=== PATIENT | female | born 1950 | race African-American/Black ===

== ENCOUNTER → 2020-11-08 09:23 | Outpatient (BNVA) | payer OTHER, MEDICAID, SELFPAY | PROVIDERS: PCP Podiatrist Foot & Ankle Surgery; Visit Provider Internal Medicine ==

== ENCOUNTER 2020-12-01 09:25 | Outpatient (REF) | payer OTHER, MEDICAID, SELFPAY ==
[2020-12-01 10:40] LABS: Alanine Aminotransferase 12 U/L (0-31); Albumin Level 4.3 g/dL (3.5-5.0); Alkaline Phosphatase 94 U/L (39-117); Anion Gap 12 (12-20); Aspartate Amino Transferase 17 U/L (5-31); Bilirubin Direct < 0.2 mg/dL (0.0-0.5); Bilirubin Total 0.4 mg/dL (0.0-1.0); Blood Urea Nitrogen 16 mg/dL (9-16); Calcium 9.9 mg/dL (8.4-10.2); Carbon Dioxide 26 mmol/L (22-29); Chloride 105 mmol/L (96-108); Estimated Glomerular Filt Rate > 60; Glucose Fasting 129 mg/dL (60-99); Potassium 3.7 mmol/L (3.3-5.1); Sodium 139 mmol/L (135-145); Total Protein 7.4 g/dL (6.5-8.0)
[2020-12-01 11:11] LABS: Syphilis Screen Nonreactive (Nonreactive)
[2020-12-01 11:22] LABS: Folate 10.6 ng/mL (> or = 4.0); Vitamin B12 484 pg/mL (200-900)
[2020-12-02 13:06] LABS: Lyme Abs Screen <0.90 index
[2020-12-08 15:01] LABS: IgA 275 mg/dL (70-320); IgG 1418 mg/dL (600-1540); IgM 114 mg/dL (50-300)
== END 2020-12-01 09:26 | disposition home or self-care (01) ==
LOC: HO.LAB 09:25
PROVIDERS: PCP Psychiatry & Neurology Psychiatry; Visit Provider Psychiatry & Neurology Neurology
DX: G62.9 Polyneuropathy, unspecified (principal)
CPT/HCPCS: 36415; 80048; 80076; 82607; 82746; 82784; 86334; 86617; 86618; 86780

== ENCOUNTER 2022-07-04 01:52 | Emergency (ER) | payer OTHER, MEDICAID, SELFPAY ==
--- NOTE | ~2022-07-04 | XR_ITS ---
EXAMINATION: XR PELVIS CLINICAL INFORMATION: Left sacroiliitis COMPARISON: None available. TECHNIQUE: AP view of the pelvis. FINDINGS: Alignment across the hips is anatomic with mild to moderate joint space narrowing and degenerative change bilaterally. No acute fracture is seen. Sacroiliac joints appear intact. There is suggestion of mild sclerosis along the right greater than left sacroiliac joints. Degenerative change noted at the pubic symphysis. There are 2 linear densities overlying the lower lumbar spine which may represent postoperative sequelae. XR/XR pelvis 1-2V IMPRESSION: Suggestion of mild sclerosis along the right greater than left sacroiliac joints which may indicate sacroiliitis. Mild to moderate degenerative changes of the hips.
[2022-07-04 02:09] VITALS: BP 108/64; PULSE 86; RESP 16; TEMP 36.7; O2SAT 98; BMI 23.6
[2022-07-04 02:26] VITALS: BP 145/73; PULSE 83; RESP 16; O2SAT 99
--- NOTE | 2022-07-04 02:31 | PC.NURSE ---
pt assessed reported having severe lower back pain for several days. took motrin w/o any relief. denies any injury
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
[2022-07-04] MEDS: Cyclobenzaprine HCl 5 MG TABLET PO (03:05)
[2022-07-04] MEDS: Lidocaine 4 % Patch ADH..PATCH 1 PATCH TRANSDERMA (03:06)
[2022-07-04] MEDS: dexAMETHasone 2 MG TABLET 10 MG PO (03:06)
[2022-07-04 04:11] VITALS: BP 152/63; PULSE 83; RESP 17; TEMP 36.8; O2SAT 100
--- NOTE | 2022-07-04 04:16 | MHC.EDTECH ---
Patient is alert and oriented Vitals are stable Patient reports no pain. Waiting for Discharge Papers
--- NOTE | 2022-07-04 04:21 | PC.NURSE ---
Took over care from ONESIMO Moody at 3:15am, Assess pain and Reviewed discharge instructions with pt, pt verbalized understanding, pt wheel out to care by this RN, no sign of distress upon discharge.
== END 2022-07-04 04:27 | disposition home or self-care (01) ==
PROVIDERS: Emergency Provider Internal Medicine
DX: M46.1 Sacroiliitis, not elsewhere classified (principal); M54.50 Low back pain, unspecified; I10 Essential (primary) hypertension; Z79.899 Other long term (current) drug therapy; Z87.891 Personal history of nicotine dependence
CPT/HCPCS: 72170; 99283; 99284; J8540

== ENCOUNTER 2024-01-15 17:48 | Emergency (ER) | payer OTHER, MEDICAID, SELFPAY ==
[2024-01-15 17:50] VITALS: BP 116/36; PULSE 98; RESP 18; TEMP 36.6; O2SAT 98; BMI 22.5
--- NOTE | 2024-01-15 18:18 | ED_ITS ---
HPI - Extremity Injury (Lower) General Chief Complaint: Extremity Injury, Lower Stated Complaint: RT foot pain Time Seen by Provider: 01/15/24 18:18 Source: patient, RN notes reviewed and old records reviewed Mode of arrival: ambulatory History of Present Illness ED Provider: Arminda Gavin PA-C HPI Narrative: 73-year-old female with a past medical history HTN, narcolepsy, schizoaffective disorder, peripheral neuropathy, presenting to the ED complaining of chronic calluses to right foot which she follows with podiatry. States she sees podiatry every 2 months however her lead janitor recently passed, last saw in November, and next appointment not until the end of January. Requesting calluses be shaved. Denies pain, fever, chills, drainage from area, injury Related Data Home Medications ?Medication ?Instructions ?Recorded ?Confirmed chlorthalidone 25 mg tablet 25 mg PO DAILY 11/08/20 11/08/20 gabapentin 300 mg capsule 300 mg PO BID 11/08/20 11/08/20 trifluoperazine 5 mg tablet 5 mg PO DAILY 11/08/20 11/08/20 trihexyphenidyl 2 mg tablet 2 mg PO DAILY 11/08/20 11/08/20 Previous Rx's ?Medication ?Instructions ?Recorded ibuprofen 600 mg tablet 600 mg PO Q6H PRN fever or pain 07/04/22 #30 tabs lidocaine 4 % topical patch 1 patch topical DAILY PRN pain #10 07/04/22 (Salonpas (lidocaine)) ea prednisone 20 mg tablet 40 mg (2 x 20 mg) PO DAILY #10 tabs 07/04/22 Allergies Allergy/AdvReac Type Severity Reaction Status Date / Time oxycodone AdvReac Intermediate sleepiness Verified 01/15/24 17:51 Review of Systems Review of Systems: Yes all other systems are reviewed and are negative Constitutional: Constitutional: Reports as per [facility] Past Medical History Attestation statement: The following information was validated with the patient. Source: old records reviewed Medical History Essential hypertension Cyst of neck Abnormal ultrasound of neck Refusal of blood transfusions as patient is Catholic Cervical spinal stenosis Narcolepsy Ovarian cyst Schizoaffective disorder Chronic peripheral neuropathic pain Social History Social History Alcohol intake: never Patient Tobacco Use Status: Former Tobacco user Advance Directives: No Advance Directives Information Provided: No Do you have a plan to hurt others: No Plan Physical Exam Vital Signs: Vital Signs: Last Vital Signs Temp 98 F 01/15/24 18:59 Pulse 98 01/15/24 18:59 Resp 18 01/15/24 18:59 BP 116/36 L 01/15/24 18:59 Pulse Ox 98 01/15/24 18:59 O2 Del Method Room Air 01/15/24 18:59 BMI result Body Mass Index 22.5 Const: General: cooperative, healthy appearing and no acute distress Orientation/consciousness: patient oriented x3 Limitations: no limitations HEENT: Head: Yes normal to inspection and Yes atraumatic Ears: hearing grossly normal bilaterally General nose exam: Normal external nose present Face and sinus: Yes normal facial exam Eyes: General: appearance normal, both eyes and all related structures EOM: EOMs intact bilaterally Neck: Neck: Yes normal visual inspection and Yes no meningeal signs Resp: Effort & Inspection: normal respiratory effort and no respiratory distress Cardio: Rate: regular rate Skin: Rashes: no rashes Neuro: General: patient oriented x3, tone normal and no meningeal signs Cranial nerves: Yes CN's II-XII intact bilaterally Gait exam (Neuro): Normal gait present Extrem: Other: + chronic calluses noted to plantar aspe ct of right foot. + small open skin to plantar aspect of great toe. No erythema, no warmth, nontender. No fluctuance/induration or pus drainage. Medications Administered Discontinued Medications Generic Name Dose Route Start Last Admin Trade Name Sravanq PRN Reason Stop Dose Admin Bacitracin 1 appl 01/15/24 18:35 01/15/24 18:52 Bacitracin Oint 0.9 Gm Packet TOPICAL 01/15/24 18:36 1 appl ONCE ONE Administration Protocol Medical Decision Making Medical Decision Making MDM Narrative: 73-year-old female with a past medical history HTN, narcolepsy, schizoaffective disorder, peripheral neuropathy, presenting to the ED complaining of chronic calluses to right foot which she follows with podiatry. On exam vital signs stable, NAD, nontoxic appearing, physical exam as noted above with chronic calluses to right foot. No evidence of cellulitis, abscess, or infection. Low suspicion for osteomyelitis Plan: Discussed with patient local wound care and needed Podiatry follow-up. Will provide patient with additional specialist information Please refer to course for remaining clinical decision making, interpretation of labs/imaging results, and discussions with consultants and/or family members. Results discussed with patient including worrisome signs and symptoms and strict return precautions, and when to return to the emergency department. They verbalized understanding and feel safe for discharge at this time. Differential Diagnosis Differential Diagnoses: The differential diagnosis associated with the presentation includes As above External Record Review External record reviewed: Inpatient record, Office record, Outpatient record, Prior outpatient labs, Prior outpatient radiology, Primary care record and Outside ED record Tests considered The following testing was considered but not selected: As above Chronic Conditions Patient?s care impacted by: Other Social Determinants Patient?s care significantly limited by Social Determinants of Health including: Other Social Determinant of Health Discharge Plan Discharge Clinical Impression: Callus of foot Patient Disposition: Home, Self-Care Additional Instructions: Please follow-up with podiatry Please provide local wound care as discussed If area begins look infected, is red, there is pus drainage, fever, pain return to the emergency department Prescriptions: No Action prednisone 20 mg tablet 40 mg PO DAILY Qty: 10 0RF ibuprofen 600 mg tablet 600 mg PO Q6H PRN (Reason: fever or pain) Qty: 30 0RF lidocaine [Salonpas (lidocaine)] 4 % adhesive patch,medicated 1 patch topical DAILY PRN (Reason: pain) Qty: 10 0RF Rx Instructions: may leave on for up to 12 hrs trifluoperazine 5 mg tablet 5 mg PO DAILY trihexyphenidyl 2 mg tablet 2 mg PO DAILY Rx Instructions: give with food (meal/snack) gabapentin 300 mg capsule 300 mg PO BID chlorthalidone 25 mg tablet 25 mg PO DAILY Referrals: Mague Cornejo DPM [Physician] - Brittanie Zepeda DPM [Physician] - Stanley Elliott DPM [] - Lenny Sands MD [Physician] - Benigno Sands DPM [Physician] - Interventions: ED Discharge Assessment Last Done: 01/15/24 18:59 Discharge Date/Time: 01/15/24 18:59 Print Language: Greek
--- OUTSIDE RECORDS SUMMARY | 2024-01-15 18:20 | XMS_ITS | Continuity of Care Document ---
Author Organization [facility] [place] Address [address] [place] [id number]- Care Team Providers Care Snuff Blender Name Role Phone Zac Call MD, Pau Primary Care Phys ician Encounter [facility] Date(s): 07/02/22 - 07/02/[address] [address]- Discharge Disposition: A-D/C Walkout Attending Physician: Not on Staff, Attending MD Admitting Physician: Not on Staff, Admitting MD Referring Physician: Not on Staff, Referring MD Allergies, Adverse Reactions, Alerts Substance Reaction Severity Status gabapentin Active Percocet Active Other Environmental Allergy seasonal Active Immunizations Given and Recorded Vaccine Date Status Refusal Reason tetanus/diphtheria/pertussis, acel(Tdap) 06/14/13 Given Measles/Mumps/Rubella Virus Vaccine 07/10/96 Given Problem List Condition Confirmation Course Effective Dates Status H ealth Status Informant Appendectomy Confirmed Active Eczema Confirmed Active Hypercholesterolemia Confirmed 09/23/08 Active Hypertension Confirmed 02/11/08 Active Low back pain Confirmed Active Schizophrenia Confirmed Active Tubal ligation Confirmed Active Vital Signs Most recent to oldest [Reference Range]: 1 2 Height 165 cm (07/02/22 8:38 PM) Weight 63.5 kg (07/02/22 8:38 PM) Oxygen Saturation [94-100 %] 100 % (07/02/22 10:34 PM) 100 % (07/02/22 8:38 PM) Pulse Rate [55-90 bpm] 98 bpm *H* (07/02/22 10:34 PM) 95 bpm *H* (07/02/22 8:38 PM) Blood Pressure [90-138/55-84 mm Hg] 114/ 80mm Hg (07/02/22 10:34 PM) 127/67mm Hg (07/02/22 8:38 PM) Respiratory Rate [16-30 br/min] 15 br/mi n *L* (07/02/22 8:38 PM) Temperature [96.8-100.4 DegF] 99.2 DegF (07/02/22 8:38 PM) Mode of Delivery (Oxygen) Room air (07/02/22 10:34 PM) Room air (07/02/22 8:38 PM) Blood pressure sites Arm, left (07/02/22 10:34 PM) Arm, right (07/02/22 8:38 PM) Temperature Route Oral (07/02/22 8:38 PM) Dry Weight 63.5 kg (07/02/22 8:38 PM) Patient Care team information Care Team Personnel Name: Enid Tanner Position: [facility] Outreach Member Role: Lifetime Consulting Physician Name: Pau Eubanks MD Position: Reference Physician Member Role: PCP Address: Address: [address] [place] [address] [place], [place] [address] Name: Sanjuana Rockwell RN Position: [facility] RN Member Role: Primary Care Nurse Care Team Related Persons Name: GLADYS GARCIA Address: home [address] [place] [address] Name: JOHNY GARCIA Address: home [address] [place] [address]
--- OUTSIDE RECORDS SUMMARY | 2024-01-15 18:20 | XMS_ITS | Continuity of Care Document ---
Author Organization [facility] ter Address [address] [place] [id number]- Care Team Providers Care Sign Letterer Name Role Phone Zac Call MD, Pau Primary Care Phys ician Encounter [facility] Date(s): 04/16/23 - 04/19/[address] [address]- Discharge Disposition: Transfer to [facility] Facility Attending Physician: Sloane Nichols MD Admitting Physician: Sloane Nichols MD Referring Physician: Not on Staff, Referring [...] recent to oldest [Reference Range]: 1 2 3 Oxygen Saturation [94-100 %] 98 % (04/19/23 9:00 AM) 100 % (04/18/23 1:26 PM) 100 % (04/17/23 8:05 PM) Pulse Rate [55-90 bpm] 89 bpm (04/19/23 9:00 AM) 103 bpm *H* (04/18/23 1:26 PM) 92 bpm *H* (04/17/23 8:05 PM) Blood Pressure [90-138/55-84 mm Hg] 125/69mm Hg (04/19/23 9:00 AM) 140/90mm Hg *H* (04/18/23 1:26 PM) 115/63mm Hg (04/17/23 8:05 PM) Respiratory Rate [16-30 br/min] 19 br/min (04/19/23 9:00 AM) 20 br/min (04/18/23 1:26 PM) 16 br/min (04/17/23 8:05 PM) Temperature [96.8-100.4 DegF] 98.1 DegF (04/19/23 9:00 AM) 98.4 DegF (04/17/23 8:05 PM) 98.7 DegF (04/17/23 3:38 PM) Mode of Delivery (Oxygen) Room air (04/19/23 9:00 AM) Room air (04/18/23 1: PM) Room air (04/17/23 8:05 PM) Blood pressure sites Arm, left (04/19/23 9:00 AM) Arm, right (04/18/23 1:26 PM) Arm, left (04/17/23 8:05 PM) Temperature Route Oral (04/19/23 9:00 AM) Oral (04/17/23 8:05 PM) Oral (04/17/23 3:38 PM) EKG study * Event Display: EKG Authored Date: Hospital Progress note * Nica Ann MD: PERFORM Event Display: Progress Note Hospital Authored Date: Patient: ??JERSON GARCIA ? Age:??72 Years?Sex:??Female?:??1950?? Subjective ?? Pt seen in a stretcher in the ED. She is fairly upset to see psychiatry, reports she does not wantto take the damn pills . When asked why, she reports they make her sleepy and she does not need them. Pt visibly frustrated and turned her back to this advertising writer and stopped answering questions. ?? I met with Pt's brother, sister and . They report her antipsychotic was last filled in October 2022. They were not sure why she stopped her medications. Report at home she has had worsening agitation, restlessness and gets into arguments with family. Report that she was calm yesterday but has been very upset today, demanding to go home which they do not feel is safe. We also spoke about type of unit, she does not currently have geriatric needs and an adult unit should be ok. ?? Review of Systems 10 point review of systems negative except Pertinent positives as above noted.?? Objective Vital Signs?? Temperature: 98.4 DegF (04/17/23 20:05:00) Temperature Route: Oral (04/17/23 20:05:00) Pulse Rate:??103 bpm??High (04/18/23 13:26:00) Respiratory Rate: 20 br/min (04/18/23 13:26:00) Systolic Blood Pressure:??140 mm Hg??High (04/18/23 13:26:00) Diastolic Blood Pressure:??90 mm Hg??High (04/18/23 13:26:00) Blood pressure sites: Arm, right (04/18/23 13:26:00) Mean Arterial Pressure: 107 mm Hg (04/18/23 13:26:00) Pulse Pressure: 50 mm Hg (04/18/23 13:26:00) Oxygen Saturation: 100 % (04/18/23 13:26:00) Mode of Delivery (Oxygen): Room air (04/18/23 13:26:00) ? Physical Exam ?? Mental Status Exam: Appearance:??hospital garb, shirt wrapped around her head, restless ?? Attitude: uncooperative Motor activity: restless. ? Mood: angry Affect: appropriate. ? Speech: fluent, unimpaired. ? Perception:??unclear, potential paranoia around medications and there colors? Orientation: to self, location . ? Memory: unable to assess. ? Judgment: poor. ? Insight: poor . ? Thought process: goal-directed. ? Reliability: uncertain. ? Suicidality/self-destructive behavior: none. ? Homicidality/violence: none. ? Group Detail Date Value w/Units Flags Normal Range Normal Reference Text Comment Ind TOXICOLOGY/TDM Barbiturate Screen, Urine 04/16/2023 17:00:00 EST NONE DETECTED? Y TOXICOLOGY/TDM Cannabinoid Screen, Urine 04/16/2023 17:00:00 EST NONE DETECTED? Y TOXICOLOGY/TDM Cocaine Metabolite Screen, Urine 04/16/2023 17:00:00 EST NONE DETECTED? Y TOXICOLOGY/TDM Benzodiazepine Screen, Urine 04/16/2023 17:00:00 EST NONE DETECTED? Y TOXICOLOGY/TDM Amphetamine Screen, Urine 04/16/2023 17:00:00 EST NONE DETECTED? Y TOXICOLOGY/TDM Opiate Screen, Urine 04/16/2023 17:00:00 EST NONE DETECTED? Y UA/URINALYSIS Appear/Color, Urine 04/16/2023 17:00:00 EST LIGHT YELLOW? Y UA/URINALYSIS Specific [place], Urine 04/16/2023 17:00:00 EST 1.006? 1.002-1.030 ? UA/URINALYSIS pH, Urine 04/16/2023 17:00:00 EST 6.0? 5.0-8.0 ? UA/URINALYSIS Albumin, Urine 04/16/2023 17:00:00 EST NEGATIVE? UA/URINALYSIS Glucose, Urine 04/16/2023 17:00:00 EST NEGATIVE? UA/URINALYSIS Ketones, Urine 04/16/2023 17:00:00 EST NEGATIVE? UA/URINALYSIS Bilirubin, Urine 04/16/2023 17:00:00 EST NEGATIVE? UA/URINALYSIS Hemoglobin, Urine 04/16/2023 17:00:00 EST NEGATIVE? UA/URINALYSIS Nitrite, Urine 04/16/2023 17:00:00 EST NEGATIVE? UA/URINALYSIS Leukocyte, Urine 04/16/2023 17:00:00 EST 1+?? ABN ? UA/URINALYSIS Urobilinogen 04/16/2023 17:00:00 EST NORMAL mg/dL ? UA/URINALYSIS WBC's, Urine 04/16/2023 17:00:00 EST 5 /HPF ?? 0-5 ? UA/URINALYSIS RBC's, Urine 04/16/2023 17:00:00 EST 1 /HPF ?? 0-3 ? UA/URINALYSIS Bacteria 04/16/2023 17:00:00 EST SLIGHT HPF ABN ? UA/URINALYSIS Squamous Epith 04/16/2023 17:00:00 EST 1 /HPF ?? 0-8 ? UA/URINALYSIS Mucus 04/16/2023 17:00:00 EST SLIGHT /LPF ? UA/URINALYSIS Hold Urine Culture 04/16/2023 17:00:00 EST Testing available 48 hours from time of collection.? VIROLOGY Influenza A PCR 04/16/2023 15:00:00 EST NEGATIVE? Y VIROLOGY Influenza B PCR 04/16/2023 15:00:00 EST NEGATIVE? Y VIROLOGY RSV PCR 04/16/2023 15:00:00 EST NEGATIVE? Y VIROLOGY COVID-19 PCR Specimen Source 04/16/2023 15:00:00 EST NASAL? VIROLOGY COVID-19 PCR Result 04/16/2023 15:00:00 EST NEGATIVE? Y BLOOD COUNT & DIFF WBC 04/16/2023 12:56:00 EST 5.5 k/mm3 ?? 4.0-11.0 ? BLOOD COUNT & DIFF RBC 04/16/2023 12:56:00 EST 3.52 m/mm3 L 4.20-5.40 ? BLOOD COUNT & DIFF Hgb 04/16/2023 12:56:00 EST 10.8 Gm/dL L 11.7-15.5 ? BLOOD COUNT & DIFF Hct 04/16/2023 12:56:00 EST 31.4 % L 35.7-45.8 ? CHEM GENERAL Sodium 04/16/2023 12:56:00 EST 129 mmol/L L 133-145 ? CHEM GENERAL Potassium 04/16/2023 12:56:00 EST 4.3 mmol/L ?? 3.6-5.2 ? CHEM GENERAL Chloride 04/16/2023 12:56:00 EST 93 mmol/L L 98-107 ? CHEM GENERAL Bicarbonate Level 04/16/2023 12:56:00 EST 21 mmol/L L 22-29 ? CHEM GENERAL Anion Gap 04/16/2023 12:56:00 EST 15? 4-17 ? CHEM GENERAL Glucose Level 04/16/2023 12:56:00 EST 140 mg/dL H 70-99 ? CHEM GENERAL BUN 04/16/2023 12:56:00 EST 13 mg/dL ?? 8-23 ? CHEM GENERAL Creatinine-Blood 04/16/2023 12:56:00 EST 0.9 mg/dL ?? 0.5-1.0 ? CHEM GENERAL Estimated GFR Creatinine 04/16/2023 12:56:00 EST 67 ML/MIN/1.73 M2 ? Y CHEM GENERAL Calcium 04/16/2023 12:56:00 EST 9.6 mg/dL ?? 8.6-10.5 ? CHEM GENERAL Protein, Total 04/16/2023 12:56:00 EST 6.8 Gm/dL ?? 6.2-8.2 ? CHEM GENERAL Albumin 04/16/2023 12:56:00 EST 3.9 Gm/dL ?? 3.4-4.8 ? CHEM GENERAL AG Ratio 04/16/2023 12:56:00 EST 1.3? CHEM GENERAL Alkaline Phosphatase 04/16/2023 12:56:00 EST 99 units/L ?? 35-104 ? CHEM GENERAL AST (SGOT) 04/16/2023 12:56:00 EST 26 units/L ?? 0-32 ? CHEM GENERAL ALT (SGPT) 04/16/2023 12:56:00 EST 17 units/L ?? 0-33 ? CHEM GENERAL Bilirubin, Total 04/16/2023 12:56:00 EST 0.4 mg/dL ?? 0-1.2 ? _ Inpatient Medications Medications (3) Active SCHEDULED: (2) Trifluoperazine 5 mg tablet ??Trifluoperazine 5 mg tablet, By Mouth, 2 times a day Trihexyphenidyl 2 mg Tablet (trihexyphenidyl 2 mg oral tablet) ??2 mg, By Mouth, Daily CONTINUOUS: (0) PRN: (1) Haloperidol 2 mg Tablet (haloperidol 2 mg oral tablet) ??2 mg, By Mouth, 3 times a day ? Results Recent Labs No labs resulted between 04/17/2023 00:00 and 04/18/2023 13:45? Assessment/Plan Pt is a 72-year-old female with a history of schizophrenia presents on a section 12 due to concern for medication noncompliance. ?? Pt today presenting with increased agitation, restlessness and some paranoia around medications as she has been non-compliant overnight and today with medications.?? Family??report she is worse today, do not feel she is safe to go home. Agreeable to adult inpatient psychiatric admission. ?? Per family she has been able to be fairly stable for years now on Trihexyphenidyl and hope she willbe agreeable to take medication but we also discussed as need haldol for acute agitaion. ? Dx: schizophrenia ?? Recommendation -Inpatient psychiatric bed search -Continue current medications ? Consult note * Nica Ann MD: PERFORM, MODIFY Event Display: Consultation Note Authored Date: [id number] Patient: ??JERSON GARCIA ? Age:??72 Years?Sex:??Female?:??1950?? Chief Complaint/Reason for Consultation Medication management History of Present Illness Pt is a 72-year-old female with a history of schizophrenia presents on a section 12 due to concern for medication noncompliance. ?? Per records, at initial presentation Pt states that she has not been taking her medications and that she lives at home but unable to determine why she is not taking her medications. ??She denies any medical complaints at this time including chest pain, shortness of breath or abdominal pain. ??She denies any SI or HI. Patient does not appear to be responding to internal stimuli but apparently has not been compliant with her meds for some time, unclear of exact timeframe. ??History is difficult to obtain from the patient as she does not answer questions directly and states that she does not need to be here. ?? Pt found resting in a stretcher in B pod. More awake, alert and engaging. Reports she lives withher Emmett and daughter Aranza. Pt reports she stopped her Stelazine which she has been taking for years. She reports there is a blue version and a white version depending on name brand or generic and she likes the blue one the most. She did not have a reason for stopping her medications, reports she could not get it any longer. She is agreeable to start her medication. She denies depression, denies SI/HI, denies AVH and denies evelia symptoms. ?? Past Psychiatric hx: Reported hx of Schizophrenia Remote hx of psychiatric admissions-2011, 2002 and 2006?? Pt last prescribed?trifluoperazine in 10/2022 ??but continues to be prescribed ?? trihexyphenidylby PCP. Appears pt has been on trifluoperazine for a very long time. ? Review of Systems 10 point review of systems negative except Pertinent positives as above noted.?? Objective Vital Signs?? Temperature: 98.2 DegF (04/17/23 08:30:00) Temperature Route: Oral (04/17/23 08:30:00) Pulse Rate: 70 bpm (04/17/23 08:30:00) Respiratory Rate: 18 br/min (04/17/23 08:30:00) Systolic Blood Pressure:??141 mm Hg??High (04/17/23 08:30:00) Diastolic Blood Pressure: 82 mm Hg (04/17/23 08:30:00) Blood pressure sites: Arm, left (04/16/23 16:24:00) Mean Arterial Pressure: 98 mm Hg (04/16/23 16:24:00) Pulse Pressure: 59 mm Hg (04/17/23 08:30:00) Oxygen Saturation: 98 % (04/17/23 08:30:00) Mode of Delivery (Oxygen): Room air (04/16/23 16:24:00) ? Physical Exam ?? Mental Status Exam: Appearance:??hospital garb?? Attitude: cooperative. ? Motor activity: calm. ? Mood: ok . ? Affect: appropriate. ? Speech: fluent, unimpaired. ? Perception: no impairment. ? Orientation:??to self and location. ?? Memory: fair. ? Judgment: fair. ? Insight: intact. ? Thought process: goal-directed. ? Reliability: fair . ? Suicidality/self-destructive behavior: none. ? Homicidality/violence: none. ?? Group Detail Date Value w/Units Flags Normal Range Normal Reference Text Comment Ind TOXICOLOGY/TDM Barbiturate Screen, Urine 04/16/2023 17:00:00 EST NONE DETECTED? Y TOXICOLOGY/TDM Cannabinoid Screen, Urine 04/16/2023 17:00:00 EST NONE DETECTED? Y TOXICOLOGY/TDM Cocaine Metabolite Screen, Urine 04/16/2023 17:00:00 EST NONE DETECTED? Y TOXICOLOGY/TDM Benzodiazepine Screen, Urine 04/16/2023 17:00:00 EST NONE DETECTED? Y TOXICOLOGY/TDM Amphetamine Screen, Urine 04/16/2023 17:00:00 EST NONE DETECTED? Y TOXICOLOGY/TDM Opiate Screen, Urine 04/16/2023 17:00:00 EST NONE DETECTED? Y UA/URINALYSIS Appear/Color, Urine 04/16/2023 17:00:00 EST LIGHT YELLOW? Y UA/URINALYSIS Specific [place], Urine 04/16/2023 17:00:00 EST 1.006? 1.002-1.030 ? UA/URINALYSIS pH, Urine 04/16/2023 17:00:00 EST 6.0? 5.0-8.0 ? UA/URINALYSIS Albumin, Urine 04/16/2023 17:00:00 EST NEGATIVE? UA/URINALYSIS Glucose, Urine 04/16/2023 17:00:00 EST NEGATIVE? UA/URINALYSIS Ketones, Urine 04/16/2023 17:00:00 EST NEGATIVE? UA/URINALYSIS Bilirubin, Urine 04/16/2023 17:00:00 EST NEGATIVE? UA/URINALYSIS Hemoglobin, Urine 04/16/2023 17:00:00 EST NEGATIVE? UA/URINALYSIS Nitrite, Urine 04/16/2023 17:00:00 EST NEGATIVE? UA/URINALYSIS Leukocyte, Urine 04/16/2023 17:00:00 EST 1+?? ABN ? UA/URINALYSIS Urobilinogen 04/16/2023 17:00:00 EST NORMAL mg/dL ? UA/URINALYSIS WBC's, Urine 04/16/2023 17:00:00 EST 5 /HPF ?? 0-5 ? UA/URINALYSIS RBC's, Urine 04/16/2023 17:00:00 EST 1 /HPF ?? 0-3 ? UA/URINALYSIS Bacteria 04/16/2023 17:00:00 EST SLIGHT HPF ABN ? UA/URINALYSIS Squamous Epith 04/16/2023 17:00:00 EST 1 /HPF ?? 0-8 ? UA/URINALYSIS Mucus 04/16/2023 17:00:00 EST SLIGHT /LPF ? UA/URINALYSIS Hold Urine Culture 04/16/2023 17:00:00 EST Testing available 48 hours from time of collection.? BLOOD COUNT & DIFF WBC 04/16/2023 12:56:00 EST 5.5 k/mm3 ?? 4.0-11.0 ? BLOOD COUNT & DIFF RBC 04/16/2023 12:56:00 EST 3.52 m/mm3 L 4.20-5.40 ? BLOOD COUNT & DIFF Hgb 04/16/2023 12:56:00 EST 10.8 Gm/dL L 11.7-15.5 ? BLOOD COUNT & DIFF Hct 04/16/2023 12:56:00 EST 31.4 % L 35.7-45.8 ? CHEM GENERAL Sodium 04/16/2023 12:56:00 EST 129 mmol/L L 133-145 ? CHEM GENERAL Potassium 04/16/2023 12:56:00 EST 4.3 mmol/L ?? 3.6-5.2 ? CHEM GENERAL Chloride 04/16/2023 12:56:00 EST 93 mmol/L L 98-107 ? CHEM GENERAL Bicarbonate Level 04/16/2023 12:56:00 EST 21 mmol/L L 22-29 ? CHEM GENERAL Anion Gap 04/16/2023 12:56:00 EST 15? 4-17 ? CHEM GENERAL Glucose Level 04/16/2023 12:56:00 EST 140 mg/dL H 70-99 ? ENDOCRINE/TUMOR MARKER TSH 04/16/2023 12:56:00 EST 1.06 uIU/mL ?? 0.4-4.2 ? TOXICOLOGY/TDM Ethanol, Serum or Plasma 04/16/2023 12:56:00 EST NONE DETECTED mg/dL ? Y Assessment/Plan Diagnoses ?? Pt is a 72-year-old female with a history of schizophrenia presents on a section 12 due to concern for medication noncompliance. ?? Pt today presents more engaging and alert, denies depression, denies SI/HI, denies AVH and no grossmania or psychosis noted. ?? Recommend to restart home trifluoperazine?? once family brings it in, otherwise can offer??prn haldol 2mg TID prn??for anxiety or agitation. ?? Currently no overt signs of evelia, psychosis or self harm noted. Pt has been calm as well. ?? Pt currently does not meet criteria for psychiatric admission. ?? I called and left??message for ??Emmett and daughter's number is no longer in service. ? Dx: Schizophrenia ? Recommendations: -Restart trifluoperazine??when family brings it in -Currently does not require a psychiatric admission -If presentation changes can re-assess ? Histories Allergies Allergies ?(Active and Proposed Allergies Only) Percocet? (Severity: Unknown severity, Onset: Unknown) gabapentin? (Severity: Unknown severity, Onset: Unknown) Other Environmental Allergy? (Severity: Unknown severity, Onset: Unknown) ?Reactions: seasonal ? Past Medical History/Problem List Active Problems??(7) Appendectomy Eczema Hypercholesterolemia Hypertension Low back pain Schizophrenia Tubal ligation ? Past Surgical History Discectomy, anterior, with decompression of spinal cord and/or nerve root(s), including osteophytectomy; cervical, single interspace: 2006 ? Social History No social history documented. ? Psychosocial History ? Family History Mother: Diabetes mellitus type II Sister: Diabetes mellitus type II Sibling: Hyperlipidemia ? Medications Home Medications No medications documented.? Inpatient Medications Medications (1) Active SCHEDULED: (0) CONTINUOUS: (0) PRN: (1) Haloperidol 2 mg Tablet (haloperidol 2 mg oral tablet) ??2 mg, By Mouth, 3 times a day ? Results ? CBC, CBC w/Diff?? No qualifying data available. ?? LFT?? No qualifying data available. ?? Urinalysis Albumin, Urine: NEGATIVE (17:00) Appear/Color, Urine: LIGHT YELLOW (17:00) Bacteria: SLIGHT Abnormal (17:00) Bilirubin, Urine: NEGATIVE (17:00) Glucose, Urine: NEGATIVE (17:00) Hemoglobin, Urine: NEGATIVE (17:00) Hold Urine Culture: Testing available 48 hours from time of collection. (17:00) Ketones, Urine: NEGATIVE (17:00) Leukocyte, Urine: 1+ Abnormal (17:00) Mucus: SLIGHT (17:00) Nitrite, Urine: NEGATIVE (17:00) pH, Urine: 6 (17:00) RBC's, Urine: 1 /HPF (17:00) Specific [place], Urine: 1.006 (17:00) Squamous Epith: 1 /HPF (17:00) Urobilinogen: NORMAL (17:00) WBC's, Urine: 5 /HPF (17:00) ? * Nica Ann MD: PERFORM Event Display: Consultation Note Authored Date: [id number] Patient: ??JERSON GARCIA ? Age:??72 Years?Sex:??Female?:??1950? Pt is a 72-year-old female with a history of schizophrenia presents on a section 12 due to concern for medication noncompliance. ?? Pt mostly uncooperative with assessment today, has not been seen by [facility] in some time. ?? Pt last prescribed?trifluoperazine in 10/2022 ??but continues to be prescribed ?? trihexyphenidylby PCP. Appears pt has been on trifluoperazine for a very long time. ?? Temperature?97.6 ?(15:19) Systolic Blood Pressure?148 ?(16:24) Diastolic Blood Pressure?73 ?(16:24) Pulse?81 ?(16:24) SpO2?97 ?(16:24) Respiratory Rate?19 ?(16:24) ? Group Detail Date Value w/Units Flags Normal Range Normal Reference Text Comment Ind BLOOD COUNT & DIFF WBC 04/16/2023 12:56:00 EST 5.5 k/mm3 ?? 4.0-11.0 ? BLOOD COUNT & DIFF RBC 04/16/2023 12:56:00 EST 3.52 m/mm3 L 4.20-5.40 ? BLOOD COUNT & DIFF Hgb 04/16/2023 12:56:00 EST 10.8 Gm/dL L 11.7-15.5 ? BLOOD COUNT & DIFF Hct 04/16/2023 12:56:00 EST 31.4 % L 35.7-45.8 ? CHEM GENERAL Sodium 04/16/2023 12:56:00 EST 129 mmol/L L 133-145 ? CHEM GENERAL Potassium 04/16/2023 12:56:00 EST 4.3 mmol/L ?? 3.6-5.2 ? CHEM GENERAL Chloride 04/16/2023 12:56:00 EST 93 mmol/L L 98-107 ? CHEM GENERAL Bicarbonate Level 04/16/2023 12:56:00 EST 21 mmol/L L 22-29 ? CHEM GENERAL Anion Gap 04/16/2023 12:56:00 EST 15? 4-17 ? CHEM GENERAL Glucose Level 04/16/2023 12:56:00 EST 140 mg/dL H 70-99 ? ENDOCRINE/TUMOR MARKER TSH 04/16/2023 12:56:00 EST 1.06 uIU/mL ?? 0.4-4.2 ? TOXICOLOGY/TDM Ethanol, Serum or Plasma 04/16/2023 12:56:00 EST NONE DETECTED mg/dL ? Y ? A/P: ? Pt is a 72-year-old female with a history of schizophrenia presents on a section 12 due to concern for medication noncompliance. ? Recommendations: -We do not have trifluoperazine?? on formulary -For now can offer prn Haldol 2mg TID prn for agitation -Will continue to followup ?? Patient Care team information Care Team Personnel Name: Enid Tanner Position: [facility] Outreach Member Role: Lifetime Consulting Physician Name: Zac Call MD, Pau Position: Reference Physician Member Role: PCP Address: Address: [address] [place] [address] [place], [place] [address] Name: Sanjuana Rockwell RN Position: [facility] RN Member Role: Primary Care Nurse Care Team Related Persons Name: EMMETT GARCIA Address: home [address] [place] [address] Name: ARANZA GARCIA Address: home [address] [place] [address]
[2024-01-15] MEDS: Bacitracin Oint 0.9 GM PACKET 1 APPL TOPICAL (18:52)
[2024-01-15 18:59] VITALS: BP 116/36; PULSE 98; RESP 18; TEMP 36.6; O2SAT 98
== END 2024-01-15 18:59 | disposition home or self-care (01) ==
PROVIDERS: Emergency Provider Emergency Medicine Emergency Medical Services; PCP Internal Medicine
DX: L84 Corns and callosities (principal); I10 Essential (primary) hypertension; M79.671 Pain in right foot; Z79.899 Other long term (current) drug therapy
CPT/HCPCS: 99282; 99283

== ENCOUNTER 2024-02-07 11:52 | Inpatient (IN) | payer OTHER, MEDICAID, SELFPAY ==
--- NOTE | ~2024-02-07 | XR_ITS ---
EXAMINATION: XR FOOT, RIGHT CLINICAL INFORMATION: Right foot ulcer. osteomyelitits? COMPARISON: None available. TECHNIQUE: AP, lateral, and oblique views of the right foot. FINDINGS: No acute cortical disruption or malalignment. No osteolysis. No subcutaneous emphysema. No metallic or radiopaque foreign body. No periosteal bone reaction. No lytic or blastic lesions. XR/XR foot RT 2V IMPRESSION: Negative exam. If clinical concern recommend IV contrast enhanced MRI right foot. Electronically signed by: Reagan Moses MD 02/07/2024 03:54 PM EST
[2024-02-07 11:56] VITALS: BP 129/63; PULSE 89; RESP 18; TEMP 36.2; O2SAT 98; BMI 21.8
--- NOTE | 2024-02-07 12:04 | ED.GENADULT ---
HPI - General Adult General Chief complaint: Wound/Laceration Stated complaint: R foot infection? Time Seen by Provider: 02/07/24 12:26 Source: patient Mode of arrival: ambulatory Limitations: no limitations History of Present Illness ED Provider: Yuliana Gaytan PA-C HPI narrative: 73 yo female iwth history of HTN, narcolepsy, schizoaffective disorder, peripheral neuropathy who presents to the ER from [facility] for evaluation of a foul smelling right foot wound that has been present for 1 month. She states she has had chronic calluses on the plantar aspect of her right foot since September for which she was seeing Podiatry. The last 3 weeks the area opened up on the ball of her foot. It is painless. She saw Telephone Directory Distributor Driver who stated the wound probes to the bone. It was debrided and cultures were taken. She was sent to the ER for IV antibiotics given the extent of infection. She denies fever or chills at home. She is not diabetic. MD complaint: plantar wound right foot Onset (ago): week(s) Location: right and lower extremity Radiation: non-radiation Relieving factors: none Exacerbating factors: none Associated symptoms: denies other symptoms Treatments prior to arrival: none Related Data Home Medications ?Medication ?Instructions ?Recorded ?Confirmed trifluoperazine 5 mg tablet 5 mg PO DAILY 11/08/20 02/07/24 trihexyphenidyl 2 mg tablet 2 mg PO DAILY 11/08/20 02/07/24 albuterol sulfate 90 mcg/actuation 2 puff inhalation QID PRN wheezing 02/07/24 02/07/24 aerosol inhaler hydrocortisone 2.5 % topical cream 1 appl topical BID PRN Itchiness 02/07/24 02/07/24 pravastatin 10 mg tablet 10 mg PO DAILY 02/07/24 02/07/24 Allergies Allergy/AdvReac Type Severity Reaction Status Date / Time acetaminophen [From Percocet] Allergy Hallucinati Verified 02/07/24 12:01 ons oxycodone AdvReac Intermediate sleepiness Verified 01/15/24 17:51 Review of Systems Review of Systems: Yes all other systems are reviewed and are negative PMFSH Past Medical History Medical History Essential hypertension Cyst of neck Abnormal ultrasound of neck Refusal of blood transfusions as patient is Taoist Cervical spinal stenosis Narcolepsy Ovarian cyst Schizoaffective disorder Chronic peripheral neuropathic pain Social History Social History Alcohol intake: never Patient Tobacco Use Status: Former Tobacco user Smoked in Last 30 Days: No Use of substances other than those prescribed or required for medical reasons: No Advance Directives: No Advance Directives Information Provided: Yes Do you have a plan to hurt others: No Plan Physical Exam ED Vital Signs: Vital Signs - 24 hr 02/07/24 11:56 02/07/24 14:29 Temperature 97.2 F Pulse Rate 89 89 Respiratory Rate 18 16 Blood Pressure 129/63 163/89 H Pulse Oximetry 98 100 Oxygen Delivery Method Room Air Room Air BMI result Body Mass Index 21.8 Appearance: Alert. Oriented X3. No acute distress. Head: normocephalic, atraumatic. Eyes: Pupils equal, round and reactive to light. ENT: Pharynx normal. No tonsillar swelling or exudate. Neck: Normal inspection. Neck supple. CVS: Normal heart rate and rhythm. Pulses normal. Respiratory: No respiratory distress. Breath sounds normal. Abdomen: Soft and nontender. +BS x4 Skin: Skin warm and dry. Normal skin color. Normal skin turgor. No rashes. Extremities: No lower extremity edema. No joint swelling. right foot is warm and well perfused with 2+ DP/PD pulses. plantar aspect of the right foot with a significant wound w/ bogginess, w/ foul smell. great toe with discoloration and excoriations. nontender to touch. no fluctuance. see photos Neuro/psych: Oriented X 3. No motor deficit. No sensory deficit. CN II-XII intact. Normal speech and cognition. Course Course Course Narrative: RME: 73-year-old female presents to ED for chronic right foot ulcer was sent by primary care provider to rule out an infection due to foul odor. X-ray labs ordered Medications Administered Discontinued Medications Generic Name Dose Route Start Last Admin Trade Name Freq PRN Reason Stop Dose Admin Vancomycin HCl 1,500 mg/ 500 mls @ 333.333 mls/hr 02/07/24 13:06 02/07/24 14:27 Sodium Chloride IV 02/07/24 14:35 333.33 mls/hr ONCE ONE Administration Cefepime HCl 2 gm in 50 mls @ 100 mls/hr 02/07/24 13:06 02/07/24 14:29 Maxipime IV 02/07/24 13:35 Infused ONCE ONE Infusion Medical Decision Making Medical Decision Making [facility] Narrative: 73 yo female presenting from tool and die maker/designer office for evaluation of 1 month of worsening right foot would. no hx DM or PAD. exam with foul smell wound, no active drainage. area is nontender VS are stable. no leukocytosis on labs. not septic at this time Telephone Directory Distributor Driver probed the wound and it goes down to the bone will admit for IV abx and surgery consult Differential Diagnosis Differential Diagnoses: The differential diagnosis associated with the presentation includes osteomyelitis, cellulitis, abscess, necrosis, PVD Admission/Observation Consideration of admission/observation: Escalation of care including admission/observation considered Lab Data [facility] Lab Attestation statement: I reviewed the patient's lab results. mild anemia, significantly elevated inflammatory markers 02/07/24 12:36 02/07/24 12:36 Labs: Lab Results 02/07/24 Range/Units 12:36 WBC 5.9 (4.8-10.8) X10*3/uL RBC 3.40 L (4.20-5.50) X10*6/uL Hgb 10.7 L (12.0-16.0) g/dl Hct 31.6 L (37.0-47.0) % MCV 92.9 (80.0-98.0) fL MCH 31.5 (27.0-33.0) pg MCHC 33.9 (31.0-35.0) g/dl RDW 13.3 (11.0-16.0) % Plt Count 237 (160-400) X10*3/uL MPV 10.3 (9.4-12.3) fL Immature Gran % (Auto) 0.3 (0.0-0.4) % Neut % (Auto) 69.2 (45-73) % Lymph % (Auto) 18.9 L (20-40) % [place] % (Auto) 10.2 (2-11) % Eos % (Auto) 0.9 (0-4) % Baso % (Auto) 0.5 (0-2) % Lymph # (Auto) 1.1 L (1.2-4.9) X10*3/uL [place] # (Auto) 0.6 (0.1-1.2) X10*3/uL Eos # (Auto) 0.1 (0.0-0.4) X10*3/uL Baso # (Auto) 0.0 (0.0-0.2) X10*3/uL Abs Immat Gran (auto) 0.02 (0.00-0.03) X10*3/uL Absolute Neuts (auto) 4.1 (2.0-8.3) x10*3/uL Absolute Nucleated RBC 0.000 (0.0-0.012) X10*3/uL Nucleated RBC % (auto) 0.0 (0.0-0.2) /100WBC ESR 69 H (0-20) MM/HR Sodium 139 (135-145) mmol/L Potassium 4.3 (3.3-5.1) mmol/L Chloride 107 (96-108) mmol/L Carbon Dioxide 25 (22-29) mmol/L Anion Gap 11 L (12-20) BUN 13 (9-16) mg/dL Creatinine 0.80 (0.5-1.4) mg/dL Estim Creat Clear Calc 57.1 Estimated GFR > 60 Random Glucose 94 (60-115) mg/dL Calcium 10.1 (8.4-10.2) mg/dL Total Bilirubin 0.4 (0.0-1.0) mg/dL AST 28 (5-31) U/L ALT 19 (0-31) U/L Alkaline Phosphatase 77 (39-117) U/L C-Reactive Protein 6.05 H (< or = 0.50) mg/dL Total Protein 7.4 (6.5-8.0) g/dL Albumin 3.7 (3.5-5.0) g/dL Independent Interpretation I performed an independent interpretation of an: Plain X-Ray Interpretation: no obvious bony lesion Radiology Impression Discussion of test interpretation with radiology: I have reviewed the radiologist's reading. Radiologist Impression: EXAMINATION: XR FOOT, RIGHT CLINICAL INFORMATION: Right foot ulcer. osteomyelitits? COMPARISON: None available. TECHNIQUE: AP, lateral, and oblique views of the right foot. FINDINGS: No acute cortical disruption or malalignment. No osteolysis. No subcutaneous emphysema. No metallic or radiopaque foreign body. No periosteal bone reaction. No lytic or blastic lesions. XR/XR foot RT 2V IMPRESSION: Negative exam. If clinical concern recommend IV contrast enhanced MRI right foot. External Record Review External record reviewed: Outpatient record Prescription Management I considered prescription management with: Pain Medication and Antibiotic Critical Care Time Critical Care Time Critical Care Time: No Discharge Plan Discharge Clinical Impression: Wound, open, foot Qualifiers: Encounter type: initial encounter Laterality: right Qualified Code(s): S91.301A - Unspecified open wound, right foot, initial encounter Patient Disposition: Admitted As Inpatient
[2024-02-07 12:43] LABS: MANUAL DIFF FLAG NO
[2024-02-07 12:46] LABS: Basophils Percent Auto 0.5 % (0-2); Eosinophils Absolute Auto 0.1 X10*3/uL (0.0-0.4); Eosinophils Percent Auto 0.9 % (0-4); Hematocrit 31.6 % (37.0-47.0); Hemoglobin 10.7 g/dl (12.0-16.0); Imm Gran Abs Auto 0.02 X10*3/uL (0.00-0.03); Imm Gran Pct Auto 0.3 % (0.0-0.4); Lymphocytes Absolute Auto 1.1 X10*3/uL (1.2-4.9); Lymphocytes Percent Auto 18.9 % (20-40); Mean Corpuscular HGB Conc 33.9 g/dl (31.0-35.0); Mean Corpuscular Hemoglobin 31.5 pg (27.0-33.0); Mean Corpuscular Volume 92.9 fL (80.0-98.0); Mean Platelet Volume 10.3 fL (9.4-12.3); Monocytes Absolute Auto 0.6 X10*3/uL (0.1-1.2); Monocytes Percent Auto 10.2 % (2-11); Neutrophils Absolute Auto 4.1 x10*3/uL (2.0-8.3); Neutrophils Percent Auto 69.2 % (45-73); Platelet Count 237 X10*3/uL (160-400); Red Cell Distribution Width 13.3 % (11.0-16.0); White Blood Count 5.9 X10*3/uL (4.8-10.8)
[2024-02-07 13:04] LABS: Alanine Aminotransferase 19 U/L (0-31); Albumin Level 3.7 g/dL (3.5-5.0); Alkaline Phosphatase 77 U/L (39-117); Anion Gap 11 (12-20); Aspartate Amino Transferase 28 U/L (5-31); Bilirubin Total 0.4 mg/dL (0.0-1.0); Blood Urea Nitrogen 13 mg/dL (9-16); C Reactive Protein 6.05 mg/dL (< or = 0.50); Calcium 10.1 mg/dL (8.4-10.2); Carbon Dioxide 25 mmol/L (22-29); Chloride 107 mmol/L (96-108); Creatinine Clr Calc Pharmacy 57.1; Estimated Glomerular Filt Rate > 60; Glucose Random 94 mg/dL (60-115); Potassium 4.3 mmol/L (3.3-5.1); Sodium 139 mmol/L (135-145); Total Protein 7.4 g/dL (6.5-8.0)
[2024-02-07 13:22] LABS: Erythrocyte Sedimentation Rate 69 MM/HR (0-20)
[2024-02-07] MEDS: cefEPime HCl/D5W 2 GM/50 ML PIGGYBACK IV (13:54)
[2024-02-07] MEDS: vancomycin HCL 1,500 MG in 0.9 % Sodium Chloride 500 ML 333.33 MG IV (14:27)
[2024-02-07 14:29] VITALS: BP 163/89; PULSE 89; RESP 16; O2SAT 100
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
--- NOTE | 2024-02-07 15:27 | PHA.MEDREC ---
Addendum entered by Cassandra Glover RPh 02/07/24 15:34: reviewed by [facility]. Original Note: Pharmacy Consult ? Medication Reconciliation Pharmacy has completed the medication reconciliation. Confirmed medications with patient. She stated she hasn't taken her Chlorthalidone 25mg tab in about a month since her last Dr appointment stating her blood pressure was normal then so she decided to stop it. She confirmed she took all her medication this morning.
[2024-02-07 15:31] VITALS: BP 148/77; PULSE 86; RESP 20; TEMP 36.6; O2SAT 99
--- NOTE | 2024-02-07 15:50 | PHA.PROG ---
Admission Date/Time: February 07, 2024 15:13 Indication: SKIN INFECTION Weight in k.4 kg Adjusted body weight in Kg: [place] body weight in Kg: Obesity Dosing Indication % IBW: Serum Creatinine - Last 168 Hours 02/07/24 12:36 Creatinine 0.80 Estimated CrCl and GFR - Last 168 Hours 02/07/24 12:36 Estim Creat Clear Calc 57.1 Estimated GFR > 60 Vancomycin Loading Dose: 1500 MG Current Vancomycin Dosing Regimen: 1250 MG Q24H Vancomycin Monitoring using AUC goal of 400 - 600 range with trough as surrogate marker: TFC=494 TROUGH=13.4 Date and Time for next Vancomycin Level to be drawn: 02/10/24 @1200 Pharmacist Comments on Vancomycin Plan: Vancomycin dosing will take advantage of [employer] as a clinical decision support tool that uses Bayesian modeling to calculate individual patient's pharmacokinetic parameters and forecast the patient's drug concentration time course with the target goal AUC 24 range of 400 - 600 mg/L/hr.
[2024-02-07] MEDS: 0.9 % Sodium Chloride Flush 3 ML SYRINGE IVFLUSH ×3 (16:25→22:11)
[2024-02-07 17:47] VITALS: BP 188/87; PULSE 92; RESP 18; TEMP 36.4; O2SAT 99
[2024-02-07 18:15] VITALS: BMI 29.3
[2024-02-07] MEDS: Piperacillin Sodium/Tazobactam 3.375 GM in 0.9 % Sodium Chloride 50 ML IV ×2 (18:27→22:16)
--- NOTE | 2024-02-07 18:55 | PM.CNGS ---
History of Present Illness Consult details Consult date: 02/07/24 Narrative: [age] year old female referred for a plantar wound on the right foot. She has known schizophrenia, and apparently has had this wound for about 2-3 months. She had previously seen a community youth secretary for this because there had been a thick callus. She was referred to the ED by her community youth secretary as the wound appeared tunnel all the way bone. She denies any fever or chills. She has known chronic peripheral neuropathic pain. She denies any trauma to the area. She is not a very good historian. Review of Systems Constitutional: Constitutional: Denies chills and Denies fever(s) Cardiovascular: Cardiovascular: Denies chest pain Respiratory: Respiratory: Denies cough Gastrointestinal: Gastrointestinal: Denies abdominal pain Genitourinary: Genitourinary: Denies difficulty voiding PMFSH Past Medical History Medical History (Updated 02/19/24 @ 00:04 by Felecia Sena) Osteomyelitis Right foot ulcer Essential hypertension Cyst of neck Abnormal ultrasound of neck Refusal of blood transfusions as patient is Yazdanism Cervical spinal stenosis Narcolepsy Ovarian cyst Schizoaffective disorder Chronic peripheral neuropathic pain Social History Social History Household Members: Spouse Housing: Apartment Do you presently have visiting nurse or other home services: Yes Alcohol intake: never Patient Tobacco Use Status: Former Tobacco user Advance Directives: No Advance Directives Information Provided: No service: No Meds Allergies Allergy/AdvReac Type Severity Reaction Status Date / Time acetaminophen [From Percocet] Allergy Hallucinati Verified 02/18/24 14:23 ons oxycodone AdvReac Intermediate sleepiness Verified 02/18/24 14:23 Active Medications: Current Medications Albuterol Sulfate (Albuterol Sulfate 90 Mcg 8 Gm Inhaler) 2 puff INHALE QID PRN PRN Reason: wheezing Calcium Carbonate (Calcium Carbonate 750 Mg Tab.Chew) 750 mg PO Q4H PRN PRN Reason: Heartburn Piperacillin Sod/Tazobactam (Sod 3.375 gm/ Sodium Chloride) 50 mls @ 100 mls/hr IV Q6H GIANNI Last Admin: 02/07/24 18:27 Dose: 100 mls/hr Vancomycin HCl 1,250 mg/ (Sodium Chloride) 250 mls @ 166.667 mls/hr IV Q24H [facility] Ibuprofen (Ibuprofen 600 Mg Tablet) 600 mg PO Q8H PRN PRN Reason: Fever >100.4 Magnesium Hydroxide (Milk Of Magnesia 30 Ml Oral.Susp) 30 ml PO DAILY PRN PRN Reason: Constipation Melatonin (Melatonin 3 Mg Tablet) 6 mg PO BEDTIME PRN PRN Reason: Insomnia Morphine Sulfate (Morphine Sulfate 4 Mg/Ml Cartridge) 2 mg IVPUSH Q6H PRN; Protocol PRN Reason: Pain, Severe (Pain Scale 7-10) Ondansetron HCl (Ondansetron Hcl 4 Mg/2 Ml Vial) 4 mg IVPUSH Q8H PRN PRN Reason: Nausea and Vomiting Oxycodone HCl (Oxycodone Hcl Immed Release 5 Mg Tablet) 5 mg PO Q6H PRN PRN Reason: Pain, Moderate(Pain Scale 4-6) Pharmacy Consult (Consult Rx Vancomycin Dosing) 1 each MISCELLANE DAILY PRN PRN Reason: Consult order Pravastatin Sodium (Pravastatin Sodium 10 Mg Tablet) 10 mg PO DAILY [facility] Sodium Chloride (0.9 % Sodium Chloride Flush 3 Ml Syringe) 3 ml IVFLUSH [facility] Last Admin: 02/07/24 18:27 Dose: 3 ml Trifluoperazine HCl (Trifluoperazine Hcl 5 Mg Tablet) 5 mg PO DAILY [facility] Trihexyphenidyl HCl (Trihexyphenidyl Hcl 2 Mg Tablet) 2 mg PO DAILY [facility] Home Medications ?Medication ?Instructions ?Recorded ?Confirmed ?Last Taken ?Type trifluoperazine 5 mg tablet 5 mg PO DAILY 11/08/20 02/07/24 02/07/24 History trihexyphenidyl 2 mg tablet 2 mg PO DAILY 11/08/20 02/07/24 02/07/24 History albuterol sulfate 90 mcg/actuation 2 puff inhalation QID PRN wheezing 02/07/24 02/07/24 Unknown History aerosol inhaler hydrocortisone 2.5 % topical cream 1 appl topical BID PRN Itchiness 02/07/24 02/07/24 Unknown History pravastatin 10 mg tablet 10 mg PO DAILY 02/07/24 02/07/24 02/07/24 History Physical Exam Vital Signs: Vital Signs: Last Vital Signs Temp 97.5 F 02/07/24 17:47 Pulse 92 02/07/24 17:47 Resp 18 02/07/24 17:47 BP 188/87 H 02/07/24 17:47 Pulse Ox 99 02/07/24 17:47 O2 Del Method Room Air 02/07/24 17:47 BMI result Body Mass Index 29.3 Const: Other: Has some flight of ideas General: comfortable and no acute distress Resp: Effort & Inspection: normal respiratory effort Cardio: Rate: regular rate GI: Palpation (GI): Soft to palpation and not firm Extrem: Other: Right foot with a plantar ulcer, on the forefoot near the metatarsal head, appearing as a sinus, tunneling, about 1 cm in widest dimension, with no necrotic tissue There was also note of a superficial ulcer on the plantar aspect of the big toe in the same foot Results Labs 02/10/24 05:07 02/10/24 05:07 Labs: Abnormal lab results 02/07/24 Range/Units 12:36 RBC 3.40 L (4.20-5.50) X10*6/uL Hgb 10.7 L (12.0-16.0) g/dl Hct 31.6 L (37.0-47.0) % Lymph % (Auto) 18.9 L (20-40) % Lymph # (Auto) 1.1 L (1.2-4.9) X10*3/uL ESR 69 H (0-20) MM/HR Anion Gap 11 L (12-20) C-Reactive Protein 6.05 H (< or = 0.50) mg/dL Short CBC 02/07/24 Range/Units 12:36 WBC 5.9 (4.8-10.8) X10*3/uL Hgb 10.7 L (12.0-16.0) g/dl Hct 31.6 L (37.0-47.0) % Plt Count 237 (160-400) X10*3/uL BMP 02/07/24 12:36 Sodium 139 Potassium 4.3 Chloride 107 Carbon Dioxide 25 BUN 13 Creatinine 0.80 Calcium 10.1 Liver Function 02/07/24 Range/Units 12:36 Total Bilirubin 0.4 (0.0-1.0) mg/dL AST 28 (5-31) U/L ALT 19 (0-31) U/L Alkaline Phosphatase 77 (39-117) U/L Albumin 3.7 (3.5-5.0) g/dL All other labs normal. Assessment and Plan (1) Right foot ulcer: Status: Acute Plan This appears to be tunneling deep to the metatarsal. Osteomyelitis should be ruled out May proceed with a an MRI. She has been admitted for IV antibiotics I have changed her dressings and I have wrapped the foot with dry gauze and a Kerlix roll This dressing should be changed daily I will follow while she is in the hospital She does not appear septic. The wound does not appear to require any debridement at this time. Procedures Date of Service Date of Service: 02/19/24
[2024-02-07 19:11] VITALS: BP 139/87; PULSE 89; RESP 18; TEMP 36.4; O2SAT 99
[2024-02-07] MEDS: Trihexyphenidyl HCL 2 MG TABLET PO (22:11)
[2024-02-08] MEDS: Bismuth Subsalicylate 262 MG TABLET PO (02:10)
--- NOTE | 2024-02-08 02:13 | MHC.PIE ---
p; pt c/o diarrhea. note; pt reports hx of diarrhea, reports taking pepto bismol at home i; dr sutton notified. new order pepto bisomol now e; will cont to monitor
[2024-02-08 03:39] VITALS: BP 139/77; PULSE 108; RESP 18; TEMP 37.4; O2SAT 98
[2024-02-08] MEDS: Ibuprofen 600 MG TABLET PO (03:58)
[2024-02-08] MEDS: Piperacillin Sodium/Tazobactam 3.375 GM in 0.9 % Sodium Chloride 50 ML IV ×4 (05:54→23:14)
[2024-02-08 07:25] LABS: MANUAL DIFF FLAG NO
[2024-02-08 07:38] VITALS: BP 141/80; PULSE 96; RESP 16; TEMP 37.2; O2SAT 100
[2024-02-08 07:39] LABS: Basophils Percent Auto 0.3 % (0-2); Eosinophils Absolute Auto 0.1 X10*3/uL (0.0-0.4); Eosinophils Percent Auto 1.4 % (0-4); Hematocrit 29.4 % (37.0-47.0); Imm Gran Abs Auto 0.01 X10*3/uL (0.00-0.03); Imm Gran Pct Auto 0.2 % (0.0-0.4); Lymphocytes Percent Auto 16.1 % (20-40); Mean Corpuscular Hemoglobin 32.3 pg (27.0-33.0); Mean Corpuscular Volume 94.8 fL (80.0-98.0); Mean Platelet Volume 11.5 fL (9.4-12.3); Monocytes Absolute Auto 0.4 X10*3/uL (0.1-1.2); Monocytes Percent Auto 6.9 % (2-11); Neutrophils Absolute Auto 4.7 x10*3/uL (2.0-8.3); Neutrophils Percent Auto 75.1 % (45-73); Platelet Count 225 X10*3/uL (160-400); Red Cell Distribution Width 13.2 % (11.0-16.0); White Blood Count 6.3 X10*3/uL (4.8-10.8)
[2024-02-08 08:03] LABS: Anion Gap 12 (12-20); Blood Urea Nitrogen 17 mg/dL (9-16); Calcium 9.5 mg/dL (8.4-10.2); Carbon Dioxide 24 mmol/L (22-29); Chloride 108 mmol/L (96-108); Creatinine Clr Calc Pharmacy 69.8; Estimated Glomerular Filt Rate > 60; Glucose Random 89 mg/dL (60-115); Potassium 3.8 mmol/L (3.3-5.1); Sodium 140 mmol/L (135-145)
[2024-02-08] MEDS: 0.9 % Sodium Chloride Flush 3 ML SYRINGE IVFLUSH ×2 (08:35→23:16)
[2024-02-08] MEDS: Pravastatin Sodium 10 MG TABLET PO (08:45)
--- NOTE | 2024-02-08 09:07 | MHC.CM.PN ---
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 DE LA FUENTE PT STATES SHE HAS A HCP PT STATES SHE DOES NOT USE DME PT STATES SHE DOES NOT RECEIVE SERVICES DCP HOME V HOME WITH SERVICES TO TRANSPORT HOME PT REPORTS SHE HAS MEDICARE, IMM DELIVERED
--- NOTE | 2024-02-08 09:13 | HO.PM.IMPN ---
Subjective Subjective Date of Service: 02/08/24 Interval History: no complaints Physical Exam Vital Signs: Vital Signs: Last Vital Signs Temp 98.9 F 02/08/24 07:38 Pulse 96 02/08/24 07:38 Resp 16 02/08/24 07:38 BP 141/80 H 02/08/24 07:38 Pulse Ox 100 02/08/24 07:38 O2 Del Method Room Air 02/08/24 07:38 BMI result Body Mass Index 29.3 Const: Other: Has some flight of ideas General: comfortable and no acute distress Resp: Effort & Inspection: normal respiratory effort Cardio: Rate: regular rate GI: Palpation (GI): Soft to palpation and not firm Extrem: Other: Right foot with a plantar ulcer, on the forefoot near the metatarsal head, appearing as a sinus, tunneling, about 1 cm in widest dimension, with no necrotic tissue There was also note of a superficial ulcer on the plantar aspect of the big toe in the same foot Objective Data Active Medications Albuterol Sulfate (Albuterol Sulfate 90 Mcg 8 Gm Inhaler) 2 puff INHALE QID PRN PRN Reason: wheezing Calcium Carbonate (Calcium Carbonate 750 Mg Tab.Chew) 750 mg PO Q4H PRN PRN Reason: Heartburn Piperacillin Sod/Tazobactam (Sod 3.375 gm/ Sodium Chloride) 50 mls @ 100 mls/hr IV Q6H [facility] Last Infusion: 02/08/24 06:34 Dose: Infused Documented By: ROCIO Vancomycin HCl 1,250 mg/ (Sodium Chloride) 250 mls @ 166.667 mls/hr IV Q24H [facility] Ibuprofen (Ibuprofen 600 Mg Tablet) 600 mg PO Q8H PRN PRN Reason: Fever >100.4 Last Admin: 02/08/24 03:58 Dose: 600 mg Documented By: ROCIO Magnesium Hydroxide (Milk Of Magnesia 30 Ml Oral.Susp) 30 ml PO DAILY PRN PRN Reason: Constipation Melatonin (Melatonin 3 Mg Tablet) 6 mg PO BEDTIME PRN PRN Reason: Insomnia Morphine Sulfate (Morphine Sulfate 4 Mg/Ml Cartridge) 2 mg IVPUSH Q6H PRN; Protocol PRN Reason: Pain, Severe (Pain Scale 7-10) Ondansetron HCl (Ondansetron Hcl 4 Mg/2 Ml Vial) 4 mg IVPUSH Q8H PRN PRN Reason: Nausea and Vomiting Oxycodone HCl (Oxycodone Hcl Immed Release 5 Mg Tablet) 5 mg PO Q6H PRN PRN Reason: Pain, Moderate(Pain Scale 4-6) Pharmacy Consult (Consult Rx Vancomycin Dosing) 1 each MISCELLANE DAILY PRN PRN Reason: Consult order Pravastatin Sodium (Pravastatin Sodium 10 Mg Tablet) 10 mg PO DAILY [facility] Last Admin: 02/08/24 08:45 Dose: 10 mg Documented By: HILTON Sodium Chloride (0.9 % Sodium Chloride Flush 3 Ml Syringe) 3 ml IVFLUSH QSHIFT [facility] Last Admin: 02/08/24 08:35 Dose: 3 ml Documented By: HILTON Trifluoperazine HCl (Trifluoperazine Hcl 5 Mg Tablet) 5 mg PO DAILY [facility] Trihexyphenidyl HCl (Trihexyphenidyl Hcl 2 Mg Tablet) 2 mg PO BEDTIME [facility] Last Admin: 02/07/24 22:11 Dose: 2 mg Documented By: ROCIO Labs 02/08/24 05:35 02/08/24 05:35 Labs: Laboratory Results - last 24 hr 02/07/24 02/08/24 12:36 05:35 MCV 92.9 94.8 MCH 31.5 32.3 MCHC 33.9 34.0 RDW 13.3 13.2 Plt Count 237 225 MPV 10.3 11.5 Immature Gran % (Auto) 0.3 0.2 Neut % (Auto) 69.2 75.1 H Lymph % (Auto) 18.9 L 16.1 L [place] % (Auto) 10.2 6.9 Eos % (Auto) 0.9 1.4 Baso % (Auto) 0.5 0.3 Lymph # (Auto) 1.1 L 1.0 L [place] # (Auto) 0.6 0.4 Eos # (Auto) 0.1 0.1 Baso # (Auto) 0.0 0.0 Abs Immat Gran (auto) 0.02 0.01 Absolute Neuts (auto) 4.1 4.7 Absolute Nucleated RBC 0.000 0.000 Nucleated RBC % (auto) 0.0 0.0 ESR 69 H Anion Gap 11 L 12 Estim Creat Clear Calc 57.1 69.8 Estimated GFR > 60 > 60 Random Glucose 94 89 Calcium 10.1 9.5 Total Bilirubin 0.4 AST 28 ALT 19 Alkaline Phosphatase 77 C-Reactive Protein 6.05 H Total Protein 7.4 Albumin 3.7 Assessment and Plan (1) Wound, open, foot: Status: Acute Plan 73F PMH htn, schizophrenia, pvd, chronic neuropathy presented with tunneling RLE ulcer RLE ulcer due to traumatic neuropathy conitnue vanc zosyn, surgery appreciated no need for debridement at this time follow up ID - ?MRI vs clinical diagnosis of OM pvd statin schizophrenia trifluoperazine dvt prophylaxis - lovenox full code reason for continued hospitalization:iv abx for deep wound infection Quality Stroke Does the patient have a stroke diagnosis?: No VTE Prior VTE?: No VTE Risk Level:: Medical - moderate - high VTE Device Contraindication: N/A - Device Ordered VTE Drug Contraindication: Treatment Not Indicated
[2024-02-08] MEDS: Enoxaparin Sodium 40 MG/0.4 ML SYRINGE SUBCUT (10:56)
--- NOTE | 2024-02-08 12:33 | MHC.CM.PN ---
PER MD ROUNDS, PT WILL NEED 6 WEEKS OF IV ABX CM MET WITH PT WHO SAYS SHE CAN DO THIS AT HOME AND HER DAUGHTER WOULD HELP CM CALLED PTS DAUGHTER, JOHNY, WHO CONFIRMS SHE WOULD BE ABLE TO ASSIST PT WITH MED ADMINISTRATION [employer] INFORMED HER THIS WOULD LIKELY HAPPEN SUNDAY AND [facility] WOULD REACH OUT TO COMPLETE A TEACH SHE WAS ALSO INFORMED A VNA WOULD BE PRESENT FOR THE FIRST HOME DOSE ON SUNDAY, HOWEVER AFTER THAT THEY WOULD ONLY COME FOR LABS AND DRESSING CHANGES
--- NOTE | 2024-02-08 13:38 | MHC.CLN ---
NUTRITION CONSULT FOR RIGHT FOOT WOUND. PATIENT WITH RIGHT FOOT ULCER WITH TUNNELING AND INFECTION. PER PROVIDER NOTE, WOUND DUE TO TRAUMATIC NEUROPATHY. DOES NOT APPEAR TO BE PRESSURE INJURY. DIET=REGULAR. HAD BEEN NPO EARLIER TODAY SO LIMITED DOC OF PO INTAKE. NO ADDITIONAL NUTRITION INTERVENTIONS AT THIS TIME.
[2024-02-08] MEDS: vancomycin HCL 1,250 MG in 0.9 % Sodium Chloride 250 ML 166.67 MG IV (13:50)
[2024-02-08 15:26] VITALS: BP 134/62; PULSE 100; RESP 15; TEMP 35.8; O2SAT 100
--- NOTE | 2024-02-08 18:33 | PC.NURSE ---
Spoke with Pharmacy Triflucoperazine is not available in the hospital at this time. Family was able to bring in medication from home. Pharmacy made aware, medication placed in pt specific bin to be verified per Pharm request.
[2024-02-08 19:28] VITALS: BP 160/72; PULSE 96; RESP 16; TEMP 36; O2SAT 99
[2024-02-08] MEDS: Trihexyphenidyl HCL 2 MG TABLET PO (20:58)
[2024-02-08] MEDS: Melatonin 3 MG TABLET 6 MG PO (21:03)
--- NOTE | 2024-02-08 21:26 | W.PM.IDCN ---
History of Present Illness Data of Consult Service Date: 02/08/24 Requesting physician: Kun Leone Primary Care Provider: Jakub Hooper MD [facility] Reason for consult: right foot wound She presents with right foot ulcer foul smelling seen by [facility]age [facility]anner. She was seen by S[facility]age Canner and referred to ER immediately for treatment for osteomyelitis. She has neuropathy as well as hypertension and schizoaffective disorder. Podiatry said probe to bone. Review of Systems Review of Systems: Yes all other systems are reviewed and are negative [facility] Past Medical History Medical History (Updated 02/08/24 @ 21:42 by Maylin Sanchez MD) Osteomyelitis Right foot ulcer Essential hypertension Cyst of neck Abnormal ultrasound of neck Refusal of blood transfusions as patient is [place] Cervical spinal stenosis Narcolepsy Ovarian cyst Schizoaffective disorder Chronic peripheral neuropathic pain Family History Family history: reviewed and not pertinent Social History Social History Household Members: Spouse Housing: Apartment Do you presently have visiting nurse or other home services: Yes Alcohol intake: never Patient Tobacco Use Status: Former Tobacco user service: No Meds Allergies Allergy/AdvReac Type Severity Reaction Status Date / Time acetaminophen [From Percocet] Allergy Hallucinati Verified 02/07/24 12:01 ons oxycodone AdvReac Intermediate sleepiness Verified 01/15/24 17:51 Active Medications: Current Medications Albuterol Sulfate (Albuterol Sulfate 90 Mcg 8 Gm Inhaler) 2 puff INHALE QID PRN PRN Reason: wheezing Calcium Carbonate (Calcium Carbonate 750 Mg Tab.Chew) 750 mg PO Q4H PRN PRN Reason: Heartburn Enoxaparin Sodium (Enoxaparin Sodium 40 Mg/0.4 Ml Syringe) 40 mg SUBCUT Q24H [facility] Last Admin: 02/08/24 10:56 Dose: 40 mg Piperacillin Sod/Tazobactam (Sod 3.375 gm/ Sodium Chloride) 50 mls @ 100 mls/hr IV Q6H [facility] Last Infusion: 02/08/24 17:48 Dose: Infused Vancomycin HCl 1,250 mg/ (Sodium Chloride) 250 mls @ 166.667 mls/hr IV Q24H [facility] Last Infusion: 02/08/24 16:09 Dose: Infused Ibuprofen (Ibuprofen 600 Mg Tablet) 600 mg PO Q8H PRN PRN Reason: Fever >100.4 Last Admin: 02/08/24 03:58 Dose: 600 mg Magnesium Hydroxide (Milk Of Magnesia 30 Ml Oral.Susp) 30 ml PO DAILY PRN PRN Reason: Constipation Melatonin (Melatonin 3 Mg Tablet) 6 mg PO BEDTIME PRN PRN Reason: Insomnia Last Admin: 02/08/24 21:03 Dose: 6 mg Morphine Sulfate (Morphine Sulfate 4 Mg/Ml Cartridge) 2 mg IVPUSH Q6H PRN; Protocol PRN Reason: Pain, Severe (Pain Scale 7-10) Pt Own ( Trifluoperazine 5 Mg ) 5 mg PO DAILY [facility] Ondansetron HCl (Ondansetron Hcl 4 Mg/2 Ml Vial) 4 mg IVPUSH Q8H PRN PRN Reason: Nausea and Vomiting Oxycodone HCl (Oxycodone Hcl Immed Release 5 Mg Tablet) 5 mg PO Q6H PRN PRN Reason: Pain, Moderate(Pain Scale 4-6) Pharmacy Consult (Consult Rx Vancomycin Dosing) 1 each MISCELLANE DAILY PRN PRN Reason: Consult order Pravastatin Sodium (Pravastatin Sodium 10 Mg Tablet) 10 mg PO DAILY [facility] Last Admin: 02/08/24 08:45 Dose: 10 mg Sodium Chloride (0.9 % Sodium Chloride Flush 3 Ml Syringe) [facility] Last Admin: 02/08/24 15:12 Dose: Not Given Trihexyphenidyl HCl (Trihexyphenidyl Hcl 2 Mg Tablet) 2 mg PO BEDTIME [facility] Last Admin: 02/08/24 20:58 Dose: 2 mg Home Medications ?Medication ?Instructions ?Recorded ?Confirmed ?Last Taken ?Type trifluoperazine 5 mg tablet 5 mg PO DAILY 11/08/20 02/07/24 02/07/24 History trihexyphenidyl 2 mg tablet 2 mg PO DAILY 11/08/20 02/07/24 02/07/24 History albuterol sulfate 90 mcg/actuation 2 puff inhalation QID PRN wheezing 02/07/24 02/07/24 Unknown History aerosol inhaler hydrocortisone 2.5 % topical cream 1 appl topical BID PRN Itchiness 02/07/24 02/07/24 Unknown History pravastatin 10 mg tablet 10 mg PO DAILY 11/02/07/24 02/07/24 History Physical Exam Vital Signs: Vital Signs: Last Vital Signs Temp 96.8 F 02/08/24 19:28 Pulse 96 02/08/24 19:28 Resp 16 02/08/24 19:28 BP 160/72 H 02/08/24 19:28 Pulse Ox 99 02/08/24 19:28 O2 Del Method Room Air 02/08/24 19:28 BMI result Body Mass Index 29.3 Const: General: cooperative HEENT: Head: Yes normal to inspection Face and sinus: Yes normal facial exam Mouth: Normal oral and palatal mucosa present Teeth and gingiva: dentition normal Eyes: General: appearance normal, both eyes and all related structures Pupils: Equal, round and reactive pupils present Resp: Effort & Inspection: normal respiratory effort Cardio: Rate: regular rate Rhythm: regular rhythm GI: Palpation (GI): Soft to palpation and nontender : General: Yes no CVA tenderness Back/Spine/Pelvis: Back: no CVA tenderness Skin: General skin exam: no rashes or lesions noted Neuro: General: moves all extremities Cranial nerves: Yes Equal, round and reactive pupils present Extrem: Other: right foot open 3 cm wound,deep Psych: Appearance: grossly normal Results Labs 02/08/24 05:35 02/08/24 05:35 Labs: Short CBC 02/08/24 Range/Units 05:35 WBC 6.3 (4.8-10.8) X10*3/uL Hgb 10.0 L (12.0-16.0) g/dl Hct 29.4 L (37.0-47.0) % Plt Count 225 (160-400) X10*3/uL BMP 02/08/24 05:35 Sodium 140 Potassium 3.8 Chloride 108 Carbon Dioxide 24 BUN 17 H Creatinine 0.76 Calcium 9.5 Microbiology Microbiology Results: Microbiology 02/07/24 13:52 Blood - Venous Blood Culture - Preliminary No growth after 24 hours. 02/07/24 13:51 Blood - Venous Blood Culture - Preliminary No growth after 24 hours. Assessment and Plan (1) Right foot ulcer: Status: Acute (2) Wound, open, foot: Qualifiers: Encounter type: initial encounter Laterality: right Qualified Code(s): S91.301A - Unspecified open wound, right foot, initial encounter Status: Acute (3) Osteomyelitis: Status: Acute Plan She has OM by definition since probe to bone and had high ESR. She has possible staph or strep. She is on Vancomycin and Zosyn. She should get six weeks IV antibiotics for suppression OM. Since blood cultures negative and no foot cultures should use IV Daptomycin with weekly CK and creatinine.
[2024-02-09 03:01] VITALS: BP 140/95; PULSE 91; RESP 16; TEMP 36.6; O2SAT 95
[2024-02-09] MEDS: Piperacillin Sodium/Tazobactam 3.375 GM in 0.9 % Sodium Chloride 50 ML IV (05:23)
[2024-02-09 07:25] VITALS: BP 146/85; PULSE 87; RESP 18; TEMP 36.2; O2SAT 99
[2024-02-09 07:53] LABS: MANUAL DIFF FLAG NO
[2024-02-09 08:08] LABS: Basophils Percent Auto 0.9 % (0-2); Eosinophils Absolute Auto 0.3 X10*3/uL (0.0-0.4); Eosinophils Percent Auto 5.4 % (0-4); Hematocrit 26.9 % (37.0-47.0); Hemoglobin 9.1 g/dl (12.0-16.0); Imm Gran Abs Auto 0.01 X10*3/uL (0.00-0.03); Imm Gran Pct Auto 0.2 % (0.0-0.4); Lymphocytes Absolute Auto 1.2 X10*3/uL (1.2-4.9); Lymphocytes Percent Auto 25.9 % (20-40); Mean Corpuscular HGB Conc 33.8 g/dl (31.0-35.0); Mean Corpuscular Hemoglobin 32.3 pg (27.0-33.0); Mean Corpuscular Volume 95.4 fL (80.0-98.0); Mean Platelet Volume 10.7 fL (9.4-12.3); Monocytes Absolute Auto 0.5 X10*3/uL (0.1-1.2); Monocytes Percent Auto 10.2 % (2-11); Neutrophils Absolute Auto 2.6 x10*3/uL (2.0-8.3); Neutrophils Percent Auto 57.4 % (45-73); Platelet Count 194 X10*3/uL (160-400); Red Blood Count 2.82 X10*6/uL (4.20-5.50); Red Cell Distribution Width 13.1 % (11.0-16.0); White Blood Count 4.6 X10*3/uL (4.8-10.8)
--- NOTE | 2024-02-09 08:25 | P.PNIM_ITS ---
Subjective Subjective Date of Service: 02/09/24 Interval History: no complaints Physical Exam 2 Vital Signs: Vital Signs: Last Vital Signs Temp 97.2 F 02/09/24 07:25 Pulse 87 02/09/24 07:25 Resp 18 02/09/24 07:25 BP 146/85 H 02/09/24 07:25 Pulse Ox 99 02/09/24 07:25 O2 Del Method Room Air 02/09/24 07:25 BMI result Body Mass Index 29.3 Const: General: cooperative HEENT: Head: Yes normal to inspection Face and sinus: Yes normal facial exam Mouth: Normal oral and palatal mucosa present Teeth and gingiva: d entition normal Eyes: General: appearance normal, both eyes and all related structures P upils: Equal, round and reactive pupils present Resp: Effort & Inspection: normal respiratory effort Cardio: Rate: regular rate Rhythm: regular rhythm GI: Palpation (GI): Soft to palpation and nontender : General: Yes no CVA tenderness Back/Spine/Pelvis: Back: no CVA tenderness Skin: General skin exam: no rashes or lesions noted Neuro: General: moves all extremities Cranial nerves: Yes Equal, round and reactive pupils present Extrem: Other: right foot open 3 cm wound,deep Psych: Appearance: grossly normal Objective Data Active Medications Albuterol Sulfate (Albuterol Sulfate 90 Mcg 8 Gm Inhaler) 2 puff INHALE QID PRN PRN Reason: wheezing Calcium Carbonate (Calcium Carbonate 750 Mg Tab.Chew) 750 mg PO Q4H PRN PRN Reason: Heartburn Enoxaparin Sodium (Enoxaparin Sodium 40 Mg/0.4 Ml Syringe) 40 mg SUBCUT Q24H [facility] Last Admin: 02/08/24 10:56 Dose: 40 mg Documented By: HILTON Piperacillin Sod/Tazobactam (Sod 3.375 gm/ Sodium Chloride) 50 mls @ 100 mls/hr IV Q6H [facility] Last Infusion: 02/09/24 05:53 Dose: Infused Documented By: WHIT Vancomycin HCl 1,250 mg/ (Sodium Chloride) 250 mls @ 166.667 mls/hr IV Q24H [facility] Last Infusion: 02/08/24 16:09 Dose: Infused Documented By: HILTON Ibuprofen (Ibuprofen 600 Mg Tablet) 600 mg PO Q8H PRN PRN Reason: Fever >100.4 Last Admin: 02/08/24 03:58 Dose: 600 mg Documented By: ROCIO Magnesium Hydroxide (Milk Of Magnesia 30 Ml Oral.Susp) 30 ml PO DAILY PRN PRN Reason: Constipation Melatonin (Melatonin 3 Mg Tablet) 6 mg PO BEDTIME PRN PRN Reason: Insomnia Last Admin: 02/08/24 21:03 Dose: 6 mg Documented By: WHIT Morphine Sulfate (Morphine Sulfate 4 Mg/Ml Cartridge) 2 mg IVPUSH Q6H PRN; Protocol PRN Reason: Pain, Severe (Pain Scale 7-10) Pt Own ( Trifluoperazine 5 Mg ) 5 mg PO DAILY [facility] Ondansetron HCl (Ondansetron Hcl 4 Mg/2 Ml Vial) 4 mg IVPUSH Q8H PRN PRN Reason: Nausea and Vomiting Oxycodone HCl (Oxycodone Hcl Immed Release 5 Mg Tablet) 5 mg PO Q6H PRN PRN Reason: Pain, Moderate(Pain Scale 4-6) Pharmacy Consult (Consult Rx Vancomycin Dosing) 1 each MISCELLANE DAILY PRN PRN Reason: Consult order Pravastatin Sodium (Pravastatin Sodium 10 Mg Tablet) 10 mg PO DAILY [facility] Last Admin: 02/08/24 08:45 Dose: 10 mg Documented By: HILTON Sodium Chloride (0.9 % Sodium Chloride Flush 3 Ml Syringe) [facility] Last Admin: 02/08/24 23:16 Dose: 3 ml Documented By: WHIT Trihexyphenidyl HCl (Trihexyphenidyl Hcl 2 Mg Tablet) 2 mg PO BEDTIME [facility] Last Admin: 02/08/24 20:58 Dose: 2 mg Documented By: WHIT Labs 02/09/24 06:05 02/08/24 05:35 Labs: Laboratory Results - last 24 hr 02/09/24 06:05 MCV 95.4 MCH 32.3 MCHC 33.8 RDW 13.1 Plt Count 194 MPV 10.7 Immature Gran % (Auto) 0.2 Neut % (Auto) 57.4 Lymph % (Auto) 25.9 [place] % (Auto) 10.2 Eos % (Auto) 5.4 H Baso % (Auto) 0.9 Lymph # (Auto) 1.2 [place] # (Auto) 0.5 Eos # (Auto) 0.3 Baso # (Auto) 0.0 Abs Immat Gran (auto) 0.01 Absolute Neuts (auto) 2.6 Absolute Nucleated RBC 0.000 Nucleated RBC % (auto) 0.0 Microbiology Microbiology Results: Microbiology 02/07/24 13:52 Blood Culture - Preliminary Blood - Venous No growth after 24 hours. 02/07/24 13:51 Blood Culture - Preliminary Blood - Venous No growth after 24 hours. Assessment and Plan (1) Wound, open, foot: Status: Acute Plan 73F PMH htn, schizophrenia, pvd, chronic neuropathy presented with tunneling RLE ulcer RLE ulcer with osteomyelitis due to traumatic neuropathy surgery appreciated no need for debridement at this time Id appreciated, plan for 6 weeks iv dapto end date 03/19/2024, picc on 02/11/24, abx to be done at home pvd statin schizophrenia trifluoperazine dvt prophylaxis - lovenox full code reason for continued hospitalization:iv abx for OM Quality Stroke Does the patient have a stroke diagnosis?: No VTE Prior VTE?: No VTE Risk Level:: Medical - moderate - high VTE Device Contraindication: N/A - Device Ordered VTE Drug Contraindication: Treatment Not Indicated
[2024-02-09 08:26] LABS: Anion Gap 10 (12-20); Blood Urea Nitrogen 16 mg/dL (9-16); Carbon Dioxide 24 mmol/L (22-29); Chloride 109 mmol/L (96-108); Creatinine Clr Calc Pharmacy 64.7; Estimated Glomerular Filt Rate > 60; Glucose Random 96 mg/dL (60-115); Sodium 139 mmol/L (135-145)
[2024-02-09] MEDS: TRIFLUOPERAZINE 5 MG 5 EACH PO (09:00)
[2024-02-09] MEDS: Pravastatin Sodium 10 MG TABLET PO (09:00)
[2024-02-09] MEDS: Enoxaparin Sodium 40 MG/0.4 ML SYRINGE SUBCUT (09:04)
[2024-02-09] MEDS: 0.9 % Sodium Chloride Flush 3 ML SYRINGE IVFLUSH ×3 (09:06→19:17)
[2024-02-09] MEDS: DAPTOMYCIN IV (10:43)
[2024-02-09] MEDS: SODIUM CHLORIDE 0.9% IV (10:43)
--- NOTE | 2024-02-09 11:50 | PC.NURSE ---
Attempted IV x 2, unsuccessful, primary RN notifed.
[2024-02-09 15:40] VITALS: BP 153/70; PULSE 85; RESP 20; TEMP 36.1; O2SAT 100
[2024-02-09] MEDS: Trihexyphenidyl HCL 2 MG TABLET PO (19:16)
[2024-02-09 19:35] VITALS: BP 149/98; PULSE 90; RESP 20; TEMP 36.6; O2SAT 99
[2024-02-10 03:08] VITALS: BP 171/79; PULSE 94; RESP 18; TEMP 36.3; O2SAT 98
[2024-02-10 03:19] VITALS: BP 154/72
[2024-02-10 05:31] LABS: MANUAL DIFF FLAG NO
[2024-02-10 05:36] LABS: Basophils Percent Auto 0.6 % (0-2); Eosinophils Absolute Auto 0.2 X10*3/uL (0.0-0.4); Hematocrit 28.8 % (37.0-47.0); Hemoglobin 9.7 g/dl (12.0-16.0); Imm Gran Abs Auto 0.01 X10*3/uL (0.00-0.03); Imm Gran Pct Auto 0.2 % (0.0-0.4); Lymphocytes Absolute Auto 1.5 X10*3/uL (1.2-4.9); Lymphocytes Percent Auto 30.2 % (20-40); Mean Corpuscular HGB Conc 33.7 g/dl (31.0-35.0); Mean Corpuscular Hemoglobin 31.5 pg (27.0-33.0); Mean Corpuscular Volume 93.5 fL (80.0-98.0); Mean Platelet Volume 10.7 fL (9.4-12.3); Monocytes Absolute Auto 0.6 X10*3/uL (0.1-1.2); Monocytes Percent Auto 11.5 % (2-11); Neutrophils Absolute Auto 2.7 x10*3/uL (2.0-8.3); Neutrophils Percent Auto 53.5 % (45-73); Platelet Count 219 X10*3/uL (160-400); Red Blood Count 3.08 X10*6/uL (4.20-5.50); Red Cell Distribution Width 13.1 % (11.0-16.0)
[2024-02-10 05:52] LABS: Anion Gap 9 (12-20); Blood Urea Nitrogen 9 mg/dL (9-16); Calcium 9.7 mg/dL (8.4-10.2); Carbon Dioxide 24 mmol/L (22-29); Chloride 109 mmol/L (96-108); Creatinine Clr Calc Pharmacy 70.7; Estimated Glomerular Filt Rate > 60; Glucose Random 100 mg/dL (60-115); Potassium 3.7 mmol/L (3.3-5.1); Sodium 138 mmol/L (135-145)
[2024-02-10 07:59] VITALS: PULSE 94; RESP 16; TEMP 36; O2SAT 99
[2024-02-10] MEDS: Pravastatin Sodium 10 MG TABLET PO (08:05)
[2024-02-10] MEDS: TRIFLUOPERAZINE 5 MG 5 EACH PO (08:06)
[2024-02-10] MEDS: Enoxaparin Sodium 40 MG/0.4 ML SYRINGE SUBCUT (08:07)
--- NOTE | 2024-02-10 08:28 | PC.NURSE ---
Pt with racist and discriminatory remarks to [employer]. States [employer] [place] Ric[employer] come and destroy everything. Referring to [facility].
--- NOTE | 2024-02-10 08:35 | P.PNIM_ITS ---
Subjective Subjective Date of Service: 02/10/24 Interval History: no complaints Physical Exam 2 Vital Signs: Vital Signs: Last Vital Signs Temp 96.8 F 02/10/24 07:59 Pulse 94 02/10/24 07:59 Resp 16 02/10/24 07:59 BP 154/72 H 02/10/24 03:19 Pulse Ox 99 02/10/24 07:59 O2 Del Method Room Air 02/10/24 07:59 BMI result Body Mass Index 29.3 Const: General: cooperative HEENT: Head: Yes normal to inspection Face and sinus: Yes normal facial exam Mouth: Normal oral and palatal mucosa present Teeth and gingiva: d entition normal Eyes: General: appearance normal, both eyes and all related structures P upils: Equal, round and reactive pupils present Resp: Effort & Inspection: normal respiratory effort Cardio: Rate: regular rate Rhythm: regular rhythm GI: Palpation (GI): Soft to palpation and nontender : General: Yes no CVA tenderness Back/Spine/Pelvis: Back: no CVA tenderness Skin: General skin exam: no rashes or lesions noted Neuro: General: moves all extremities Cranial nerves: Yes Equal, round and reactive pupils present Extrem: Other: right foot open 3 cm wound,deep Psych: Appearance: grossly normal Objective Data Active Medications Albuterol Sulfate (Albuterol Sulfate 90 Mcg 8 Gm Inhaler) 2 puff INHALE QID PRN PRN Reason: wheezing Calcium Carbonate (Calcium Carbonate 750 Mg Tab.Chew) 750 mg PO Q4H PRN PRN Reason: Heartburn Enoxaparin Sodium (Enoxaparin Sodium 40 Mg/0.4 Ml Syringe) 40 mg SUBCUT Q24H [facility] Last Admin: 02/10/24 08:07 Dose: 40 mg Documented By: BIANKA Daptomycin 475 mg/ Sodium (Chloride) 59.5 mls @ 99.86 mls/hr IV Q24H [facility] Last Infusion: 02/09/24 11:25 Dose: Infused Documented By: BIANKA Ibuprofen (Ibuprofen 600 Mg Tablet) 600 mg PO Q8H PRN PRN Reason: Fever >100.4 Last Admin: 02/08/24 03:58 Dose: 600 mg Documented By: ROCIO Magnesium Hydroxide (Milk Of Magnesia 30 Ml Oral.Susp) 30 ml PO DAILY PRN PRN Reason: Constipation Melatonin (Melatonin 3 Mg Tablet) 6 mg PO BEDTIME PRN PRN Reason: Insomnia Last Admin: 02/08/24 21:03 Dose: 6 mg Documented By: WHIT Morphine Sulfate (Morphine Sulfate 4 Mg/Ml Cartridge) 2 mg IVPUSH Q6H PRN; Protocol PRN Reason: Pain, Severe (Pain Scale 7-10) Pt Own ( Trifluoperazine 5 Mg ) 5 mg PO DAILY [facility] Last Admin: 02/10/24 08:06 Dose: 5 mg Documented By: BIANKA Ondansetron HCl (Ondansetron Hcl 4 Mg/2 Ml Vial) 4 mg IVPUSH Q8H PRN PRN Reason: Nausea and Vomiting Oxycodone HCl (Oxycodone Hcl Immed Release 5 Mg Tablet) 5 mg PO Q6H PRN PRN Reason: Pain, Moderate(Pain Scale 4-6) Pravastatin Sodium (Pravastatin Sodium 10 Mg Tablet) 10 mg PO DAILY [facility] Last Admin: 02/10/24 08:05 Dose: 10 mg Documented By: BIANKA Sodium Chloride (0.9 % Sodium Chloride Flush 3 Ml Syringe) 3 ml IVFLUSH QSHIFT [facility] Last Admin: 02/09/24 19:17 Dose: 3 ml Documented By: GELY Trihexyphenidyl HCl (Trihexyphenidyl Hcl 2 Mg Tablet) 2 mg PO BEDTIME [facility] Last Admin: 02/09/24 19:16 Dose: 2 mg Documented By: GELY Labs 02/10/24 05:07 02/10/24 05:07 Labs: Laboratory Results - last 24 hr 02/10/24 05:07 MCV 93.5 MCH 31.5 MCHC 33.7 RDW 13.1 Plt Count 219 MPV 10.7 Immature Gran % (Auto) 0.2 Neut % (Auto) 53.5 Lymph % (Auto) 30.2 [place] % (Auto) 11.5 H Eos % (Auto) 4.0 Baso % (Auto) 0.6 Lymph # (Auto) 1.5 [place] # (Auto) 0.6 Eos # (Auto) 0.2 Baso # (Auto) 0.0 Abs Immat Gran (auto) 0.01 Absolute Neuts (auto) 2.7 Absolute Nucleated RBC 0.000 Nucleated RBC % (auto) 0.0 Anion Gap 9 L Estim Creat Clear Calc 70.7 Estimated GFR > 60 Random Glucose 100 Calcium 9.7 D Microbiology Microbiology Results: Microbiology 02/07/24 13:52 Blood Culture - Preliminary Blood - Venous No growth after 48 hours. 02/07/24 13:51 Blood Culture - Preliminary Blood - Venous No growth after 48 hours. Assessment and Plan (1) Wound, open, foot: Status: Acute Plan 73F PMH htn, schizophrenia, pvd, chronic neuropathy presented with tunneling RLE ulcer RLE ulcer with osteomyelitis due to traumatic neuropathy surgery appreciated no need for debridement at this time Id appreciated, plan for 6 weeks iv dapto end date 03/19/2024, picc on 02/11/24, abx to be done at home pvd statin schizophrenia trifluoperazine dvt prophylaxis - lovenox full code reason for continued hospitalization:iv abx for OM Quality Stroke Does the patient have a stroke diagnosis?: No VTE Prior VTE?: No VTE Risk Level:: Medical - moderate - high VTE Device Contraindication: N/A - Device Ordered VTE Drug Contraindication: Treatment Not Indicated
[2024-02-10 08:37] VITALS: BP 160/90
[2024-02-10] MEDS: DAPTOMYCIN IV (10:23)
[2024-02-10] MEDS: SODIUM CHLORIDE 0.9% IV (10:23)
[2024-02-10] MEDS: 0.9 % Sodium Chloride Flush 3 ML SYRINGE IVFLUSH ×3 (10:27→21:04)
[2024-02-10 15:03] VITALS: BP 129/60; PULSE 84; RESP 18; TEMP 36.4; O2SAT 99
[2024-02-10] MEDS: Ibuprofen 600 MG TABLET PO (16:04)
[2024-02-10 18:45] VITALS: BP 143/77; PULSE 96; RESP 18; TEMP 36.6; O2SAT 99
[2024-02-10] MEDS: Trihexyphenidyl HCL 2 MG TABLET PO (21:00)
[2024-02-11 03:30] VITALS: BP 136/64; PULSE 92; RESP 18; TEMP 36.8; O2SAT 99
[2024-02-11 07:16] VITALS: BP 133/66; PULSE 93; RESP 12; TEMP 36; O2SAT 100
[2024-02-11] MEDS: 0.9 % Sodium Chloride Flush 3 ML SYRINGE IVFLUSH (07:26)
[2024-02-11] MEDS: Pravastatin Sodium 10 MG TABLET PO (07:26)
[2024-02-11] MEDS: Enoxaparin Sodium 40 MG/0.4 ML SYRINGE SUBCUT (07:27)
[2024-02-11] MEDS: TRIFLUOPERAZINE 5 MG 5 EACH PO (07:33)
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
--- NOTE | 2024-02-11 08:45 | PC.NURSE ---
patient refuses sequentials ,risks explained,encouraged activity,Lovenox administered as ordered
--- NOTE | 2024-02-11 10:59 | W.MHC.F2F ---
Service Date Service Date: 02/11/24 Encounter Date of encounter: 02/11/24 Reasons for Services Signs and symptoms assessed: difficulty ambulating Reason for residential: medication management, medication treatment and teach disease management Homebound: Leaving the home is medically contraindicated at this time without the asist of a device and/or another person due th the listed conditions above and below. Reason homebound: unsteady gait / fall risk Certification: Based on the above findings, I certify that this patient is confined to the home and needs intermittent residential care, physical therapy and/or speech therapy, or continues to need occupational therapy. The patient is under my care, and I have initiated the establishment of the plan of care. The patient will be followed by a physician who will periodically review the plan of care. Time Spent With Patient Time: Total time managing care of this patient today ____ minutes.
--- NOTE | 2024-02-11 11:19 | HO.WOUND ---
Wound Consult: Defer to General Surgery Team Chart review reveals patient is set for d/c to home with VNA services and family support. Patient has orders from general surgery team for dry dressing per Dr. Leone - inpatient wound care nurse consultation is not needed at this time. Patient to have follow up outpt. Will not see patient this admission and will defer topical recommendations to general surgery team.
[2024-02-11] MEDS: SODIUM CHLORIDE 0.9% IV (11:35)
[2024-02-11] MEDS: DAPTOMYCIN IV (11:35)
--- NOTE | 2024-02-11 11:40 | PC.NURSE ---
patient own medication Trifluoperazine returned to patient upon discharge
--- NOTE | 2024-02-11 12:00 | MHC.CM.PN ---
DP: PT HAS BEEN MEDICALLY CLEARED FOR DC HOME WITH NEW [facility] AND [facility] FOR IV MGMT. CM CONFIRMED WITH PT THAT DAUGHTER WILL BE ASSISTING WITH IV MANAGEMENT AND [facility] LIASION IN TO DO TEACH. [facility] UPDATED ON TODAY'S DC. WILL TRANSPORT HOME. FINAL IMM DELIVERED.
--- NOTE | 2024-02-11 12:22 | HO.PICC ---
PICC Line Insertion NPICC Diagnosis: Osteomyelitis Indication: [facility] ABT Pertinent Labs: reviewed Technique: Following informed consent including risks, benefits and alternatives and using sterile technique including cap and mask, sterile gown, glove and drape, the right arm was prepped and draped in the usual sterile fashion of full barrier technique with CHG. Following completion of Bullard Protocol the skin and soft tissues were anesthetized with 1% Lidocaine plain. Using ultrasound guidance, right brachial vein access was obtained. Over an 0.018 wire through peel-away sheath, a 4fr single lumen PASV PICC line was positioned. Catheter length is 40cm internal length, 0cm external length, for a total trimmed length of 40cm. The procedure was performed in 272. Tip verification was performed by Ren Combs with Sherlock 3CG. Tip located in SVC. Ultrasound was used to document vein patency and for needle entry. A formal ultrasound picture and cardiac rhythm strip was recorded. [employer] Analyst has released the line for use and it is currently dressed with a StatLock, Tegaderm, and CHG disc. Verification has been performed for blood return and line patency. Arm Circumference: 30cm Equipment: [employer] PowerPICC SOLO Catheter with sherlock 3CG Tip Catheter Type: 4FR single Lumen PASV Lot #: [id number]
== END 2024-02-11 12:36 | disposition home health service (06) | DRG 540 ==
LOC: HO.ED 14:31 → HO.EDOVER 15:26 → HO.S3 16:50
PROVIDERS: Physician Assistant; Admitting Provider Physician Assistant; Emergency Provider Emergency Medicine; PCP Internal Medicine; Visit Provider Internal Medicine
DX: M86.9 Osteomyelitis, unspecified (principal); L97.419 Non-pressure chronic ulcer of right heel and midfoot with unspecified severity; G62.89 Other specified polyneuropathies; V89.2XXS Person injured in unspecified motor-vehicle accident, traffic, sequela; I10 Essential (primary) hypertension; F25.9 Schizoaffective disorder, unspecified; Z87.891 Personal history of nicotine dependence; Z79.899 Other long term (current) drug therapy
CPT/HCPCS: 36415; 36573; 73620; 80048; 80053; 85025; 85652; 86140; 87040; 99285; C1751; J0692; J0878; J1650; J2543; J3371

== ENCOUNTER → 2024-02-07 12:04 | Outpatient (BNV) | payer OTHER, MEDICAID, SELFPAY | PROVIDERS: Admitting Provider Physician Assistant; Emergency Provider Emergency Medicine; Visit Provider Radiology Diagnostic Radiology | DX: L97.519 Non-pressure chronic ulcer of other part of right foot with unspecified severity (principal) | CPT/HCPCS: 73620 ==

== ENCOUNTER → 2024-02-07 15:13 | Outpatient (BNV) | payer OTHER, MEDICAID, SELFPAY | PROVIDERS: Admitting Provider Physician Assistant; Emergency Provider Emergency Medicine; PCP Internal Medicine; Visit Provider Surgery | DX: L97.519 Non-pressure chronic ulcer of other part of right foot with unspecified severity (principal) | CPT/HCPCS: 99222 ==

== ENCOUNTER → 2024-02-07 15:13 | Outpatient (BNV) | payer OTHER, MEDICAID, SELFPAY | PROVIDERS: Admitting Provider Physician Assistant; Emergency Provider Emergency Medicine; Visit Provider Physician Assistant | DX: S91.301A Unspecified open wound, right foot, initial encounter (principal); M79.2 Neuralgia and neuritis, unspecified; G89.29 Other chronic pain; F25.9 Schizoaffective disorder, unspecified; I10 Essential (primary) hypertension | CPT/HCPCS: 99223; 99232; 99239; G0180 ==

== ENCOUNTER → 2024-02-07 15:13 | Outpatient (BNV) | payer OTHER, MEDICAID, SELFPAY | PROVIDERS: Admitting Provider Physician Assistant; Emergency Provider Emergency Medicine; PCP Internal Medicine; Visit Provider Internal Medicine | DX: L97.519 Non-pressure chronic ulcer of other part of right foot with unspecified severity (principal); S91.301A Unspecified open wound, right foot, initial encounter; M86.9 Osteomyelitis, unspecified | CPT/HCPCS: 99222 ==

== ENCOUNTER 2024-02-18 13:44 | Emergency (ER) | payer OTHER, SELFPAY ==
[2024-02-18 14:22] VITALS: BP 95/56; PULSE 88; RESP 18; TEMP 36.6; O2SAT 100; BMI 22.1
--- NOTE | 2024-02-18 14:24 | ED.GENADULT ---
HPI - General Adult General Chief complaint: General Medical Stated complaint: foot ulcer History of Present Illness HPI narrative: Patient left completion of treatment by ED provider. Related Data Home Medications ?Medication ?Instructions ?Recorded ?Confirmed trifluoperazine 5 mg tablet 5 mg PO DAILY 11/08/20 02/07/24 trihexyphenidyl 2 mg tablet 2 mg PO DAILY 11/08/20 02/07/24 albuterol sulfate 90 mcg/actuation 2 puff inhalation QID PRN wheezing 02/07/24 02/07/24 aerosol inhaler hydrocortisone 2.5 % topical cream 1 appl topical BID PRN Itchiness 02/07/24 02/07/24 pravastatin 10 mg tablet 10 mg PO DAILY 02/07/24 02/07/24 Previous Rx's ?Medication ?Instructions ?Recorded daptomycin 500 mg intravenous 475 mg IV Q24H #0 ea 02/11/24 solution Allergies Allergy/AdvReac Type Severity Reaction Status Date / Time acetaminophen [From Percocet] Allergy Hallucinati Verified 02/18/24 14:23 ons oxycodone AdvReac Intermediate sleepiness Verified 02/18/24 14:23 [facility] Past Medical History Medical History (Updated 02/19/24 @ 16:35 by LAURA Clement) Osteomyelitis Right foot ulcer Essential hypertension Cyst of neck Abnormal ultrasound of neck Refusal of blood transfusions as patient is Zoroastrianism Cervical spinal stenosis Narcolepsy Ovarian cyst Schizoaffective disorder Chronic peripheral neuropathic pain Social History Social History Household Members: Spouse Housing: Apartment Do you presently have visiting nurse or other home services: Yes Alcohol intake: never Patient Tobacco Use Status: Former Tobacco user Advance Directives: No Advance Directives Information Provided: No service: No Physical Exam ED Vital Signs: Vital Signs - 24 hr 02/18/24 14:22 Temperature 98 F Pulse Rate 88 Respiratory Rate 18 Blood Pressure 95/56 L Pulse Oximetry 100 Oxygen Delivery Method Room Air BMI result Body Mass Index 22.1 Course Course Course Narrative: RME: 73-year-old female presents to ED for new PICC line placement. Patient had PICC line that she removed on her own today. Patient is supposed to receive daptomycin every day. Her primary care provider sent to the ED to get a new PICC line placed. Discharge Plan Discharge Clinical Impression: PIC line (peripherally inserted central catheter) flush Patient Disposition: Left W/O Completing Treatment Prescriptions: No Action hydrocortisone 2.5 % cream 1 appl topical BID PRN (Reason: Itchiness) albuterol sulfate 90 mcg/actuation HFA aerosol inhaler 2 puff inhalation QID PRN (Reason: wheezing) pravastatin 10 mg tablet 10 mg PO DAILY daptomycin 500 mg Recon Soln 475 mg IV Q24H Qty: 0 0RF trifluoperazine 5 mg tablet 5 mg PO DAILY trihexyphenidyl 2 mg tablet 2 mg PO DAILY Rx Instructions: give with food (meal/snack) Discharge Date/Time: 02/18/24 19:21
== END 2024-02-18 19:21 | disposition left against medical advice (07) ==
PROVIDERS: Emergency Provider Internal Medicine; PCP Internal Medicine
DX: Z45.2 Encounter for adjustment and management of vascular access device (principal)
CPT/HCPCS: 99281

== ENCOUNTER 2024-02-20 13:49 | Emergency (ER) | payer OTHER, SELFPAY ==
[2024-02-20 14:03] VITALS: BP 98/57; PULSE 87; RESP 18; TEMP 36.6; O2SAT 98; BMI 22.1
--- NOTE | 2024-02-20 18:43 | ED_ITS ---
HPI - General Adult General Chief complaint: General Medical Stated complaint: arm problems Time Seen by Provider: 02/20/24 18:42 Related Data Home Medications ?Medication ?Instructions ?Recorded ?Confirmed trifluoperazine 5 mg tablet 5 mg PO DAILY 11/08/20 02/07/24 trihexyphenidyl 2 mg tablet 2 mg PO DAILY 11/08/20 02/07/24 albuterol sulfate 90 mcg/actuation 2 puff inhalation QID PRN wheezing 02/07/24 02/07/24 aerosol inhaler hydrocortisone 2.5 % topical cream 1 appl topical BID PRN Itchiness 02/07/24 02/07/24 pravastatin 10 mg tablet 10 mg PO DAILY 02/07/24 02/07/24 Previous Rx's ?Medication ?Instructions ?Recorded daptomycin 500 mg intravenous 475 mg IV Q24H #0 ea 02/11/24 solution Allergies Allergy/AdvReac Type Severity Reaction Status Date / Time acetaminophen [From Percocet] Allergy Hallucinati Verified 02/20/24 14:06 ons oxycodone AdvReac Intermediate sleepiness Verified 02/20/24 14:06 [facility] Past Medical History Medical History (Updated 02/20/24 @ 18:42 by LAURA Mcgregor) Osteomyelitis Right foot ulcer Essential hypertension Cyst of neck Abnormal ultrasound of neck Refusal of 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 transfusions as patient is 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 Cervical spinal stenosis Narcolepsy Ovarian cyst Schizoaffective disorder Chronic peripheral neuropathic pain Social History Social History Household Members: Spouse Housing: Apartment Do you presently have visiting nurse or other home services: Yes Alcohol intake: never Patient Tobacco Use Status: Former Tobacco user Do you have a plan to hurt others: No Plan service: No Physical Exam ED Vital Signs: Vital Signs - 24 hr 02/20/24 14:03 Temperature 98 F Pulse Rate 87 Respiratory Rate 18 Blood Pressure 98/57 L Pulse Oximetry 98 Oxygen Delivery Method Room Air BMI result Body Mass Index 22.1 Course Course Course Narrative: patient was called multiple times into triage no answer. Discharge Plan Discharge Clinical Impression: Eloped from emergency department Patient Disposition: Elopement Prescriptions: No Action hydrocortisone 2.5 % cream 1 appl topical BID PRN (Reason: Itchiness) albuterol sulfate 90 mcg/actuation HFA aerosol inhaler 2 puff inhalation QID PRN (Reason: wheezing) pravastatin 10 mg tablet 10 mg PO DAILY daptomycin 500 mg Recon Soln 475 mg IV Q24H Qty: 0 0RF trifluoperazine 5 mg tablet 5 mg PO DAILY trihexyphenidyl 2 mg tablet 2 mg PO DAILY Rx Instructions: give with food (meal/snack) Print Language: Burundian
--- NOTE | 2024-02-20 19:10 | MHC.EDTECH ---
This tech called pt @ 1900 to triage area for labs,pt is not answering,provider aware
== END 2024-02-20 21:32 | disposition left against medical advice (07) ==
LOC: HO.ED 18:53
PROVIDERS: Emergency Provider Emergency Medicine Emergency Medical Services; PCP Internal Medicine
DX: L08.9 Local infection of the skin and subcutaneous tissue, unspecified (principal); I10 Essential (primary) hypertension
CPT/HCPCS: 99281

== ENCOUNTER 2024-02-24 13:41 | Inpatient (IN) | payer OTHER, SELFPAY ==
--- NOTE | ~2024-02-24 | XR_ITS ---
EXAMINATION: XR FOOT, RIGHT CLINICAL INFORMATION: right foot wound COMPARISON: Right foot x-ray on 02/07/2024 TECHNIQUE: AP, lateral, and oblique views of the right foot. FINDINGS: The bones and soft tissues are normal. No fracture. Alignment is anatomic. Joint spaces are maintained. XR/XR foot RT 2V IMPRESSION: No acute findings. Electronically signed by: Ilda Sparrow MD 02/24/2024 03:28 PM [facility]
--- NOTE | ~2024-02-24 | MR_ITS ---
EXAMINATION: MR FOOT WITHOUT AND WITH CONTRAST, RIGHT CLINICAL INFORMATION: Rule out for osteomyelitis. COMPARISON: X-ray 03/07/2024. TECHNIQUE: MRI of the right foot was performed before and after the intravenous administration of 6 mL Gadavist on a high-field scanner. FINDINGS: There is soft tissue swelling plantar to the first MTP joint. There appears to be a plantar wound present in this region. There is increased T2 signal and enhancement in the skin and subcutaneous tissues compatible with edema and cellulitis. No organized fluid collection or drainable abscess is identified. There is edema and enhancement in the medial hallux sesamoid, suspicious for osteomyelitis. Small first MTP joint fluid. No additional areas of osteomyelitis. Flexor hallucis longus peritendinitis/tenosynovitis. The tendons otherwise intact. There is edema in the intrinsic muscles of the foot, which could reflect myositis or sequela of denervation changes. Plantar aponeurosis is intact. MR/MR foot RT wo/w con IMPRESSION: Soft tissue swelling, with soft tissue edema and cellulitis in the plantar aspect of the first MTP joint. There is soft tissue ulceration present. No organized fluid collection or abscess is seen. Abnormal edema and enhancement in the medial hallux sesamoid, suspicious osteomyelitis. Flexor hallucis longus peritendinitis/tenosynovitis. Edema signal in the intrinsic muscles foot could reflect myositis or sequela of denervation. The report will be called to the ordering clinician by a [facility] Physician Diamond Mounter. Electronically signed by: Milton Ornelas MD 02/26/2024 03:01 PM [facility]
--- NOTE | 2024-02-24 13:44 | ED_ITS ---
HPI - General Adult General Chief complaint: Wound/Laceration Stated complaint: ulcers Time Seen by Provider: 02/24/24 16:15 Source: patient, family, RN notes reviewed and old records reviewed Mode of arrival: ambulatory Limitations: no limitations History of Present Illness ED Provider: Liliam DANIEL narrative: 73-year-old female with past medical history significant for hypertension, schizophrenia, peripheral artery disease, chronic neuropathy presents for evaluation of ?I need antibiotics. ? Patient was discharged from this facility on 02/11/2024. She will be presented to the ED on 02/18/2024 and 02/20/2024. On both occasions she left without being seen. During her admission she was seen by infectious disease for osteomyelitis of the right foot. She was due to have 6 weeks of IV daptomycin terminating on March 19, 2024. The patient reports that she pulled out her PICC line shortly after being discharged home and has not had her antibiotics in about 2 weeks. She reports continued pain to the area but denies any fevers Related Data Home Medications ?Medication ?Instructions ?Recorded ?Confirmed trifluoperazine 5 mg tablet 5 mg PO DAILY 11/08/20 02/07/24 trihexyphenidyl 2 mg tablet 2 mg PO DAILY 11/08/20 02/07/24 albuterol sulfate 90 mcg/actuation 2 puff inhalation QID PRN wheezing 02/07/24 02/07/24 aerosol inhaler hydrocortisone 2.5 % topical cream 1 appl topical BID PRN Itchiness 02/07/24 02/07/24 pravastatin 10 mg tablet 10 mg PO DAILY 02/07/24 02/07/24 Previous Rx's ?Medication ?Instructions ?Recorded daptomycin 500 mg intravenous 475 mg IV Q24H #0 ea 02/11/24 solution Allergies Allergy/AdvReac Type Severity Reaction Status Date / Time acetaminophen [From Percocet] Allergy Hallucinati Verified 02/24/24 13:48 ons oxycodone AdvReac Intermediate sleepiness Verified 02/24/24 13:48 Review of Systems 2 Constitutional: Constitutional: Denies body ache(s), Denies chills and Denies fever(s) Eyes: Eyes: Denies blind spots and Denies blurry vision ENT: Denies sore throat Cardiovascular: Cardiovascular: Denies chest pain Respiratory: Respiratory: Denies cough Gastrointestinal: Gastrointestinal: Denies abdominal pain, Denies nausea and Denies vomiting Musculoskeletal: Musculoskeletal: Reports arthralgias and Reports joint swelling Integumentary/Breasts: Skin/Breast: Denies erythema and Reports wounds PMFSH Past Medical History Medical History (Updated 02/24/24 @ 16:44 by [place]) Osteomyelitis Right foot ulcer Essential hypertension Cyst of neck Abnormal ultrasound of neck Refusal of blood transfusions as patient is Yarsanism Cervical spinal stenosis Narcolepsy Ovarian cyst Schizoaffective disorder Chronic peripheral neuropathic pain Social History Social History Household Members: Spouse Housing: Apartment Do you presently have visiting nurse or other home services: Yes Alcohol intake: never Patient Tobacco Use Status: Former Tobacco user Advance Directives: Yes Advance Directives Information Provided: Yes Advance Directives on File: No service: No Physical Exam ED Vital Signs: Vital Signs - 24 hr 02/24/24 13:46 Temperature 97.5 F Pulse Rate 101 H Respiratory Rate 18 Blood Pressure 115/58 L Pulse Oximetry 99 Oxygen Delivery Method Room Air BMI result Body Mass Index 21.3 Const General: healthy appearing, comfortable, no acute distress, alert and awake Nutritional Appearance: well nourished Orientation/consciousness: patient oriented x3 HENMT Head: Yes normocephalic and Yes atraumatic Eyes Eyelids: Yes eyelids normal Conjunctivae: conjunctivae normal Sclerae: sclerae normal Corneas: corneas normal Pupils: Equal, round and reactive pupils present EOM: EOMs intact bilaterally Neck Neck: Yes full ROM Resp Effort & Inspection: normal respiratory effort, able to speak in complete sentences and not labored Skin General skin exam: elasticity normal Neuro General: patient oriented x3 Cranial nerves: Yes Equal, round and reactive pupils present and Yes Bilaterally intact EOM present Cognition (Neuro): normal cognition Extrem Other: Patient has a small ulcer to the medial side of the right great toe. There is a tunneling wound to the ball of the right foot. There is no significant surrounding erythema or drainage from the area. Psych Other: The patient has a somewhat labile affect Course Course Course Narrative: This is a rapid medical exam. Deferred additional HPI, ROS, PE to primary provider. 73 yo female w/ history of HTN, narcolepsy, schizoaffective disorder, peripheral neuropathy is here with complaints of ulcer to right foot. Was admitted and discharged 02/10 after being admitted for osteomyelitis of the right foot with recommendations from Infectious Disease of IV daptomycin until 03/19/2024. Patient reports that she removed the PICC line on 02/17 by herself at home. She is here because she would like to be evaluated and have a new PICC line placed. Will order labs, x-ray RAYRAY Woods APRN Medical Decision Making Medical Decision Making [facility] Narrative: 73-year-old female with past medical history as documented above presents for evaluation of IV antibiotics. She was discharged home with a PICC line for IV antibiotics and it seems that she pulled her PICC line out shortly after her discharge home. This is confirmed by family that is with her she has not had antibiotics and about 2 weeks. It seems that the patient may be unable to manage her care at home. She is not septic, she has no leukocytosis or fever. However she will still need several weeks of IV antibiotics. I will discuss with the hospitalist for admission and hopefully set up another PICC line placement and the patient may require additional level of care to help ensure she gets her entire course of antibiotics Differential Diagnosis Differential Diagnoses: The differential diagnosis associated with the presentation includes Osteomyelitis Noncompliance with care Schizoaffective disorder Acute wound Admission/Observation Consideration of admission/observation: Escalation of care including admission/observation considered Considered for admission due to barriers of care and inability to manage treatment at home Lab Data [facility] Lab Attestation statement: I reviewed the patient's lab results. No leukocytosis. The patient does have a chronic normocytic anemia. There is no left shift. No significant electrolyte abnormalities 02/24/24 14:06 02/24/24 14:06 Labs: Lab Results 02/24/24 Range/Units 14:06 WBC 5.9 (4.8-10.8) X10*3/uL RBC 3.18 L (4.20-5.50) X10*6/uL Hgb 10.2 L (12.0-16.0) g/dl Hct 30.3 L (37.0-47.0) % MCV 95.3 (80.0-98.0) fL MCH 32.1 (27.0-33.0) pg MCHC 33.7 (31.0-35.0) g/dl RDW 13.2 (11.0-16.0) % Plt Count 272 (160-400) X10*3/uL MPV 9.7 (9.4-12.3) fL Immature Gran % (Auto) 0.2 (0.0-0.4) % Neut % (Auto) 59.2 (45-73) % Lymph % (Auto) 29.4 (20-40) % Throckmorton % (Auto) 9.5 (2-11) % Eos % (Auto) 1.2 (0-4) % Baso % (Auto) 0.5 (0-2) % Lymph # (Auto) 1.7 (1.2-4.9) X10*3/uL Throckmorton # (Auto) 0.6 (0.1-1.2) X10*3/uL Eos # (Auto) 0.1 (0.0-0.4) X10*3/uL Baso # (Auto) 0.0 (0.0-0.2) X10*3/uL Abs Immat Gran (auto) 0.01 (0.00-0.03) X10*3/uL Absolute Neuts (auto) 3.5 (2.0-8.3) x10*3/uL Absolute Nucleated RBC 0.000 (0.0-0.012) X10*3/uL Nucleated RBC % (auto) 0.0 (0.0-0.2) /100WBC Sodium 138 (135-145) mmol/L Potassium 4.6 D (3.3-5.1) mmol/L Chloride 105 (96-108) mmol/L Carbon Dioxide 26 (22-29) mmol/L Anion Gap 12 (12-20) BUN 17 H (9-16) mg/dL Creatinine 0.84 (0.5-1.4) mg/dL Estim Creat Clear Calc 56.6 Estimated GFR > 60 Random Glucose 85 (60-115) mg/dL Calcium 9.7 (8.4-10.2) mg/dL Discharge Plan Discharge Clinical Impression: Acute osteomyelitis of right foot Patient Disposition: Still a Patient Prescriptions: No Action hydrocortisone 2.5 % cream 1 appl topical BID PRN (Reason: Itchiness) albuterol sulfate 90 mcg/actuation HFA aerosol inhaler 2 puff inhalation QID PRN (Reason: wheezing) pravastatin 10 mg tablet 10 mg PO DAILY daptomycin 500 mg Recon Soln 475 mg IV Q24H Qty: 0 0RF trifluoperazine 5 mg tablet 5 mg PO DAILY trihexyphenidyl 2 mg tablet 2 mg PO DAILY Rx Instructions: give with food (meal/snack) Print Language: Frisian
[2024-02-24 13:46] VITALS: BP 115/58; PULSE 101; RESP 18; TEMP 36.4; O2SAT 99; BMI 21.3
[2024-02-24 14:10] LABS: MANUAL DIFF FLAG NO
[2024-02-24 14:13] LABS: Basophils Percent Auto 0.5 % (0-2); Eosinophils Absolute Auto 0.1 X10*3/uL (0.0-0.4); Eosinophils Percent Auto 1.2 % (0-4); Hematocrit 30.3 % (37.0-47.0); Hemoglobin 10.2 g/dl (12.0-16.0); Imm Gran Abs Auto 0.01 X10*3/uL (0.00-0.03); Imm Gran Pct Auto 0.2 % (0.0-0.4); Lymphocytes Absolute Auto 1.7 X10*3/uL (1.2-4.9); Lymphocytes Percent Auto 29.4 % (20-40); Mean Corpuscular HGB Conc 33.7 g/dl (31.0-35.0); Mean Corpuscular Hemoglobin 32.1 pg (27.0-33.0); Mean Corpuscular Volume 95.3 fL (80.0-98.0); Mean Platelet Volume 9.7 fL (9.4-12.3); Monocytes Absolute Auto 0.6 X10*3/uL (0.1-1.2); Monocytes Percent Auto 9.5 % (2-11); Neutrophils Absolute Auto 3.5 x10*3/uL (2.0-8.3); Neutrophils Percent Auto 59.2 % (45-73); Platelet Count 272 X10*3/uL (160-400); Red Blood Count 3.18 X10*6/uL (4.20-5.50); Red Cell Distribution Width 13.2 % (11.0-16.0); White Blood Count 5.9 X10*3/uL (4.8-10.8)
[2024-02-24 14:32] LABS: Anion Gap 12 (12-20); Blood Urea Nitrogen 17 mg/dL (9-16); Calcium 9.7 mg/dL (8.4-10.2); Carbon Dioxide 26 mmol/L (22-29); Chloride 105 mmol/L (96-108); Creatinine Clr Calc Pharmacy 56.6; Estimated Glomerular Filt Rate > 60; Glucose Random 85 mg/dL (60-115); Potassium 4.6 mmol/L (3.3-5.1); Sodium 138 mmol/L (135-145)
[2024-02-24 18:18] VITALS: BP 180/74; PULSE 83; RESP 18; TEMP 36.3; O2SAT 100
[2024-02-24] MEDS: SODIUM CHLORIDE 0.9% IV (18:22)
[2024-02-24] MEDS: DAPTOMYCIN IV (18:22)
--- NOTE | 2024-02-24 18:41 | PHA.MEDREC ---
Addendum entered by Federica Cedeño RPh 02/24/24 18:45: Reviewed by [facility] Original Note: Pharmacy Consult ? Medication Reconciliation Pharmacy has completed the medication reconciliation. Spoke to patient to confirm med list. Patient stats she is no longer on Daptomycin 475 mg IV because she no longer has a pick line, has been off of medication for 2 weeks now. Patent was discharged from [facility] 02/11/24. patient stats other then the Daptomycin everything else was the same. Utilized claims and discharge packet to confirm med list.
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
[2024-02-24 18:57] LABS: C Reactive Protein 0.63 mg/dL (< or = 0.50)
[2024-02-24] MEDS: Enoxaparin Sodium 40 MG/0.4 ML SYRINGE SUBCUT (20:28)
[2024-02-24 21:33] VITALS: BP 157/70; PULSE 92; RESP 18; TEMP 36.6; O2SAT 99
[2024-02-24 22:18] VITALS: BMI 21.2
[2024-02-25 04:00] VITALS: BP 145/69; PULSE 91; RESP 18; TEMP 36.3; O2SAT 100
[2024-02-25] MEDS: 0.9 % Sodium Chloride Flush 3 ML SYRINGE IVFLUSH ×3 (06:27→17:18)
[2024-02-25 06:28] LABS: MANUAL DIFF FLAG NO
[2024-02-25 06:34] LABS: Basophils Absolute Auto 0.1 X10*3/uL (0.0-0.2); Eosinophils Absolute Auto 0.1 X10*3/uL (0.0-0.4); Hematocrit 30.5 % (37.0-47.0); Hemoglobin 10.2 g/dl (12.0-16.0); Imm Gran Abs Auto 0.01 X10*3/uL (0.00-0.03); Imm Gran Pct Auto 0.2 % (0.0-0.4); Lymphocytes Absolute Auto 1.7 X10*3/uL (1.2-4.9); Lymphocytes Percent Auto 34.1 % (20-40); Mean Corpuscular HGB Conc 33.4 g/dl (31.0-35.0); Mean Corpuscular Hemoglobin 32.1 pg (27.0-33.0); Mean Corpuscular Volume 95.9 fL (80.0-98.0); Mean Platelet Volume 10.6 fL (9.4-12.3); Monocytes Absolute Auto 0.5 X10*3/uL (0.1-1.2); Monocytes Percent Auto 10.2 % (2-11); Neutrophils Absolute Auto 2.7 x10*3/uL (2.0-8.3); Neutrophils Percent Auto 52.5 % (45-73); Platelet Count 282 X10*3/uL (160-400); Red Blood Count 3.18 X10*6/uL (4.20-5.50); White Blood Count 5.1 X10*3/uL (4.8-10.8)
[2024-02-25 07:01] LABS: Anion Gap 11 (12-20); Blood Urea Nitrogen 23 mg/dL (9-16); Calcium 9.2 mg/dL (8.4-10.2); Carbon Dioxide 23 mmol/L (22-29); Chloride 107 mmol/L (96-108); Creatinine Clr Calc Pharmacy 55.9; Estimated Glomerular Filt Rate > 60; Glucose Random 90 mg/dL (60-115); Potassium 3.8 mmol/L (3.3-5.1); Sodium 137 mmol/L (135-145)
[2024-02-25 07:17] LABS: Erythrocyte Sedimentation Rate 55 MM/HR (0-20)
[2024-02-25 07:59] VITALS: BP 143/61; PULSE 85; RESP 16; TEMP 36.7; O2SAT 99
[2024-02-25] MEDS: Trifluoperazine HCL 5 MG TABLET PO (08:20)
[2024-02-25] MEDS: Trihexyphenidyl HCL 2 MG TABLET PO (08:20)
[2024-02-25 08:41] LABS: HIV AB/AG Nonreactive (Nonreactive); HIV Num 1 0.08 S/CO (0.00-0.99)
--- NOTE | 2024-02-25 10:26 | MHC.CM.PN ---
Addendum entered by Shanon Waters RN 02/25/24 15:10: MD aware [facility] and [facility] have not accepted back and aware of the need for BID abx for SNF coverage. Addendum entered by Shanon Waters RN 02/25/24 10:42: Currently on daily Dapto. Awaiting ID consult. Will need at least BID abx for insurance to cover SNF. Original Note: IMM delivered. Patient lives in a home w/ . Functionally independent. Was recently dc'd from [facility] on 6 wks IV abx with [facility] and [facility], w/ daughter assisting. PCP Pau Call MD No PCP. CM provided education and offered assistance. Patient declined. DP: Per [facility] and [facility], patient was noncompliant and ultimately pulled her own PICC. Both are unable to accept patient back. Will need placement to complete IV abx once blood cultures clear. Patient unsure if she is agreeable to plan. CM will continue to follow.
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
--- NOTE | 2024-02-25 11:30 | HO.WOUND ---
Addendum entered by Roxie Nickerson RN 02/25/24 15:57: Left 5th Finger Etiology: ?Tramatic injury - unknown Etiology Wound Bed: Knox red clean wound bed no s/s of infection Drainage / Odor: no drainage noted - no odor noted - no dressing in place Edges: ? unattached Karyn wound: dry thick tissue No Fluctuance or Warmth noted Pain: denies reports neuropathy Goals of Treatment: ?Hydrocolloid Left 5th Finger - Cleanse with routine soap and water when showering. Dry well. Apply skin prep allow to dry. Cover with hydrocolloid, change every 3 days and PRN. Original Note: Wound Consult: Initial 73yr old?female admitted to [facility] on 02/24/24 - See progress notes and H&P for detailed history.? Wound consult placed for Right Plantar wounds.? Patient agreeable to assessment and photo documentation.? Right Plantar foot Etiology: ?Neuropathic wounds Wound Bed: two separate wound beds pin point opening - dry wound beds with great toe depth of 0.4cm and plantar pad depth of 1cm Drainage / Odor: serous drainage noted - no odor noted - no dressing in place Edges: ? unattached Karyn wound: dry thick callused tissue No Fluctuance or Warmth noted Pain: denies reports neuropathy Goals of Treatment: ? Iodoflex - to treat bio film and allow wound bed to advance Recommendations: 1. Turn and Reposition every 2 hours and as needed for patient comfort.? Use pillows or wedges to support off loading positions. 2. Off Load all bony prominences with use of pillows and heel boots if needed.? Apply Preventative foams where needed. ? 3. Monitor for incontinence and moisture control, use barrier creams when needed for prevention and treatment. 4. Provide adequate and supplemental nutrition.? 5. Right Plantar Foot - Elevate Right Leg on pillows be sure to float heels.? Cleanse with saline, pat dry. ?Apply Iodosorb / Iodoflex to wound bed cover with gauze and tape. ?Change every other day.?? Iodosorb/Iodoflex left at bedside. Note the Iodoflex will be applied brown and over the course of time as the CadexomerIodine is absorbed into the wound bed the color will change to yellow / cream signifying time to replace.?? At time of discharge patient should switch to Durafiber to the wound bed and change every other day as well. Re-consult wound care Nurse for wound deterioration or wound changes.
[2024-02-25 15:21] VITALS: BP 141/73; PULSE 90; RESP 16; TEMP 36.5; O2SAT 99
[2024-02-25] MEDS: gadobutroL 7.5 ML VIAL IVPUSH (17:03)
[2024-02-25] MEDS: DAPTOMYCIN IV (17:18)
[2024-02-25] MEDS: Enoxaparin Sodium 40 MG/0.4 ML SYRINGE SUBCUT (17:18)
[2024-02-25] MEDS: SODIUM CHLORIDE 0.9% IV (17:18)
--- NOTE | 2024-02-25 18:13 | PC.NURSE ---
Pt picking at and removed hydrocolloid dressing off finger that full time paramedic placed today. Pt refusing dressing at this time, states she is going to take a shower and will put it on later.
[2024-02-25 19:37] VITALS: BP 136/66; PULSE 88; RESP 16; TEMP 37.1; O2SAT 99
[2024-02-26 03:40] VITALS: BP 133/63; PULSE 88; RESP 18; TEMP 36.7; O2SAT 96
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
[2024-02-26 08:00] VITALS: BP 102/50; PULSE 94; RESP 16; TEMP 36.1; O2SAT 96
[2024-02-26] MEDS: Trifluoperazine HCL 5 MG TABLET PO (08:59)
[2024-02-26] MEDS: Trihexyphenidyl HCL 2 MG TABLET PO (08:59)
[2024-02-26] MEDS: 0.9 % Sodium Chloride Flush 3 ML SYRINGE IVFLUSH ×3 (08:59→21:35)
--- NOTE | 2024-02-26 12:24 | MHC.CM.PN ---
PER PHYSICIAN ROUNDS, PLAN IS TO AWAIT MRI RESULTS FOR DC PLANNING.
[2024-02-26 15:17] VITALS: BP 128/63; PULSE 85; RESP 20; TEMP 36; O2SAT 100
--- NOTE | 2024-02-26 15:27 | MHC.CM.PN ---
MRI report in expanse. Dispo now per id input. Awaiting 2 negative blood cultures.
[2024-02-26] MEDS: SODIUM CHLORIDE 0.9% IV (16:38)
[2024-02-26] MEDS: DAPTOMYCIN IV (16:38)
[2024-02-26] MEDS: Enoxaparin Sodium 40 MG/0.4 ML SYRINGE SUBCUT (17:52)
[2024-02-26 19:01] VITALS: BP 103/54; PULSE 104; RESP 20; TEMP 36.2; O2SAT 98
--- NOTE | 2024-02-26 23:15 | P.CNID_ITS ---
History of Present Illness Data of Consult Service Date: 02/25/24 Requesting physician: Kayla Higginbotham Primary Care Provider: aPu Us MD [facility] Reason for consult: right foot infection She presents with right foot redness still. She has no fever or chills. She has has PICC line placed for six weeks IV antibiotics and pulled out PICC line. Review of Systems 2 Review of Systems: Yes all other systems are reviewed and are negative PMFSH Past Medical History Medical History Osteomyelitis Right foot ulcer Essential hypertension Cyst of neck Abnormal ultrasound of neck Refusal of blood transfusions as patient is Congregation Cervical spinal stenosis Narcolepsy Ovarian cyst Schizoaffective disorder Chronic peripheral neuropathic pain Family History Family history: reviewed and not pertinent Social History Social History Household Members: Spouse Housing: Apartment Do you presently have visiting nurse or other home services: Yes Alcohol intake: never Patient Tobacco Use Status: Former Tobacco user Cigarettes Per Day: 4 Second Hand Smoke Exposure: No Advance Directives Date on File: 02/24/24 service: No Meds Allergies Allergy/AdvReac Type Severity Reaction Status Date / Time acetaminophen [From Percocet] Allergy Hallucinati Verified 02/24/24 13:48 ons oxycodone AdvReac Intermediate sleepiness Verified 02/24/24 13:48 Active Medications: Current Medications Acetaminophen (Acetaminophen 325 Mg Tablet) 650 mg PO Q6H PRN PRN Reason: Pain, Mild (Pain Scale 1-3), fever or headache Albuterol Sulfate (Albuterol Sulfate 90 Mcg 8 Gm Inhaler) 2 puff INHALE QID PRN PRN Reason: wheezing Calcium Carbonate (Calcium Carbonate 750 Mg Tab.Chew) 750 mg PO Q4H PRN PRN Reason: Heartburn Enoxaparin Sodium (Enoxaparin Sodium 40 Mg/0.4 Ml Syringe) 40 mg SUBCUT Q24H [facility] Last Admin: 02/26/24 17:52 Dose: 40 mg Hydrocortisone (Hydrocortisone 1 % Cream 28.35 Gm Tube) 1 appl TOPICAL BID PRN PRN Reason: Itchiness Daptomycin 480 mg/ Sodium (Chloride) 59.6 mls @ 100.028 mls/hr IV Q24H [facility] Last Infusion: 02/26/24 17:23 Dose: Infused Magnesium Hydroxide (Milk Of Magnesia 30 Ml Oral.Susp) 30 ml PO DAILY PRN PRN Reason: Constipation Melatonin (Melatonin 3 Mg Tablet) 6 mg PO BEDTIME PRN PRN Reason: Insomnia Ondansetron HCl (Ondansetron Hcl 4 Mg/2 Ml Vial) 4 mg IVPUSH Q8H PRN PRN Reason: Nausea and Vomiting Sodium Chloride (0.9 % Sodium Chloride Flush 3 Ml Syringe) 3 ml IVFLUSH QSHIFT [facility] Last Admin: 02/26/24 21:35 Dose: 3 ml Trifluoperazine HCl (Trifluoperazine Hcl 5 Mg Tablet) 5 mg PO DAILY [facility] Last Admin: 02/26/24 08:59 Dose: 5 mg Trihexyphenidyl HCl (Trihexyphenidyl Hcl 2 Mg Tablet) 2 mg PO DAILY [facility] Last Admin: 02/26/24 08:59 Dose: 2 mg Home Medications ?Medication ?Instructions ?Recorded ?Confirmed ?Last Taken ?Type trifluoperazine 5 mg tablet 5 mg PO DAILY 11/08/20 02/24/24 02/23/24 History trihexyphenidyl 2 mg tablet 2 mg PO DAILY 11/08/20 02/24/24 02/23/24 History albuterol sulfate 90 mcg/actuation 2 puff inhalation QID PRN wheezing 02/07/24 02/24/24 Unknown History aerosol inhaler hydrocortisone 2.5 % topical cream 1 appl topical BID PRN Itchiness 02/07/24 02/24/24 Unknown History pravastatin 10 mg tablet 10 mg PO DAILY 02/07/24 02/24/24 02/23/24 History Physical Exam 2 Vital Signs: Vital Signs: Last Vital Signs Temp 97.1 F 02/26/24 19:01 Pulse 104 H 02/26/24 19:01 Resp 20 02/26/24 19:01 BP 103/54 L 02/26/24 19:01 Pulse Ox 98 02/26/24 19:01 O2 Del Method Room Air 02/26/24 19:01 BMI result Body Mass Index 21.2 Const: General: cooperative HEENT: Head: Yes normal to inspection Face and sinus: Yes normal facial exam Mouth: Normal oral and palatal mucosa present Teeth and gingiva: d entition normal Eyes: General: appearance normal, both eyes and all related structures P upils: Equal, round and reactive pupils present Resp: Effort & Inspection: normal respiratory effort Cardio: Rate: regular rate Rhythm: regular rhythm GI: Palpation (GI): Soft to palpation and nontender : General: Yes no CVA tenderness Back/Spine/Pelvis: Back: no CVA tenderness Skin: General skin exam: no rashes or lesions noted Neuro: General: moves all extremities Cranial nerves: Yes Equal, round and reactive pupils present Extrem: Other: some improvement right foot redness General: Yes normal to inspection Psych: Appearance: grossly normal Results Labs 02/25/24 05:27 02/25/24 05:27 Microbiology Microbiology Results: Microbiology 02/24/24 20:04 Blood - Venous Blood Culture - Preliminary No growth after 48 hours. 02/24/24 20:04 Blood - Venous Blood Culture - Preliminary No growth after 48 hours. Assessment and Plan (1) Acute osteomyelitis of right foot: Status: Acute Plan There is no specific organism Would give six weeks IV Daptomycin. weekly creatinine and CK.
[2024-02-27 03:45] VITALS: BP 147/65; PULSE 86; RESP 16; TEMP 37.2; O2SAT 99
[2024-02-27 07:11] VITALS: BP 113/56; PULSE 84; RESP 14; TEMP 36.1; O2SAT 100
[2024-02-27] MEDS: 0.9 % Sodium Chloride Flush 3 ML SYRINGE IVFLUSH ×2 (07:41→19:38)
[2024-02-27] MEDS: Trihexyphenidyl HCL 2 MG TABLET PO (07:41)
[2024-02-27] MEDS: Trifluoperazine HCL 5 MG TABLET PO (07:41)
[2024-02-27] MEDS: Acetaminophen 325 MG TABLET 650 MG PO (10:29)
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
[2024-02-27 15:53] VITALS: BP 129/60; PULSE 94; RESP 18; TEMP 36.1; O2SAT 98
--- NOTE | 2024-02-27 17:04 | HO.PICC ---
PICC Line Insertion NPICC Diagnosis: Osteomyelitis Indication: retirement ABT Pertinent Labs: Reviewed Technique: Following informed consent including risks, benefits and alternatives and using sterile technique including cap and mask, sterile gown, glove and drape, the right arm was prepped and draped in the usual sterile fashion of full barrier technique with CHG. Following completion of [place] Protocol the skin and soft tissues were anesthetized with 1% Lidocaine plain. Using ultrasound guidance, right brachial vein access was obtained. Over an 0.018 wire through peel-away sheath, a 4fr single lumen PASV PICC line was positioned. Catheter length is 43cm internal length, 0cm external length, for a total trimmed length of 43cm. The procedure was performed in [facility]. Tip verification was performed by Ren Combs with Sherlock 3CG. Tip located in SVC. Ultrasound was used to document vein patency and for needle entry. A formal ultrasound picture and cardiac rhythm strip was recorded. Vascular Bottle Gauger has released the line for use and it is currently dressed with a StatLock, Tegaderm, and CHG disc. Verification has been performed for blood return and line patency. Arm Circumference: 27cm Equipment: [employer] Direct POWERPICC Catheter with Sherlock 3CG Tip Catheter Type: 4FR single lumen PASV Lot #: [id number]
[2024-02-27 17:07] LABS: Creatinine Clr Calc Pharmacy 56.6; Estimated Glomerular Filt Rate > 60
[2024-02-27] MEDS: vancomycin HCL 1,500 MG in 0.9 % Sodium Chloride 500 ML 333.33 MG IV (17:55)
[2024-02-27] MEDS: Enoxaparin Sodium 40 MG/0.4 ML SYRINGE SUBCUT (17:56)
--- NOTE | 2024-02-27 18:10 | PHA.PROG ---
Admission Date/Time: February 24, 2024 18:50 Indication: bone + joint Weight in k.6 kg Adjusted body weight in Kg: Sikes body weight in Kg: Obesity Dosing Indication % IBW: BMI 21.2 Serum Creatinine - Last 168 Hours 02/24/24 02/25/24 02/27/24 14:06 05:27 16:05 Creatinine 0.84 0.85 0.84 Estimated CrCl and GFR - Last 168 Hours 02/24/24 02/25/24 02/27/24 14:06 05:27 16:05 Estim Creat Clear Calc 56.6 55.9 56.6 Estimated GFR > 60 > 60 > 60 Vancomycin Loading Dose: 1500mg X1 Current Vancomycin Dosing Regimen: 1500mg Q24H Vancomycin Monitoring using AUC goal of 400 - 600 range with trough as surrogate marker: 574 Date and Time for next Vancomycin Level to be drawn: 02/28 @1600 Pharmacist Comments on Vancomycin Plan: Patient's renal function is stable. Starting with 1500mg Q24H to get into range as indication goal is 15-20. Predicted trough 16.2. To be changed potentially to 1250mg Q24H if SCr increases or trough comes back supratherapeutic. Vancomycin dosing will take advantage of [employer] as a clinical decision support tool that uses Bayesian modeling to calculate individual patient's pharmacokinetic parameters and forecast the patient's drug concentration time course with the target goal AUC 24 range of 400 - 600 mg/L/hr.
[2024-02-27 19:34] VITALS: BP 143/67; PULSE 94; RESP 20; TEMP 36; O2SAT 99
[2024-02-28 03:24] VITALS: BP 130/72; PULSE 112; RESP 18; TEMP 36.9; O2SAT 100
[2024-02-28 07:23] VITALS: BP 117/65; PULSE 121; RESP 16; TEMP 36.4; O2SAT 100
[2024-02-28] MEDS: 0.9 % Sodium Chloride Flush 10 ML SYRINGE 5 ML IVFLUSH ×3 (09:37→20:08)
[2024-02-28] MEDS: 0.9 % Sodium Chloride Flush 3 ML SYRINGE IVFLUSH ×2 (09:38→18:07)
[2024-02-28] MEDS: Trifluoperazine HCL 5 MG TABLET PO (09:48)
[2024-02-28] MEDS: Trihexyphenidyl HCL 2 MG TABLET PO (09:48)
[2024-02-28 12:43] LABS: Creatinine Clr Calc Pharmacy 58.7; Estimated Glomerular Filt Rate > 60
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
[2024-02-28 16:00] VITALS: BP 165/79; PULSE 119; RESP 17; TEMP 36.1; O2SAT 100
--- NOTE | 2024-02-28 18:03 | PC.NURSE ---
Pt attempting to leave AMA with PICC Line notified and security.
--- NOTE | 2024-02-28 18:05 | PC.NURSE ---
Attempt to educated patient about diseases process and risks of leaving AMA. Pt states I don't care, I'll go to a different hospital. Awaiting MD to see patient. Pt is of sound mind and can make own decisions.
[2024-02-28] MEDS: vancomycin HCL 1,500 MG in 0.9 % Sodium Chloride 500 ML 333.33 MG IV (18:07)
[2024-02-28 19:48] VITALS: BP 97/56; PULSE 123; RESP 18; TEMP 36.9; O2SAT 100
[2024-02-29 04:00] VITALS: BP 118/56; PULSE 101; RESP 16; TEMP 37.1; O2SAT 98
[2024-02-29 06:38] LABS: Creatinine Clr Calc Pharmacy 61.8; Estimated Glomerular Filt Rate > 60
[2024-02-29 07:15] VITALS: BP 120/59; PULSE 93; RESP 16; TEMP 36.5; O2SAT 98
[2024-02-29] MEDS: Trifluoperazine HCL 5 MG TABLET PO (08:50)
[2024-02-29] MEDS: Trihexyphenidyl HCL 2 MG TABLET PO (08:50)
[2024-02-29] MEDS: 0.9 % Sodium Chloride Flush 3 ML SYRINGE IVFLUSH ×3 (08:51→19:43)
[2024-02-29] MEDS: polyethylene glycoL 3350 17 GM POWD.PACK PO (08:52)
[2024-02-29] MEDS: 0.9 % Sodium Chloride Flush 10 ML SYRINGE 5 ML IVFLUSH ×3 (08:52→19:46)
[2024-02-29] MEDS: Acetaminophen 325 MG TABLET 650 MG PO ×2 (11:01→18:04)
--- NOTE | 2024-02-29 13:36 | MHC.CM.PN ---
PT AWAITING STR PLACEMENT, [facility] HAS ACCEPTED AUTH STILL PENDING
[2024-02-29 15:29] VITALS: BP 131/71; PULSE 96; RESP 18; TEMP 36.5; O2SAT 99
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
[2024-02-29 16:54] LABS: Vancomycin Random 9.1 mcg/mL (15-20)
--- NOTE | 2024-02-29 17:20 | HE.PHANOTE ---
re vanco Patients level came back this evening at 9.1. Given the indication of Osteo, will increase frequency to Q12H, 1000 mg. Next level to be drawn 03/01 @1600 to ensure safety and efficacy. predicted AUC 576
[2024-02-29] MEDS: vancomycin HCL 1,000 MG in 0.9 % Sodium Chloride 250 ML 270 MG IV (17:59)
[2024-02-29] MEDS: Enoxaparin Sodium 40 MG/0.4 ML SYRINGE SUBCUT (18:01)
[2024-02-29 19:39] VITALS: BP 118/56; PULSE 96; RESP 14; TEMP 37.1; O2SAT 99
[2024-03-01 03:36] VITALS: BP 130/69; PULSE 86; RESP 18; TEMP 36.4; O2SAT 100
[2024-03-01] MEDS: vancomycin HCL 1,000 MG in 0.9 % Sodium Chloride 250 ML 270 MG IV ×2 (05:39→17:27)
[2024-03-01 07:40] VITALS: BP 122/59; PULSE 86; RESP 18; TEMP 36.2; O2SAT 100
[2024-03-01] MEDS: 0.9 % Sodium Chloride Flush 10 ML SYRINGE 5 ML IVFLUSH ×3 (08:11→20:32)
[2024-03-01] MEDS: Trifluoperazine HCL 5 MG TABLET PO (08:12)
[2024-03-01] MEDS: Trihexyphenidyl HCL 2 MG TABLET PO (08:12)
--- NOTE | 2024-03-01 09:12 | PC.NURSE ---
Patient refuses sequentials,risks explained,encouraged activity
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
[2024-03-01 15:41] VITALS: BP 145/84; PULSE 87; RESP 18; TEMP 36.3; O2SAT 100
[2024-03-01 16:20] LABS: Creatinine Clr Calc Pharmacy 58.7; Estimated Glomerular Filt Rate > 60; Vancomycin Random 13.5 mcg/mL (15-20)
--- NOTE | 2024-03-01 17:34 | PC.NURSE ---
Patient reuses sequentials and Lovenox,risks explained ,ecouraged ambulation,PA Lulú Lopez made aware.
[2024-03-01] MEDS: Acetaminophen 325 MG TABLET 650 MG PO (17:54)
[2024-03-01 19:06] VITALS: BP 156/78; PULSE 107; RESP 16; TEMP 36; O2SAT 100
[2024-03-01] MEDS: Calcium Carbonate 750 MG TAB.CHEW PO (20:31)
[2024-03-02 03:42] VITALS: BP 142/65; PULSE 96; RESP 18; TEMP 36.5; O2SAT 100
[2024-03-02] MEDS: vancomycin HCL 1,000 MG in 0.9 % Sodium Chloride 250 ML 270 MG IV ×2 (05:34→17:34)
[2024-03-02 07:17] LABS: Creatinine Clr Calc Pharmacy 65.2; Estimated Glomerular Filt Rate > 60
[2024-03-02 07:19] VITALS: BP 131/61; PULSE 87; RESP 16; TEMP 36.2; O2SAT 100
[2024-03-02] MEDS: 0.9 % Sodium Chloride Flush 10 ML SYRINGE 5 ML IVFLUSH ×3 (08:49→21:37)
[2024-03-02] MEDS: Trihexyphenidyl HCL 2 MG TABLET PO (08:49)
[2024-03-02] MEDS: Trifluoperazine HCL 5 MG TABLET PO (08:49)
--- NOTE | 2024-03-02 08:53 | PC.NURSE ---
Patient refused for nurse o assess drsg to right foot ,refused to have left hand 5-th finger drsg changed stating she will take care of it
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
--- NOTE | 2024-03-02 14:28 | PC.NURSE ---
patient agreed to have drsgs applied to right foot and left 5-th finger,encouraged patient to keep drsgs on
[2024-03-02 15:14] VITALS: BP 128/64; PULSE 89; RESP 18; TEMP 36.4; O2SAT 100
[2024-03-02 20:00] VITALS: BP 136/70; PULSE 105; RESP 18; TEMP 36.2; O2SAT 98
[2024-03-03] MEDS: vancomycin HCL 1,000 MG in 0.9 % Sodium Chloride 250 ML 270 MG IV (05:18)
[2024-03-03 05:56] LABS: Creatinine Clr Calc Pharmacy 62.6; Estimated Glomerular Filt Rate > 60
[2024-03-03 07:44] VITALS: BP 105/54; PULSE 88; RESP 18; TEMP 36; O2SAT 97
[2024-03-03] MEDS: Trifluoperazine HCL 5 MG TABLET PO (08:14)
[2024-03-03] MEDS: Trihexyphenidyl HCL 2 MG TABLET PO (08:14)
[2024-03-03] MEDS: 0.9 % Sodium Chloride Flush 10 ML SYRINGE 5 ML IVFLUSH ×3 (08:17→20:24)
[2024-03-03] MEDS: 0.9 % Sodium Chloride Flush 3 ML SYRINGE IVFLUSH ×2 (08:18→15:34)
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
[2024-03-03 15:35] VITALS: BP 143/77; PULSE 84; RESP 18; TEMP 36.2; O2SAT 97
[2024-03-03 17:09] LABS: Vancomycin Random 17.6 mcg/mL (15-20)
[2024-03-03] MEDS: vancomycin HCL 750 MG in 0.9 % Sodium Chloride 250 ML 265 MG IV (18:00)
[2024-03-03 19:11] VITALS: BP 135/65; PULSE 85; RESP 17; TEMP 36.1; O2SAT 100
[2024-03-03] MEDS: Bismuth Subsalicylate 262 MG TABLET PO (20:23)
[2024-03-04 03:13] VITALS: BP 153/67; PULSE 86; RESP 18; TEMP 36; O2SAT 100
[2024-03-04] MEDS: vancomycin HCL 750 MG in 0.9 % Sodium Chloride 250 ML 265 MG IV (05:09)
[2024-03-04 07:42] VITALS: BP 165/96; PULSE 89; RESP 16; TEMP 36.1; O2SAT 100
[2024-03-04] MEDS: Trifluoperazine HCL 5 MG TABLET PO (08:31)
[2024-03-04] MEDS: Trihexyphenidyl HCL 2 MG TABLET PO (08:31)
[2024-03-04] MEDS: 0.9 % Sodium Chloride Flush 10 ML SYRINGE 5 ML IVFLUSH ×2 (08:32→15:46)
[2024-03-04 09:07] LABS: Creatinine Clr Calc Pharmacy 68.9; Estimated Glomerular Filt Rate > 60
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
--- NOTE | 2024-03-04 13:12 | MHC.CM.PN ---
DP: PT HAS BEEN MEDICALLY CLEARED FOR DC TO STR AT [facility] [place]. [facility] WILL APPROVE THIS CENTER (IN NETWORK) AND THEY HAVE OFFERED A BED. PT ACCEPTS BED OFFER AND BLS TRANSPORT HAS BEEN BOOKED FOR 4 PM. PT WILL NOTIFY FAMILY. MD /RN AWARE.
== END 2024-03-04 17:39 | disposition skilled nursing facility (03) | DRG 885 ==
LOC: HO.ED 17:05 → HO.EDOVER 18:51 → HO.S3 19:28
PROVIDERS: Nurse Practitioner Family; Admitting Provider Family Medicine; Emergency Provider Emergency Medicine; PCP Internal Medicine; Visit Provider Hospitalist
DX: F20.9 Schizophrenia, unspecified (principal); M86.171 Other acute osteomyelitis, right ankle and foot; L97.419 Non-pressure chronic ulcer of right heel and midfoot with unspecified severity; T36.8X6A Underdosing of other systemic antibiotics, initial encounter; L98.9 Disorder of the skin and subcutaneous tissue, unspecified; I73.9 Peripheral vascular disease, unspecified; G62.9 Polyneuropathy, unspecified; G47.419 Narcolepsy without cataplexy; V89.2XXS Person injured in unspecified motor-vehicle accident, traffic, sequela; Z87.891 Personal history of nicotine dependence; Z79.899 Other long term (current) drug therapy
CPT/HCPCS: 36415; 36573; 73620; 73720; 80048; 80202; 82550; 82565; 85025; 85652; 86140; 87040; 87389; 97161; 99285; A9585; C1751; J0878; J1650; J3370; J3371

== ENCOUNTER → 2024-02-24 18:50 | Outpatient (BNV) | payer OTHER, SELFPAY | PROVIDERS: Admitting Provider Family Medicine; Emergency Provider Emergency Medicine; PCP Internal Medicine; Visit Provider Internal Medicine | DX: M86.171 Other acute osteomyelitis, right ankle and foot (principal) | CPT/HCPCS: 99222 ==

== ENCOUNTER → 2024-02-24 18:50 | Outpatient (BNV) | payer OTHER, SELFPAY | PROVIDERS: Admitting Provider Family Medicine; Emergency Provider Emergency Medicine; PCP Internal Medicine; Visit Provider Family Medicine | DX: M86.171 Other acute osteomyelitis, right ankle and foot (principal) | CPT/HCPCS: 99223; 99232 ==

== ENCOUNTER 2024-04-07 14:30 | Outpatient (AMB) | payer OTHER, SELFPAY ==
--- NOTE | 2024-04-07 14:29 | MHC.OFFVIS ---
Vital Signs 04/07/24 14:37 Height 5 ft 5 in Weight 140 lb BMI 23.3 Pulse 83 Pulse Source Pulse Oximeter Temp 97.9 F Temp Source Oral Pulse Oximetry (%) 99 Oxygen Delivery Method Room Air Intake Visit Reasons: [place] reff osteomyelitis /sesamoids ulcer Allergies acetaminophen [From Percocet] Allergy (Verified 04/07/24 14:38) Hallucinations oxycodone Adverse Reaction (Intermediate, Verified 04/07/24 14:38) sleepiness HPI Comments Details: She finished IV antibiotics and is finishing two weeks po Amoxiclin per her Nutritional Yeast Supervisor. She has no complaints. [facility] Medical History Osteomyelitis Right foot ulcer Essential hypertension Cyst of neck Abnormal ultrasound of neck Refusal of blood transfusions as patient is Yazidism Cervical spinal stenosis Narcolepsy Ovarian cyst Schizoaffective disorder Chronic peripheral neuropathic pain Social History Household Members: Spouse Housing: Apartment Do you presently have visiting nurse or other home services: Yes Alcohol intake: never Patient Tobacco Use Status: Former Tobacco user Cigarettes Per Day: 4 Second Hand Smoke Exposure: No Advance Directives Date on File: 02/24/24 service: No Review of Systems Const All systems reviewed & are unremarkable except as noted in HPI and below Physical Exam Vital Signs: Last Vital Signs Temp 97.9 F 04/07/24 14:37 Pulse 83 04/07/24 14:37 Pulse Ox 99 04/07/24 14:37 Oxygen Delivery Method Room Air 04/07/24 14:37 BMI result Body Mass Index 23.3 Const Other: General: cooperative Orientation/consciousness: patient oriented x3 HEENT Head: Yes normal to inspection Mouth: Normal oral and palatal mucosa present Eyes General: appearance normal, both eyes and all related structures Pupils: Equal, round and reactive pupils present Resp Effort & Inspection: normal respiratory effort Cardio Rate: regular rate Rhythm: regular rhythm GI Palpation (GI): Soft to palpation and nontender General: Yes no CVA tenderness Back/Spine/Pelvis Back: no CVA tenderness Skin General skin exam: no rashes or lesions noted Neuro General: patient oriented x3 Cranial nerves: Yes CN's II-XII intact bilaterally and Yes Equal, round and reactive pupils present Extrem General: Yes normal to inspection Psych Appearance: grossly normal Assessment & Plan Assessment & Plan (1) Acute osteomyelitis of right foot: Code(s): M86.171 - Other acute osteomyelitis, right ankle and foot Category: Medical Plan: Finish po Amoxicillin. See us prn need,no return appointment given. Coding Level of Care Code Est Pt Level 3 (45707) Diagnoses Acute osteomyelitis of right foot M86.171
[2024-04-07 14:37] VITALS: PULSE 83; TEMP 36.6; O2SAT 99; BMI 23.3
== END 2024-04-07 15:00 | disposition home or self-care (01) ==
PROVIDERS: PCP Internal Medicine; Visit Provider Internal Medicine
DX: M86.171 Other acute osteomyelitis, right ankle and foot (principal)
CPT/HCPCS: 99213

== ENCOUNTER → 2024-04-07 14:30 | Outpatient (BNVA) | payer OTHER, SELFPAY | PROVIDERS: PCP Internal Medicine; Visit Provider Internal Medicine | DX: M86.171 Other acute osteomyelitis, right ankle and foot (principal); Z79.2 Long term (current) use of antibiotics | CPT/HCPCS: 99212 ==

== ENCOUNTER 2024-06-13 19:35 | Inpatient (IN) | payer OTHER, SELFPAY ==
--- NOTE | ~2024-06-13 | XR_ITS ---
CLINICAL HISTORY: pain 4 view right foot Comparison: CR/NE/SR - XR FOOT RT 2V - 02/24/24 14:13 EST Findings: Large soft tissue irregularity of the medial aspect of the 1st metatarsophalangeal joint. No significant loss of joint space, osteophytes, or erosions. No ankle effusion. No radiopaque foreign body. Soft tissue swelling about the forefoot. IMPRESSION: 1. Large soft tissue irregularity and regional soft tissue swelling about the 1st metatarsophalangeal joint. No acute osseous abnormality identified. This document has been electronically signed by: Omar Garza MD, PHD on 06/13/2024 20:42:49
--- NOTE | ~2024-06-13 | MR_ITS ---
CLINICAL HISTORY: rT FOOT WOUND big toe MR right foot without contrast Comparison: 02/25/24 Findings: There is a large wound with relatively superficial ulceration along the medial aspect of the distal 1st metatarsal. There is both localized and general soft tissue edema /inflammation. There is significant edema along the dorsum of the foot. There is no evidence of osteomyelitis. There is a 1st metatarsophalangeal joint effusion. There is tenosynovitis of the flexor hallucis tendon. Rest of the joint spaces are normal. Bone marrow signal is normal. IMPRESSION: 1. There is a large wound with relatively superficial ulceration along the medial aspect of the distal 1st metatarsal. There is both localized and general soft tissue edema /inflammation. There is significant edema along the dorsum of the foot. 2. There is no evidence of osteomyelitis. 3. There is a 1st metatarsophalangeal joint effusion. 4. There is tenosynovitis of the flexor hallucis tendon. This document has been electronically signed by: Giovanni Doll MD on 06/14/2024 12:07:27
[2024-06-13 20:00] VITALS: BP 112/54; PULSE 94; RESP 20; TEMP 36.9; O2SAT 98; BMI 25.8
--- NOTE | 2024-06-13 20:01 | ED.GENADULT ---
HPI - General Adult General Chief complaint: Extremity Injury, Lower Stated complaint: surgery on right ft says follow up Time Seen by Provider: 06/14/24 03:17 Source: patient Mode of arrival: ambulatory Limitations: no limitations History of Present Illness ED Provider: Dr. Fransisco Ochoa HPI narrative: 74-year-old female with past medical history significant for hypertension, cervical spine stenosis, narcolepsy, chronic peripheral neuropathic pain, schizophrenia, osteomyelitis of the right foot, admission to [facility] February 2024 for osteomyelitis and non healing wound had a surgery at [facility] by her manager regional sales, Dr. Mccullough on 06/03/2024 to remove the right tibial sesamoid bone secondary to osteomyelitis a nonhealing wound. Patient had follow-up and was started on Augmentin and followed up today with her surgeon. The surgeon was concerned that the patient had cellulitis and dehiscence of the wound and refer the patient to the emergency department for evaluation. Please see below. Obtained from Dr. Domenica Mccullough office visit note on 06/13/2024: ?1. Ulcer of right foot with bone involvement without evidence of necrosis. Note: Ms Iverson presents for a follow-up. She had surgery on 06/03/2024 to remove the right tibial sesamoid due to chronic nonhealing ulceration and sesamoid OM. She has since had dehiscence of the surgical site. She was started on Augmentin but has continued to have drainage from the area. Today the site is actively infected with swelling and redness. No streaking. This is concerning for significant soft tissue infection. I recommend she go to the hospital for further treatment with IV antibiotics. I did take cultures today and will send these once I have them. I am worried that this could worsen quick applied a new padded bandage and gave her a heel offloading shoe. Related Data Home Medications ?Medication ?Instructions ?Recorded ?Confirmed trifluoperazine 5 mg tablet 5 mg PO DAILY 11/08/20 02/24/24 trihexyphenidyl 2 mg tablet 2 mg PO DAILY 11/08/20 02/24/24 albuterol sulfate 90 mcg/actuation 2 puff inhalation QID PRN wheezing 02/07/24 02/24/24 aerosol inhaler hydrocortisone 2.5 % topical cream 1 appl topical BID PRN Itchiness 02/07/24 02/24/24 amoxicillin 875 mg tablet 875 mg PO Q12H 04/07/24 Previous Rx's ?Medication ?Instructions ?Recorded polyethylene glycol 3350 17 gram 17 g PO DAILY #30 ea 03/03/24 oral powder packet Allergies Allergy/AdvReac Type Severity Reaction Status Date / Time acetaminophen [From Percocet] Allergy Hallucinati Verified 06/13/24 20:03 ons oxycodone AdvReac Intermediate sleepiness Verified 06/13/24 20:03 Review of Systems Review of Systems: Yes all other systems are reviewed and are negative [facility] Past Medical History [facility] Narrative: Social history: She denies tobacco, alcohol and drug use. Medical History Osteomyelitis Right foot ulcer Essential hypertension Cyst of neck Abnormal ultrasound of neck Refusal of blood transfusions as patient is Hoahaoism Cervical spinal stenosis Narcolepsy Ovarian cyst Schizoaffective disorder Chronic peripheral neuropathic pain Social History Social History Household Members: Spouse Housing: Apartment Do you presently have visiting nurse or other home services: Yes Alcohol intake: never Patient Tobacco Use Status: Former Tobacco user Cigarettes Per Day: 4 Second Hand Smoke Exposure: No Advance Directives: Yes Advance Directives on File: Yes Advance Directives Date on File: 02/24/24 Do you have a plan to hurt others: No Plan service: No Physical Exam ED Vital Signs: Vital Signs - 24 hr 06/13/24 20:00 06/13/24 23:07 Temperature 98.5 F 97.6 F Pulse Rate 94 90 Respiratory Rate 20 16 Blood Pressure 112/54 L 103/46 L Pulse Oximetry 98 100 Oxygen Delivery Method Room Air Room Air BMI result Body Mass Index 25.8 Vital signs were normal Exam: General: Awake, alert in no distress Head: Normocephalic, atraumatic EENT: PERRL, Lids normal, sclera normal, conjunctiva normal, nose normal , ears normal, throat without erythema or exudates Neck: Supple, no adenopathy Lung: breath sounds symmetric, no wheezing, rales or rhonchi Chest: symmetric movement, nontender Heart: regular rate and rhythm, normal S1, S2 no murmurs or rubs Abdomen: soft, non-tender, nondistended, normal bowel sounds Back: no vertebral tenderness, no CVAT Extremities: Patient does have erythema and soft tissue swelling over the toes and MCP joints of the right foot. There is an open wound over the medial aspect of the 1st MCP joint with purulent appearing drainage which was cultured.. See pictures below Neuro: Awake, alert, oriented, normal speech, cranial nerves intact, moves all extremities symmetrically Psych: Pleasant, cooperative Course Course Course Narrative: RME, this is a rapid medical exam performed by Sami Ricketts please refer to primary provider for complete H&P- 74-year-old female with past medical history significant for schizophrenia, osteomyelitis of the right foot, recent admission in February for this similar, she completed a course of vancomycin. She reports worsening foot pain and believes she has return of her right foot infection. Denies any recent trauma. Plan for labs including inflammatory markers and blood cultures. Medical Decision Making Medical Decision Making [facility] Narrative: 74-year-old female with past medical history significant for hypertension, cervical spine stenosis, narcolepsy, chronic peripheral neuropathic pain, schizophrenia, osteomyelitis of the right foot, admission to [facility] February 2024 for osteomyelitis and non healing wound had a surgery at [facility] by her manager regional sales, Dr. Mccullough on 06/03/2024 to remove the right tibial sesamoid bone secondary to osteomyelitis a nonhealing wound, [place] and had a follow-up today. Her surgeon was concerned that the patient now had worsening infection despite being on oral antibiotics and the patient was referred to the emergency department for evaluation and for IV antibiotics. Vital signs were normal. Physical examination did reveal cellulitis of the right foot involving toes and area around the MTP joints. Patient also had an open wound over the medial aspect of the MTP joint which appears to be infected. Differential diagnosis: ?Includes but is not limited to cellulitis, osteomyelitis, anemia, electrolyte abnormality Course: 04:01 My interpretation patient's laboratory evaluation is as follows: Normocytic anemia with an H&H of 9.2 and 27.1. Elevated BUN and creatinine of 31 and 2.13 which is above her baseline with decreased GFR 23. Lactic acid was normal at 1.4. ESR elevated 115. CRP elevated 24.35 X-ray did not reveal any obvious osteomyelitis that can be seen on the plain film. The patient was cellulitis with an open wound which may be draining purulent material. I did discuss the patient's presentation covering hospitalist, Dr. Luong. After this discussion he ordered vancomycin and Zosyn. Patient will be admitted to the hospitalist service for further treatment. Admission/Observation Consideration of admission/observation: Escalation of care including admission/observation considered Yes Consult Healthcare Provider Management of the patient was discussed with: Hospitalist Lab Data MDM Lab Attestation statement: I reviewed the patient's lab results. 06/13/24 20:50 06/13/24 20:50 Labs: Lab Results 06/13/24 06/13/24 Range/Units 20:50 20:52 WBC 6.7 (4.8-10.8) X10*3/uL RBC 2.95 L (4.20-5.50) X10*6/uL Hgb 9.2 L (12.0-16.0) g/dl Hct 27.1 L (37.0-47.0) % MCV 91.9 (80.0-98.0) fL MCH 31.2 (27.0-33.0) pg MCHC 33.9 (31.0-35.0) g/dl RDW 13.7 (11.0-16.0) % Plt Count 313 (160-400) X10*3/uL MPV 9.6 (9.4-12.3) fL Immature Gran % (Auto) 0.7 H (0.0-0.4) % Neut % (Auto) 70.1 (45-73) % Lymph % (Auto) 16.4 L (20-40) % [place] % (Auto) 9.5 (2-11) % Eos % (Auto) 2.7 (0-4) % Baso % (Auto) 0.6 (0-2) % Lymph # (Auto) 1.1 L (1.2-4.9) X10*3/uL [place] # (Auto) 0.6 (0.1-1.2) X10*3/uL Eos # (Auto) 0.2 (0.0-0.4) X10*3/uL Baso # (Auto) 0.0 (0.0-0.2) X10*3/uL Abs Immat Gran (auto) 0.05 H (0.00-0.03) X10*3/uL Absolute Neuts (auto) 4.7 (2.0-8.3) x10*3/uL Absolute Nucleated RBC 0.000 (0.0-0.012) X10*3/uL Nucleated RBC % (auto) 0.0 (0.0-0.2) /100WBC ESR 115 H (0-20) MM/HR Sodium 138 (135-145) mmol/L Potassium 3.8 (3.3-5.1) mmol/L Chloride 108 (96-108) mmol/L Carbon Dioxide 21 L (22-29) mmol/L Anion Gap 13 (12-20) BUN 31 H (9-16) mg/dL Creatinine 2.13 H (0.5-1.4) mg/dL Estim Creat Clear Calc 23.1 Estimated GFR 23 Random Glucose 105 (60-115) mg/dL Lactic Acid 1.4 (0.5-2.0) mmol/L Calcium 9.7 (8.4-10.2) mg/dL Total Bilirubin 0.2 (0.0-1.0) mg/dL AST 19 (5-31) U/L ALT 12 (0-31) U/L Alkaline Phosphatase 73 (39-117) U/L C-Reactive Protein 24.34 H (< or = 0.50) mg/dL Total Protein 7.7 (6.5-8.0) g/dL Albumin 3.5 (3.5-5.0) g/dL Independent Interpretation I performed an independent interpretation of an: Plain X-Ray Interpretation: My independent interpretation of the patient's two view foot were x-ray is as follows: Soft tissue swelling noted, no acute fracture or obvious osteomyelitis seen on the plain film Radiology Impression Discussion of test interpretation with radiology: I have reviewed the radiologist's reading. Radiologist Impression: 4 view right foot Comparison: CR/NH/SR - XR FOOT RT 2V - 02/24/24 14:13 EST Findings: Large soft tissue irregularity of the medial aspect of the 1st metatarsophalangeal joint. No significant loss of joint space, osteophytes, or erosions. No ankle effusion. No radiopaque foreign body. Soft tissue swelling about the forefoot. IMPRESSION: 1. Large soft tissue irregularity and regional soft tissue swelling about the 1st metatarsophalangeal joint. No acute osseous abnormality identified. This document has been electronically signed by: Omar Garza MD, PHD on 06/13/2024 20:42:49 Independent Historian Clinical information obtained from an independent historian. History obtained from or confirmed by: Spouse External Record Review External record reviewed: Inpatient record and Office record Chronic Conditions Patient?s care impacted by: Other (Peripheral neuropathy) Discharge Plan Discharge Clinical Impression: Cellulitis of right foot, Surgical wound dehiscence Patient Disposition: Admitted As Inpatient Print Language: Barbadian
[2024-06-13 20:59] LABS: MANUAL DIFF FLAG NO
[2024-06-13 21:01] LABS: Basophils Percent Auto 0.6 % (0-2); Eosinophils Absolute Auto 0.2 X10*3/uL (0.0-0.4); Eosinophils Percent Auto 2.7 % (0-4); Hematocrit 27.1 % (37.0-47.0); Hemoglobin 9.2 g/dl (12.0-16.0); Imm Gran Abs Auto 0.05 X10*3/uL (0.00-0.03); Imm Gran Pct Auto 0.7 % (0.0-0.4); Lymphocytes Absolute Auto 1.1 X10*3/uL (1.2-4.9); Lymphocytes Percent Auto 16.4 % (20-40); Mean Corpuscular HGB Conc 33.9 g/dl (31.0-35.0); Mean Corpuscular Hemoglobin 31.2 pg (27.0-33.0); Mean Corpuscular Volume 91.9 fL (80.0-98.0); Mean Platelet Volume 9.6 fL (9.4-12.3); Monocytes Absolute Auto 0.6 X10*3/uL (0.1-1.2); Monocytes Percent Auto 9.5 % (2-11); Neutrophils Absolute Auto 4.7 x10*3/uL (2.0-8.3); Neutrophils Percent Auto 70.1 % (45-73); Platelet Count 313 X10*3/uL (160-400); Red Blood Count 2.95 X10*6/uL (4.20-5.50); Red Cell Distribution Width 13.7 % (11.0-16.0); White Blood Count 6.7 X10*3/uL (4.8-10.8)
[2024-06-13 21:13] LABS: Lactic Acid 1.4 mmol/L (0.5-2.0)
[2024-06-13 21:14] LABS: Alanine Aminotransferase 12 U/L (0-31); Albumin Level 3.5 g/dL (3.5-5.0); Alkaline Phosphatase 73 U/L (39-117); Anion Gap 13 (12-20); Aspartate Amino Transferase 19 U/L (5-31); Bilirubin Total 0.2 mg/dL (0.0-1.0); Blood Urea Nitrogen 31 mg/dL (9-16); C Reactive Protein 24.34 mg/dL (< or = 0.50); Calcium 9.7 mg/dL (8.4-10.2); Carbon Dioxide 21 mmol/L (22-29); Chloride 108 mmol/L (96-108); Creatinine Clr Calc Pharmacy 23.1; Estimated Glomerular Filt Rate 23; Glucose Random 105 mg/dL (60-115); Potassium 3.8 mmol/L (3.3-5.1); Sodium 138 mmol/L (135-145); Total Protein 7.7 g/dL (6.5-8.0)
[2024-06-13 21:42] LABS: Erythrocyte Sedimentation Rate 115 MM/HR (0-20)
[2024-06-13 23:07] VITALS: BP 103/46; PULSE 90; RESP 16; TEMP 36.4; O2SAT 100
[2024-06-14] VITALS (7 sets, daily range): BP systolic 120–167; BP diastolic 58–98; PULSE 79–109; RESP 16–18; TEMP 36.3–37; O2SAT 99–100; BMI 21.1
--- NOTE | 2024-06-14 03:52 | P.HPHOSP_ITS ---
History of Present Illness Date of Service: 06/14/24 Chief Complaint: Right foot wound 74-year-old female with a past medical history of right foot wound status post surgery in May 2024 for osteomyelitis; hypertension, cervical spinal stenosis, schizoaffective disorder, neuropathy presented to the hospital today with a chief complaint of right foot wound. Patient reported that she had surgery for the right foot about 2 weeks ago. Has been following with her assistant golf course superintendent postoperatively. And today on the follow-up noted to have increased discharge from the wound and concern for possible infection, hence her assistant golf course superintendent sent her to the hospital for further evaluation.. Mentions was on Augmentin that was started recently as outpatient. Reports generalized weakness. Denies any fevers and chills. Denies a cough or sputum production. Denies any chest pain or palpitations. Denies any GI symptoms. Review of all other systems is negative except mentioned above ER course: Per ER team, patient noted to have right foot wound with the discharge; x-ray shows soft tissue swelling, ESR and CRP elevated; admitted for further evaluation. [facility] Medical History Osteomyelitis Right foot ulcer Essential hypertension Cyst of neck Abnormal ultrasound of neck Refusal of blood transfusions as patient is Adventism Cervical spinal stenosis Narcolepsy Ovarian cyst Schizoaffective disorder Chronic peripheral neuropathic pain Social History Household Members: Spouse Housing: Apartment Do you presently have visiting nurse or other home services: Yes Alcohol intake: never Patient Tobacco Use Status: Former Tobacco user Cigarettes Per Day: 4 Second Hand Smoke Exposure: No Advance Directives: Yes Advance Directives on File: Yes Advance Directives Date on File: 02/24/24 Do you have a plan to hurt others: No Plan service: No Meds Allergies Allergy/AdvReac Type Severity Reaction Status Date / Time acetaminophen [From Percocet] Allergy Hallucinati Verified 06/13/24 20:03 ons oxycodone AdvReac Intermediate sleepiness Verified 06/13/24 20:03 Active Medications: Current Medications Vancomycin HCl 1,000 mg/ (Sodium Chloride) 270 mls @ 270 mls/hr IV DAILY GIANNI Piperacillin Sod/Tazobactam (Sod 2.25 gm/ Sodium Chloride) 50 mls @ 100 mls/hr IV Q8H [facility] Pharmacy Consult (Consult Rx Vancomycin Dosing) 1 each MISCELLANE DAILY PRN PRN Reason: Consult order Home Medications ?Medication ?Instructions ?Recorded ?Confirmed ?Last Taken ?Type trifluoperazine 5 mg tablet 5 mg PO DAILY 11/08/20 02/24/24 02/23/24 History trihexyphenidyl 2 mg tablet 2 mg PO DAILY 11/08/20 02/24/24 02/23/24 History albuterol sulfate 90 mcg/actuation 2 puff inhalation QID PRN wheezing 02/07/24 02/24/24 Unknown History aerosol inhaler hydrocortisone 2.5 % topical cream 1 appl topical BID PRN Itchiness 02/07/24 02/24/24 Unknown History amoxicillin 875 mg tablet 875 mg PO Q12H 04/07/24 Unknown History Physical Exam 2 Vital Signs and Narrative: Vital Signs: Last Vital Signs Temp 97.6 F 06/13/24 23:07 Pulse 90 06/13/24 23:07 Resp 16 06/13/24 23:07 BP 103/46 L 06/13/24 23:07 Pulse Ox 100 06/13/24 23:07 O2 Del Method Room Air 06/13/24 23:07 BMI result Body Mass Index 25.8 Gen: Appears be in no acute distress HEENT: NCAT, Moist mucosa. Pulmonary: Vesicular breath sounds, fair air entry CVS: Normal S1-S2 Abdomen: BS+, Soft, Nontender Extremities: Warm well perfused; right foot wound as shown in the picture below Neuro: Alert and awake. Results Labs 06/13/24 20:50 06/13/24 20:50 Labs: Laboratory Results - last 24 hr 06/13/24 06/13/24 20:50 20:52 MCV 91.9 MCH 31.2 MCHC 33.9 RDW 13.7 Plt Count 313 MPV 9.6 Immature Gran % (Auto) 0.7 H Neut % (Auto) 70.1 Lymph % (Auto) 16.4 L [place] % (Auto) 9.5 Eos % (Auto) 2.7 Baso % (Auto) 0.6 Lymph # (Auto) 1.1 L [place] # (Auto) 0.6 Eos # (Auto) 0.2 Baso # (Auto) 0.0 Abs Immat Gran (auto) 0.05 H Absolute Neuts (auto) 4.7 Absolute Nucleated RBC 0.000 Nucleated RBC % (auto) 0.0 ESR 115 H Anion Gap 13 Estim Creat Clear Calc 23.1 Estimated GFR 23 Random Glucose 105 Lactic Acid 1.4 Calcium 9.7 Total Bilirubin 0.2 AST 19 ALT 12 Alkaline Phosphatase 73 C-Reactive Protein 24.34 H Total Protein 7.7 Albumin 3.5 Assessment and Plan (1) Right foot ulcer: Qualifiers: Non-pressure ulcer stage: with other severity Qualified Code(s): L 97.518 - Non-pressure chronic ulcer of other part of right foot with other specified severity Status: Acute Plan 74-year-old female with a past medical history of right foot wound status post surgery in May 2024 for osteomyelitis; hypertension, cervical spinal stenosis, schizoaffective disorder, neuropathy presented to the hospital today with a chief complaint of right foot wound. Right foot wound: Patient had recent surgery. Since then patient is seen following with a assistant golf course superintendent for postsurgery management but currently the surgical site/wound has increased discharge. Was on Augmentin as outpatient for few days. Currently concern for possible osteomyelitis X-ray showed soft tissue swelling Will obtain MRI of the foot Give the patient on IV vancomycin and Zosyn Will consult Podiatry and Infectious Disease for further recommendations History of schizoaffective disorder: To resume patient's home medications once med rec is done by the pharmacy. DVT prophylaxis: Lovenox Code status: Full code Quality Stroke Does the patient have a stroke diagnosis?: No VTE Prior VTE?: No VTE Risk Level:: Medical - moderate - high VTE Device Contraindication: Treatment Not Indicated VTE Drug Contraindication: N/A - Med Ordered
[2024-06-14] MEDS: Piperacillin Sodium/Tazobactam 2.25 GM in 0.9 % Sodium Chloride 50 ML IV ×3 (04:12→20:03)
[2024-06-14] MEDS: Enoxaparin Sodium 40 MG/0.4 ML SYRINGE SUBCUT ×2 (04:12→20:07)
[2024-06-14] MEDS: vancomycin HCL 1,000 MG, vancomycin HCL 750 MG in 0.9 % Sodium Chloride 500 ML 267.5 MG IV (04:41)
[2024-06-14 06:10] LABS: Hematocrit 25.1 % (37.0-47.0); Hemoglobin 8.6 g/dl (12.0-16.0); Mean Corpuscular HGB Conc 34.3 g/dl (31.0-35.0); Mean Corpuscular Hemoglobin 31.2 pg (27.0-33.0); Mean Corpuscular Volume 90.9 fL (80.0-98.0); Mean Platelet Volume 9.5 fL (9.4-12.3); Platelet Count 300 X10*3/uL (160-400); Red Blood Count 2.76 X10*6/uL (4.20-5.50); Red Cell Distribution Width 13.7 % (11.0-16.0); White Blood Count 5.9 X10*3/uL (4.8-10.8)
[2024-06-14 06:21] LABS: Anion Gap 12 (12-20); Blood Urea Nitrogen 29 mg/dL (9-16); Carbon Dioxide 20 mmol/L (22-29); Chloride 111 mmol/L (96-108); Creatinine Clr Calc Pharmacy 28.1; Estimated Glomerular Filt Rate 28; Glucose Random 80 mg/dL (60-115); Potassium 3.4 mmol/L (3.3-5.1); Sodium 140 mmol/L (135-145)
--- NOTE | 2024-06-14 08:53 | PHA.MEDREC ---
Addendum entered by Mejia Herrmann [facility] 06/14/24 09:26: med rec checked by [facility] Original Note: Pharmacy Consult ? Medication Reconciliation Pharmacy has completed the medication reconciliation. Spoke with patient to confirm. She last took her medications yesterday including the antibiotic. She confirmed taking chlorthalidone, she is no longer taking pravastatin.
--- NOTE | 2024-06-14 12:53 | MHC.CM.PN ---
IMM 06/14/24 RT FOOT WOUND LIVES WITH SPOUSE INDEPENDENT WITH ALL FUNCTIONAL MOBILITY. NON COMPLIANT IN THE PAST W IV ABX. [facility] DID NOT RESUME PRIOR ADMIT R/T NON COMPLIANCE. PATIENT DC TO [facility] FOR INFUSION IV ABX @ SNF IF NEEDED. CULTURES ARE PENDING. [facility] PRIVATE TRANSPORT
--- NOTE | 2024-06-14 13:48 | PM.EVENT ---
Event Note Date of Service: 06/14/24 Event Note: 74-year-old female with a past medical history of right foot wound status post surgery in May 2024 for osteomyelitis; hypertension, cervical spinal stenosis, schizoaffective disorder, neuropathy presented to the hospital today with a chief complaint of right foot wound. Right foot wound/possible dehiscence Right Tibial sesamoidectomy 06/03/24 X-ray showed soft tissue swelling, MRI negative for osteomyelitis Continue IV vancomycin and Zosyn General surgery consultation History of schizoaffective disorder Continue home medications DVT prophylaxis: Lovenox Code status: Full code Time Spent With Patient Time: Total time managing care of this patient today ____ minutes.
--- NOTE | 2024-06-14 14:43 | PM.CNGS ---
History of Present Illness Consult details Consult date: 06/14/24 Narrative: 74F with schizophrenia, chronic neuropathy and callus on the right foot, admitted last night because of an open wound. She says he had undergone resection of a bone guzzler builder in [facility] last week. This has apparently done because of osteomyelitis. She had seen her guzzler builder yesterday as she says that her wound opened and the sutures had loosened. She says that her guzzler builder which removed the sutures and she was sent to the hospital antibiotics. She denies any fever. She does have some mild pain on the area. She has had a known thick callus with an ulcer on this area of the right foot. Review of Systems Constitutional: Constitutional: Denies chills and Denies fever(s) Cardiovascular: Cardiovascular: Denies chest pain, Denies dyspnea and Denies dyspnea on exertion Respiratory: Respiratory: Denies cough, Denies dyspnea and Denies dyspnea on exertion Gastrointestinal: Gastrointestinal: Denies hematochezia and Denies change in bowel habits Genitourinary: Genitourinary: Denies hematuria Musculoskeletal: Musculoskeletal: Denies back pain and Denies limited range of motion Neurologic: Denies focal weakness and Denies convulsions Psychiatric: Psychiatric: Denies mood swings Comments: Has schizophrenia PMF Past Medical History Medical History Osteomyelitis Right foot ulcer Essential hypertension Cyst of neck Abnormal ultrasound of neck Refusal of blood transfusions as patient is Zoroastrian Cervical spinal stenosis Narcolepsy Ovarian cyst Schizoaffective disorder Chronic peripheral neuropathic pain Social History Social History Household Members: Spouse Housing: Apartment Do you presently have visiting nurse or other home services: No Alcohol intake: never Patient Tobacco Use Status: Former Tobacco user Cigarettes Per Day: 4 Second Hand Smoke Exposure: No Use of substances other than those prescribed or required for medical reasons: No Currently Displaying Signs/Symptoms of Drug Intoxication Withdrawal: No Any prior treatment program specific to substance use: No Have you been hit, kicked, punched, or otherwise hurt by someone within the past year? If so, by whom?: No Do you feel safe in your current relationship?: Yes Is there a partner from a previous relationship who is making you feel unsafe now?: No Are you made to feel afraid or neglected: No Advance Directives: Yes Advance Directives on File: Yes Advance Directives Date on File: 02/24/24 Do you have a plan to hurt others: No Plan Recently lost weight without trying: Yes How much weight loss: Not applicable Eating poorly because of decreased appetite: No Nutrition screen score: 2 Nutrition Risks: No Nutritional Risk Patient : No : No Poor oral hygiene: No service: No Meds Allergies Allergy/AdvReac Type Severity Reaction Status Date / Time acetaminophen [From Percocet] Allergy Hallucinati Verified 06/13/24 20:03 ons oxycodone AdvReac Intermediate sleepiness Verified 06/13/24 20:03 Active Medications: Current Medications Albuterol Sulfate (Albuterol Sulfate 90 Mcg 8 Gm Inhaler) 2 puff INHALE QID PRN PRN Reason: wheezing Calcium Carbonate (Calcium Carbonate 750 Mg Tab.Chew) 750 mg PO Q4H PRN PRN Reason: Heartburn Enoxaparin Sodium (Enoxaparin Sodium 40 Mg/0.4 Ml Syringe) 40 mg SUBCUT BEDTIME [facility] Last Admin: 06/14/24 04:12 Dose: 40 mg Hydrochlorothiazide (Hydrochlorothiazide 25 Mg Tablet) 25 mg PO DAILY [facility] Hydroxyzine HCl (Hydroxyzine Hcl 10 Mg Tablet) 10 mg PO TID PRN PRN Reason: Itching Piperacillin Sod/Tazobactam (Sod 2.25 gm/ Sodium Chloride) 50 mls @ 100 mls/hr IV Q8H [facility] Last Infusion: 06/14/24 13:36 Dose: Infused Vancomycin HCl 750 mg/ Sodium (Chloride) 265 mls @ 265 mls/hr IV Q24H [facility] Magnesium Hydroxide (Milk Of Magnesia 30 Ml Oral.Susp) 30 ml PO DAILY PRN PRN Reason: Constipation Melatonin (Melatonin 3 Mg Tablet) 6 mg PO BEDTIME PRN PRN Reason: Insomnia Oxycodone HCl (Oxycodone Hcl Immed Release 5 Mg Tablet) 5 mg PO Q6H PRN PRN Reason: Pain, Moderate(Pain Scale 4-6) Pharmacy Consult (Consult Rx Vancomycin Dosing) 1 each MISCELLANE DAILY PRN PRN Reason: Consult order Sodium Chloride (0.9 % Sodium Chloride Flush 3 Ml Syringe) 3 ml IVFLUSH QSHIFT [facility] Last Admin: 06/14/24 07:00 Dose: Not Given Trifluoperazine HCl (Trifluoperazine Hcl 5 Mg Tablet) 5 mg PO BID [facility] Trihexyphenidyl HCl (Trihexyphenidyl Hcl 2 Mg Tablet) 2 mg PO DAILY [facility] Home Medications ?Medication ?Instructions ?Recorded ?Confirmed ?Last Taken ?Type trifluoperazine 5 mg tablet 5 mg PO BID 11/08/20 06/14/24 06/13/24 History trihexyphenidyl 2 mg tablet 2 mg PO DAILY 11/08/20 06/14/24 06/13/24 History albuterol sulfate 90 mcg/actuation 2 puff inhalation QID PRN wheezing 02/07/24 06/14/24 Unknown History aerosol inhaler hydrocortisone 2.5 % topical cream 1 appl topical BID PRN Itchiness 02/07/24 06/14/24 Unknown History chlorthalidone 25 mg tablet 25 mg PO DAILY 06/14/24 06/14/24 06/13/24 History hydroxyzine HCl 10 mg tablet 10 mg PO TID PRN Itching 06/14/24 06/14/24 Unknown History ibuprofen 800 mg tablet 800 mg PO TID PRN Pain 06/14/24 06/14/24 Unknown History Physical Exam Vital Signs: Vital Signs: Last Vital Signs Temp 98.6 F 06/14/24 12:00 Pulse 109 H 06/14/24 12:00 Resp 16 06/14/24 12:00 BP 137/76 06/14/24 12:00 Pulse Ox 99 06/14/24 12:00 O2 Del Method Room Air 06/14/24 12:00 BMI result Body Mass Index 21.1 Const: General: comfortable and no acute distress Orientation/consciousness: patient oriented x3 Neck: Neck: Yes no lymphadenopathy Resp: Auscultation: clear to auscultation bilaterally Cardio: Rhythm: regular rhythm GI: Palpation (GI): Soft to palpation, nontender and no guarding Neuro: General: patient oriented x3 Extrem: Other: Right foot with an open wound of the medial aspect of the forefoot near the base of the big toe, open wound about the by 3 cm, clean, tolerating well, representing the wound dehiscence, no cellulitis, he was surrounding the open wound is noted Results Labs 06/14/24 05:42 06/15/24 05:46 Labs: Abnormal lab results 06/13/24 06/14/24 Range/Units 20:50 05:42 RBC 2.95 L 2.76 L (4.20-5.50) X10*6/uL Hgb 9.2 L 8.6 L (12.0-16.0) g/dl Hct 27.1 L 25.1 L (37.0-47.0) % Immature Gran % (Auto) 0.7 H (0.0-0.4) % Lymph % (Auto) 16.4 L (20-40) % Lymph # (Auto) 1.1 L (1.2-4.9) X10*3/uL Abs Immat Gran (auto) 0.05 H (0.00-0.03) X10*3/uL ESR 115 H (0-20) MM/HR Chloride 111 H (96-108) mmol/L Carbon Dioxide 21 L 20 L (22-29) mmol/L BUN 31 H 29 H (9-16) mg/dL Creatinine 2.13 H 1.75 H (0.5-1.4) mg/dL C-Reactive Protein 24.34 H (< or = 0.50) mg/dL Short CBC 06/13/24 06/14/24 Range/Units 20:50 05:42 WBC 6.7 5.9 (4.8-10.8) X10*3/uL Hgb 9.2 L 8.6 L (12.0-16.0) g/dl Hct 27.1 L 25.1 L (37.0-47.0) % Plt Count 313 300 (160-400) X10*3/uL BMP 06/13/24 06/14/24 20:50 05:42 Sodium 138 140 Potassium 3.8 3.4 Chloride 108 111 H Carbon Dioxide 21 L 20 L BUN 31 H 29 H Creatinine 2.13 H 1.75 H Calcium 9.7 9.0 D Liver Function 06/13/24 Range/Units 20:50 Total Bilirubin 0.2 (0.0-1.0) mg/dL AST 19 (5-31) U/L ALT 12 (0-31) U/L Alkaline Phosphatase 73 (39-117) U/L Albumin 3.5 (3.5-5.0) g/dL All other labs normal. Assessment and Plan (1) Surgical wound dehiscence: Qualifiers: Encounter type: initial encounter Qualified Code(s): T81.31XA - Disruption of external operation (surgical) wound, not elsewhere classified, initial encounter Status: Acute She has a open wound on the medial aspect of the right foot described above. This is from a wound dehiscence after resection for osteomyelitis done by her guzzler builder in [place] I have changed her dressings. I would allow the open wound to heal by secondary intention. She had been started on antibiotics for a presumed infection. She should have daily wound care with dry dressings in the area. I also told her that she should follow up with her guzzler builder on discharge. Procedures Date of Service Date of Service: 06/15/24
[2024-06-14] MEDS: Calcium Carbonate 750 MG TAB.CHEW PO (18:43)
[2024-06-14] MEDS: Trihexyphenidyl HCL 2 MG TABLET PO (18:43)
[2024-06-14] MEDS: Trifluoperazine HCL 5 MG TABLET PO (20:07)
[2024-06-14] MEDS: 0.9 % Sodium Chloride Flush 3 ML SYRINGE IVFLUSH (20:13)
[2024-06-15] MEDS: Piperacillin Sodium/Tazobactam 2.25 GM in 0.9 % Sodium Chloride 50 ML IV (03:46)
[2024-06-15 03:47] VITALS: BP 119/64; PULSE 94; RESP 18; TEMP 37.1; O2SAT 99
[2024-06-15 07:45] LABS: Estimated Glomerular Filt Rate 35
[2024-06-15 07:59] VITALS: BP 144/70; PULSE 86; RESP 16; TEMP 36.6; O2SAT 99
[2024-06-15] MEDS: 0.9 % Sodium Chloride Flush 3 ML SYRINGE IVFLUSH (08:27)
[2024-06-15] MEDS: hydroCHLOROthiazide 25 MG TABLET PO (08:27)
[2024-06-15] MEDS: Trihexyphenidyl HCL 2 MG TABLET PO (08:27)
[2024-06-15] MEDS: Trifluoperazine HCL 5 MG TABLET PO (08:27)
--- NOTE | 2024-06-15 09:02 | MHC.CM.PN ---
Addendum entered by Gabriela Alvarez 06/15/24 09:31: Patient is discharged today with [facility] for wound management education. She has arranged for a ride home. Addendum entered by Gabriela Alvarez 06/15/24 09:03: IMM 06/14/24 Original Note: Patient is planned for discharge today. Referrals have been sent per pt preference. Patient will transport home with a family member.
--- NOTE | 2024-06-15 09:04 | P.F2F_ITS ---
Service Date Service Date: 06/15/24 Encounter Date of encounter: 06/15/24 Reasons for Services Signs and symptoms assessed: Dehiscence of surgical wound Reason for fdc: CV/CP assess and/or care, wound care (Teaching/education) and teach disease management Homebound: Leaving the home is medically contraindicated at this time without the asist of a device and/or another person due th the listed conditions above and below. Reason homebound: other (Surgical foot wound dehiscence) Certification: Based on the above findings, I certify that this patient is confined to the home and needs intermittent fdc care, physical therapy and/or speech th erapy, or continues to need occupational therapy. The patient is under my care, and I have initiated the establishment of the plan of care. The patient will be followed by a physician who will periodically review the plan of care. Time Spent With Patient Time: Total time managing care of this patient today ____ minutes.
--- NOTE | 2024-06-15 09:08 | PM.DS ---
DS: Providers Provider Date of Service: 06/15/24 Date of admission: 06/14/24 03:51 Date of discharge: 06/15/24 Primary care physician: Domenica Mccullough DPM, MD Consults: 06/14/24 03:47 Consult to Infectious Diseases Routine Consulting Provider: [facility] Reason for consultation: rt foot wound 06/14/24 13:47 Consult to General Surgery Routine Consulting Provider: [facility] General Surgeons Reason for consultation: foot wound DS: Diagnosis Discharge Diagnosis (1) Surgical wound dehiscence: Status: Acute DS: Summary Hospital Course Hospital Course: History and physical as per admitting provider. 74-year-old female with a past medical history of right foot wound status post surgery in May 2024 for osteomyelitis; hypertension, cervical spinal stenosis, schizoaffective disorder, neuropathy presented to the hospital today with a chief complaint of right foot wound. Patient reported that she had surgery for the right foot about 2 weeks ago. Has been following with her manager urology postoperatively. And today on the follow-up noted to have increased discharge from the wound and concern for possible infection, hence her manager urology sent her to the hospital for further evaluation.. Mentions was on Augmentin that was started recently as outpatient. Reports generalized weakness. Denies any fevers and chills. Denies a cough or sputum production. Denies any chest pain or palpitations. Denies any GI symptoms.Review of all other systems is negative except mentioned above ER course: Per ER team, patient noted to have right foot wound with the discharge; x-ray shows soft tissue swelling, ESR and CRP elevated; admitted for further evaluation. 74-year-old woman treated for right surgical foot wound dehiscence. Patient is status post right tibial sesamoidectomy on 06/03/2024 and had osteomyelitis bone removed. She presented with open wound to the right foot, MRI was negative for osteomyelitis just showing some soft tissue swelling. She was treated with IV vancomycin and Zosyn empirically. Seen evaluated by General surgery who recommended leaving the wound open and follow up with manager urology soon as possible. Dry clean dressing daily. History of schizoaffective disorder Continue home medications Time Attestation Discharge Coordination Time (in mins): 45 Quality: Safe Use of Opioids Does Pt have an Active Cancer Diagnosis on the Problem List?: No Quality: Stroke Does the patient have a stroke diagnosis?: No Physical Exam Vital Signs: Vital Signs: Last Vital Signs Temp 97.9 F 06/15/24 07:59 Pulse 86 06/15/24 07:59 Resp 16 06/15/24 07:59 BP 144/70 H 06/15/24 07:59 Pulse Ox 99 06/15/24 07:59 O2 Del Method Room Air 06/15/24 07:59 BMI result Body Mass Index 21.1 Appearing in no acute distress head is normocephalic atraumatic eyes pupils are PERRLA sclera is anicteric mouth throat mucous membranes are intact and moist neck is supple no lymphadenopathy, no JVD noted lung sounds are clear to auscultation heart regular rate rhythm, clear S1, S2 positive bowel sounds, abdomen is soft, nontender neuro patient is alert x3, no focal deficits Right foot surgical wound dehiscence surrounding skin intact, good color, granulating tissue with an wound DS: Data Data Completed and Pending Completed studies during hospitalization [Text1]: Procedures Insertion of Infusion Device into Superior Vena Cava, Percutaneous Approach (02/24/24) Ultrasonography of Superior Vena Cava, Guidance (02/24/24) Labs on day of discharge: Laboratory Results - last 24 hr 06/15/24 06/15/24 05:45 05:46 Hold Purple Top SEE NOTE Creatinine 1.45 H Estim Creat Clear Calc 31.0 Estimated GFR 35 Preliminary micro results at discharge 06/14/24 04:41 Routine Culture - Preliminary Foot - Right Staphylococcus aureus Gram negative enrique 06/13/24 20:50 Blood Culture - Preliminary Blood - Venous No growth after 24 hours. 06/13/24 20:52 Blood Culture - Preliminary Blood - Venous No growth after 24 hours. Discharge Plan Discharge Anticipated Discharge Date/Time: 06/15/24 08:55 Patient Disposition: Home Health Service Discharge Diagnosis: Dehiscence of right foot wound Referrals: Domenica Mccullough DPM, MD [Primary Care Provider] - 1 Week Discharge Medications: New doxycycline hyclate 100 mg tablet 100 mg PO BID Qty: 10 0RF Continued hydrocortisone 2.5 % cream 1 appl topical BID PRN (Reason: Itchiness) albuterol sulfate 90 mcg/actuation HFA aerosol inhaler 2 puff inhalation QID PRN (Reason: wheezing) ibuprofen 800 mg tablet 800 mg PO TID PRN (Reason: Pain) chlorthalidone 25 mg tablet 25 mg PO DAILY hydroxyzine HCl 10 mg tablet 10 mg PO TID PRN (Reason: Itching) trifluoperazine 5 mg tablet 5 mg PO BID trihexyphenidyl 2 mg tablet 2 mg PO DAILY Rx Instructions: give with food (meal/snack) Discontinued amoxicillin-pot clavulanate 875-125 mg tablet 1 tab PO Q12H Discharge Orders: Discharge Order (Routine); Ordered 06/15/24 Ordered By: Luisa Eason Diet: Advance to usual diet Activity on Discharge: As tolerated Stand Alone Forms: Patient Portal Discharge page Print Language: Uzbek Activity Restrictions/Additional Instructions: Allow the open wound to heal by secondary intention. may shower and allow wound to be cleaned with water Dry area after being wet Daily wound care with dry dressings in the area. Care Plan Goals: Follow-up with manager urology soon as possible Health Concerns: Dehiscence of right foot wound Plan of Treatment: Follow-up with primary care provider as needed Take all medications as prescribed Assessment: See discharge summary
[2024-06-15 10:14] VITALS: BP 179/61; PULSE 94; RESP 18; TEMP 36; O2SAT 98
== END 2024-06-15 10:46 | disposition home health service (06) | DRG 921 ==
LOC: HO.ED 06-14 04:06 → HO.EDOVER 06-14 04:31 → HO.S3 06-14 06:27
PROVIDERS: Physician Assistant; Admitting Provider Hospitalist; Emergency Provider Emergency Medicine Emergency Medical Services; PCP Podiatrist; Visit Provider Nurse Practitioner Acute Care
DX: T81.31XA Disruption of external operation (surgical) wound, not elsewhere classified, initial encounter (principal); G47.419 Narcolepsy without cataplexy; G62.9 Polyneuropathy, unspecified; F25.9 Schizoaffective disorder, unspecified; Z87.891 Personal history of nicotine dependence; Z79.899 Other long term (current) drug therapy
CPT/HCPCS: 36415; 73630; 73718; 80048; 80053; 82565; 83605; 85025; 85027; 85652; 86140; 87040; 87070; 87077; 87186; 87205; 99285; J1650; J2543; J3370

== ENCOUNTER → 2024-06-13 20:06 | Outpatient (BNV) | payer OTHER, SELFPAY | PROVIDERS: PCP Podiatrist; Visit Provider General Practice | DX: R22.41 Localized swelling, mass and lump, right lower limb (principal) | CPT/HCPCS: 73630 ==

== ENCOUNTER 2024-06-14 03:51 | Outpatient (BNV) | payer OTHER, SELFPAY | END 2024-06-14 10:45 | PROVIDERS: Admitting Provider Hospitalist; Emergency Provider Emergency Medicine Emergency Medical Services; PCP Podiatrist; Visit Provider Radiology Diagnostic Radiology | DX: S91.101A Unspecified open wound of right great toe without damage to nail, initial encounter (principal) | CPT/HCPCS: 73718 ==

== ENCOUNTER → 2024-06-14 03:51 | Outpatient (BNV) | payer OTHER, SELFPAY | PROVIDERS: Admitting Provider Hospitalist; Emergency Provider Emergency Medicine Emergency Medical Services; PCP Podiatrist; Visit Provider Surgery | DX: T81.31XA Disruption of external operation (surgical) wound, not elsewhere classified, initial encounter (principal) | CPT/HCPCS: 99222 ==

== ENCOUNTER → 2024-06-14 03:51 | Outpatient (BNV) | payer OTHER, SELFPAY | PROVIDERS: Admitting Provider Hospitalist; Emergency Provider Emergency Medicine Emergency Medical Services; PCP Podiatrist; Visit Provider Nurse Practitioner Acute Care | DX: T81.31XA Disruption of external operation (surgical) wound, not elsewhere classified, initial encounter (principal) | CPT/HCPCS: 99239; G0180 ==

== ENCOUNTER 2024-08-31 18:22 | Inpatient (IN) | payer OTHER, SELFPAY ==
--- NOTE | ~2024-08-31 | XR_ITS ---
CLINICAL HISTORY: eval for osteo 3 view right foot Comparison: CR - XR FOOT RT MIN 3V - 06/13/24 20:19 EDT Findings: No fractures or dislocations. Marked erosive abnormality involving the 1st metatarsal head as well as the proximal aspect of the proximal phalanx of the 1st digit. No ankle effusion. No radiopaque foreign body. IMPRESSION: Septic arthritis and osteomyelitis at the 1st metatarsophalangeal joint. This document has been electronically signed by: Reno Patrick MD on 08/31/2024 20:03:16
[2024-08-31 18:28] VITALS: BP 107/44; PULSE 91; RESP 18; TEMP 37; O2SAT 100; BMI 18.8
--- NOTE | 2024-08-31 18:32 | ED.GENADULT ---
HPI - General Adult General Chief complaint: Wound/Laceration Stated complaint: foot dr sent her for labs Time Seen by Provider: 08/31/24 19:20 Source: patient Mode of arrival: ambulatory Limitations: no limitations History of Present Illness ED Provider: HPI narrative: Patient's history of peripheral neuropathy had a callus on the right 1st metatarsal which was shaved in 06/10 since then patient has had a open wound with treated outpatient started on antibiotics clindamycin last week PCP sent the patient here for nonhealing wounds patient denied any fever or worsening of the wound does have 2 open areas of the wound Related Data Home Medications ?Medication ?Instructions ?Recorded ?Confirmed trifluoperazine 5 mg tablet 5 mg PO BID 11/08/20 06/14/24 trihexyphenidyl 2 mg tablet 2 mg PO DAILY 11/08/20 06/14/24 albuterol sulfate 90 mcg/actuation 2 puff inhalation QID PRN wheezing 02/07/24 06/14/24 aerosol inhaler hydrocortisone 2.5 % topical cream 1 appl topical BID PRN Itchiness 02/07/24 06/14/24 chlorthalidone 25 mg tablet 25 mg PO DAILY 06/14/24 06/14/24 hydroxyzine HCl 10 mg tablet 10 mg PO TID PRN Itching 06/14/24 06/14/24 ibuprofen 800 mg tablet 800 mg PO TID PRN Pain 06/14/24 06/14/24 Previous Rx's ?Medication ?Instructions ?Recorded doxycycline hyclate 100 mg tablet 100 mg PO BID #10 tabs 06/15/24 Allergies Allergy/AdvReac Type Severity Reaction Status Date / Time acetaminophen [From Percocet] Allergy Hallucinati Verified 08/31/24 18:29 ons oxycodone AdvReac Intermediate sleepiness Verified 08/31/24 18:29 Review of Systems Review of Systems: Yes all other systems are reviewed and are negative PMFSH Past Medical History Medical History Osteomyelitis Right foot ulcer Essential hypertension Cyst of neck Abnormal ultrasound of neck Refusal of blood transfusions as patient is Yarsani Cervical spinal stenosis Narcolepsy Ovarian cyst Schizoaffective disorder Chronic peripheral neuropathic pain Social History Social History Household Members: Spouse Housing: Apartment Do you presently have visiting nurse or other home services: No Alcohol intake: never Patient Tobacco Use Status: Former Tobacco user Cigarettes Per Day: 4 Smoked in Last 30 Days: No Second Hand Smoke Exposure: No Use of substances other than those prescribed or required for medical reasons: No Advance Directives: Yes Advance Directives on File: Yes Advance Directives Date on File: 02/24/24 Nutrition Risks: Poor intake 0-25% >4 days service: No Physical Exam ED Vital Signs: Vital Signs - 24 hr 08/31/24 18:28 Temperature 98.6 F Pulse Rate 91 Respiratory Rate 18 Blood Pressure 107/44 L Pulse Oximetry 100 Oxygen Delivery Method Room Air BMI result Body Mass Index 18.8 Appearance: Alert. Oriented X3. No acute distress. Eyes: PERRLA, No Nystagmus ENT: Pharynx normal. Oral Mucosa moist Neck: Normal inspection. Neck supple. CVS: Normal heart rate and rhythm. Pulses normal. Respiratory: No respiratory distress. Equal air entry bilateral, no wheezing/rales/rhonchi Abdomen: Soft and nontender. Bowel sounds are present, no mass palpable, no CVA tenderness Skin: Skin warm and dry. Normal skin color. Normal skin turgor. Extremities: No lower extremity edema. No calf tenderness wound as in the picture Neuro: Oriented X 3. No motor deficit. Decreased sensation to light touch and pinprick in bilateral No cerebellar signs , cranial nerves II-XII intact Course Course Course Narrative: Dolores Woods aPRN This is a rapid medical exam. Deferred additional HPI, ROS, PE to primary provider. 74 yo female past medical history significant for hypertension, cervical spine stenosis, narcolepsy, chronic peripheral neuropathic pain, schizophrenia, osteomyelitis of the right foot here with concern for worsening infection to right foot despite taking oral abx. Will obtain labs, x-rays VSS Medications Administered Generic Name Dose Route Start Last Admin Trade Name Freq PRN Reason Stop Dose Admin Ceftriaxone Sodium 1 gm 08/31/24 22:00 08/31/24 22:23 Ceftriaxone Sodium 1 Gm Vial IVPUSH 1 gm Q24H GIANNI Administration Enoxaparin Sodium 40 mg 08/31/24 22:00 08/31/24 22:23 Enoxaparin Sodium 40 Mg/0.4 Ml Syringe SUBCUT 40 mg Q24H GIANNI Administration Sodium Chloride 3 ml 09/01/24 00:00 08/31/24 22:47 0.9 % Sodium Chloride Flush 3 Ml Syringe IVFLUSH 3 ml QSHIFT GIANNI Administration Discontinued Medications Generic Name Dose Route Start Last Admin Trade Name [place] PRN Reason Stop Dose Admin Vancomycin HCl 1,000 mg/ 270 mls @ 270 mls/hr 08/31/24 20:08 08/31/24 22:29 Sodium Chloride IV 08/31/24 21:07 Infused ONCE ONE Infusion Ampicillin Sodium/Sulbactam 100 mls @ 200 mls/hr 08/31/24 20:08 08/31/24 21:06 Sodium 3 gm/ Sodium Chloride IV 08/31/24 20:37 Infused ONCE ONE Infusion Medical Decision Making Medical Decision Making [facility] Narrative: Patient with peripheral neuropathy with nonhealing wound for last 3 months with history of osteomyelitis in the 06/10 comes here for nonhealing wound x-ray showed bony erosion suggestive of osteomyelitis will admit patient for IV antibiotics possible amputation after surgical evaluation Differential Diagnosis Differential Diagnoses: The differential diagnosis associated with the presentation includes Lab Data [facility] Lab Attestation statement: I reviewed the patient's lab results. 08/31/24 18:48 08/31/24 19:23 Labs: Lab Results 08/31/24 08/31/24 Range/Units 18:48 19:23 WBC 6.9 (4.8-10.8) X10*3/uL RBC 2.41 L (4.20-5.50) X10*6/uL Hgb 7.5 L (12.0-16.0) g/dl Hct 22.1 L (37.0-47.0) % MCV 91.7 (80.0-98.0) fL MCH 31.1 (27.0-33.0) pg MCHC 33.9 (31.0-35.0) g/dl RDW 14.9 (11.0-16.0) % Plt Count 514 H D (160-400) X10*3/uL MPV 9.1 L (9.4-12.3) fL Immature Gran % (Auto) 0.4 (0.0-0.4) % Neut % (Auto) 58.1 (45-73) % Lymph % (Auto) 33.4 (20-40) % [place] % (Auto) 5.9 (2-11) % Eos % (Auto) 1.6 (0-4) % Baso % (Auto) 0.6 (0-2) % Lymph # (Auto) 2.3 (1.2-4.9) X10*3/uL [place] # (Auto) 0.4 (0.1-1.2) X10*3/uL Eos # (Auto) 0.1 (0.0-0.4) X10*3/uL Baso # (Auto) 0.0 (0.0-0.2) X10*3/uL Abs Immat Gran (auto) 0.03 (0.00-0.03) X10*3/uL Absolute Neuts (auto) 4.0 (2.0-8.3) x10*3/uL Absolute Nucleated RBC 0.000 (0.0-0.012) X10*3/uL Nucleated RBC % (auto) 0.0 (0.0-0.2) /100WBC ESR > 140 H (0-20) MM/HR Sodium 137 (135-145) mmol/L Potassium 3.9 (3.3-5.1) mmol/L Chloride 103 (96-108) mmol/L Carbon Dioxide 23 (22-29) mmol/L Anion Gap 15 (12-20) BUN 20 H (9-16) mg/dL Creatinine 1.09 (0.5-1.4) mg/dL Estim Creat Clear Calc 37.1 Estimated GFR 49 Random Glucose 99 (60-115) mg/dL Lactic Acid 1.5 (0.5-2.0) mmol/L Calcium 9.2 (8.4-10.2) mg/dL Radiology Impression Discussion of test interpretation with radiology: I have reviewed the radiologist's reading. Discharge Plan Discharge Clinical Impression: Acute osteomyelitis of right foot Patient Disposition: Admitted As Inpatient
[2024-08-31 18:58] LABS: MANUAL DIFF FLAG NO
[2024-08-31 19:00] LABS: Basophils Percent Auto 0.6 % (0-2); Eosinophils Absolute Auto 0.1 X10*3/uL (0.0-0.4); Eosinophils Percent Auto 1.6 % (0-4); Hematocrit 22.1 % (37.0-47.0); Hemoglobin 7.5 g/dl (12.0-16.0); Imm Gran Abs Auto 0.03 X10*3/uL (0.00-0.03); Imm Gran Pct Auto 0.4 % (0.0-0.4); Lymphocytes Absolute Auto 2.3 X10*3/uL (1.2-4.9); Lymphocytes Percent Auto 33.4 % (20-40); Mean Corpuscular HGB Conc 33.9 g/dl (31.0-35.0); Mean Corpuscular Hemoglobin 31.1 pg (27.0-33.0); Mean Corpuscular Volume 91.7 fL (80.0-98.0); Mean Platelet Volume 9.1 fL (9.4-12.3); Monocytes Absolute Auto 0.4 X10*3/uL (0.1-1.2); Monocytes Percent Auto 5.9 % (2-11); Neutrophils Percent Auto 58.1 % (45-73); Platelet Count 514 X10*3/uL (160-400); Red Blood Count 2.41 X10*6/uL (4.20-5.50); Red Cell Distribution Width 14.9 % (11.0-16.0); White Blood Count 6.9 X10*3/uL (4.8-10.8)
--- OUTSIDE RECORDS SUMMARY | 2024-08-31 19:02 | XMS_ITS | Clinical Summary ---
Author Organization [facility] Address [address] [place] [address] Care Team Providers Care Top Knitter Name Role Phone Unavailable Primary Care Provider Unavailabl e Allergies Active Allergy Reactions Criticality Noted Date Comments Oxycodone-Acetaminop hen Other (See Comments) 05/28/2020 Cant wake up on it Medications Medication Sig Dispensed Refills Start Date End Date Status Diclofenac Sodium (Voltaren) 1 % GEL Apply 1-2 g of gel topically 4 (four) times a day as needed (foot pain). 100 g 1 05/28/2020 Active chlorthalidone (HYGROTON) 25 MG tablet Take 25 mg by mouth daily. 0 Active trifluoperazine (STELAZINE) 5 MG tablet Take 5 mg by mouth every night at bedtime. 0 Active trifluoperazine (STELAZINE) 2 MG tablet Take 2 mg by mouth every night at bedtime. 0 Active lidocaine (XYLOCAINE) 5 % ointment APPLY TOPICALLY NEEDED 50 g 2 08/10/2020 Active gabapentin (NEURONTIN) 600 MG tablet TAKE 1 TABLET BY MOUTH THREE TIMES DAILY 90 tablet 0 08/10/2020 Active Active Problems Problem Noted Date Diagnosed Date Peripheral neuropathy 06/23/2020 Family History Relation Name Status Comments Father Mother Alive Social History Tobacco Use Types Packs/Day Years Used Date Smoking Tobacco: Former Cigarettes Q uit: 05/29/1991 Smokeless Tobacco: Never Alcohol Use Standard Drinks/Week Comments No 0 (1 standard drink = 0.6 oz pur e alcohol) Sex and Gender Information Value Date Recorded Sex Assigned at Not on file Gender Identity Not on file Sexual Orientation Not on file Last Filed Vital Signs Vital Sign Reading Time Taken Comments Blood Pressure - - Pulse 82 06/23/2020 9:17 AM EDT Temperature - - Respiratory Rate - - Oxygen Saturation 98% 06/23/2020 9:17 AM EDT Inhaled Oxygen Concentration - - Weight 74.8 kg (165 lb) 05/28/2020 10:50 AM EST Height 165.1 cm (5' 5 ) 05/28/2020 10:50 AM EST Body Mass Index 27.46 05/28/2020 10:50 AM EST Plan of Treatment Health Maintenance Due Date Last Done Comments Hepatitis C Screening 1950 COVID-19 Vaccine (#1) 1950 Depression Screening 1963 Preventative Health Evaluation 06/13/1969 Colon Cancer Screening (Colonoscopy) 06/13/1996 Breast Cancer Screening (Mammogram) 06/13/2001 Shingrix-Zoster Vaccine (1 of 2) 06/13/2001 Fall Risk Assessment 06/13/2016 Osteoporosis Screening (DEXA Scan) 06/13/2016 Pneumococcal Vaccine (1 of 1 - PCV) 06/13/2016 DTap / Tdap / Td (2 - Td or Tdap) 06/15/2023 014 Influenza Vaccine (Season Ended) 2024 RSV Adult > 60+ Yrs or Pregn ant (1 - 1-dose 75+ series) 06/13/2026 Hepatitis B Vaccines Aged Out No long er eligible based on patient's age to complete this topic RSV Ped < 20 months Aged Out No longe r eligible based on patient's age to complete this topic
[2024-08-31 19:16] LABS: Lactic Acid 1.5 mmol/L (0.5-2.0)
[2024-08-31 19:44] LABS: Anion Gap 15 (12-20); Blood Urea Nitrogen 20 mg/dL (9-16); Calcium 9.2 mg/dL (8.4-10.2); Carbon Dioxide 23 mmol/L (22-29); Chloride 103 mmol/L (96-108); Creatinine Clr Calc Pharmacy 37.1; Estimated Glomerular Filt Rate 49; Glucose Random 99 mg/dL (60-115); Potassium 3.9 mmol/L (3.3-5.1); Sodium 137 mmol/L (135-145)
[2024-08-31] MEDS: Ampicillin Sodium/Sulbactam Na 3 GM in 0.9 % Sodium Chloride 100 ML IV (20:36)
[2024-08-31] MEDS: vancomycin HCL 1,000 MG in 0.9 % Sodium Chloride 250 ML 270 MG IV (21:16)
--- NOTE | 2024-08-31 21:46 | PM.IMHP ---
History of Present Illness Date of Service: 08/31/24 Attending physician on admission: Vale Whitley Chief Complaint: Right foot infection Patient is a 74-year-old female with a past medical history significant for chronic right foot wound s/p surgery in May 2024 for osteomyelitis, hypertension, cervical spine stenosis, schizoaffective disorder and peripheral neuropathy, who presented to the ED today per recommendation of her quality audit representative due to concern for recurrent osteomyelitis. Patient reports that she was seen by her quality audit representative on who was able to express purulent drainage from her chronic right foot wound. The patient was recommended on Sunday to go to the emergency department by her quality audit representative, however she reports that she is no coming today as she did not want to go a few days ago. She denies any fever, chills, nausea or vomiting. She is asymptomatic and is not having any pain. She does have peripheral neuropathy therefore does not have sensation in her foot at baseline. Review of Systems Constitutional: Constitutional: Denies body ache(s), Denies chills, Denies fatigue, Denies fever(s) and Denies headache(s) Eyes: Eyes: Denies change in vision and Denies photophobia ENT: Denies headache(s), Denies nasal congestion, Denies nasal discharge and Denies sore throat Cardiovascular: Cardiovascular: Denies chest pain, Denies rapid heart rate, Denies leg edema and Denies dyspnea Respiratory: Respiratory: Denies chest congestion, Denies cough, Denies dyspnea and Denies wheezing Gastrointestinal: Gastrointestinal: Denies abdominal pain, Denies diarrhea, Denies nausea and Denies vomiting Genitourinary: Genitourinary: Denies difficulty voiding, Denies dysuria and Denies urinary urgency Musculoskeletal: Musculoskeletal: Reports as per HPI Integumentary/Breasts: Skin/Breast: Reports as per HPI Neurologic: Denies confusion and Denies headache(s) Psychiatric: Psychiatric: Denies confusion Endocrine: Endocrine: Denies fatigue Hematologic/Lymphatic: Hematologic/Lymphatic: Denies easy bleeding and Denies easy bruising Allergic/Immunologic: Allergic/Immunologic: Denies wheezing [facility] Medical History Osteomyelitis Right foot ulcer Essential hypertension Cyst of neck Abnormal ultrasound of neck Refusal of blood transfusions as patient is [employer]ism Cervical spinal stenosis Narcolepsy Ovarian cyst Schizoaffective disorder Chronic peripheral neuropathic pain Social History Household Members: Spouse Housing: Apartment Do you presently have visiting nurse or other home services: No Alcohol intake: never Patient Tobacco Use Status: Former Tobacco user Cigarettes Per Day: 4 Smoked in Last 30 Days: No Second Hand Smoke Exposure: No Use of substances other than those prescribed or required for medical reasons: No Advance Directives: Yes Advance Directives on File: Yes Advance Directives Date on File: 02/24/24 service: No Narrative: No smoking, alcohol or drug use Meds Allergies Allergy/AdvReac Type Severity Reaction Status Date / Time acetaminophen [From Percocet] Allergy Hallucinati Verified 08/31/24 18:29 ons oxycodone AdvReac Intermediate sleepiness Verified 08/31/24 18:29 Active Medications: Current Medications Ceftriaxone Sodium (Ceftriaxone Sodium 1 Gm Vial) 1 gm IVPUSH Q24H [facility] Pharmacy Consult (Consult Rx Vancomycin Dosing) 1 each MISCELLANE DAILY PRN PRN Reason: Consult order Home Medications ?Medication ?Instructions ?Recorded ?Confirmed ?Last Taken ?Type trifluoperazine 5 mg tablet 5 mg PO BID 11/08/20 06/14/24 06/13/24 History trihexyphenidyl 2 mg tablet 2 mg PO DAILY 11/08/20 06/14/24 06/13/24 History albuterol sulfate 90 mcg/actuation 2 puff inhalation QID PRN wheezing 02/07/24 06/14/24 Unknown History aerosol inhaler hydrocortisone 2.5 % topical cream 1 appl topical BID PRN Itchiness 02/07/24 06/14/24 Unknown History chlorthalidone 25 mg tablet 25 mg PO DAILY 06/14/24 06/14/24 06/13/24 History hydroxyzine HCl 10 mg tablet 10 mg PO TID PRN Itching 06/14/24 06/14/24 Unknown History ibuprofen 800 mg tablet 800 mg PO TID PRN Pain 06/14/24 06/14/24 Unknown History Physical Exam Vital Signs and Narrative: Vital Signs: Last Vital Signs Temp 98.6 F 08/31/24 18:28 Pulse 91 08/31/24 18:28 Resp 18 08/31/24 18:28 BP 107/44 L 08/31/24 18:28 Pulse Ox 100 08/31/24 18:28 O2 Del Method Room Air 08/31/24 18:28 BMI result Body Mass Index 18.8 General: AOx3, no acute distress Resp: CTA bilaterally CVS: S1, S2, RRR GI: +BS, NT, no distention Skin: Warm, dry. edematous R medial foot, no purulent drainage or foul odor. no pain to touch. Neuro: Cranial nerves II-XII grossly intact bilaterally. Motor grossly intact bilaterally Extremities: No pitting edema Psych: Appropriate affect Const: General: No confusion Orientation/consciousness: No confusion Eyes: Direct Ophthalmoscopy: No photophobia Neuro: General: No confusion Results Labs 08/31/24 18:48 08/31/24 19:23 Labs: Laboratory Results - last 24 hr 08/31/24 08/31/24 18:48 19:23 MCV 91.7 MCH 31.1 MCHC 33.9 RDW 14.9 Plt Count 514 H D MPV 9.1 L Immature Gran % (Auto) 0.4 Neut % (Auto) 58.1 Lymph % (Auto) 33.4 [place] % (Auto) 5.9 Eos % (Auto) 1.6 Baso % (Auto) 0.6 Lymph # (Auto) 2.3 [place] # (Auto) 0.4 Eos # (Auto) 0.1 Baso # (Auto) 0.0 Abs Immat Gran (auto) 0.03 Absolute Neuts (auto) 4.0 Absolute Nucleated RBC 0.000 Nucleated RBC % (auto) 0.0 Anion Gap 15 Estim Creat Clear Calc 37.1 Estimated GFR 49 Random Glucose 99 Lactic Acid 1.5 Calcium 9.2 Assessment and Plan (1) Acute osteomyelitis of right foot: Status: Acute (2) Septic arthritis: Status: Acute Plan Patient is a 74-year-old female with a past medical history significant for chronic right foot wound s/p surgery in May 2024 for osteomyelitis, hypertension, cervical spine stenosis, schizoaffective disorder and peripheral neuropathy, who presented to the ED today per recommendation of her quality audit representative due to concern for recurrent osteomyelitis. Acute osteomyelitis right foot with septic arthritis - WBC 6.9, vital signs stable, lactic acid normal, no sepsis - right foot x-ray with septic arthritis and osteomyelitis at the 1st metatarsophalangeal joint - ESR pending - started on vancomycin and Unasyn in ED, continue vancomycin and switch to ceftriaxone - ID consult - follow CBC and BMP Chronic anemia - hemoglobin 7.5, hematocrit 22.2 - no need for blood transfusion at this time - monitor CBC Hypertension - continue home meds Schizoaffective disorder - continue home meds Med reconciliation not complete upon admission Full Code VTE prophylaxis: Lovenox Patient with acute osteomyelitis right foot with septic arthritis, requiring admission for at least 2 midnight stay for IV antibiotics and Infectious Disease consultation. Quality Stroke Does the patient have a stroke diagnosis?: No VTE Prior VTE?: No VTE Risk Level:: Medical - moderate - high VTE Device Contraindication: Treatment Not Indicated VTE Drug Contraindication: N/A - Med Ordered
[2024-08-31] MEDS: cefTRIAXone sodium 1 GM VIAL IVPUSH (22:23)
[2024-08-31] MEDS: Enoxaparin Sodium 40 MG/0.4 ML SYRINGE SUBCUT (22:23)
[2024-08-31 22:24] VITALS: BP 116/59; PULSE 98; RESP 16; TEMP 36.6; O2SAT 100
[2024-08-31 22:38] LABS: Erythrocyte Sedimentation Rate > 140 MM/HR (0-20)
[2024-08-31] MEDS: 0.9 % Sodium Chloride Flush 3 ML SYRINGE IVFLUSH (22:47)
--- NOTE | 2024-09-01 01:26 | PC.NURSE ---
Pt requesting trifluoperazine and trihexyphenidyl dosages. Provider made aware and medications ordered howver medication not available in pyxis at this time. Pt made aware and agreeable.
[2024-09-01 04:56] LABS: MANUAL DIFF FLAG NO
[2024-09-01 04:59] LABS: Basophils Percent Auto 0.7 % (0-2); Eosinophils Absolute Auto 0.2 X10*3/uL (0.0-0.4); Eosinophils Percent Auto 2.7 % (0-4); Hematocrit 22.5 % (37.0-47.0); Hemoglobin 7.5 g/dl (12.0-16.0); Imm Gran Abs Auto 0.01 X10*3/uL (0.00-0.03); Imm Gran Pct Auto 0.2 % (0.0-0.4); Lymphocytes Absolute Auto 1.7 X10*3/uL (1.2-4.9); Lymphocytes Percent Auto 30.7 % (20-40); Mean Corpuscular HGB Conc 33.3 g/dl (31.0-35.0); Mean Corpuscular Hemoglobin 30.2 pg (27.0-33.0); Mean Corpuscular Volume 90.7 fL (80.0-98.0); Mean Platelet Volume 8.8 fL (9.4-12.3); Monocytes Absolute Auto 0.5 X10*3/uL (0.1-1.2); Monocytes Percent Auto 8.3 % (2-11); Neutrophils Absolute Auto 3.2 x10*3/uL (2.0-8.3); Neutrophils Percent Auto 57.4 % (45-73); Platelet Count 386 X10*3/uL (160-400); Red Blood Count 2.48 X10*6/uL (4.20-5.50); Red Cell Distribution Width 14.7 % (11.0-16.0); White Blood Count 5.5 X10*3/uL (4.8-10.8)
[2024-09-01 05:16] LABS: Anion Gap 13 (12-20); Blood Urea Nitrogen 19 mg/dL (9-16); C Reactive Protein 1.21 mg/dL (< or = 0.50); Calcium 9.1 mg/dL (8.4-10.2); Carbon Dioxide 24 mmol/L (22-29); Chloride 106 mmol/L (96-108); Creatinine Clr Calc Pharmacy 46.1; Estimated Glomerular Filt Rate > 60; Glucose Random 85 mg/dL (60-115); Iron 37 mcg/dL (30-160); Percent Iron Saturation 20 % (15-50); Potassium 3.7 mmol/L (3.3-5.1); Sodium 139 mmol/L (135-145); Total Iron Binding Capacity 183 mcg/dL (228-428); Unsaturated Iron Binding 146 ug/dL
[2024-09-01 05:33] LABS: Estimated Average Glucose 97 mg/dL
[2024-09-01 05:42] LABS: Erythrocyte Sedimentation Rate 129 MM/HR (0-20)
[2024-09-01 06:18] VITALS: BP 103/52; PULSE 84; RESP 13; TEMP 36.1; O2SAT 100
[2024-09-01] MEDS: 0.9 % Sodium Chloride Flush 3 ML SYRINGE IVFLUSH (07:53)
--- NOTE | 2024-09-01 07:56 | PC.NURSE ---
Patient is a 74-year-old female with a past medical history significant for chronic right foot wound s/p surgery in May 2024 for osteomyelitis, hypertension, cervical spine stenosis, schizoaffective disorder and peripheral neuropathy, who presented to the ED today per recommendation of her gradall operator due to concern for recurrent osteomyelitis. Patient reports that she was seen by her gradall operator on who was able to express purulent drainage from her chronic right foot wound. Patient alert and oriented. hypnotherapist maintained and NSR noted. Lungs clear bilat. Respirations even and non-labored. Abdomen soft, non-tender with positive bowel sounds. Positive pedal pulses with no edema. Dressing intact to right foot. Medical History Osteomyelitis Right foot ulcer Essential hypertension Cyst of neck Abnormal ultrasound of neck Refusal of blood transfusions as patient is Judaism Cervical spinal stenosis Narcolepsy Ovarian cyst Schizoaffective disorder Chronic peripheral neuropathic pain
--- NOTE | 2024-09-01 09:36 | MHC.CM.PN ---
CM met with Patient at bedside in the ED and addressed IMM with her (original was given to Patient and a copy will be placed on the chart). Patient lives in an apartment with her , who will transport to home at time of dc. [facility] and has VNA (she cannot recall the name of the VNA/CM awaits a return call from her Daughter Aranza, who may know the name of the agency). Home/resume services is the goal and CM has initiated and will follow for dc planning. There is a ? of recurrent OM of (R) Foot and additional services may be needed. PCP is Dr. Pau Us and HCP is brother/Amilcar.
--- NOTE | 2024-09-01 09:48 | HO.PM.IMPN ---
Subjective Subjective Date of Service: 09/01/24 Review of Systems Follow up osteo no pain or discomfort Physical Exam Vital Signs: Vital Signs: Last Vital Signs Temp 96.9 F 09/01/24 06:18 Pulse 84 09/01/24 06:18 Resp 13 09/01/24 06:18 BP 103/52 L 09/01/24 06:18 Pulse Ox 100 09/01/24 06:18 O2 Del Method Room Air 09/01/24 06:18 BMI result Body Mass Index 18.8 Appearing in no acute distress lung sounds are clear to auscultation heart regular rate rhythm, clear S1, S2 positive bowel sounds, abdomen is soft, nontender neuro patient is alert x3, no focal deficits Objective Data Active Medications Calcium Carbonate (Calcium Carbonate 750 Mg Tab.Chew) 750 mg PO Q4H PRN PRN Reason: Heartburn Ceftriaxone Sodium (Ceftriaxone Sodium 1 Gm Vial) 1 gm IVPUSH Q24H [facility] Last Admin: 08/31/24 22:23 Dose: 1 gm Documented By: LORITOEBONY Enoxaparin Sodium (Enoxaparin Sodium 40 Mg/0.4 Ml Syringe) 40 mg SUBCUT Q24H [facility] Last Admin: 08/31/24 22:23 Dose: 40 mg Documented By: LORITOLC Hydromorphone HCl (Hydromorphone Hcl 1 Mg/Ml Syringe) 0.25 mg IVPUSH Q4H PRN; Protocol PRN Reason: Pain, Severe (Pain Scale 7-10) Vancomycin HCl 500 mg/ Sodium (Chloride) 110 mls @ 110 mls/hr IV Q12H [facility] Magnesium Hydroxide (Milk Of Magnesia 30 Ml Oral.Susp) 30 ml PO DAILY PRN PRN Reason: Constipation Melatonin (Melatonin 3 Mg Tablet) 6 mg PO BEDTIME PRN PRN Reason: Insomnia Ondansetron HCl (Ondansetron Hcl 4 Mg/2 Ml Vial) 4 mg IVPUSH Q8H PRN PRN Reason: Nausea and Vomiting Oxycodone HCl (Oxycodone Hcl Immed Release 5 Mg Tablet) 5 mg PO Q6H PRN PRN Reason: Pain, Moderate(Pain Scale 4-6) Pharmacy Consult (Consult Rx Vancomycin Dosing) 1 each MISCELLANE DAILY PRN PRN Reason: Consult order Sodium Chloride (0.9 % Sodium Chloride Flush 3 Ml Syringe) 3 ml IVFLUSH QSHIFT [facility] Last Admin: 09/01/24 07:53 Dose: 3 ml Documented By: BRIAN Trifluoperazine HCl (Trifluoperazine Hcl 5 Mg Tablet) 5 mg PO BID [facility] Last Admin: 09/01/24 01:26 Dose: Not Given Documented By: ROSSANA Non-Admin Reason: Med Not Available Labs 09/01/24 04:27 09/01/24 04:27 Labs: Laboratory Results - last 24 hr 08/31/24 08/31/24 09/01/24 18:48 19:23 04:27 MCV 91.7 90.7 MCH 31.1 30.2 MCHC 33.9 33.3 RDW 14.9 14.7 Plt Count 514 H D 386 MPV 9.1 L 8.8 L Immature Gran % (Auto) 0.4 0.2 Neut % (Auto) 58.1 57.4 Lymph % (Auto) 33.4 30.7 Turner % (Auto) 5.9 8.3 Eos % (Auto) 1.6 2.7 Baso % (Auto) 0.6 0.7 Lymph # (Auto) 2.3 1.7 Turner # (Auto) 0.4 0.5 Eos # (Auto) 0.1 0.2 Baso # (Auto) 0.0 0.0 Abs Immat Gran (auto) 0.03 0.01 Absolute Neuts (auto) 4.0 3.2 Absolute Nucleated RBC 0.000 0.000 Nucleated RBC % (auto) 0.0 0.0 ESR > 140 H 129 H Anion Gap 15 13 Estim Creat Clear Calc 37.1 46.1 Estimated GFR 49 > 60 Random Glucose 99 85 Estimat Average Glucose 97 Hemoglobin A1c % 5.0 Lactic Acid 1.5 Calcium 9.2 9.1 Iron 37 TIBC 183 L % Saturation 20 Unsat Iron Binding 146 C-Reactive Protein 1.21 H Assessment and Plan (1) Osteomyelitis: Status: Acute Plan 74-year-old female with a past medical history significant for chronic right foot wound s/p surgery in May 2024 for osteomyelitis, hypertension, cervical spine stenosis, schizoaffective disorder and peripheral neuropathy, who presented to the ED today per recommendation of her alarm mechanism adjuster due to concern for recurrent osteomyelitis. Acute osteomyelitis right foot with septic arthritis WBC 6.9, vital signs stable, lactic acid normal, no sepsis right foot x-ray with septic arthritis and osteomyelitis at the 1st metatarsophalangeal joint ESR pending started on vancomycin and ceftriaxone ID consult pending follow CBC and BMP Chronic anemia hemoglobin 7.5, hematocrit 22.2 no need for blood transfusion at this time monitor CBC Hypertension continue home meds Schizoaffective disorder continue home meds Full Code VTE prophylaxis: Lovenox Patient with acute osteomyelitis right foot with septic arthritis, requiring admission for at least 2 midnight stay for IV antibiotics and Infectious Disease consultation. Quality Stroke Does the patient have a stroke diagnosis?: No VTE Prior VTE?: No VTE Risk Level:: Medical - moderate - high VTE Device Contraindication: Treatment Not Indicated VTE Drug Contraindication: N/A - Med Ordered
--- NOTE | 2024-09-01 09:57 | MHC.CM.PN ---
Patient was dc'd from [facility] R/T non-compliance, in July of this year.
--- NOTE | 2024-09-01 10:21 | PC.NURSE ---
Medication request for trifluperazine at 1015 d/t not being available in our medication areas.
[2024-09-01] MEDS: vancomycin HCL 500 MG in 0.9 % Sodium Chloride 100 ML 110 MG IV (10:26)
--- NOTE | 2024-09-01 10:30 | MHC.CM.PN ---
Per ROUNDS discussion, Patient needs ID, PICC, and LT IVAB;CM has made referrals to [facility] and [facility] and will continue to follow.
--- NOTE | 2024-09-01 10:35 | PHA.MEDREC ---
Pharmacy Consult ? Medication Reconciliation Pharmacy has completed the medication reconciliation. Spoke to patient but she was unable to name medications nor when last dose of meds was. Called and spoke to daughter Aranza via phone and she was able to confirm medication list. She confirmed patient is still taking chlorthalidone 25 mg daily.
--- NOTE | 2024-09-01 13:08 | PC.NURSE ---
(@[id number]) Pharmacy contacted for Trifluoperazine dose, med is still unavailable per pharmacy. MAR updated. Care ongoing
[2024-09-01 14:12] VITALS: BP 100/61; PULSE 78; RESP 18; TEMP 36.2; O2SAT 100
[2024-09-01 15:20] VITALS: BP 119/88; PULSE 98; RESP 18; TEMP 36.6; O2SAT 97
[2024-09-01 20:00] VITALS: BP 144/84; PULSE 87; RESP 16; TEMP 36.1; O2SAT 100
[2024-09-01] MEDS: hydrOXYzine HCL 10 MG TABLET PO (20:37)
[2024-09-01 20:40] LABS: Vancomycin Random 7.7 mcg/mL (15-20)
--- NOTE | 2024-09-01 21:01 | HE.PHANOTE ---
CLOTILDE Changing dose to 1500mg Q24H per subtherapeutic trough. New predicted trough 16.4, AUC 566. Next trough to be pulled 09/02 @1999.
--- NOTE | 2024-09-01 21:38 | PC.NURSE ---
Addendum entered by Lea Garcia RN 09/02/24 01:03: Floor RN was able to obtain iv access, #22 left forearm. Patient tolerated well. IV rocephin and IV vancomycin late due to no iv access previously. Original Note: Patient with no iv access at change of shift, patient needs ultrasound iv access. Contacted nursing supervisor engraving, awaiting for nurse from icu to place and iv. Patient updated on plan.
[2024-09-01] MEDS: Enoxaparin Sodium 40 MG/0.4 ML SYRINGE SUBCUT (22:25)
[2024-09-01] MEDS: Melatonin 3 MG TABLET 6 MG PO (22:27)
[2024-09-02] MEDS: 0.9 % Sodium Chloride Flush 3 ML SYRINGE IVFLUSH ×2 (00:55→23:18)
[2024-09-02] MEDS: cefTRIAXone sodium 1 GM VIAL IVPUSH ×2 (00:56→23:11)
[2024-09-02] MEDS: vancomycin HCL 1,500 MG in 0.9 % Sodium Chloride 500 ML 333.33 MG IV (01:10)
[2024-09-02 04:00] VITALS: BP 122/65; PULSE 81; RESP 16; TEMP 36.5; O2SAT 100
[2024-09-02 07:46] VITALS: BP 119/56; PULSE 82; RESP 18; TEMP 36.8; O2SAT 100
[2024-09-02 09:41] LABS: MANUAL DIFF FLAG NO
[2024-09-02 09:44] LABS: Basophils Absolute Auto 0.1 X10*3/uL (0.0-0.2); Basophils Percent Auto 0.9 % (0-2); Eosinophils Absolute Auto 0.2 X10*3/uL (0.0-0.4); Hematocrit 22.9 % (37.0-47.0); Hemoglobin 7.5 g/dl (12.0-16.0); Imm Gran Abs Auto 0.02 X10*3/uL (0.00-0.03); Imm Gran Pct Auto 0.4 % (0.0-0.4); Lymphocytes Absolute Auto 1.3 X10*3/uL (1.2-4.9); Lymphocytes Percent Auto 23.1 % (20-40); Mean Corpuscular HGB Conc 32.8 g/dl (31.0-35.0); Mean Corpuscular Hemoglobin 30.2 pg (27.0-33.0); Mean Corpuscular Volume 92.3 fL (80.0-98.0); Monocytes Absolute Auto 0.4 X10*3/uL (0.1-1.2); Monocytes Percent Auto 7.7 % (2-11); Neutrophils Absolute Auto 3.5 x10*3/uL (2.0-8.3); Neutrophils Percent Auto 63.9 % (45-73); Platelet Count 373 X10*3/uL (160-400); Red Blood Count 2.48 X10*6/uL (4.20-5.50); White Blood Count 5.5 X10*3/uL (4.8-10.8)
[2024-09-02 09:50] VITALS: BP 120/58
[2024-09-02] MEDS: Trihexyphenidyl HCL 2 MG TABLET PO (09:50)
[2024-09-02] MEDS: Trifluoperazine HCL 5 MG TABLET PO ×2 (09:50→21:37)
[2024-09-02] MEDS: Ferrous Sulfate 324 MG TABLET.DR PO (09:50)
[2024-09-02] MEDS: hydroCHLOROthiazide 25 MG TABLET PO (09:50)
[2024-09-02 09:57] LABS: Anion Gap 10 (12-20); Blood Urea Nitrogen 17 mg/dL (9-16); Calcium 8.9 mg/dL (8.4-10.2); Carbon Dioxide 25 mmol/L (22-29); Chloride 107 mmol/L (96-108); Creatinine Clr Calc Pharmacy 49.4; Estimated Glomerular Filt Rate > 60; Glucose Random 91 mg/dL (60-115); Potassium 3.9 mmol/L (3.3-5.1); Sodium 138 mmol/L (135-145)
--- NOTE | 2024-09-02 11:48 | P.PNIM_ITS ---
Subjective Subjective Date of Service: 09/02/24 Review of Systems Follow up osteo no pain or discomfort Physical Exam 2 Vital Signs: Vital Signs: Last Vital Signs Temp 98.3 F 09/02/24 07:46 Pulse 82 09/02/24 07:46 Resp 18 09/02/24 07:46 BP 120/58 L 09/02/24 09:50 Pulse Ox 100 09/02/24 07:46 O2 Del Method Room Air 09/02/24 07:46 O2 Flow Rate 6 09/01/24 15:20 BMI result Body Mass Index 18.8 Appearing in no acute distress lung sounds are clear to auscultation heart regular rate rhythm, clear S1, S2 positive bowel sounds, abdomen is soft, nontender neuro patient is alert x3, no focal deficits Objective Data Active Medications Albuterol Sulfate (Albuterol Sulfate 90 Mcg 8 Gm Inhaler) 2 puff INHALE QID PRN PRN Reason: wheezing Calcium Carbonate (Calcium Carbonate 750 Mg Tab.Chew) 750 mg PO Q4H PRN PRN Reason: Heartburn Ceftriaxone Sodium (Ceftriaxone Sodium 1 Gm Vial) 1 gm IVPUSH Q24H [facility] Last Admin: 09/02/24 00:56 Dose: 1 gm Documented By: VICKI Enoxaparin Sodium (Enoxaparin Sodium 40 Mg/0.4 Ml Syringe) 40 mg SUBCUT Q24H [facility] Last Admin: 09/01/24 22:25 Dose: 40 mg Documented By: VICKI Ferrous Sulfate (Ferrous Sulfate 324 Mg Tablet.) 324 mg PO DAILY [facility] Last Admin: 09/02/24 09:50 Dose: 324 mg Documented By: SCARLET Hydrochlorothiazide (Hydrochlorothiazide 25 Mg Tablet) 25 mg PO DAILY [facility] Last Admin: 09/02/24 09:50 Dose: 25 mg Documented By: SCARLET Hydromorphone HCl (Hydromorphone Hcl 1 Mg/Ml Syringe) 0.25 mg IVPUSH Q4H PRN; Protocol PRN Reason: Pain, Severe (Pain Scale 7-10) Hydroxyzine HCl (Hydroxyzine Hcl 10 Mg Tablet) 10 mg PO TID PRN PRN Reason: Itching Last Admin: 09/01/24 20:37 Dose: 10 mg Documented By: VICKI Vancomycin HCl 1,500 mg/ (Sodium Chloride) 500 mls @ 333.333 mls/hr IV Q24H [facility] Last Infusion: 09/02/24 04:06 Dose: Infused Documented By: SCARLET Magnesium Hydroxide (Milk Of Magnesia 30 Ml Oral.Susp) 30 ml PO DAILY PRN PRN Reason: Constipation Melatonin (Melatonin 3 Mg Tablet) 6 mg PO BEDTIME PRN PRN Reason: Insomnia Last Admin: 09/01/24 22:27 Dose: 6 mg Documented By: VICKI Ondansetron HCl (Ondansetron Hcl 4 Mg/2 Ml Vial) 4 mg IVPUSH Q8H PRN PRN Reason: Nausea and Vomiting Oxycodone HCl (Oxycodone Hcl Immed Release 5 Mg Tablet) 5 mg PO Q6H PRN PRN Reason: Pain, Moderate(Pain Scale 4-6) Pharmacy Consult (Consult Rx Vancomycin Dosing) 1 each MISCELLANE DAILY PRN PRN Reason: Consult order Sodium Chloride (0.9 % Sodium Chloride Flush 3 Ml Syringe) 3 ml IVFLUSH QSHIFT [facility] Last Admin: 09/02/24 04:10 Dose: Not Given Documented By: SCARLET Non-Admin Reason: Previously Administered Trifluoperazine HCl (Trifluoperazine Hcl 5 Mg Tablet) 5 mg PO BID [facility] Last Admin: 09/02/24 09:50 Dose: 5 mg Documented By: SCARLET Trihexyphenidyl HCl (Trihexyphenidyl Hcl 2 Mg Tablet) 2 mg PO DAILY [facility] Last Admin: 09/02/24 09:50 Dose: 2 mg Documented By: SCARLET Labs 09/02/24 09:27 09/02/24 09:27 Labs: Laboratory Results - last 24 hr 09/01/24 09/02/24 20:06 09:27 MCV 92.3 MCH 30.2 MCHC 32.8 RDW 15.0 Plt Count 373 MPV 9.0 L Immature Gran % (Auto) 0.4 Neut % (Auto) 63.9 Lymph % (Auto) 23.1 [place] % (Auto) 7.7 Eos % (Auto) 4.0 Baso % (Auto) 0.9 Lymph # (Auto) 1.3 [place] # (Auto) 0.4 Eos # (Auto) 0.2 Baso # (Auto) 0.1 Abs Immat Gran (auto) 0.02 Absolute Neuts (auto) 3.5 Absolute Nucleated RBC 0.000 Nucleated RBC % (auto) 0.0 Anion Gap 10 L Estim Creat Clear Calc 49.4 Estimated GFR > 60 Random Glucose 91 Calcium 8.9 Random Vancomycin 7.7 L Microbiology Microbiology Results: Microbiology 08/31/24 18:48 Blood Culture - Preliminary Blood - Venous No growth after 24 hours. 08/31/24 18:48 Blood Culture - Preliminary Blood - Venous No growth after 24 hours. Assessment and Plan (1) Osteomyelitis: Status: Acute (2) Essential hypertension: Status: Acute Plan 74-year-old female with a past medical history significant for chronic right foot wound s/p surgery in May 2024 for osteomyelitis, hypertension, cervical spine stenosis, schizoaffective disorder and peripheral neuropathy, who presented to the ED today per recommendation of her shipping point inspector due to concern for recurrent osteomyelitis. Acute osteomyelitis right foot with septic arthritis WBC 6.9, vital signs stable, lactic acid normal, no sepsis right foot x-ray with septic arthritis and osteomyelitis at the 1st metatarsophalangeal joint ESR pending started on vancomycin and ceftriaxone PICC line ordered Chronic anemia hemoglobin 7.5, hematocrit 22.9 no need for blood transfusion at this time monitor CBC Hypertension continue home meds Schizoaffective disorder continue home meds Full Code VTE prophylaxis: Lovenox Patient with acute osteomyelitis right foot with septic arthritis, requiring admission for at least 2 midnight stay for IV antibiotics and Infectious Disease consultation. Quality Stroke Does the patient have a stroke diagnosis?: No VTE Prior VTE?: No VTE Risk Level:: Medical - moderate - high VTE Device Contraindication: Treatment Not Indicated VTE Drug Contraindication: N/A - Med Ordered
[2024-09-02 12:12] VITALS: BMI 18.8
[2024-09-02 13:14] VITALS: BP 107/64; PULSE 85; RESP 16; TEMP 36.2; O2SAT 100
--- NOTE | 2024-09-02 14:36 | W.PM.IDCN ---
History of Present Illness Data of Consult Service Date: 09/01/24 Requesting physician: Luisa Eason Primary Care Provider: Domenica Mccullough DPM, MD HPI Reason for consult: right foot chronic OM exacerbation She presents with right great toe discomfort . She has had OM right foot and received six weeks IV Daptomycin apparently but didnt followup. She has pulled out PICC line in past. She has no injury to foot. Review of Systems Review of Systems: Yes all other systems are reviewed and are negative [facility] Past Medical History Medical History Osteomyelitis Right foot ulcer Essential hypertension Cyst of neck Abnormal ultrasound of neck Refusal of blood transfusions as patient is [employer] Cervical spinal stenosis Narcolepsy Ovarian cyst Schizoaffective disorder Chronic peripheral neuropathic pain Family History Family history: reviewed and not pertinent Social History Social History Household Members: Significant Other Housing: Apartment Do you presently have visiting nurse or other home services: No Alcohol intake: never Patient Tobacco Use Status: Former Tobacco user Cigarettes Per Day: 4 Second Hand Smoke Exposure: No Advance Directives Date on File: 02/24/24 service: No Meds Allergies Allergy/AdvReac Type Severity Reaction Status Date / Time acetaminophen [From Percocet] Allergy Hallucinati Verified 08/31/24 18:29 ons oxycodone AdvReac Intermediate sleepiness Verified 08/31/24 18:29 Active Medications: Current Medications Albuterol Sulfate (Albuterol Sulfate 90 Mcg 8 Gm Inhaler) 2 puff INHALE QID PRN PRN Reason: wheezing Calcium Carbonate (Calcium Carbonate 750 Mg Tab.Chew) 750 mg PO Q4H PRN PRN Reason: Heartburn Ceftriaxone Sodium (Ceftriaxone Sodium 1 Gm Vial) 1 gm IVPUSH Q24H [facility] Last Admin: 09/02/24 00:56 Dose: 1 gm Enoxaparin Sodium (Enoxaparin Sodium 40 Mg/0.4 Ml Syringe) 40 mg SUBCUT Q24H [facility] Last Admin: 09/01/24 22:25 Dose: 40 mg Ferrous Sulfate (Ferrous Sulfate 324 Mg Tablet.Dr) 324 mg PO DAILY [facility] Last Admin: 09/02/24 09:50 Dose: 324 mg Hydrochlorothiazide (Hydrochlorothiazide 25 Mg Tablet) 25 mg PO DAILY [facility] Last Admin: 09/02/24 09:50 Dose: 25 mg Hydromorphone HCl (Hydromorphone Hcl 1 Mg/Ml Syringe) 0.25 mg IVPUSH Q4H PRN; Protocol PRN Reason: Pain, Severe (Pain Scale 7-10) Hydroxyzine HCl (Hydroxyzine Hcl 10 Mg Tablet) 10 mg PO TID PRN PRN Reason: Itching Last Admin: 09/01/24 20:37 Dose: 10 mg Vancomycin HCl 1,500 mg/ (Sodium Chloride) 500 mls @ 333.333 mls/hr IV Q24H [facility] Last Infusion: 09/02/24 04:06 Dose: Infused Magnesium Hydroxide (Milk Of Magnesia 30 Ml Oral.Susp) 30 ml PO DAILY PRN PRN Reason: Constipation Melatonin (Melatonin 3 Mg Tablet) 6 mg PO BEDTIME PRN PRN Reason: Insomnia Last Admin: 09/01/24 22:27 Dose: 6 mg Ondansetron HCl (Ondansetron Hcl 4 Mg/2 Ml Vial) 4 mg IVPUSH Q8H PRN PRN Reason: Nausea and Vomiting Oxycodone HCl (Oxycodone Hcl Immed Release 5 Mg Tablet) 5 mg PO Q6H PRN PRN Reason: Pain, Moderate(Pain Scale 4-6) Pharmacy Consult (Consult Rx Vancomycin Dosing) 1 each MISCELLANE DAILY PRN PRN Reason: Consult order Sodium Chloride (0.9 % Sodium Chloride Flush 3 Ml Syringe) 3 ml IVFLUSH QSHIFT [facility] Last Admin: 09/02/24 04:10 Dose: Not Given Trifluoperazine HCl (Trifluoperazine Hcl 5 Mg Tablet) 5 mg PO BID [facility] Last Admin: 09/02/24 09:50 Dose: 5 mg Trihexyphenidyl HCl (Trihexyphenidyl Hcl 2 Mg Tablet) 2 mg PO DAILY [facility] Last Admin: 09/02/24 09:50 Dose: 2 mg Home Medications ?Medication ?Instructions ?Recorded ?Confirmed ?Last Taken ?Type trifluoperazine 5 mg tablet 5 mg PO BID 11/08/20 09/01/24 06/13/24 History trihexyphenidyl 2 mg tablet 2 mg PO DAILY 11/08/20 09/01/24 06/13/24 History albuterol sulfate 90 mcg/actuation 2 puff inhalation QID PRN wheezing 02/07/24 09/01/24 Unknown History aerosol inhaler hydrocortisone 2.5 % topical cream 1 appl topical BID PRN Itchiness 02/07/24 09/01/24 Unknown History chlorthalidone 25 mg tablet 25 mg PO DAILY 06/14/24 09/01/24 06/13/24 History hydroxyzine HCl 10 mg tablet 10 mg PO TID PRN Itching 06/14/24 09/01/24 Unknown History ibuprofen 800 mg tablet 800 mg PO TID PRN Pain 06/14/24 09/01/24 Unknown History chlorhexidine gluconate 4 % 1 appl topical DAILY 09/01/24 09/01/24 Unknown History topical liquid clindamycin HCl 300 mg capsule 300 mg PO Q12H 09/01/24 09/01/24 Unknown History ferrous sulfate 325 mg (65 mg 325 mg PO DAILY 09/01/24 09/01/24 Unknown History iron) tablet,delayed release Physical Exam Vital Signs: Vital Signs: Last Vital Signs Temp 97.1 F 09/02/24 13:14 Pulse 85 09/02/24 13:14 Resp 16 09/02/24 13:14 BP 107/64 09/02/24 13:14 Pulse Ox 100 09/02/24 13:14 O2 Del Method Room Air 09/02/24 13:14 O2 Flow Rate 6 09/01/24 15:20 BMI result Body Mass Index 18.8 Const: General: cooperative HEENT: Head: Yes normal to inspection Face and sinus: Yes normal facial exam Mouth: Normal oral and palatal mucosa present Teeth and gingiva: dentition normal Eyes: General: appearance normal, both eyes and all related structures Pupils: Equal, round and reactive pupils present Resp: Effort & Inspection: normal respiratory effort Cardio: Rate: regular rate Rhythm: regular rhythm GI: Palpation (GI): Soft to palpation and nontender : General: Yes no CVA tenderness Back/Spine/Pelvis: Back: no CVA tenderness Skin: General skin exam: no rashes or lesions noted Neuro: General: moves all extremities Cranial nerves: Yes Equal, round and reactive pupils present Extrem: Other: right great toe swelling,some excoriation, dark second toe General: Yes normal to inspection Psych: Appearance: grossly normal Results Labs 09/02/24 09:27 09/02/24 09:27 Labs: Short CBC 09/02/24 Range/Units 09:27 WBC 5.5 (4.8-10.8) X10*3/uL Hgb 7.5 L (12.0-16.0) g/dl Hct 22.9 L (37.0-47.0) % Plt Count 373 (160-400) X10*3/uL BMP 09/02/24 09:27 Sodium 138 Potassium 3.9 Chloride 107 Carbon Dioxide 25 BUN 17 H Creatinine 0.82 Calcium 8.9 Microbiology Microbiology Results: Microbiology 08/31/24 18:48 Blood - Venous Blood Culture - Preliminary No growth after 24 hours. 08/31/24 18:48 Blood - Venous Blood Culture - Preliminary No growth after 24 hours. Assessment and Plan (1) Septic arthritis: Status: Acute (2) Acute osteomyelitis of right foot: Status: Acute Plan Patient has already had definitive IV therapy for acute OM so would give treatment for exacerbation with po linezolid for 14-21 days.
[2024-09-02 15:20] VITALS: BP 138/63; PULSE 82; RESP 16; TEMP 36.1; O2SAT 100
[2024-09-02 18:36] LABS: OBS Int Ctl Valid YES; OBS1 NEGATIVE (NEGATIVE)
[2024-09-02 19:57] VITALS: BP 149/70; PULSE 88; RESP 16; TEMP 36.7; O2SAT 100
[2024-09-02 20:10] LABS: Vancomycin Random 16.5 mcg/mL (15-20)
--- NOTE | 2024-09-02 20:32 | HE.PHANOTE ---
RE: VANCO DOSING Trough was predicted to be 13.1 mg/L but came back as 16.5 mg/L. Dose is decreased to 1250 mg q24h, next trough is scheduled for 09/03/24 @1999.
[2024-09-02] MEDS: vancomycin HCL 1,250 MG in 0.9 % Sodium Chloride 250 ML 166.67 MG IV (21:39)
[2024-09-02] MEDS: Enoxaparin Sodium 40 MG/0.4 ML SYRINGE SUBCUT (21:40)
[2024-09-03 04:00] VITALS: BP 105/53; PULSE 92; RESP 16; TEMP 36; O2SAT 99
[2024-09-03 06:08] LABS: MANUAL DIFF FLAG NO
[2024-09-03 06:25] LABS: Basophils Absolute Auto 0.1 X10*3/uL (0.0-0.2); Basophils Percent Auto 0.9 % (0-2); Eosinophils Absolute Auto 0.3 X10*3/uL (0.0-0.4); Eosinophils Percent Auto 4.8 % (0-4); Hematocrit 24.1 % (37.0-47.0); Hemoglobin 7.9 g/dl (12.0-16.0); Imm Gran Abs Auto 0.02 X10*3/uL (0.00-0.03); Imm Gran Pct Auto 0.4 % (0.0-0.4); Lymphocytes Absolute Auto 1.7 X10*3/uL (1.2-4.9); Lymphocytes Percent Auto 30.2 % (20-40); Mean Corpuscular HGB Conc 32.8 g/dl (31.0-35.0); Mean Corpuscular Hemoglobin 30.5 pg (27.0-33.0); Mean Corpuscular Volume 93.1 fL (80.0-98.0); Mean Platelet Volume 9.5 fL (9.4-12.3); Monocytes Absolute Auto 0.5 X10*3/uL (0.1-1.2); Neutrophils Absolute Auto 3.2 x10*3/uL (2.0-8.3); Neutrophils Percent Auto 55.7 % (45-73); Platelet Count 391 X10*3/uL (160-400); Red Blood Count 2.59 X10*6/uL (4.20-5.50); Red Cell Distribution Width 15.1 % (11.0-16.0); White Blood Count 5.7 X10*3/uL (4.8-10.8)
[2024-09-03 06:32] LABS: Anion Gap 9 (12-20); Blood Urea Nitrogen 14 mg/dL (9-16); Calcium 8.9 mg/dL (8.4-10.2); Carbon Dioxide 26 mmol/L (22-29); Chloride 108 mmol/L (96-108); Creatinine Clr Calc Pharmacy 55.5; Estimated Glomerular Filt Rate > 60; Glucose Random 77 mg/dL (60-115); Potassium 3.7 mmol/L (3.3-5.1); Sodium 139 mmol/L (135-145)
[2024-09-03 07:32] VITALS: BP 124/62; PULSE 100; RESP 18; TEMP 36.4; O2SAT 100
[2024-09-03] MEDS: Trifluoperazine HCL 5 MG TABLET PO (09:23)
[2024-09-03] MEDS: hydroCHLOROthiazide 25 MG TABLET PO (09:23)
[2024-09-03] MEDS: Ferrous Sulfate 324 MG TABLET.DR PO (09:23)
[2024-09-03] MEDS: Trihexyphenidyl HCL 2 MG TABLET PO (09:23)
[2024-09-03] MEDS: 0.9 % Sodium Chloride Flush 3 ML SYRINGE IVFLUSH (09:24)
--- NOTE | 2024-09-03 09:46 | PM.CNGS ---
History of Present Illness Consult details Consult date: 09/03/24 Narrative: 74-year-old female with a past medical history significant for chronic right foot wound s/p surgery in May 2024 for osteomyelitis, hypertension, cervical spine stenosis, schizoaffective disorder and peripheral neuropathy, who presented to the ED per recommendation of her acquisitions assistant due to concern for recurrent osteomyelitis. Patient denies pain from the area currently, states the swelling is improving. Denies further discharge. Denies fever, chills PMFSH Past Medical History Medical History Osteomyelitis Right foot ulcer Essential hypertension Cyst of neck Abnormal ultrasound of neck Refusal of blood transfusions as patient is [employer] Cervical spinal stenosis Narcolepsy Ovarian cyst Schizoaffective disorder Chronic peripheral neuropathic pain Family History Family history: reviewed and not pertinent Social History Social History Household Members: Significant Other Housing: Apartment Do you presently have visiting nurse or other home services: No Alcohol intake: never Patient Tobacco Use Status: Former Tobacco user Cigarettes Per Day: 4 Second Hand Smoke Exposure: No Advance Directives Date on File: 02/24/24 service: No Meds Allergies Allergy/AdvReac Type Severity Reaction Status Date / Time acetaminophen (From Percocet) Allergy Hallucinati Verified 08/31/24 18:29 ons oxycodone AdvReac Intermediate sleepiness Verified 08/31/24 18:29 Active Medications: Current Medications Albuterol Sulfate (Albuterol Sulfate 90 Mcg 8 Gm Inhaler) 2 puff INHALE QID PRN PRN Reason: wheezing Calcium Carbonate (Calcium Carbonate 750 Mg Tab.Chew) 750 mg PO Q4H PRN PRN Reason: Heartburn Ceftriaxone Sodium (Ceftriaxone Sodium 1 Gm Vial) 1 gm IVPUSH Q24H [facility] Last Admin: 09/02/24 23:11 Dose: 1 gm Enoxaparin Sodium (Enoxaparin Sodium 40 Mg/0.4 Ml Syringe) 40 mg SUBCUT Q24H [facility] Last Admin: 09/02/24 21:40 Dose: 40 mg Ferrous Sulfate (Ferrous Sulfate 324 Mg Tablet.) 324 mg PO DAILY [facility] Last Admin: 09/03/24 09:23 Dose: 324 mg Hydrochlorothiazide (Hydrochlorothiazide 25 Mg Tablet) 25 mg PO DAILY [facility] Last Admin: 09/03/24 09:23 Dose: 25 mg Hydromorphone HCl (Hydromorphone Hcl 1 Mg/Ml Syringe) 0.25 mg IVPUSH Q4H PRN; Protocol PRN Reason: Pain, Severe (Pain Scale 7-10) Hydroxyzine HCl (Hydroxyzine Hcl 10 Mg Tablet) 10 mg PO TID PRN PRN Reason: Itching Last Admin: 09/01/24 20:37 Dose: 10 mg Vancomycin HCl 1,250 mg/ (Sodium Chloride) 250 mls @ 166.667 mls/hr IV Q24H [facility] Last Infusion: 09/02/24 23:17 Dose: Infused Magnesium Hydroxide (Milk Of Magnesia 30 Ml Oral.Susp) 30 ml PO DAILY PRN PRN Reason: Constipation Melatonin (Melatonin 3 Mg Tablet) 6 mg PO BEDTIME PRN PRN Reason: Insomnia Last Admin: 09/01/24 22:27 Dose: 6 mg Ondansetron HCl (Ondansetron Hcl 4 Mg/2 Ml Vial) 4 mg IVPUSH Q8H PRN PRN Reason: Nausea and Vomiting Oxycodone HCl (Oxycodone Hcl Immed Release 5 Mg Tablet) 5 mg PO Q6H PRN PRN Reason: Pain, Moderate(Pain Scale 4-6) Pharmacy Consult (Consult Rx Vancomycin Dosing) 1 each MISCELLANE DAILY PRN PRN Reason: Consult order Sodium Chloride (0.9 % Sodium Chloride Flush 3 Ml Syringe) 3 ml IVFLUSH QSHIFT [facility] Last Admin: 09/03/24 09:24 Dose: 3 ml Trifluoperazine HCl (Trifluoperazine Hcl 5 Mg Tablet) 5 mg PO BID [facility] Last Admin: 09/03/24 09:23 Dose: 5 mg Trihexyphenidyl HCl (Trihexyphenidyl Hcl 2 Mg Tablet) 2 mg PO DAILY [facility] Last Admin: 09/03/24 09:23 Dose: 2 mg Home Medications ?Medication ?Instructions ?Recorded ?Confirmed ?Last Taken ?Type trifluoperazine 5 mg tablet 5 mg PO BID 11/08/20 09/01/24 06/13/24 History trihexyphenidyl 2 mg tablet 2 mg PO DAILY 11/08/20 09/01/24 06/13/24 History albuterol sulfate 90 mcg/actuation 2 puff inhalation QID PRN wheezing 02/07/24 09/01/24 Unknown History aerosol inhaler hydrocortisone 2.5 % topical cream 1 appl topical BID PRN Itchiness 02/07/24 09/01/24 Unknown History chlorthalidone 25 mg tablet 25 mg PO DAILY 06/14/24 09/01/24 06/13/24 History hydroxyzine HCl 10 mg tablet 10 mg PO TID PRN Itching 06/14/24 09/01/24 Unknown History ibuprofen 800 mg tablet 800 mg PO TID PRN Pain 06/14/24 09/01/24 Unknown History chlorhexidine gluconate 4 % 1 appl topical DAILY 09/01/24 09/01/24 Unknown History topical liquid clindamycin HCl 300 mg capsule 300 mg PO Q12H 09/01/24 09/01/24 Unknown History ferrous sulfate 325 mg (65 mg 325 mg PO DAILY 09/01/24 09/01/24 Unknown History iron) tablet,delayed release Physical Exam Vital Signs: Vital Signs: Last Vital Signs Temp 97.6 F 09/03/24 07:32 Pulse 100 09/03/24 07:32 Resp 18 09/03/24 07:32 BP 124/62 09/03/24 07:32 Pulse Ox 100 09/03/24 07:32 O2 Del Method Room Air 09/03/24 07:32 O2 Flow Rate 6 09/01/24 15:20 BMI result Body Mass Index 18.8 Const: General: comfortable and no acute distress Orientation/consciousness: patient oriented x3 Skin: Other: right great toe, two open wounds on the medial aspect of the great toe with evidence of slough. Appears to have some granulation tissue. One open wound on the dorsum of the great toe, slough and granulation tissue. Non tender Neuro: General: patient oriented x3 Results Labs 09/03/24 06:06 09/03/24 06:06 Labs: Abnormal lab results 09/02/24 09/03/24 Range/Units 09:27 06:06 RBC 2.59 L (4.20-5.50) X10*6/uL Hgb 7.9 L (12.0-16.0) g/dl Hct 24.1 L (37.0-47.0) % Eos % (Auto) 4.8 H (0-4) % Anion Gap 10 L 9 L (12-20) BUN 17 H (9-16) mg/dL Short CBC 09/03/24 Range/Units 06:06 WBC 5.7 (4.8-10.8) X10*3/uL Hgb 7.9 L (12.0-16.0) g/dl Hct 24.1 L (37.0-47.0) % Plt Count 391 (160-400) X10*3/uL BMP 09/02/24 09/03/24 09:27 06:06 Sodium 138 139 Potassium 3.9 3.7 Chloride 107 108 Carbon Dioxide 25 26 BUN 17 H 14 Creatinine 0.82 0.73 Calcium 8.9 8.9 All other labs normal. Assessment and Plan (1) Acute osteomyelitis of right foot: Status: Acute Plan 74-year-old female with a past medical history significant for chronic right foot wound s/p surgery in May 2024 for osteomyelitis, hypertension, cervical spine stenosis, schizoaffective disorder and peripheral neuropathy, seen in consult fore osteomyelitis and wounds of the right great toe. The area is nontender, patient is afebrile. ID was consulted, patient is well known to the service. They recommended PO linezolid for management of osteo outpatient. At this point, there is no plan for surgical intervention. Would recommend daily wound care, continuing IV abx while inpatient and transitioning to oral per ID recommendation. I was able to remove some of the slough at bedside. there is evidence of granulation tissue. The wound was redressed with xeroform and a foam exterior dressing. Would recommend daily dressing changes, following with wound care as an outpatient. Patient states she has been seen by [facility] before and has an upcoming appointment. We will continue to follow during this admission. Procedures Date of Service Date of Service: 09/03/24
--- NOTE | 2024-09-03 11:11 | MHC.CLN ---
NUTRITION DIET=REGULAR. SUPPLEMENT ENSURE BID PROVIDES 700 KCALS, 40 G PROTEIN. PO INTAKE APPEARS GOOD. CONTINUE TO FOLLOW FOR PO INTAKE.
--- NOTE | 2024-09-03 11:45 | PM.DS ---
DS: Providers Provider Date of Service: 09/03/24 Date of admission: 08/31/24 20:52 Date of discharge: 09/03/24 Primary care physician: Domenica Mccullough DPM, MD Consults: 08/31/24 21:42 Consult to Infectious Diseases Routine Consulting Provider: [facility] [place] [facility] Reason for consultation: septic arthritis and osteo Has provider been notified: No 09/01/24 16:22 Consult to Wound Care Routine Reason for consultation: open wound to right foot 09/02/24 17:25 Consult to General Surgery Routine Consulting Provider: [facility] [place] [facility] Reason for consultation: osteo, right foot wound Attending physician on discharge: Kavin Iglesias Discharging clinician: Lulú Lopez DS: Diagnosis Discharge Diagnosis (1) Acute osteomyelitis of right foot: Status: Acute DS: Summary Hospital Course Hospital Course: From H&P on the day of admission Patient is a 74-year-old female with a past medical history significant for chronic right foot wound s/p surgery in May 2024 for osteomyelitis, hypertension, cervical spine stenosis, schizoaffective disorder and peripheral neuropathy, who presented to the ED today per recommendation of her house moving supervisor due to concern for recurrent osteomyelitis. Patient reports that she was seen by her house moving supervisor on who was able to express purulent drainage from her chronic right foot wound. The patient was recommended on Sunday to go to the emergency department by her house moving supervisor, however she reports that she is no coming today as she did not want to go a few days ago. She denies any fever, chills, nausea or vomiting. She is asymptomatic and is not having any pain. She does have peripheral neuropathy therefore does not have sensation in her foot at baseline. chronic osteomyelitis right foot no sepsis. right foot x-ray with septic arthritis and osteomyelitis at the 1st metatarsophalangeal joint. patient has already completed [facility] antibiotics for osteomyelitis. ESR chronically elevated. Seen by Infectious diseases who recommended po linezolid for 21 days. Seen by General surgery who did not recommend any acute surgical intervention at this time. Outpatient follow-up with wound care recommended as well as follow up with her house moving supervisor who has been following her wound. will be discharged home with [facility]NA to assist with dressing changes. Time Attestation Discharge Coordination Time (in mins): 35 Quality: Safe Use of Opioids Does Pt have an Active Cancer Diagnosis on the Problem List?: No Quality: Stroke Does the patient have a stroke diagnosis?: No Physical Exam Vital Signs: Vital Signs: Last Vital Signs Temp 97.6 F 09/03/24 07:32 Pulse 100 09/03/24 07:32 Resp 18 09/03/24 07:32 BP 124/62 09/03/24 07:32 Pulse Ox 100 09/03/24 07:32 O2 Del Method Room Air 09/03/24 07:32 O2 Flow Rate 6 09/01/24 15:20 BMI result Body Mass Index 18.8 Const: General: cooperative, comfortable, no acute distress, alert and awake Nutritional Appearance: average body habitus Orientation/consciousness: patient oriented x3 Resp: Effort & Inspection: no respiratory distress and no use of accessory muscles Cardio: Rate: regular rate Skin: Other: right great toe, two open wounds; no significant erythema; no drainage Neuro: General: patient oriented x3 DS: Data Data Completed and Pending Completed studies during hospitalization [Text1]: Procedures Insertion of Infusion Device into Superior Vena Cava, Percutaneous Approach (02/24/24) Ultrasonography of Superior Vena Cava, Guidance (02/24/24) Labs on day of discharge: Laboratory Results - last 24 hr 09/02/24 09/02/24 09/03/24 18:19 19:51 06:06 WBC 5.7 RBC 2.59 L Hgb 7.9 L Hct 24.1 L MCV 93.1 MCH 30.5 MCHC 32.8 RDW 15.1 Plt Count 391 MPV 9.5 Immature Gran % (Auto) 0.4 Neut % (Auto) 55.7 Lymph % (Auto) 30.2 Parke % (Auto) 8.0 Eos % (Auto) 4.8 H Baso % (Auto) 0.9 Lymph # (Auto) 1.7 Parke # (Auto) 0.5 Eos # (Auto) 0.3 Baso # (Auto) 0.1 Abs Immat Gran (auto) 0.02 Absolute Neuts (auto) 3.2 Absolute Nucleated RBC 0.000 Nucleated RBC % (auto) 0.0 Sodium 139 Potassium 3.7 Chloride 108 Carbon Dioxide 26 Anion Gap 9 L BUN 14 Creatinine 0.73 Estim Creat Clear Calc 55.5 Estimated GFR > 60 Random Glucose 77 Calcium 8.9 Stool Occult Blood NEGATIVE Random Vancomycin 16.5 Preliminary micro results at discharge 06/15/25 18:48 Blood Culture - Preliminary Blood - Venous No growth after 48 hours. 08/31/24 18:48 Blood Culture - Preliminary Blood - Venous No growth after 48 hours. Discharge Plan Discharge Anticipated Discharge Date/Time: 09/03/24 12:00 Patient Disposition: Home Health Service Discharge Diagnosis: chronic osteomyelitis Referrals: [facility] [Outside] - 3-5 Days Referral Note: [facility] will call you to schedule home nursing visits for wound care and labs. *reminder* the VNA will not come daily for dressing changes and you have reported that your can change the dressing on the days they do not come. Domenica Mccullough DPM, MD [Primary Care Provider, Podiatry] - 1 Week Reema Celis MD [Physician, Wound Care] - 1 Week Discharge Medications: New linezolid 600 mg tablet 600 mg PO Q12H 21 Days Qty: 42 0RF Continued hydrocortisone 2.5 % cream 1 appl topical BID PRN (Reason: Itchiness) albuterol sulfate 90 mcg/actuation HFA aerosol inhaler 2 puff inhalation QID PRN (Reason: wheezing) ibuprofen 800 mg tablet 800 mg PO TID PRN (Reason: Pain) chlorthalidone 25 mg tablet 25 mg PO DAILY hydroxyzine HCl 10 mg tablet 10 mg PO TID PRN (Reason: Itching) ferrous sulfate 325 mg (65 mg iron) tablet,delayed release (DR/EC) 325 mg PO DAILY chlorhexidine gluconate 4 % liquid 1 appl topical DAILY trifluoperazine 5 mg tablet 5 mg PO BID trihexyphenidyl 2 mg tablet 2 mg PO DAILY Rx Instructions: give with food (meal/snack) Discontinued clindamycin HCl 300 mg capsule 300 mg PO Q12H Discharge Orders: Discharge Order (Routine); Ordered 09/03/24 Ordered By: Lulú Lopez Activity on Discharge: As tolerated Stand Alone Forms: Patient Portal Discharge page Print Language: Arabic Care Plan Goals: See below Health Concerns: Right foot wound Chronic osteomyelitis Plan of Treatment: Recommend to complete 21 day course of oral linezolid - recommend weekly cbc while taking linezolid, starting sunday [facility] for assistance with daily dressing changes Recommend outpatient follow-up in the [facility] - call to schedule follow-up appointment call to schedule follow up appontment with podiatry Assessment: See discharge summary
--- NOTE | 2024-09-03 11:58 | W.MHC.F2F ---
Service Date Service Date: 09/03/24 Encounter Date of encounter: 09/03/24 Reasons for Services Signs and symptoms assessed: wound care; weekly labs while taking linezolid Reason for intermediate: wound care (xeroform and a foam exterior dressing) Overseeing Care: Domenica Mccullough Homebound: Leaving the home is medically contraindicated at this time without the asist of a device and/or another person due th the listed conditions above and below. Reason homebound: pain with ambulation Certification: Based on the above findings, I certify that this patient is confined to the home and needs intermittent intermediate care, physical therapy and/or speech therapy, or continues to need occupational therapy. The patient is under my care, and I have initiated the establishment of the plan of care. The patient will be followed by a physician who will periodically review the plan of care. Time Spent With Patient Time: Total time managing care of this patient today ____ minutes.
--- NOTE | 2024-09-03 12:02 | MHC.CM.PN ---
Patient will not require IV abx. Medically cleared for dc home w/ [facility] for wound care and weekly CBC while on linezolid. Per surgery, dressing should be changed daily. Patient is aware the VNA will not come daily and reports can assist on any day there is no SN visit. will transport home and RN will provide wound care education to prior to dc. Will also send home w/ supplies.
== END 2024-09-03 13:55 | disposition home health service (06) | DRG 540 ==
LOC: HO.ED 19:20 → HO.EDOVER 21:10 → HO.IMC 09-01 11:49 → HO.S3 09-02 11:46
PROVIDERS: Nurse Practitioner Acute Care; Nurse Practitioner Family; Physician Assistant; Admitting Provider Student in an Organized Health Care Education/Training Program; Emergency Provider Internal Medicine; PCP Podiatrist; Visit Provider Physician Assistant Medical
DX: M86.671 Other chronic osteomyelitis, right ankle and foot (principal); M00.9 Pyogenic arthritis, unspecified; G62.9 Polyneuropathy, unspecified; F25.9 Schizoaffective disorder, unspecified; D64.9 Anemia, unspecified; I10 Essential (primary) hypertension; Z87.891 Personal history of nicotine dependence; Z79.899 Other long term (current) drug therapy
CPT/HCPCS: 36415; 73630; 80048; 80202; 82272; 83036; 83540; 83605; 85025; 85652; 86140; 87040; 99285; J0295; J0696; J1650; J3370; J3371

== ENCOUNTER → 2024-08-31 18:32 | Outpatient (BNV) | payer OTHER, SELFPAY | PROVIDERS: Emergency Provider Internal Medicine; PCP Podiatrist; Visit Provider Radiology Diagnostic Radiology | DX: M19.071 Primary osteoarthritis, right ankle and foot (principal); M86.171 Other acute osteomyelitis, right ankle and foot | CPT/HCPCS: 73630 ==

== ENCOUNTER → 2024-08-31 20:52 | Outpatient (BNV) | payer OTHER, SELFPAY | PROVIDERS: Admitting Provider Student in an Organized Health Care Education/Training Program; Emergency Provider Internal Medicine; PCP Podiatrist; Visit Provider Internal Medicine | DX: M00.9 Pyogenic arthritis, unspecified (principal); M86.171 Other acute osteomyelitis, right ankle and foot | CPT/HCPCS: 99232 ==

== ENCOUNTER → 2024-08-31 20:52 | Outpatient (BNV) | payer OTHER, SELFPAY | PROVIDERS: Admitting Provider Student in an Organized Health Care Education/Training Program; Emergency Provider Internal Medicine; PCP Podiatrist; Visit Provider Physician Assistant | DX: M86.171 Other acute osteomyelitis, right ankle and foot (principal); M00.9 Pyogenic arthritis, unspecified | CPT/HCPCS: 99223 ==

== ENCOUNTER → 2024-08-31 20:52 | Outpatient (BNV) | payer OTHER, SELFPAY | PROVIDERS: Admitting Provider Student in an Organized Health Care Education/Training Program; Emergency Provider Internal Medicine; PCP Podiatrist | DX: M86.171 Other acute osteomyelitis, right ankle and foot (principal) | CPT/HCPCS: 99222 ==

== ENCOUNTER 2024-09-24 11:30 | Outpatient (RCR) | payer OTHER, SELFPAY ==
[2024-07-11 10:26] LABS: MANUAL DIFF FLAG NO
[2024-07-11 10:50] LABS: Hematocrit 25.0 % (37.0-47.0); Hemoglobin 8.3 g/dl (12.0-16.0); Imm Gran Abs Auto 0.03 X10*3/uL (0.00-0.03); Imm Gran Pct Auto 0.5 % (0.0-0.4); Lymphocytes Absolute Auto 1.1 X10*3/uL (1.2-4.9); Mean Corpuscular HGB Conc 33.2 g/dl (31.0-35.0); Mean Corpuscular Hemoglobin 31.1 pg (27.0-33.0); Mean Corpuscular Volume 93.6 fL (80.0-98.0); NRBC Abs Auto 0.000 X10*3/uL (0.0-0.012); NRBC Pct Auto 0.0 /100WBC (0.0-0.2); Platelet Count 295 X10*3/uL (160-400); Red Blood Count 2.67 X10*6/uL (4.20-5.50); White Blood Count 5.9 X10*3/uL (4.8-10.8)
[2024-07-11 10:59] LABS: Anion Gap 15 (12-20); Blood Urea Nitrogen 21 mg/dL (9-16); Calcium 9.7 mg/dL (8.4-10.2); Carbon Dioxide 20 mmol/L (22-29); Chloride 105 mmol/L (96-108); Estimated Glomerular Filt Rate 36; Potassium 3.8 mmol/L (3.3-5.1); Sodium 136 mmol/L (135-145)
== END 2024-10-13 16:19 | disposition home or self-care (01) ==
LOC: HO.WCC 11:30
PROVIDERS: Surgery Surgical Oncology; PCP Internal Medicine; Visit Provider Surgery
DX: T81.31XA Disruption of external operation (surgical) wound, not elsewhere classified, initial encounter (principal); L97.516 Non-pressure chronic ulcer of other part of right foot with bone involvement without evidence of necrosis; M86.171 Other acute osteomyelitis, right ankle and foot; Z79.2 Long term (current) use of antibiotics; Z79.899 Other long term (current) drug therapy
CPT/HCPCS: 11042; 36415; 80048; 85025; 85652; 86140; 87070; 87073; 87077; 87147; 87186; 87205; 99212

== ENCOUNTER 2024-12-20 12:19 | Observation (INO) | payer OTHER, SELFPAY ==
--- OUTSIDE RECORDS SUMMARY | 2024-10-13 07:30 | XMS_ITS ---
Author Organization [facility] Address [address] [place] [phone] Care Team Providers Care Pump Erector Helper Name Role Phone Pau Us Primary Care Provide r Unavailable LIZ SEARS Unavailable [phone] REASON FOR VISIT 2wk Medications Medication SIG (Take, Route, Frequency, Duration) Notes Start Date End Date Status Pravastatin Sodium 10 MG 2 tablets Orally Once a day Active Chlorthalidone 25 MG 1 tablet in the morning with food Orally Active Albuterol Sulfate 108 (90 Base) MCG/ACT 1 puff as needed Inhalation every 4 hrs Active Wound Cleanser - use once daily to cleanse wound Externally once a day; Duration: 30 days [facility] advanced wound wash or any equivalent 07/10/2024 Active Clindamycin HCl 300 MG 1 capsule Orally every 12 hrs; Duration: 7 days 08/29/2024 Not-Taking Trifluoperazine HCl 5 MG 1 tablet Orally Twice a day Active Linezolid 600 MG 1 tablet Orally twice a day Not-Taking Iron Active Trihexyphenidyl HCl 2 MG as directed Orally Active Encounters Encounter Location Date Provider Diagnosis [facility] [address] [place] [phone] 10/13/2024 LIZ SEARS Plan Of Treatment Next Appt Details Provider Name:LIZ SEARS, 12/22/2024 03:30:00 PM, [address] [place] [address], [phone], Provider Name:LIZ SEARS, 01/12/2025 10:45:00 AM, [address] [place] [address], [phone], Progress Notes * Whitney IVERSONeDOB: [birth year] (74 yo F)Acc No.[id number]:10/13/2024 Progress Note Patient: Luisana DUMAS Provider: Troy Terrazas DPM :1950 A ge:74 Y S ex:Female Date:10/13/2024 Phone: Address:[address] [place] [address], [phone] Pcp:Pau Payne in Subjective: * Chief Complaints: * 1 . 2wk. * Medical History: * Medications: T aking Iron , Taking Trihexyphenidyl HCl 2 MG Tablet as directed Orally , Taking Trifluoperazine HCl 5 MG Tablet 1 tablet Orally Twice a day , Taking Pravastatin Sodium 10 MG Tablet 2 tablets Orally Once a day , Taking Chlorthalidone 25 MG Tablet 1 tablet in the morning with food Orally , Taking Albuterol Sulfate 108 (90 Base) MCG/ACT Aerosol Powder Breath Activated 1 puff as needed Inhalation every 4 hrs , Taking Wound Cleanser - Liquid use once daily to cleanse wound Externally once a day , Notes to Pharmacist: [facility] advanced wound wash or any equivalent, Not-Taking Linezolid 600 MG Tablet 1 tablet Orally twice a day , Not-Taking Clindamycin HCl 300 MG Capsule 1 capsule Orally every 12 hrs Objective: * Vitals: Assessment: Plan: * Treatment: * Billing Information: * Visit Code: * Procedure Codes: * Electronic signature of SO SEARS D.P.M. on 12/20/2024 at 02:36 PM EDT Sign off status: Pending * Provider: Troy Terrazas DPM Date: 0 10/13/2024 Generated for Jackelin mi/Bola/Joesmashley on: 1 02:36 PM EDT
--- OUTSIDE RECORDS SUMMARY | 2024-12-05 11:30 | XMS_ITS ---
Author Organization [facility] Address [address] [address] Care Team Providers Care Air Compressor Operator Name Role Phone Pau Us Primary Care Provide r LIZ Tom Unavailable [phone] Allergies Allergen (clinical drug ingredient) Drug/Non Drug Allergy documented on EMR Reaction Allergy Type Onset Date Status acetaminophen / oxycodone Percocet hallucinations Drug Allergy Active REASON FOR VISIT right foot swelling Medications Medication SIG (Take, Route, Frequency, Duration) Notes Start Date End Date Status Chlorthalidone 25 MG 1 tablet in the morning with food Orally Active Linezolid 600 MG 1 tablet Orally twice a day Not-Taking Clindamycin HCl 300 MG 1 capsule Orally every 12 hrs; Duration: 7 days 08/29/2024 Not-Taking Albuterol Sulfate 108 (90 Base) MCG/ACT 1 puff as needed Inhalation every 4 hrs Active Wound Cleanser - use once daily to cleanse wound Externally once a day; Duration: 30 days [facility] advanced wound wash or any equivalent 07/10/2024 Not-Taking Iron Active Pravastatin Sodium 10 MG 2 tablets Orally Once a day Active Trihexyphenidyl HCl 2 MG as directed Orally Active Trifluoperazine HCl 5 MG 1 tablet Orally Twice a day Active Vital Signs Temperature 97.6 degrees Fahrenheit 12/06/19 25 Heart Rate 92 /min 12/05/2024 Respiratory Rate 16 /min 12/05/2024 Height 5ft 5in in 12/05/2024 Weight 112.8 lbs 12/05/2024 BMI 18.77 kg/m2 12/05/2024 Encounters Encounter Location Date Provider Diagnosis [facility] [address] [address] 12/05/2024 LIZ SEARS Acute osteomyelitis of right foot M86.171 ; Weakness of right lower extremity R29.898 and Valgus deformity of left great toe M20.12 Assessments Encounter Date Diagnosis (ICD Code) Assessment Notes Treatment Notes Treatment Clinical Notes Section Notes 12/05/2024 Acute osteomyelitis of right foot (ICD-10 - M86.171) Patient examined and evaluated. She has been dealing with acute osteomyelitis and septic arthritis at the right 1st MTPJ. This started after dehiscence of her incision site from a right tibial sesamoid removal for chronic osteomyelitis and plantar first metatarsal head ulceration. She was hospitalized at [facility] in August for this and sent out on oral linezolid 600mg BID for the next 21 days from [place]. She took this inconsistently since discharge and jaimee fully finished the course of treatment. Despite this, all her wounds to the right foot have healed and remained healed. She does have valgus deformity of the right hallux as a result of the wound dehiscence from her surgery, but this is overall stable. I have given her toe spacers and gel sleeves to use for protection. On exam last month she has significant edema to both lower extremities from the knee to the dorsum of the foot bilaterally that was pitting in nature. This was a new finding and concerning. A referral was placed back with the PCP. She has since had improvement of the lower extremity edema and states she has not noticed any swelling for the past week. She also tells me she has an upcoming appt tomorrow with her PCP. She is a high risk patient of recurrent infections included worsening OM leading to sepsis since she has been non compliant with all treatment courses. I want to continue close follow up of her right foot because of this. She and her express understanding, I would like to see her back in 2 months. I advised they call if anything changes in the meantime. 12/05/2024 Weakness of right lower extremity (ICD-10 - R29.898) 12/05/2024 Valgus deformity of left great toe (ICD-10 - M20.12) Plan Of Treatment Treatment Notes Assessment Notes Acute osteomyelitis of right foot Patient examined and evaluated. She has been dealing with acute osteomyelitis and septic arthritis at the right 1st MTPJ. This started after dehiscence of her incision site from a right tibial sesamoid removal for chronic osteomyelitis and plantar first metatarsal head ulceration. She was hospitalized at [facility] in August for this and sent out on oral linezolid 600mg BID for the next 21 days from [place]. She took this inconsistently since discharge and jaimee fully finished the course of treatment. Despite this, all her wounds to the right foot have healed and remained healed. She does have valgus deformity of the right hallux as a result of the wound dehiscence from her surgery, but this is overall stable. I have given her toe spacers and gel sleeves to use for protection. On exam last month she has significant edema to both lower extremities from the knee to the dorsum of the foot bilaterally that was pitting in nature. This was a new finding and concerning. A referral was placed back with the PCP. She has since had improvement of the lower extremity edema and states she has not noticed any swelling for the past week. She also tells me she has an upcoming appt tomorrow with her PCP. She is a high risk patient of recurrent infections included worsening OM leading to sepsis since she has been non compliant with all treatment courses. I want to continue close follow up of her right foot because of this. She and her express understanding, I would like to see her back in 2 months. I advised they call if anything changes in the meantime. Next Appt Details Follow Up: 4 Weeks, Reason: Provider Name:LIZ SEARS, 12/22/2024 03:30:00 PM, [address], [phone], Provider Name:LIZ SEARS, 01/12/2025 10:45:00 AM, [address], [phone], Progress Notes * Whitney IVERSONRaziaOB: [birth year] (74 yo F)Acc No.[id number]:12/05/2024 Patient: Luisana DUMAS Provider: Troy Terrazas DPAudrey :1950 A ge:74 Y S ex:Female Date:12/05/2024 Phone: Address:[address] [place] [phone] Pcp:Pau Payne in Subjective: * Chief Complaints: * 1 . Right foot swelling. * Medical History: C ervical myelopathy causing right sided weakness and spasticity along with neuropathy, Essential hypertension, Cyst of neck, Refusal of blood transfusion as patient is a Caodaism, Cervical spinal stenosis, Hypercholesteremia, Narcolepsy, Ovarian cyst, Schizoaffective disorder - Started medication at the age 17, Iron deficiency anemia, Hx osteomyelitis and septic arthrosis to the right 1st metatarsal phalangeal joint.. * Surgical History: A ppendectomy 2008, Anterior cervical diskectomy C4-C5 with fusion 2006, Status post C3-C5 cervical laminoplasty with plate reconstruction 07/27/2011, excision of right tibial sesamoid 06/03/2024. * Hospitalization/Major Diagno stic Procedure: M any psychiatric hospitalizations , Recovery from cervical spine surgery 07/2011, Acute osteomyelitis right foot: [facility] 02/2024, Acute OM right foot 08/2024, right surgical foot wound dehiscence 2024. * Family History: F ather: . M other: . M aternal Grand Father: , Diabetes. C vanita: alive, Daughter- Diabetes. 7 brother(s) , 2 sister(s) . 3 son(s) , 1 daughter(s) . .? Uncle- Diabetes. * Social History: T lio: Former smoker quit 03/19/1991 Alcohol: Not a drinker Lives with . * Medications: T aking Iron , Taking [...] as needed Inhalation every 4 hrs , Not-Taking Wound Cleanser - Liquid use once daily to cleanse wound Externally once a day , Notes to Pharmacist: [facility] advanced wound wash or any equivalent, Not-Taking Linezolid 600 MG Tablet 1 tablet Orally twice a day , Not-Taking Clindamycin HCl 300 MG Capsule 1 capsule Orally every 12 hrs , Medication List reviewed and reconciled with the patient * Allergies: P ercocet: hallucinations - Allergy. Objective: * Vitals: W t:112.8lbs, Ht: 5ft 5in, BMI:18.77Index, HR:92/min, Temp:97.6F, RR:16/min, Ht- cm: 165.1, Wt-k.17 kg. Assessment: * Assessment: 1. A cute osteomyelitis of right foot - M86.171 2 . W eakness of right lower extremity - R29.898 3 . V algus deformity of left great toe - M20.12 ? Plan: * Treatment: * Follow Up: 4 Weeks * Billing Information: * Visit Code: 66316 Office Visit, Est Pt., Level 3. * Procedure Codes: * Electronic signature of Lana REEDPPrem on 12/20/2024 at 02:36 PM EDT Sign off status: Pending * Provider: Troy Terrazas DPM Date: 0 12/05/2024 Generated for Jackelin mi/Bola/Ganga on: 1 02:36 PM EDT
--- OUTSIDE RECORDS SUMMARY | 2024-12-17 07:00 | XMS_ITS ---
Author Organization [facility] Address [address] [place] [phone] Care Team Providers Care Publishing Manager Name Role Phone Pau Us Primary Care Provide r Unavailable LIZ SEARS Unavailable [phone] REASON FOR VISIT c/o the swelling getting worst Medications Medication SIG (Take, Route, Frequency, Duration) Notes Start Date End Date Status Wound Cleanser - use once daily to cleanse wound Externally once a day; Duration: 30 days [facility] advanced wound wash or any equivalent 07/10/2024 Not-Taking Linezolid 600 MG 1 tablet Orally twice a day Not-Taking Clindamycin HCl 300 MG 1 capsule Orally every 12 hrs; Duration: 7 days 08/29/2024 Not-Taking Chlorthalidone 25 MG 1 tablet in the morning with food Orally Active Albuterol Sulfate 108 (90 Base) MCG/ACT 1 puff as needed Inhalation every 4 hrs Active Pravastatin Sodium 10 MG 2 tablets Orally Once a day Active Iron Active Trihexyphenidyl HCl 2 MG as directed Orally Active Trifluoperazine HCl 5 MG 1 tablet Orally Twice a day Active Encounters Encounter Location Date Provider Diagnosis [facility] [address] [phone] 12/17/2024 LIZ SEARS Plan Of Treatment Next Appt Details Provider Name:LIZ SEARS, 12/22/2024 03:30:00 PM, [facility] [address], [address], Provider Name:LIZ SEARS, 01/12/2025 10:45:00 AM, [address] [place] [address], [phone], Progress Notes * Whitney IVERSONeDOB: [birth year] (74 yo F)Acc No.[id number]:12/17/2024 Progress Note Patient: Luisana DUMAS Provider: Troy Terrazas DPM :1950 A ge:74 Y S ex:Female Date:12/17/2024 Phone: Address:[address] [place] [address], [phone] Pcp:Pau Payne in Subjective: * Chief Complaints: * 1 . C/o the swelling getting worst. * Medical History: * Medications: T aking [...] Pending * Provider: Troy Terrazas DPM Date: Generated for Jackelin mi/Bola/Ganga on: 02:36 PM EDT
--- NOTE | ~2024-12-20 | US_ITS ---
CLINICAL HISTORY: swelling Venous duplex ultrasound right lower extremity Comparison: None provided Findings: The visualized deep veins are fully compressible with normal Doppler color flow and spectral tracings. No popliteal cyst. There is a benign-appearing lymph node. IMPRESSION: 1. Negative for right lower extremity deep vein thrombosis. This document has been electronically signed by: Pierre Michaud MD on 12/20/2024 14:25:51
--- NOTE | ~2024-12-20 | XR_ITS ---
CLINICAL HISTORY: pain, swelling, wound 4 view right foot Comparison: 06/13/2024 Findings: There are changes of erosive arthropathy in the great toe at the metatarsophalangeal joint. Correlate for septic or crystal induced arthropathy. Bones intact. No dislocations. No significant loss of joint space, osteophytes, or erosions. No ankle effusion. No radiopaque foreign body. IMPRESSION: 1. Great toe metatarsophalangeal joint erosive arthropathy, possible septic or crystal induced arthropathy. Correlate clinically This document has been electronically signed by: Pierre Michaud MD on 12/20/2024 14:50:44
--- NOTE | ~2024-12-20 | US_ITS ---
CLINICAL HISTORY: recurrent foot wounds assess blood flow --- Additional Notes or Special Instructions: Ok to do in AM Arterial duplex ultrasound right lower extremity Comparison: None provided Findings: Continuous, pulsatile flow with normal waveforms from common femoral through the posterior tibial and dorsalis pedis arteries. No focal stenosis, aneurysm or occlusion identified. Velocities are within normal range. IMPRESSION: 1. Normal right lower extremity arterial duplex. This document has been electronically signed by: Angel Braswell DO on 12/21/2024 09:06:29
--- NOTE | ~2024-12-20 | CT_ITS ---
CLINICAL HISTORY: Rt foot pain CT right foot without contrast Comparison: 12/20/2024 Findings: There are severe erosive changes associated with the articular surfaces of the 1st metatarsophalangeal joint. There is mild subluxation of the 1st metatarsophalangeal joint. There is no definite associated joint effusion, but evaluation for joint effusion is relatively limited. There is severe edema of the adjacent soft tissues. There are no soft tissue calcifications. Only one associated sesamoid bone is visualized. It is unclear if this is the medial or the lateral sesamoid. Remaining joints are unremarkable. There is no other focus of erosive change. Hammertoe deformities are noted. There is extensive soft tissue edema. There is no gross evidence of soft tissue abscess. There is no fracture or dislocation. Impression: 1. Severe erosive changes of the 1st metatarsophalangeal joint may be on the basis of an inflammatory arthropathy or septic arthritis. This could be further evaluated with contrast-enhanced MRI. Impression This document has been electronically signed by: Summer Moses MD on 12/20/2024 17:39:46
[2024-12-20 12:42] VITALS: BP 114/69; PULSE 127; RESP 18; TEMP 36.3; O2SAT 100; BMI 19.0
--- NOTE | 2024-12-20 12:49 | ED.GENADULT ---
HPI - General Adult General Chief complaint: Extremity Injury, Lower Stated complaint: R foot infection Time Seen by Provider: 12/20/24 13:15 Source: patient Mode of arrival: ambulatory Limitations: no limitations History of Present Illness ED Provider: LAURA Rao HPI narrative: This is a 74-year-old female history of narcolepsy, schizoaffective disorder, septic arthritis presenting with right 2nd toe infection. Patient reports she had a surgical procedure back in May 2024 since then she has been having a worsening wound due to pressure from big toe on 2nd toe. She denies any pain and she reports significant weakness to toes bilaterally. She reports her foot just does not look the same. Reports it is very painful to walk. Denies fevers, chills, headache, vision changes, chest pain, shortness of breath, nausea, vomiting, abdominal pain. Related Data Home Medications ?Medication ?Instructions ?Recorded ?Confirmed trifluoperazine 5 mg tablet 5 mg PO BID 11/08/20 12/20/24 trihexyphenidyl 2 mg tablet 2 mg PO DAILY 11/08/20 12/20/24 albuterol sulfate 90 mcg/actuation 2 puff inhalation QID PRN wheezing 02/07/24 12/20/24 aerosol inhaler hydrocortisone 2.5 % topical cream 1 appl topical BID PRN Itchiness 02/07/24 12/20/24 chlorthalidone 25 mg tablet 25 mg PO DAILY 06/14/24 12/20/24 ferrous sulfate 325 mg (65 mg 325 mg PO DAILY 09/01/24 12/20/24 iron) tablet,delayed release trazodone 50 mg tablet 50 mg PO BEDTIME 12/20/24 12/20/24 Allergies Allergy/AdvReac Type Severity Reaction Status Date / Time acetaminophen (From Percocet) Allergy Hallucinati Verified 12/20/24 12:47 ons oxycodone AdvReac Intermediate sleepiness Verified 12/20/24 12:47 Review of Systems Review of Systems: Yes all other systems are reviewed and are negative PMFSH Past Medical History Attestation statement: The following information was validated with the patient. Source: old records reviewed and nursing notes reviewed Medical History Acute osteomyelitis of right foot Osteomyelitis Right foot ulcer Essential hypertension Cyst of neck Abnormal ultrasound of neck Refusal of blood transfusions as patient is Moravian Cervical spinal stenosis Narcolepsy Ovarian cyst Schizoaffective disorder Chronic peripheral neuropathic pain Social History Social History Household Members: Significant Other Housing: Apartment Do you presently have visiting nurse or other home services: No Alcohol intake: never Patient Tobacco Use Status: Former Tobacco user Cigarettes Per Day: 4 Smoked in Last 30 Days: No Second Hand Smoke Exposure: No Use of substances other than those prescribed or required for medical reasons: No Advance Directives: Yes Advance Directives on File: Yes Advance Directives Date on File: 02/24/24 Do you have a plan to hurt others: No Plan service: No Physical Exam ED Exam Exam: Appearance: Alert.? Oriented X3.? No acute distress.? Head: Normocephalic, atraumatic, no step-offs or deformities Eyes: Pupils equal, round and reactive to light.? ENT: Pharynx normal.? Neck: Normal inspection.? Neck supple.? CVS: Normal heart rate and rhythm.? Pulses normal.? Respiratory: No respiratory distress.? Breath sounds normal.? Abdomen: Soft and nontender.? Skin: Skin warm and dry.? Normal skin color.? Normal skin turgor.?+ right second toe wound Extremities: +RLE 2+ non pitting edema decreased distal sensation 2+ DP, AT, PT pulses equal and b/l ? No calf ttp. 5/5 strength to bilateral upper and lower extremities Back: No midline tenderness, no C-spine tenderness, full range of motion, no CVA tenderness bilaterally Neuro: Oriented X 3.? No motor deficit.? No sensory deficit. CN 2-12 intact Vital Signs: Vital Signs - 24 hr 12/20/24 12:42 12/20/24 15:45 Temperature 97.3 F Pulse Rate 127 H 116 H Respiratory Rate 18 18 Blood Pressure 114/69 116/80 Pulse Oximetry 100 100 Oxygen Delivery Method Room Air Room Air BMI result Body Mass Index 19.0 vss Course Course Course Narrative: Medical screening exam performed. Please refer to detailed history, exam, evaluation, and management by primary provider. History of previous partial amputation of the right foot. Diabetic with neuropathy. Increased swelling and skin breakdown. JS Reevaluation(s) Reevaluation #1: CBC with a normocytic anemia. Chemistry no acute findings eating intervention. Hemoglobin A1c 5.2 not consistent with diabetes. Lactic negative. X-ray of right foot with great toe him at a tarsal phalangeal joint erosive arthropathy possible septic or crystal induced arthropathy. I did order a CT of the right foot. DVT study also ordered and it was negative. Patient does mention within the past month she was on oral antibiotics for this infection however it did not seem to help. ESR CRP pending and CT pendng Time: 15:06 Reevaluation #2: CRP 0.58. CT of the foot pending. Plan hospital admission. Hospitalist aware that imaging still pending Time: 17:29 Medications Administered Generic Name Dose Route Start Last Admin Trade Name Freq PRN Reason Stop Dose Admin Piperacillin Sod/Tazobactam 50 mls @ 100 mls/hr 12/20/24 20:00 12/20/24 19:31 Sod 3.375 gm/ Sodium Chloride IV 100 mls/hr Q6H GIANNI Administration Discontinued Medications Generic Name Dose Route Start Last Admin Trade Name Freq PRN Reason Stop Dose Admin Piperacillin Sod/Tazobactam 50 mls @ 100 mls/hr 12/20/24 13:27 12/20/24 14:17 Sod 3.375 gm/ Sodium Chloride IV 12/20/24 13:56 Infused ONCE ONE Infusion Vancomycin HCl 1,250 mg/ 250 mls @ 166.667 mls/hr 12/20/24 13:27 12/20/24 15:45 Sodium Chloride IV 12/20/24 14:56 Infused ONCE ONE Infusion Sodium Chloride 1,551.3 mls @ 1,551.3 mls/hr 12/20/24 13:27 12/20/24 17:19 Ns 30 ml/kg infuse over 1 hr (1551.3 ml) 12/20/24 14:26 Infused IV Infusion .Q1H STA Medical Decision Making Medical Decision Making [facility] Narrative: This is a 74-year-old female who presents with right 2nd toe wound ongoing for the past few months worsening. Now reporting pain to the area however numbness of the distal aspect of foot Physical exam wound to right 2nd toe This appears to be a pressure sore/wound that is likely infected. Will rule out osteomyelitis. Also rule out DVT to right lower extremity as patient has significant edema to right lower extremity. Unlikely arterial occlusion. Head will rule out metabolic derangements. Will obtain basic labs got a of blood cultures, lactic acid Differential Diagnosis Differential Diagnoses: The differential diagnosis associated with the presentation includes (This appears to be a pressure sore/wound that is likely infected. Will rule out osteomyelitis. Also rule out DVT to right lower extremity as patient has significant edema to right lower extremity. Unlikely arterial occlusion. Head will rule out metabolic derangements.) Admission/Observation Consideration of admission/observation: Escalation of care including admission/observation considered Consult Healthcare Provider Management of the patient was discussed with: Hospitalist and Linting Machine Operator (Surgery will follow no acute need for them at this time ) Lab Data MDM Lab Attestation statement: I reviewed the patient's lab results. 12/20/24 13:42 12/20/24 13:42 Labs: Lab Results 12/20/24 12/20/24 Range/Units 13:42 14:09 WBC 5.5 (4.8-10.8) X10*3/uL RBC 3.02 L (4.20-5.50) X10*6/uL Hgb 9.8 L D (12.0-16.0) g/dl Hct 27.9 L (37.0-47.0) % MCV 92.4 (80.0-98.0) fL MCH 32.5 (27.0-33.0) pg MCHC 35.1 H (31.0-35.0) g/dl RDW 14.0 (11.0-16.0) % Plt Count 270 D (160-400) X10*3/uL MPV 9.8 (9.4-12.3) fL Immature Gran % (Auto) 0.4 (0.0-0.4) % Neut % (Auto) 58.6 (45-73) % Lymph % (Auto) 28.0 (20-40) % Bertie % (Auto) 11.0 (2-11) % Eos % (Auto) 1.5 (0-4) % Baso % (Auto) 0.5 (0-2) % Lymph # (Auto) 1.5 (1.2-4.9) X10*3/uL Bertie # (Auto) 0.6 (0.1-1.2) X10*3/uL Eos # (Auto) 0.1 (0.0-0.4) X10*3/uL Baso # (Auto) 0.0 (0.0-0.2) X10*3/uL Abs Immat Gran (auto) 0.02 (0.00-0.03) X10*3/uL Absolute Neuts (auto) 3.2 (2.0-8.3) x10*3/uL Absolute Nucleated RBC 0.000 (0.0-0.012) X10*3/uL Nucleated RBC % (auto) 0.0 (0.0-0.2) /100WBC ESR 58 H (0-20) MM/HR Sodium 132 L (135-145) mmol/L Potassium 3.9 (3.3-5.1) mmol/L Chloride 104 (96-108) mmol/L Carbon Dioxide 19 L (22-29) mmol/L Anion Gap 13 (12-20) BUN 18 H (9-16) mg/dL Creatinine 0.86 (0.5-1.4) mg/dL Estim Creat Clear Calc 47.5 Estimated GFR > 60 Random Glucose 86 (60-115) mg/dL Estimat Average Glucose 103 mg/dL Hemoglobin A1c % 5.2 (<6.0) % Lactic Acid 1.3 1.0 (0.5-2.0) mmol/L Calcium 9.3 (8.4-10.2) mg/dL C-Reactive Protein 0.58 H (< or = 0.50) mg/dL Independent Interpretation I performed an independent interpretation of an: Plain X-Ray (IMPRESSION: 1. Great toe metatarsophalangeal joint erosive arthropathy, possible septic or crystal induced arthropathy. Correlate clinically) Radiology Impression Discussion of test interpretation with radiology: I have reviewed the radiologist's reading. External Record Review External record reviewed: Inpatient record, Office record, Outpatient record, Prior outpatient labs, Prior outpatient radiology, Primary care record and Outside ED record Prescription Management I considered prescription management with: Antibiotic Chronic Conditions Patient?s care impacted by: Other (see hpi) Critical Care Time Critical Care Time Critical Care Time: Yes Total Critical Care Time: 35 Attestation: I attest to this time spent taking care of the patient, obtaining history, physical, reviewing labs, imaging, treatment of patients condition +/- specialist/hospitalist consult +/- procedure Discharge Plan Discharge Clinical Impression: Wound, open, foot Qualifiers: Encounter type: initial encounter Laterality: right Qualified Code(s): S91.301A - Unspecified open wound, right foot, initial encounter Patient Disposition: Admitted As Inpatient Interventions: Admission Worksheet (ED) Last Done: 12/20/24 19:46
[2024-12-20 13:49] LABS: MANUAL DIFF FLAG NO
[2024-12-20 13:54] LABS: Hematocrit 27.9 % (37.0-47.0); Hemoglobin 9.8 g/dl (12.0-16.0); Imm Gran Abs Auto 0.02 X10*3/uL (0.00-0.03); Imm Gran Pct Auto 0.4 % (0.0-0.4); Lymphocytes Absolute Auto 1.5 X10*3/uL (1.2-4.9); Mean Corpuscular HGB Conc 35.1 g/dl (31.0-35.0); Mean Corpuscular Hemoglobin 32.5 pg (27.0-33.0); Mean Corpuscular Volume 92.4 fL (80.0-98.0); NRBC Abs Auto 0.000 X10*3/uL (0.0-0.012); NRBC Pct Auto 0.0 /100WBC (0.0-0.2); Platelet Count 270 X10*3/uL (160-400); Red Blood Count 3.02 X10*6/uL (4.20-5.50); White Blood Count 5.5 X10*3/uL (4.8-10.8)
[2024-12-20] MEDS: 0.9 % Sodium Chloride 1,551.3 ML 1551.3 ML IV (13:58)
[2024-12-20 14:09] LABS: Anion Gap 13 (12-20); Blood Urea Nitrogen 18 mg/dL (9-16); Calcium 9.3 mg/dL (8.4-10.2); Carbon Dioxide 19 mmol/L (22-29); Chloride 104 mmol/L (96-108); Creatinine Clr Calc Pharmacy 47.5; Estimated Glomerular Filt Rate > 60; Potassium 3.9 mmol/L (3.3-5.1); Sodium 132 mmol/L (135-145)
[2024-12-20 14:31] LABS: Hemoglobin A1C 90.0129 umol/L; Total Hemoglobin (HGBA1C) 2672.4925 umol/L
--- OUTSIDE RECORDS SUMMARY | 2024-12-20 14:36 | XMS_ITS ---
Author Name CRIS Organization Unknown Encounters Encounter Type Encounter Reason Primary Diagnosis Location Date Ambulatory [facility] 12/28/2023 Care Team Organization Name Specialty Phone Email Start Date End Da te [facility] 2024
--- OUTSIDE RECORDS SUMMARY | 2024-12-20 14:36 | XMS_ITS | Clinical Summary ---
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 Unknown Venipuncture / Unknown 12/04/2024 12:22 PM EDT 12/04/2024 2:48 PM EDT us James Galdamez MD LAB BLOOD ORDERABLES Final Result Performing Organization Address [facility] de Phone Number [facility] [address] [place] [address], [place] [phone] * (ABNORMAL) Haptoglobin (12/04/2024 12:22 PM EDT) [facility] Haptoglobin 270(H) 16 - 200 mg/dL LAB CHEMISTRY METHOD 12/04/2024 3:53 PM EDT [facility] Blood Venous blood specimen / Unknown Venipuncture / Unknown 12/04/2024 12:22 PM EDT 12/04/2024 2:48 PM EDT us James Galdamez MD LAB BLOOD ORDERABLES Final Result Performing Organization Address [facility] de Phone Number [facility] [address] [place] [address], [place] [phone] * (ABNORMAL) Folate (12/04/2024 12:22 PM EDT) Pathologist [facility] Folate 17.3(H) 2.8 - 17.0 ng/ml LAB CHEMISTRY METHOD 12/04/2024 4:16 PM EDT [facility] Blood Venous blood specimen / Unknown Venipuncture / Unknown 12/04/2024 12:22 PM EDT 12/04/2024 2:48 PM EDT us James Galdamez MD LAB BLOOD ORDERABLES Final Result Performing Organization Address City/[facility]/ZIP Co de Phone Number [facility] [address] [place] [address], [place] [phone] * Ferritin (12/04/2024 12:22 PM EDT) Ferritin 188 8 - 252 ng/mL LAB CHEMISTRY METHOD 12/04/2024 4:16 PM EDT [facility] Blood Venous blood specimen / Unknown Venipuncture / Unknown 12/04/2024 12:22 PM EDT 12/04/2024 2:48 PM EDT us James Galdamez MD LAB BLOOD ORDERABLES Final Result Performing Organization Address [facility]/ZIP Co de Phone Number [facility] [address] [place] [address], [place] [phone] * Vitamin B12 (12/04/2024 12:22 PM EDT) Vitamin B-12 587 250 - 900 pcg/mL LAB CHEMISTRY METHOD 12/04/2024 4:16 PM EDT [facility] Blood Venous blood specimen / Unknown Venipuncture / Unknown 12/04/2024 12:22 PM EDT 12/04/2024 2:48 PM EDT us James Galdamez MD LAB BLOOD ORDERABLES Final Result Performing Organization Address City/[facility]/ZIP Co de Phone Number [facility] [address] [place] [address], [place] [phone] * (ABNORMAL) Comprehensive metabolic panel (12/04/2024 12:22 PM EDT) [facility] Signature Sodium 138 133 - 145 mmol/L LAB CHEMISTRY METHOD 12/04/2024 4:16 PM [facility] Potassium 3.8 3.5 - 5.5 mmol/L LAB CHEMISTRY METHOD 12/04/2024 4:16 PM [facility] Chloride 106 96 - 110 mmol/L LAB CHEMISTRY METHOD 12/04/2024 4:16 PM [facility] CO2 23 21 - 32 mmol/L LAB CHEMISTRY METHOD 12/04/2024 4:16 PM [facility] Anion Gap 9 3 - 11 LAB CHEMISTRY METHOD 12/04/2024 4:16 PM [facility] Glucose 71 70 - 100 mg/dL LAB CHEMISTRY METHOD 12/04/2024 4:16 PM [facility] BUN 29(H) 5 - 25 mg/dL LAB CHEMISTRY METHOD 12/04/2024 4:16 PM [facility] Creatinine 1.08 0.50 - 1.10 mg/dL LAB CHEMISTRY METHOD 12/04/2024 4:16 PM [facility] eGFR 54(L) >=60 mL/min/1. 73m2 LAB CHEMISTRY METHOD 12/04/2024 4:16 PM [facility] Comment:Calculation based on the Chronic Kidney Disease Epidemiology Collaboration (CKD-EPI) equation refit without adjustment for race. BUN/Creatinine Ratio 26.9 LAB CHEMISTRY METHOD 12/04/2024 4:16 PM [facility] Calcium 8.9 8.5 - 10.5 mg/dL LAB CHEMISTRY METHOD 12/04/2024 4:16 PM [facility] AST (SGOT) 43(H) 10 - 42 unit/L LAB CHEMISTRY METHOD 12/04/2024 4:16 PM [facility] ALT (SGPT) 52 10 - 60 unit/L LAB CHEMISTRY METHOD 12/04/2024 4:16 PM EDT [facility] Alkaline Phosphatase 85 42 - 121 unit/L LAB CHEMISTRY METHOD 12/04/2024 4:16 PM EDT [facility] Total Protein 7.0 6.0 - 8.0 g/dL LAB CHEMISTRY METHOD 12/04/2024 4:16 PM EDT [facility] Albumin 3.2 3.2 - 5.0 g/dL LAB CHEMISTRY METHOD 12/04/2024 4:16 PM EDT [facility] Total Bilirubin 0.3 0.0 - 1.4 mg/dL LAB CHEMISTRY METHOD 12/04/2024 4:16 PM EDT [facility] Blood Venous blood specimen / Unknown Venipuncture / Unknown 12/04/2024 12:22 PM EDT 12/04/2024 2:48 PM EDT us James Galdamez MD LAB BLOOD ORDERABLES Final Result [facility] [address] [place] [address], * ECG-Annotated (09/29/2024) us Provider Onbase ECG ORDERABLES Final Result * (ABNORMAL) POCT Glucose, blood (09/27/2024 11:20 PM EDT) Only the most recent of3 resultswithin the time period is included. Glucose POCT 119(H) 70 - 100 mg/dL 09/27/2024 11:22 PM EDT [facility] Blood Capillary blood specimen / Unknown 09/27/2024 11:20 PM EDT 09/27/2024 11:23 PM EDT us Lilian Vicente DO LAB POINT OF CARE TEST DOCKED DEVICE UNSOLICITED RESULTS Final Result Performing Organization Address [facility]/ZIP Co de Phone Number [facility] [address] [place] [address], * (ABNORMAL) Magnesium (09/27/2024 8:02 PM EDT) [facility] Magnesium 1.6(L) 1.9 - 2.6 mg/dL LAB CHEMISTRY METHOD 09/27/2024 8:33 PM EDT [facility] Blood Venous blood specimen / Unknown Venipuncture / Unknown 09/27/2024 8:02 PM EDT 09/27/2024 8:07 PM EDT Lilian Vicente LAB BLOOD ORDERABLES Pushpa l Result Performing Organization Address [facility]/ZIP Co de Phone Number [facility] [address] [place] [address], * Lipase (09/27/2024 8:02 PM EDT) [facility] Lipase 21 13 - 75 unit/L LAB CHEMISTRY METHOD 09/27/2024 9:05 PM EDT [facility] Blood Venous blood specimen / Unknown Venipuncture / Unknown 09/27/2024 8:02 PM EDT 09/27/2024 8:07 PM EDT Natan Rodrigo Vicente LAB BLOOD ORDERABLES Pushpa l Result Performing Organization Address [facility]/ZIP Co de Phone Number [facility] [address] [place] [address], * Hepatic function panel (09/27/2024 8:02 PM EDT) [facility] Total Protein 6.6 6.0 - 8.0 g/dL LAB CHEMISTRY METHOD 09/27/2024 9:05 PM EDT [facility] Albumin 3.2 3.2 - 5.0 g/dL LAB CHEMISTRY METHOD 09/27/2024 9:05 PM EDT [facility] Total Bilirubin 0.3 0.0 - 1.4 mg/dL LAB CHEMISTRY METHOD 09/27/2024 9:05 PM EDT [facility] Bilirubin, Direct 0.1 0.0 - 0.3 mg/dL LAB CHEMISTRY METHOD 09/27/2024 9:05 PM EDT [facility] Bilirubin, Indirect 0.2 0.0 - 1.1 mg/dL LAB CHEMISTRY METHOD 09/27/2024 [facility] ([facility]PT[facility] 23 10 - 60 unit/L LAB CHEMISTRY METHOD 09/27/2024 9:[facility] AST (SGOT) 24 10 - 42 unit/L LAB CHEMISTRY METHOD 09/27/2024 9:05 PM EDT [facility] Alkaline Phosphatase 79 42 - 121 unit/L LAB CHEMISTRY METHOD 09/27/2024 9:05 PM [facility] Blood Venous blood specimen / Unknown Venipuncture / Unknown 09/27/2024 8:02 PM EDT 09/27/2024 8:07 PM EDT us Lilian Vicente DO LAB BLOOD ORDERABLES Pushpa l Result [facility] [address] [place] [address], [place] [phone] * (ABNORMAL) Basic metabolic panel (09/27/2024 8:02 PM EDT) Sodium 136 133 - 145 mmol/L LAB CHEMISTRY METHOD 09/27/2024 8:33 PM EDT [facility] Potassium 3.2(L) 3.5 - 5.5 mmol/L LAB CHEMISTRY METHOD 09/27/2024 8:33 PM EDT [facility] Chloride 106 96 - 110 mmol/L LAB CHEMISTRY METHOD 09/27/2024 8:33 PM EDT [facility] CO2 22 21 - 32 mmol/L LAB CHEMISTRY METHOD 09/27/2024 8:33 PM [facility] Anion Gap 8 3 - 11 LAB CHEMISTRY METHOD 09/27/2024 8:33 PM [facility] Glucose 70 70 - 100 mg/dL LAB CHEMISTRY METHOD 09/27/2024 8:33 PM T [facility] BUN 20 5 - 25 mg/dL LAB CHEMISTRY METHOD 09/27/2024 8:33 PM [facility] Creatinine 1.19(H) 0.50 - 1.10 mg/dL LAB CHEMISTRY METHOD 09/27/2024 8:33 PM [facility] eGFR 48(L) >=60 mL/min/1. 73m2 LAB CHEMISTRY METHOD 09/27/2024 8:33 PM T [facility] Comment:Calculation based on the Chronic Kidney Disease Epidemiology Collaboration (CKD-EPI) equation refit without adjustment for race. BUN/Creatinine Ratio 16.8 LAB CHEMISTRY METHOD 09/27/2024 8:33 PM [facility] Calcium 8.8 8.5 - 10.5 mg/dL LAB CHEMISTRY METHOD 09/27/2024 8:33 PM T [facility] Blood Venous blood specimen / Unknown Venipuncture / Unknown 09/27/2024 8:02 PM EDT 09/27/2024 8:07 PM EDT us Lilian Vicente DO LAB BLOOD ORDERABLES Pushpa l Result [facility] [address] [place] [address], [place] [phone] * ECG 12 lead (09/27/2024 6:17 PM EDT) Ventricular Rate ECG 121 BPM GEMUSE Atrial Rate 121 BPM GEMUSE P-R Interval 186 ms GEMUSE QRS Duration 86 ms GEMUSE Q-T Interval 278 ms GEMUSE QTc 394 ms GEMUSE P Wave [place] 57 degrees GEMUSE R [place] 40 degrees GEMUSE T [place] -75 degrees GEMUSE ECG Interpretation Sinus tachycardia Nonspecific ST and T wave abnormality Abnormal ECG No previous ECGs available Confirmed by Jc BARNEY YUFENG ([id number]) on 09/27/2024 9:04:39 PM GEMUSE 09/27/2024 6:17 PM EDT 09/27/2024 9:04 PM EDT us Lilian Vicente DO ECG ORDERABLES Final Res ult GEMUSE * MG Mammo Digital Screening w Rich bilat (07/03/2024 6:45 PM EDT) Anatomical Region Laterality Modality Breast Bilateral Mammography 07/04/2024 4:10 PM EDT Impressions 07/04/2024 4:13 PM EDT No mammographic evidence of malignancy. BI-RADS CATEGORY: 1 - NEGATIVE RECOMMENDATION: Screening bilateral mammogram is recommended in 1 year. Mammo Location: [facility], [address] [place] [address], [id number], . -------- FINAL REPORT -------- Dictated By: Alexandra Sorto Dictated Date: 07/04/2024 16:10 ET Assigned Physician: Alexandra Sorto Reviewed and Electronically Signed By: Alexandra Sorto Signed Date: 07/04/2024 16:13 ET Workstation ID: [id number] Transcribed By: Self Edit Transcribed Date: 07/04/2024 16:10 ET Narrative 07/04/2024 4:13 PM EDT Screening mammogram. CLINICAL: 74 years old, Female, routine annual exam. COMPARISON: Prior mammograms, latest from 04/05/2022. TECHNIQUE: Bilateral MLO and CC views were obtained digitally with 2D C views and 3-D mammogram (digital breast tomosynthesis). Computer-aided detection was utilized in evaluation of this exam (CAD). FINDINGS: There is no evidence of suspicious mass or architectural distortion. No worrisome calcifications are evident. There has been no significant change from prior exam(s). BREAST DENSITY: B - There are scattered areas of fibroglandular density. Procedure Note Alexandra Sorto MD - 07/04/2024 Screening mammogram. CLINICAL: 74 years old, Female, routine annual exam. COMPARISON: Prior mammograms, latest from 04/05/2022. TECHNIQUE: Bilateral MLO and CC views were obtained digitally with 2D Cviews and 3-D mammogram (digital breast tomosynthesis). Computer-aideddetection was utilized in evaluation of this exam (CAD). FINDINGS: There is no evidence of suspicious mass or architectural distortion. Noworrisome calcifications are evident. There has been no significantchange from prior exam(s). BREAST DENSITY: B - There are scattered areas of fibroglandular density. IMPRESSION: No mammographic evidence of malignancy. BI-RADS CATEGORY: 1 - NEGATIVE RECOMMENDATION: Screening bilateral mammogram is recommended in 1 year. Mammo Location: [facility], [address] [place] [address], [facility], . -------- FINAL REPORT -------- Dictated By: Alexandra Sorto Dictated Date: 07/04/2024 16:10 ET Assigned Physician: Alexandra Sorto Reviewed and Electronically Signed By: Alexandra Sorto Signed Date: 07/04/2024 16:13 ET Workstation ID: [id number] Transcribed By: Self Edit Transcribed Date: 07/04/2024 16:10 ET us Pau Us MD IMG BI PROCEDURES Final Result * Lipid panel (11/12/2023) LDL/HDL Ratio 2 0 - 4 Triglycerides 82 0 - 150 mg/dL Cholesterol 176 0 - 200 mg/dL HDL 76 >=40 mg/dL LDL Cholesterol 84 0 - 100 mg/dL Blood Venous blood specimen / Unknown Historical Provider LAB BLOOD ORDERABLES Pushpa l Result * Falls Risk Assessment (07/23/2023) Pathologist [facility] Falls Risk Assessment abstracted Historical Provider HEALTH MAINTENANCE Final Result * Depression Screening (07/23/2023) Pathologist [facility] Depression Screening abstracted [facility] Provider HEALTH MAINTENANCE Final Result * DXA BONE DENSITY STUDY 1+ SITS AXIAL SKEL (04/05/2022 3:05 PM EST) Anatomical Region Laterality Modality Bone Densitometr y 07/08/2021 8:50 AM EDT Narrative 04/06/2022 8:46 AM EST BONE DENSITY (DEXA) Lumbar Spine T-score is 2.7. (SD relative to 20-29 y/o adult) Z-score is 4.8. (SD relative to age matched peers) This is considered normal by WHO criteria. Left Hip T-score is 0.2. Z-score is 2.1. This is considered normal by WHO criteria. IMPRESSION: This patient is considered to have normal bone density by WHO criteria. [facility] Department of Internal Medicine recommends using National Osteoporosis Foundation (NOF) guidelines in treatment decisions related to osteoporosis. NOF guidelines suggest considering treatment for postmenopausal women and men aged 50 or older presenting with the following: History of hip or vertebral fracture. T-score = -2.5 (DXA) at the femoral neck, total hip, or spine, after appropriate evaluation to exclude secondary causes. Low bone mass (T-score between -1.0 and -2.5 at the femoral neck or spine) AND a 10-year probability of a hip fracture = 3% OR a 10-year probability of a major osteoporosis-related fracture = 20% based on the [place]-adapted WHO algorithm Please note that all treatment decisions require clinical judgment and consideration of individual patient factors, including patient preferences, co-morbidities, previous drug use, risk factors not captured in the FRAX model (e.g., frailty, falls, vitamin D deficiency, increased bone turnover, interval significant decline in bone density) and possible under- or over-estimation of fracture risk by FRAX. Optional alternative screening schedule based on angela Moctezuma., [facility] April 06, 2011 for patients with osteopenia (based on hip BMD T-score) is as follows: * advanced osteopenia (T scores -2.00 to -2.49), BMD testing every year * moderate osteopenia (T scores -1.50 to -1.99), BMD testing every 5 years mild osteopenia or normal BMD (T scores -1.50 and higher), BMD testing every 15 years Procedure Note Yisel Nieves MD - 04/23/2023 BONE DENSITY (DEXA) Lumbar Spine T-score is 2.7. (SD relative to 20-29 y/o adult) Z-score is 4.8. (SD relative to age matched peers) This is considered normal by WHO criteria. Left Hip T-score is 0.2. Z-score is 2.1. This is considered normal by WHO criteria. IMPRESSION: This patient is considered to have normal bone density by WHO criteria. [facility] Department of Internal Medicine recommendsusing National Osteoporosis Foundation (NOF) guidelines in treatment decisions related toosteoporosis. NOF guidelines suggest considering treatment for postmenopausal women and menaged 50 or older presenting with the following: History of hip or vertebral fracture. T-score = -2.5 (DXA) at the femoral neck, total hip, or spine, afterappropriate evaluation to exclude secondary causes. Low bone mass (T-score between -1.0 and -2.5 at the femoral neck or spine)AND a 10-year probability of a hip fracture = 3% OR a 10-year probability of a majorosteoporosis-related fracture = 20% based on the [place]-adapted WHO algorithm Please note that all treatment decisions require clinical judgment andconsideration of individual patient factors, including patient preferences, co- morbidities,previous drug use, risk factors not captured in the FRAX model (e.g., frailty, falls, vitaminD deficiency, increased bone turnover, interval significant decline in bone density) andpossible under- or over-estimation of fracture risk by FRAX. Optional alternative screening schedule based on angela Moctezuma., [facility]2011 for patients with osteopenia (based on hip BMD T-score) is as follows: * advanced osteopenia (T scores -2.00 to -2.49), BMD testing every year * moderate osteopenia (T scores -1.50 to -1.99), BMD testing every 5years mild osteopenia or normal BMD (T scores -1.50 and higher), BMD testingevery 15 years us Shari SANCHEZ IMG DXA PROCEDURES Final R esult * Hepatitis C Screening (05/19/2016) [facility] Hepatitis C Screening abstracted us Historical Provider MD HEALTH MAINTENANCE Final Result from Last 3 Months or Most Recently Relevant to Health Maintenance Insurance MEDICAID - [place] [employer] MEDICARE Advance Directives Documents on File Type Date Recorded 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
--- OUTSIDE RECORDS SUMMARY | 2024-12-20 14:36 | XMS_ITS | Clinical Summary ---
Author Organization [facility] Address [address] [place] [address] Care Team Providers Care Metal Organ Pipe Maker Name Role Phone Unavailable Primary Care Provider [...] Td or Tdap) 06/15/2023 014 Influenza Vaccine (#1) 2024 RSV Adult > 60+ Yrs or Pregn ant (1 - 1-dose 75+ series) 06/13/2026 Hepatitis B Vaccines Aged Out No long er eligible based on patient's age to complete this topic RSV Ped < 20 months Aged Out No longe r eligible based on patient's age to complete this topic
--- OUTSIDE RECORDS SUMMARY | 2024-12-20 14:36 | XMS_ITS | Encounter Summary ---
Author Organization [facility] Address [address] [place] [address] Care Team Providers Care Trade Manager Name Role Phone Pau Us MD Primary Care Prov ider Reason for Visit * Reason Onset Date Comments Blister 12/10/2024 Encounter Details Date Type Department Care Team (Late st Contact Info) Description 12/10/2024 Telephone Adult Medicine [facility] [address] [place] [phone] Pau Us MD [address] [place] [address] Social History Tobacco Use Types Packs/Day Years Used Date Smoking Tobacco: Former Cigarettes Q uit: 03/19/1991 Smokeless Tobacco: Never Alcohol Use Standard Drinks/Week Comments No 0 (1 standard drink = 0.6 oz pur e alcohol) Comments No Sex and Gender Information Value Date Recorded Sex Assigned at Female 08/29/2024 11:02 AM EDT Legal Sex Female 7:27 AM EST Gender Identity Female 08/29/2024 11:02 AM EDT Sexual Orientation Straight 08/29/2024 11 :02 AM EDT documented as of this encounter Progress Notes * Drake Haas RN - 12/16/2024 9:18 AM EDT Appointment scheduled for evaluation , pt states that she was given medication ( unknown ) and she broke out in blisters , they are drying now * Drake Haas RN - 12/15/2024 11:10 AM EDT Left message for pt to please return our call * Althea Fair - 12/10/2024 12:47 PM EDT Patient calling stating that something she was given has caused her to have blisters all over her body and she does not have an appetite. Wants to speak with a nurse. [phone] documented in this encounter Plan of Treatment Upcoming Encounters Date Type Department Care Team (Late st Contact Info) Description 01/01/2025 11:45 AM EDT Office Visit [facility] Hematology Oncology [address] [place] [phone] James Galdamez MD [address] [place] [phone] 05/14/2025 10:50 AM EST Office Visit Gastroenterology - [place] 175 [facility] [address] [phone] Dottie Forman PA 175 [facility] [address] [place] [address] 07/07/2025 4:30 PM EDT Appointment Radiology Department - [address] [phone] documented as of this encounter Visit Diagnoses Not on filedocumented in this encounter Care Teams Trade Manager Relationship Specialty Start Date End Date Pau Us MD [address] [place] [id number] PCP - General 06/02/09 documented as of this encounter
--- OUTSIDE RECORDS SUMMARY | 2024-12-20 14:36 | XMS_ITS | Encounter Summary ---
Author Organization [facility] Address [address] [place] [address] Care Team Providers Care Forestry Hunter Name Role Phone Pau Us MD Primary Care Prov ider Reason for Visit * Reason Onset Date Comments Diarrhea 02/05/2024 Encounter Details Date Type Department Care Team (Late st Contact Info) Description 02/05/2024 Nurse Triage Adult Medicine - [place] [address] [place] [phone] Pau Us MD [address] [place] [address] Social History Tobacco Use Types Packs/Day Years Used Date Smoking Tobacco: Former Cigarettes Q uit: 03/19/1991 Smokeless Tobacco: Never Alcohol Use Standard Drinks/Week Comments No 0 (1 standard drink = 0.6 oz pur e alcohol) Comments Unknown Sex and Gender Information Value Date Recorded Sex Assigned at Female 08/29/2024 11:02 AM EDT Legal Sex Female 7:27 AM EST Gender Identity Female 08/29/2024 11:02 AM EDT Sexual Orientation Straight 08/29/2024 11 :02 AM EDT documented as of this encounter Progress Notes * Drake Haas RN - 02/05/2024 9:34 AM EST Pt advised * Pau Us MD - 02/05/2024 9:29 AM EST Can also try Pepto-Bismol * Drake Haas RN - 02/05/2024 9:02 AM EST Pt has been having diarrhea , pt states that it is watery and yesterday she had 2 episodes , pt states that this happens mainly when she eats something sweet , triage asked it the things she was eating has artificiale sweeteners and pt said they did , pt was advised that this can cause loose stool and was advised to stop this and see if this resole , are there any other instructions * Denise Randolph - 02/05/2024 8:50 AM EST Patient call requires triage: Symptoms patient is presenting: pt has diarrhea How long has patient had these symptoms?: 2 weeks PCP: Pau Us MD Payor: / No coverage found. documented in this encounter Plan of Treatment Upcoming Encounters Date Type Department Care Team (Late st Contact Info) Description 01/01/2025 11:45 AM EDT Office Visit [facility] Hematology Oncology [address] [place] [phone] James Galdamez MD [address] [place] [phone] 05/14/2025 10:50 AM EST Office Visit Gastroenterology - [place] 175 [facility] [address] [phone] Dottie Forman PA [address] [phone] 07/07/2025 4:30 PM EDT Appointment Radiology Department - [address] [phone] documented as of this encounter Visit Diagnoses Not on filedocumented in this encounter Additional Health Concerns Infection Onset Date Last Indicated Resolved Time C. difficile Rule-Out 07/11/2024 07/11/20242024 6:26 PM EDT documented as of this encounter Care Teams Forestry Hunter Relationship Specialty Start Date End Date Pau Us MD [address] [place] [id number] PCP - General 06/02/09 documented as of this encounter
--- OUTSIDE RECORDS SUMMARY | 2024-12-20 14:36 | XMS_ITS | Patient Health Record ---
Author Organization [facility] Address [address] [facility] [address] [place] [address] Care Team Providers Care Verification Engineer Name Role Phone Pau Us Primary Care Provide r Unavailable LIZ SEARS Unavailable [phone] Allergies Allergen (clinical drug ingredient) Drug/Non Drug Allergy documented on EMR Reaction Allergy Type Onset Date Status acetaminophen / oxycodone Percocet hallucinations Drug Allergy Active Results Component Value Reference Range Notes C-Reactive Protein, Cardiac- [id number] Reviewed date:05/27/2024 07:55:56 AM Interpretation: Performing Lab:[facility], [address] [place] [address], Phone - [phone], Director - Ryan Notes/Report: C-Reactive Protein, Cardiac 2.01 0.00-3.00 mg/L Relative Risk for Future Cardiovascular Event Low <1.00 Average 1.00 - 3.00 High >3.00 Sedimentation Rate-Westergre n-[id number] Reviewed date:05/27/2024 07:55:56 AM Interpretation: Performing Lab:[facility], [address] [place] [address], Phone - [phone], Director - Ryan Notes/Report: Sedimentation Rate-Westergren 71 0-40 mm/hr CBC With Differential/Platel et-[id number] Reviewed date:05/27/2024 07:55:56 AM Interpretation: Performing Lab:[facility], [address] [place] [address], Phone - [phone], Director - Ryan Notes/Report: WBC 4.0 3.4-10.8 x10E3/uL RBC 3.42 3.77-5.28 x10E6/uL Hemoglobin 10.9 11.1-15.9 g/dL Hematocrit 33.0 34.0-46.6 % MCV 97 79-97 fL MCH 31.9 26.6-33.0 pg MCHC 33.0 31.5-35.7 g/dL RDW 12.8 11.7-15.4 % Platelets 265 150-450 x10E3/uL Neutrophils 61 Not Estab. % Lymphs 26 Not Estab. % Monocytes 9 Not Estab. % Eos 3 Not Estab. % Basos 1 Not Estab. % Neutrophils (Absolute) 2.5 1.4-7.0 x10E3/uL Lymphs (Absolute) 1.1 0.7-3.1 x10E3/uL Monocytes(Absolute) 0.4 0.1-0.9 x10E3/uL Eos (Absolute) 0.1 0.0-0.4 x10E3/uL Baso (Absolute) 0.0 0.0-0.2 x10E3/uL Immature Granulocytes 0 Not Estab. % Immature Grans (Abs) 0.0 0.0-0.1 x10E3/uL Anaerobic/Aerobic/Gram Stain -[id number] Reviewed date:09/01/2024 02:10:50 PM Interpretation: Performing Lab:[facility] [place], [address] [place] [address], [address], [place], Phone - [phone], Director - [facility] Notes/Report: Clinical Information:ulcer and osteomyelitis ri t 1st MTPJ Clinical Information:ulcer and osteomyelitis ri t 1st MTPJ Clinical Information:ulcer and osteomyelitis ri t 1st MTPJ Clinical Information:ulcer and osteomyelitis ri [facility] 1st MTPJ Anaerobic Culture Final report Aerobic Culture Final report Gram Stain Result Final report Result 1 No anaerobic gr owth in 72 hours. Result 1 Methicillin - resistant Staphylococcus aureus Based on resistance to oxacillin this isolate would be resistant to all currently available beta-lactam antimicrobial agents, with the exception of the newer cephalosporins with anti-MRSA activity, such as Ceftaroline Heavy growth Result 2 Skin dariela isolated Light gr owth Antimicrobial Susceptibility S = Susceptible; I = Intermediate; R = Resistant P = Positive; N = Negative MICS are expressed in micrograms per mL Antibiotic RSLT#1 RSLT#2 RSLT#3 RSLT#4 Ciprofloxacin S Clindamycin S Erythromycin R Gentamicin S Levofloxacin S Linezolid S Oxacillin R Penicillin R Rifampin S Tetracycline R Trimethoprim/Sulfa S Vancomycin S Result 1 No white blood cells seen. Result 2 No organisms seen Anaerobic/Aerobic/Gram Stain -[id number] Reviewed date:07/10/2024 07:46:44 AM Interpretation: Performing Lab:[facility], [address], [address], [place], Phone - [phone], Director - [facility] Notes/Report: Clinical Information:right foot open wound. Has had IV and oral antibioti c treatmen Clinical Information:right foot open wound. Has had IV and oral antibioti c treatmen Clinical Information:right foot open wound. Has had IV and oral antibioti c treatmen Clinical Information:right foot open wound. Has had IV and oral antibioti c treatmen Anaerobic Culture Final report Aerobic Culture Final report Gram Stain Result Final report Result 1 No anaerobic gr owth in 72 hours. Result 1 Citrobacter koseri Moderate growth Result 2 Methicillin - resistant Staphylococcus aureus Based on resistance to oxacillin this isolate would be resistant to all currently available beta-lactam antimicrobial agents, with the exception of the newer cephalosporins with anti-MRSA activity, such as Ceftaroline Moderate growth Result 3 Beta hemolytic Streptococcus, group B Light growth Penicillin and ampicillin are drugs of choice for treatment of beta-hemolytic streptococcal infections. Susceptibility testing of penicillins and other beta-lactam agents approved by the FDA for treatment of beta-hemolytic streptococcal infections need not be performed routinely because nonsusceptible isolates are extremely rare in any beta-hemolytic streptococcus and have not been reported for Streptococcus pyogenes (group A). (CLSI) Susceptibility not normally performed on this organism. Antimicrobial Susceptibility S = Susceptible; I = Intermediate; R = Resistant P = Positive; N = Negative MICS are expressed in micrograms per mL Antibiotic RSLT#1 RSLT#2 RSLT#3 RSLT#4 Amoxicillin/Clavulanic Acid S Cefepime S Cefoxitin S Cefpodoxime S Ceftriaxone S Ciprofloxacin S S Clindamycin S Ertapenem S Erythromycin R Gentamicin S S Levofloxacin S S Linezolid S Meropenem S Nitrofurantoin S Oxacillin R Penicillin R Piperacillin/Tazobactam S Rifampin S Tetracycline S R Tobramycin S Trimethoprim/Sulfa S Vancomycin S Result 1 No white blood cells seen. Result 2 Rare gram posit amelie cocci Anaerobic/Aerobic/Gram Stain -[id number] Reviewed date:06/25/2024 02:33:34 PM Interpretation: Performing Lab:[facility] [place], [address], [place], Phone - [phone], Director - Ryan Notes/Report: Anaerobic Culture Final report Aerobic Culture Final report Gram Stain Result Final report Result 1 No anaerobic gr owth in 72 hours. Result 1 Methicillin - resistant Staphylococcus aureus Based on resistance to oxacillin this isolate would be resistant to all currently available beta-lactam antimicrobial agents, with the exception of the newer cephalosporins with anti-MRSA activity, such as Ceftaroline Heavy growth Result 2 Pseudomonas aeruginosa Ceftazidime-avibactam and ceftolozane-tazobactam may be considered for therapy ONLY when multi-drug resistance (MDR) is demonstrated to meropenem and other tested agents. Heavy growth Result 3 Citrobacter koseri Heavy [facility] Antimicrobial Susceptibility S = Susceptible; I = Intermediate; R = Resistant P = Positive; N = Negative MICS are expressed in micrograms per mL Antibiotic RSLT#1 RSLT#2 RSLT#3 RSLT#4 Amoxicillin/Clavulanic Acid S Cefepime S S Cefoxitin S Cefpodoxime S Ceftazidime S Ceftazidime/avibactam S Ceftolozane/tazobactam S Ceftriaxone S Ciprofloxacin S S S Clindamycin S Ertapenem S Erythromycin R Gentamicin S S Levofloxacin S S S Linezolid S Meropenem S S Oxacillin R Penicillin R Piperacillin/Tazobactam S S Rifampin S Tetracycline R S Tobramycin S S Trimethoprim/Sulfa S Vancomycin S Result 1 No white blood cells seen. Result 2 Moderate amount of gram positive cocci in chains Result 3 Moderate gram n egative rods. BMP8+eGFR-[id number] Reviewed date:05/27/2024 07:55:56 AM Interpretation: Performing Lab:[facility], [address], [place], Phone - [phone], Director - Ryan Notes/Report: Glucose 82 70-99 mg/dL BUN 18 8-27 mg/dL Creatinine 1.13 0.57-1.00 mg/dL eGFR 52 >59 mL/min/1.73 BUN/Creatinine Ratio 16 12-28 Sodium 138 134-144 mmol/L Potassium 4.5 3.5-5.2 mmol/L Chloride 104 96-106 mmol/L Carbon Dioxide, Total 21 20-29 mmol/L Anion Gap 13.0 10.0-18.0 mmol/L Calcium 9.4 8.7-10.3 mg/dL Reason For Referral Reason Osteomyelitis right sesamoids with ulceration. Patient was being treatment with IV antibiotics, but removed PICC. I have her on oral antibiotics at this time... Diagnosis 1 Acute osteomyelitis of right foot (M86.171) Referral Organization [facility] Referring Provider First Name [place] Referring Provider Last Name [facility] Referring Provider [facility] Referred Provider Specialty Infectious D isease Referral Priority Routine Reason Worsening Anemia on lab work.. Patient also complaining of dizziness more so lately. Diagnosis 1 Acute anemia (D64.9) Diagnosis 2 Ulcer of right foot with bone involvement without evidence of necrosis (L97.516) Referral Organization [facility] Referring Provider First Name [place] Referring Provider Last Name [facility] Referring Provider [facility] Referred Provider Specialty Family Medic ine Referral Priority Routine Reason Dehisced incision to the medial right 1st MTPJ with hypergranular wound. Need help with wound care options. Diagnosis 1 Ulcer of right foot with bone involvement without evidence of necrosis (L97.516) Diagnosis 2 Dehiscence of operat amelie wound, initial encounter (T81.31XA) Diagnosis 3 Weakness of right lo wer extremity (R29.898) Diagnosis 4 Other polyneuropathy (G62.89) Referral Organization [facility] Referring Provider First Name [place] Referring Provider Last Name [facility] Referring Provider [facility] Referred Provider Specialty Other Medica l Care Referral Priority Routine Reason Previous patient. Riley gill has acute osteomyelitis to the 1st metatarsal and 1st proximal phalanx. Patient wishes to avoid amputation. Need help with prolonged antibiotic management. [facility] [place] [facility] [place] [facility] [place] [facility]. New cultures taken today along with xrays. The cultures from june are attached along with the imaging taken in office. Will send new cultures once they come back. Diagnosis 1 Acute osteomyelitis of right foot (M86.171) Referral Organization [facility] Referring Provider First Name [place] Referring Provider Last Name [facility] Referred Provider Specialty Infectious D isease Referral Priority Urgent Reason New onset of pitting edema both lower extremities for last 2 weeks, Concern for kidney vs heart failure in patient who did not complete full course of acute OM treatment Concern for worsening anemia vs pancytopenia. right foot wounds have since healed, but never finished course of antibiotics and did not follow back jace ID. Diagnosis 1 Acute osteomyelitis of right foot (M86.171) Diagnosis 2 Bilateral edema of l ower extremity (R60.0) Referral Organization [facility] Referring Provider First Name LIZ Referring Provider Last Name RENU Referring Provider Speciality Podiatry Referred Provider Specialty Family Pract ice Referral Priority Urgent Medications Medication SIG (Take, Route, Frequency, Duration) Notes Start Date End Date Status Pravastatin Sodium 10 MG 2 tablets Orally Once a day Active Iron Active Trihexyphenidyl HCl 2 MG as directed Orally Active Trifluoperazine HCl 5 MG 1 tablet Orally Twice a day Active Wound Cleanser - use once daily [...] as needed Inhalation every 4 hrs Active Problems Problem Type SNOMED Code ICD Code Onset Dates Problem Status W/U Status Risk Notes Problem Polyneuropathy (67209408) Other polyneuropathy (G62.89) Active confirmed Problem Gangrene of right foot (6685075742214394 2) Gangrene of right foot (I96) Active confirmed Problem Acquired hallux valgus (24871426) Valgus deformity of left great toe (M20.12) Active confirmed 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 Problem Acute osteomyelitis of right foot (8070477580302048 ) Acute osteomyelitis of right foot (M86.171) Active confirmed Problem Ulcer of right foot with bone involvement without evidence of necrosis (L97.516) Active confirmed Problem Pressure injury of right foot, 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 Problem Peripheral sensory neuropathy (620868734) Peripheral sensory neuropathy (G60.8) Active confirmed Vital Signs Heart Rate 92 /min 12/05/2024 Temperature 97.6 degrees Fahrenheit 12/05/2024 Respiratory Rate 16 /min 12/05/2024 Height 5ft 5in in 12/05/2024 Weight 112.8 lbs 12/05/2024 BMI 18.77 kg/m2 12/05/2024 Procedures Procedure Date Ordered Date Performed Result Body Sit e Debridement ulcer subq first 20sq cm 02/07/2024 N/A Debridement ulcer subq first 20sq cm 03/28/2024 N/A Debridement ulcer subq first 20sq cm 04/10/2024 N/A Debridement ulcer subq first 20sq cm 04/24/2024 N/A Encounters Encounter Location Date Provider Diagnosis [facility] [address] [address] 03/07/2024 LIZ SEARS [facility] [address] [address] 04/10/2024 LIZ SEARS Acute osteomyelitis of right foot M86.171 ; Pressure injury of right foot, stage 4 L89.894 ; Lumbar myelopathy G95.9 and Weakness of right lower extremity R29.898 [facility] [address] [address] 05/12/2024 LIZ SEARS Acute osteomyelitis of right foot M86.171 ; Pressure injury of right foot, stage 4 L89.894 ; Lumbar myelopathy G95.9 and Weakness of right lower extremity R29.[address] [address] 06/03/2024 LIZ SEARS [facility] [address] [address] 12/05/2024 LIZ SEARS Acute osteomyelitis of right foot M86.171 ; Weakness of right lower extremity R29.898 and Valgus deformity of left great toe M20.12 [facility] [address] [address] 02/07/2024 LIZ SEARS Right foot infection L08.9 ; Ulcer of right foot with necrosis of muscle L97.513 ; Gangrene of right foot I96 ; Sensorimotor neuropathy G62.9 and Chronic myelopathy G95.9 [facility] [address] 03/28/2024 LIZ RENU Acute osteomyelitis of right foot M86.171 ; Pressure injury of right foot, stage 4 L89.894 ; Lumbar myelopathy G95.9 and Weakness of right lower extremity R29.898 [facility] [address] 04/24/2024 LIZ RENU Acute osteomyelitis of right foot M86.171 ; Pressure injury of right foot, stage 4 L89.894 ; Lumbar myelopathy G95.9 and Weakness of right lower extremity R29.898 [facility] [address] 05/27/2024 LIZ RENU Acute osteomyelitis of right foot M86.171 ; Pressure injury of right foot, stage 4 L89.894 ; Lumbar myelopathy G95.9 and Weakness of right lower extremity R29.898 [facility] [address] 06/10/2024 LIZ RENU Disorder of sesamoid bone of foot M89.9 ; Ulcer of right foot with bone involvement without evidence of necrosis L97.516 and Dehiscence of operative wound, initial encounter T81.31XA [facility] [address] 06/13/2024 LIZ RENU Disorder of sesamoid bone of foot M89.9 ; Ulcer of right foot with bone involvement without evidence of necrosis L97.516 ; Dehiscence of operative wound, initial encounter T81.31XA ; Cellulitis of right foot L03.115 ; Muscle weakness of lower extremity M62.81 and Other polyneuropathy G62.89 [facility] [address] 06/17/2024 LIZ RENU Disorder of sesamoid bone of foot M89.9 ; Ulcer of right foot with bone involvement without evidence of necrosis L97.516 ; Dehiscence of operative wound, initial encounter T81.31XA ; Muscle weakness of lower extremity M62.81 and Other polyneuropathy G62.89 [facility] [address] 06/26/2024 LIZ RENU Ulcer of right foot with bone involvement without evidence of necrosis L97.516 ; Dehiscence of operative wound, initial encounter T81.31XA ; Peripheral sensory neuropathy G60.8 ; Weakness of right lower extremity R29.898 and Acute anemia D64.9 [facility] [address] 07/03/2024 LIZ RENU Ulcer of right foot with bone involvement without evidence of necrosis L97.516 ; Dehiscence of operative wound, initial encounter T81.31XA ; Peripheral sensory neuropathy G60.8 ; Weakness of right lower extremity R29.898 and Acute anemia D64.9 [facility] [address] 07/10/2024 LIZ RENU Ulcer of right foot with bone involvement without evidence of necrosis L97.516 ; Dehiscence of operative wound, initial encounter T81.31XA ; Peripheral sensory neuropathy G60.8 ; Weakness of right lower extremity R29.898 and Acute anemia D64.9 [facility] [address] 07/17/2024 LIZ RENU Ulcer of right foot with bone involvement without evidence of necrosis L97.516 ; Dehiscence of operative wound, initial encounter T81.31XA ; Peripheral sensory neuropathy G60.8 ; Weakness of right lower extremity R29.898 and Acquired deformity of left toe M20.62 [facility] [address] 07/25/2024 LIZ RENU Ulcer of right foot with bone involvement without evidence of necrosis L97.516 ; Dehiscence of operative wound, initial encounter T81.31XA ; Peripheral sensory neuropathy G60.8 ; Weakness of right lower extremity R29.898 ; Acquired deformity of left toe M20.62 and Valgus deformity of left great toe M20.12 [facility] [address] 07/31/2024 LIZ RENU Ulcer of right foot with bone involvement without evidence of necrosis L97.516 ; Dehiscence of operative wound, initial encounter T81.31XA ; Peripheral sensory neuropathy G60.8 ; Weakness of right lower extremity R29.898 ; Acquired deformity of left toe M20.62 and Valgus deformity of left great toe M20.12 [facility] [address] 08/07/2024 LIZ RENU Ulcer of right foot with bone involvement without evidence of necrosis L97.516 ; Dehiscence of operative wound, initial encounter T81.31XA ; Peripheral sensory neuropathy G60.8 ; Weakness of right lower extremity R29.898 ; Acquired deformity of left toe M20.62 and Valgus deformity of left great toe M20.12 [facility] [address] 08/14/2024 LIZ RENU Ulcer of right foot with bone involvement without evidence of necrosis L97.516 ; Dehiscence of operative wound, initial encounter T81.31XA ; Peripheral sensory neuropathy G60.8 ; Weakness of right lower extremity R29.898 ; Acquired deformity of left toe M20.62 and Valgus deformity of left great toe M20.12 [facility] [address] 08/22/2024 LIZ RENU Ulcer of right foot with bone involvement without evidence of necrosis L97.516 ; Dehiscence of operative wound, initial encounter T81.31XA ; Peripheral sensory neuropathy G60.8 ; Weakness of right lower extremity R29.898 ; Acquired deformity of left toe M20.62 and Valgus deformity of left great toe M20.12 [facility] [address] [address] 08/28/2024 LIZ RENU Acute osteomyelitis of right foot M86.171 ; Ulcer of right foot with bone involvement without evidence of necrosis L97.516 ; Dehiscence of operative wound, initial encounter T81.31XA ; Peripheral sensory neuropathy G60.8 ; Weakness of right lower extremity R29.898 ; Acquired deformity of left toe M20.62 ; Valgus deformity of left great toe M20.12 and Draining cutaneous sinus tract L98.8 [facility] [address] [address] 09/04/2024 LIZ RENU Acute osteomyelitis of right foot M86.171 ; Ulcer of right foot with bone involvement without evidence of necrosis L97.516 ; Dehiscence of operative wound, initial encounter T81.31XA ; Peripheral sensory neuropathy G60.8 ; Weakness of right lower extremity R29.898 and Valgus deformity of left great toe M20.12 [facility] [address] 09/12/2024 LIZ RENU Acute osteomyelitis of right foot M86.171 ; Ulcer of right foot with bone involvement without evidence of necrosis L97.516 ; Dehiscence of operative wound, initial encounter T81.31XA ; Peripheral sensory neuropathy G60.8 ; Weakness of right lower extremity R29.898 and Valgus deformity of left great toe M20.12 [facility] [address] 09/29/2024 LIZ RENU Acute osteomyelitis of right foot M86.171 ; Peripheral sensory neuropathy G60.8 ; Weakness of right lower extremity R29.898 ; Valgus deformity of left great toe M20.12 and Non-compliance with treatment Z91.199 [facility] [address] [address] 10/16/2024 LIZ RENU Acute osteomyelitis of right foot M86.171 ; Weakness of right lower extremity R29.898 ; Valgus deformity of left great toe M20.12 ; Non-compliance with treatment Z91.199 and Bilateral edema of lower extremity R60.0 [facility] [address] [address] 11/10/2024 LIZ RENU Acute osteomyelitis of right foot M86.171 ; Weakness of right lower extremity R29.898 and Valgus deformity of left great toe M20.12 [facility] [address], [place] 02/11/2024 LIZ RENU [facility] [address], [place] 03/13/2024 LIZ RENU [facility] [address], [place] 03/17/2024 LIZ RENU [facility] [address], [place] 03/17/2024 LIZ RENU [facility] [address], [place] 03/31/2024 LIZ RENU [facility] [address], [place] 04/03/2024 LIZ RENU [facility] [address], [place] 04/28/2024 LIZ RENU [facility] [address], [place] 04/28/2024 LIZ RENU [facility] [address], [place] 05/01/2024 LIZ RENU [facility] [address], [place] 05/08/2024 LIZ RENU [facility] [address], [place] 05/09/2024 LIZ RENU [facility] [address], [place] 05/20/2024 LIZ RENU [facility] [address], [place] 06/02/2024 LIZ RENU [facility] [address], [place] 06/04/2024 LIZ RENU [facility] [address], [place] 06/04/2024 LIZ RENU [facility] [address], [place] 06/11/2024 LIZ RENU [facility] [address], [place] 06/12/2024 LIZ RENU [facility] [address], [place] 06/16/2024 LIZ RENU [facility] [address], [place] 06/17/2024 LIZ RENU [facility] [address], [place] 06/17/2024 LIZ RENU [facility] [address], [place] 06/25/2024 LIZ RENU [facility] [address], [place] 06/25/2024 LIZ RENU [facility] [address], [place] 06/26/2024 LIZ RENU [facility] [address], [place] 06/27/2024 LIZ RENU [facility] [address], [place] 06/27/2024 LIZ RENU [facility] [address], [place] 07/07/2024 LIZ RENU [facility] [address], [place] 07/14/2024 LIZ RENU [facility] [address], [place] 07/15/2024 LIZ RENU [facility] [address], [place] 07/15/2024 LIZ RENU [facility] [address], [place] 07/15/2024 LIZ RENU [facility] [address], [place] 07/15/2024 LIZ RENU [facility] [address], [place] 07/15/2024 LIZ RENU [facility] [address], [place] 07/17/2024 LIZ RENU [facility] [address], [place] 07/17/2024 LIZ RENU [facility] [address], [place] 07/17/2024 LIZ RENU [facility] [address], [place] 07/18/2024 LIZ RENU [facility] [address], [place] 07/21/2024 LIZ RENU [facility] [address], [place] 07/22/2024 LIZ RENU [facility] [address], [place] 08/28/2024 LIZ RENU [facility] [address], [place] 08/28/2024 LIZ RENU [facility] [address], [place] 08/28/2024 LIZ RENU [facility] [address], [place] 08/29/2024 LIZ RENU [facility] [address], [place] 08/29/2024 LIZ RENU [facility] [address], [place] 08/29/2024 LIZ RENU [facility] [address], [place] 09/03/2024 LIZ RENU [facility] [address] [address], [place] 09/03/2024 [facility] [address], [place] 09/03/2024 [facility] [address], [place] 09/08/2024 [facility] [address], [place] 09/10/2024 [facility] [address], [place] 09/15/2024 [facility] [address], [place] 09/15/2024 [facility] [address], [place] 09/16/2024 [facility] [address], [place] 09/23/2024 [facility] [address], [place] 09/23/2024 [facility] [address], [place] 10/16/2024 [facility] [address], [place] 12/04/2024 [facility] [address], [place] 12/17/2024 LIZAntoine SEARS Assessments Encounter Date Diagnosis (ICD Code) Assessment Notes Treatment Notes Treatment Clinical Notes Section Notes 02/07/2024 Right foot infection (ICD-10 - L08.9) This is an outpatient visit for evaluation and management of a new patient, which required appropriate review of pertinent medical history, review of any previous imaging, review of all previous records, and examination and decision-making. Time was 45 minutes spent in review of all these facets including face to face discussion with the patient regarding my findings and in discussion of a current and future treatment plan. I reviewed her last PCP note and past records at [facility] where her cervical spine surgeries were performed. She presents to my office today with a worsening right sub first metatarsal head ulceration with active gangrenous infection extending the distal first ray. She has long standing right sided weakness and sensory neuropathy caused by her cervical myelopathy. This has lead to increased pressure under the first way over time causing pressure callus that has now created an ulceration. I discussed the process of why this can happen to her and her . She has a very serious infection that may turn limb threatening at any moment. I debrided the ulceration today and took wound cultures. I flushed out the ulcerative sites with wound wash and applied betadine and a padded bandage. I provided her with a post-op shoe and advised she go back to the hospital immediately for further treatment of this infection. She and her expressed understanding of how serious this situation is and are going to head back to [facility] after this appointment. I will provide them will the culture results once I have them as this may help in the long run with antibiotic treatment if needed. I provided them with handout to bring with them. I advised that once she is out of the hospital to give us a call so we can get her back in for further care. She expressed understanding of this. I encouraged her and her to call if they have any additional questions or concerns. 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 Iverson was seen and evaluated today. She has an ulceration sub right 1st metatarsal head that probes to bone. Her history with ulceration and treatment is a bit all over the place and she is not the greatest historian. She was admitted to [facility] back in February for acute infection and osteomyelitis suspected at the [facility]. She was seen by ID and given a PICC line for extended treatment with Daptomycin. She ended up having this line removed at some point due to not wanting to stay at a short term rehab facility. She then went back to the hospital and had the line put back in and was then started on Vancomycin. She was discharged with at home nursing for continued treatment with vanco, but she ended up removing her PICC line as she thought it was causing some irritation to one of her fingers. She then followed back in my office. It took a little bit of time to retreive all these records from [facility]. It seems like she was suppose to have follow up with [facility], but this has not happened. I started her on Augmentin orally so she would have some coverage based on her wound cultures. I will place a referral back to ID. She seems to be doing well on the Augmentin despite missing doses. The wound does appear to be making some improvements. She has extensive right lower extremity weakness and restricted first MTP motion creating increase pressure to her right first met head. This is going be an issue for complete healing and recurrence. I debrided the ulceration today removing all fibrotic tissue. It still probes deep. I will continue the Augmentin for now and daily wound bandages. Goal is to treat infection and then better offload which may be with custom bracing vs surgical intervention to this first ray. I will see her back in the office in 3 weeks to re-evaluate and obtain new imaging. I encouraged her to call me in the meantime with any questions or concerns. New wound cultures obtained today to make sure adequate antibiotic treatment. 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 Iverson was seen and evaluated today. She has an ulceration sub right 1st metatarsal head that probes to bone. Her history with ulceration and treatment is a bit all over the place and she is not the greatest historian. She was admitted to [facility] back in February for acute infection and osteomyelitis suspected at the [facility]. She was seen by ID and given a PICC line for extended treatment with Daptomycin. She ended up having this line removed at some point due to not wanting to stay at a short term rehab facility. She then went back to the hospital and had the line put back in and was then started on Vancomycin. She was discharged with at home nursing for continued treatment with vanco, but she ended up removing her PICC line as she thought it was causing some irritation to one of her fingers. She then followed back in my office. It took a little bit of time to retreive all these records from [facility]. It seems like she was suppose to have follow up with [facility], but this has not happened. I started her on Augmentin orally so she would have some coverage based on her wound cultures. I will place a referral back to ID. She seems to be doing well on the Augmentin despite missing doses. The wound does appear to be making some improvements. She has extensive right lower extremity weakness and restricted first MTP motion creating increase pressure to her right first met head. This is going be an issue for complete healing and recurrence. I debrided the ulceration today removing all fibrotic tissue. It still probes deep. I will continue the Augmentin for now and daily wound bandages. Goal is to treat infection and then better offload which may be with custom bracing vs surgical intervention to this first ray. I will see her back in the office in 3 weeks to re-evaluate and obtain new imaging. I encouraged her to call me in the meantime with any questions or concerns. New wound cultures obtained today to make sure adequate antibiotic treatment. 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 Iverson was seen and evaluated today. She has an ulceration sub right 1st metatarsal head that probes to bone. Her history with ulceration and treatment is a bit all over the place and she is not the greatest historian. She was admitted to [facility] back in February for acute infection and osteomyelitis suspected at the [facility]. She was seen by ID and given a PICC line for extended treatment with Daptomycin. She ended up having this line removed at some point due to not wanting to stay at a short term rehab facility. She then went back to the hospital and had the line put back in and was then started on Vancomycin. She was discharged with at home nursing for continued treatment with vanco, but she ended up removing her PICC line as she thought it was causing some irritation to one of her fingers. She then followed back in my office. It took a little bit of time to retreive all these records from [facility]. It seems like she was suppose to have follow up with [facility], but this has not happened. I started her on Augmentin orally so she would have some coverage based on her wound cultures. She did end up seeing ID and they advised she did not need any more coverage at this time. She has since finished the augmentin. The ulcerative area looks better and there is healing. She does have pressure sub tibial sesamoid and I do think a sesmoidectomy is her best option to decrease this pressure area and recurrence due to the amount of callus tissue that builds up. Her is a healthcare proxy and understands and they wished to move forward. Will work on getting this scheduled. I did debride the ulceration today removing all nonviable tissue down to a healthy wound base. She tolerated this well. Nonadherent bandage applied and patient advised to continue this on her own. I will see her back before the surgery and advised they bring any other health care proxys at this time. 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 Iverson was seen and evaluated today. She has an ulceration sub right 1st metatarsal head that probes to bone. Her history with ulceration and treatment is a bit all over the place and she is not the greatest historian. She was admitted to [facility] back in February for acute infection and osteomyelitis suspected at the [facility]. She was seen by ID and given a PICC line for extended treatment with Daptomycin. She ended up having this line removed at some point due to not wanting to stay at a short term rehab facility. She then went back to the hospital and had the line put back in and was then started on Vancomycin. She was discharged with at home nursing for continued treatment with vanco, but she ended up removing her PICC line as she thought it was causing some irritation to one of her fingers. She then followed back in my office. It took a little bit of time to retreive all these records from [facility]. It seems like she was suppose to have follow up with [facility], but this has not happened. I started her on Augmentin orally so she would have some coverage based on her wound cultures. She did end up seeing ID and they advised she did not need any more coverage at this time. She has since finished the augmentin. The ulcerative area looks better and there is healing. She does have pressure sub tibial sesamoid and I do think a sesmoidectomy is her best option to decrease this pressure area and recurrence due to the amount of callus tissue that builds up. Her is a healthcare proxy and understands and they wished to move forward. Will work on getting this scheduled. I did debride the ulceration today removing all nonviable tissue down to a healthy wound base. She tolerated this well. Nonadherent bandage applied and patient advised to continue this on her own. I will see her back before the surgery and advised they bring any other health care proxys at this time. 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 I discussed with patient the details of procedure(s), possible risks and complications, alternative treatment options and post-operative course detailed below. Patient is aware that surgery is elective and can be avoided if desired. Patient is scheduled for right tibial sesamoidectomy on 06/03/2024 at [facility]. This is an outpatient surgery. We discussed MAC anesthesia with local anesthetic. I reviewed her labs. Awaiting pre-op clearance exam on 06/02. Risk & Possible Complications: Patient educated today about risks associated with surgery. Risks of surgery include, but are not limited to: infection, painful scar, nerve injury, numbness, tingling sensation, burning sensation, stiffness, pain, bleeding, hematoma, seroma, vascular damage, tendon damage, swelling that can last 6 months to a year, residual pain, need for further surgery, continued callus tissue, continued ulceration, stiffness and/or post-traumatic arthritis, new deformity, transfer lesions, recurrence of condition, delayed wound healing, dehiscence of incision site, reaction to implants including sutures, complex regional pain syndrome, blood clot in the legs or lungs, amputation or other unforeseen side effects from undergoing surgery. Patient was understanding of the risks and wishes to continue with surgical intervention. Informed consent for surgery was obtained and patient provided with copies. Alternatives discussed and included continued wound care, extended antibiotics, amputation, and bracing. Postoperative Weight bearing Status: Patient understands that they will be able to apply weight to their heel after the surgery in a post-op shoe. Patient is to keep activity minimal for the first 2 weeks and focus on ice and elevation. They will need to keep the bandage clean, dry, and intact. She will not be able to get the bandage wet. Work & Activity Restrictions During Recovery: The recovery process was discussed including impact to work, walking, shoes and daily activities. I Discussed that they should anticipate up to 12 months for maximum recovery after surgery. VTE Risk Assessment and Need for Prophylaxis: Risks of Deep Vein Thrombosis and Pulmonary Embolism were discussed in relation to anticipated level of immobilization, inactivity, injury, surgery, medications and personal risk factors. Perioperative education was provided regarding signs and symptoms of a blood clot. The patient was encouraged to be vigilant regarding symptoms and pursue risk reduction measures. Based on patient history, procedure and post-operative plan, risk outweighs benefit of chemical prophylaxis, therefore mechanical prophylaxis was encouraged. Pain Management Plan: Postoperative pain regimens were discussed in great detail with the patient. The risks and benefits of non-narcotic and narcotic pain medications, as well as synergistic agents was also discussed. The patient will be prescribed Motrin. The patient was also encouraged to rest, elevate and ice postoperatively to help with swelling and pain control. The patient was in agreement with this plan. All Risks of taking NSAIDS were reviewed with the patient today. Risks included increase in blood pressure, heart attack, stroke, gastrointestinal irritation leading to ulceration and bleeding, renal injury, renal failure, and allergic reaction. Patient was encouraged to call if they have any additional questions or concerns regarding their upcoming procedure. 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 Iverson presents a follow up. 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 She has dehiscence of the surgical site due to non compliance with post-op protocol with increased ambulation and getting the area wet. This was severely infected and she was told to go to [facility] and was admitted. She was on IV vanco and zosyn. I do not have the final wound cultures that were done. Blood cultures were negative and MRI negative for deep space abscess or bone infection. She was seen by general surgery and advised out patient wound care. She was discharged on oral doxycycline, which she has since finished. She was also set up with at home nursin, which I now know she has refused despite her telling me that they were coming. She has a large hypergranular wound to the medial aspect of the right 1st MTPJ with central probing. Her edema has improved some and she is not actively infected at this point. I stressed the importance of following directions in order to get this to heal. I advised that if she continues to do the things she is doing she will be heading for amputation. I stressed this with her and her . I debrided all the nonviable fibrous tissue in the wound today and cleansed it with wound wash. Calcium alginate was applied with a padded sterile bandage. I advised that she needs to let the nurse come help as they know what to be watching for incase it become infected again. I am also placing a referral to the [facility] as she will need more advance treatments than what I can offer in the office to get this to potentially heal. I am also placing a referral back to her PCP. She has been having some dizziness and her labs that were done recently at [facility] did show some worsening anemia. I think this should be evaluated further. Patient expressed understanding and was in agreement with this plan. I advised she continue to use the post-op shoe and stay off the foot as much as possible. I also advised that she only clean the area with the wound wash and stop scrubbing the wound in the shower. I will see her back in 1 week to re-evaluate. I encouraged her to call if she has any additional questions or concerns. 07/03/2024 Ulcer of right foot with bone involvement without evidence of necrosis (ICD-10 - L97.516) Ms. Iverson presents a follow up. 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 She has dehiscence of the surgical site due to non compliance with post-op protocol with increased ambulation and getting the area wet. This was severely infected and she was told to go to [facility] and was admitted. She was on IV vanco and zosyn. I do not have the final wound cultures that were done. Blood cultures were negative and MRI negative for deep space abscess or bone infection. She was seen by general surgery and advised out patient wound care. She was discharged on oral doxycycline, which she has since finished. She was also set up with at home nursing, which I now know she has refused despite her telling me that they were coming. She has since let the nurse come since our last visit and discussion. We were able to get her an appt with her PCP sunday and [facility] next Sunday. She has a large hypergranular wound to the medial aspect of the right 1st MTPJ with central probing. Her edema has improved some. I took a new culture today to assess infection. I advised avoiding taping or pressure to the skin of the blistered area. This looks like it also could be from irritation of the post-op shoe strap. I advised they monitor this. I stressed the importance of following directions in order to get this to heal. I advised that if she continues to do the things she is doing she will be heading for amputation. I stressed this with her and her . I debrided all the nonviable fibrous tissue in the wound today and cleansed it with wound wash. Calcium alginate was applied with a padded sterile bandage. Patient expressed understanding and was in agreement with this plan. I advised she continue to use the post-op shoe and stay off the foot as much as possible. I also advised that she only clean the area with the wound wash and stop scrubbing the wound in the shower. I will see her back in 1 week to re-evaluate. I encouraged her to call if she has any additional questions or concerns. 07/10/2024 Ulcer of right foot with bone involvement without evidence of necrosis (ICD-10 - L97.516) Ms. Iverson presents a follow up. 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 She has dehiscence of the surgical site due to non compliance with post-op protocol with increased ambulation and getting the area wet. This was severely infected and she was told to go to [facility] and was admitted. She was on IV vanco and zosyn. I do not have the final wound cultures that were done. Blood cultures were negative and MRI negative for deep space abscess or bone infection. She was seen by general surgery and advised out patient wound care. She was discharged on oral doxycycline, which she has since finished. She was also set up with at home nursing, which I now know she has refused despite her telling me that they were coming. She has since let the nurse come. I took new wound cultures at her last visit and started Augmentin. Her wound cultures have finally been finalized and show group b strep, citrobacter, and multi drug resistant MRSA. The augmentin has been covering the strep and citrobacter. I started her today on levofloxacin 500mg daily as the MRSA shows sensitivity along with the citrobacter. I discussed the risks of this medication including tendonitis and tendon ruptures. I debrided all the nonviable fibrous tissue in the wound today and cleansed it with wound wash. Calcium alginate was applied with a padded sterile bandage. I applied a foam pad over the dorsal midfoot scabbed area to protect from rubbing. I also gave her a smaller post-op shoe to wear to try to decrease shearing. She has a toe spacer to use for the big toe. This is obviously a very complex wound and I appreciate the help/input from wound care and PCP in order to try to salvage this toe. I again discussed with Luisana that there is a risk of amputation. We discussed that sometimes this is not a bad thing. She understood. Pictures taken today of the right foot ulceration. Patient expressed understanding and was in agreement with this plan. I advised she continue to use the post-op shoe and stay off the foot as much as possible. I also advised that she only clean the area with the wound wash and stop scrubbing the wound in the shower. I will see her back in 1 week to re-evaluate. I encouraged her to call if she has any additional questions or concerns. 07/17/2024 Ulcer of right foot with bone involvement without evidence of necrosis (ICD-10 - L97.516) Ms. Iverson presents a follow up. 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 Before this surgery she had been treated a few different times for infection to the right foot from this ulceration and osteomyelitis. She been in and out of [facility] and a rehab facility. She had pulled her IV line out twice and therefore never fully finished the course of IV antibiotics for the osteomyelitis. I did give her a two week oral coverage and had her see the ID doctor who said that she was good with that. We also did wound care for the ulceration. Despite treatment the ulcer continued to stay open and drain. This put her at risk of continued infections and amputation. We discussed bracing, but she refused that. She also did not want to have amputation. I discussed that removing the tibial sesamoid could decrease pressure to the ulcerative area and also remove the infected bone. I did go over the details of this type of procedure with her, her , and her brother. I advised that she would have two weeks of minimal activity with a bandage over the foot. She would be in a post-op shoe and could apply pressure to the foot in the shoe for necessary tasks like going to the bathroom and kitchen. She would need to focus on elevating and icing and keeping the bandage dry and intact. She was given an ice pack, shower bag to cover the bandage, and written post-op instructions. She was also given copies of the consents and the listed risks. Unfortunately she ended up ambulating far too much on the foot right after surgery causing increased pressure and swelling onto the incision site. This quickly dehisced the area creating a large wound and stretching the underlying tissues causing the toe to deviate laterally. This also became quite infected requiring a hospital stay. She had a course of IV antibiotics and was sent home on oral antibiotics. Advanced imaging was done at the hospital showing no obvious bone infection. An at home nurse was set up to help with wound care, but she refused this service. She has since been bandaging this area and using the post-op shoe. She continues to ambulate way more than she should be. The combination of her increased ambulation, deformity and lower extremity weakness is creating shucking in the shoe and creating friction irritation to other areas of her foot. She tried crutches and could not tolerate them. She is now at a very high risk of amputation. I did get her PCP involved as she has significant anemia on her labs and has been also having dizziness. I also consulted with the [facility] for further help in this case. Wound cultures have been taken and have shown multiple drug resistant MRSA along with strep. She is now taking bactrim. She is understandably frustrated with the wound and appearance of the foot, but she also has not been complaint with the post-op protocol. She does not want to have the great toe amputated, but at this point I think it would be the best treatment. My only reserve to this is if she can actually heal post-operatively and follow the recovery to prevent further break down and infections. A short term rehab would be the best option, but when she went to one before she ended up leaving [facility]. At this point even if the dehisced incision does heal over, the deformity of the toe will continue to create pressure and shoe gear limitations. She did give me her brothers phone number and I will reach out to him regarding this. Today I cleansed the ulceration and applied calcium alginate and a padded bandage. I also applied a darco toe splint with foam padding underneath the midfoot portion to protect the area of pressure at the dorsal aspect of the midfoot. I applied a small felt loop around the great toe and attached this to the midfoot portion to help dcrease the lateral tilt of the toe and stop some of the rubbing to the 2nd toe. I also applied some foam padding to the lateral outer edge of her post-op shoe and to the midfoot strap area to see if this also helps with rubbing. Trying to avoid further break down. I provided her and her with copies of the wound cultures and my operative records. I also gave them a wound cleansing spray and extra calcium alginate to use. I again stressed limiting her activity. They can cleanse the wound with the wound wash and apply a new bandage daily. I have made another 1 week follow up for her. I encouraged her to call me with questions or concerns. 07/25/2024 Ulcer of right foot with bone involvement without evidence of necrosis (ICD-10 - L97.516) Ms. Iverson presents a follow up. 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 Before this surgery she had been treated a few different times for infection to the right foot from this ulceration and osteomyelitis. She been in and out of [facility] and a rehab facility. She had pulled her IV line out twice and therefore never fully finished the course of IV antibiotics for the osteomyelitis. I did give her a two week oral coverage and had her see the ID doctor who said that she was good with that. We also did wound care for the ulceration. Despite treatment the ulcer continued to stay open and drain. This put her at risk of continued infections and amputation. We discussed bracing, but she refused that. She also did not want to have amputation. I discussed that removing the tibial sesamoid could decrease pressure to the ulcerative area and also remove the infected bone. I did go over the details of this type of procedure with her, her , and her brother (Amilcar). I advised that she would have two weeks of minimal activity with a bandage over the foot. She would be in a post-op shoe and could apply pressure to the foot in the shoe for necessary tasks like going to the bathroom and kitchen. She would need to focus on elevating and icing and keeping the bandage dry and intact. She was given an ice pack, shower bag to cover the bandage, and written post-op instructions. She was also given copies of the consents and the listed risks. Unfortunately she ended up ambulating far too much on the foot right after surgery causing increased pressure and swelling onto the incision site. This quickly dehisced the area creating a large wound and stretching the underlying tissues causing the toe to deviate laterally. This also became quite infected requiring a hospital stay. She had a course of IV antibiotics and was sent home on oral antibiotics. Advanced imaging was done at the hospital showing no obvious bone infection. An at home nurse was set up to help with wound care, but she refused this service. She has since been bandaging this area and using the post-op shoe. She continues to ambulate way more than she should be. The combination of her increased ambulation, deformity and lower extremity weakness is creating shucking in the shoe and creating friction irritation to other areas of her foot. She tried crutches and could not tolerate them. She is now at a very high risk of amputation. I did get her PCP involved as she has significant anemia on her labs and has been also having dizziness. I also consulted with the [facility] for further help in this case. Wound cultures have been taken and have shown multiple drug resistant MRSA along with strep. She was given Bactrim since she did not tolerate the levaquin. She only took a couple of doses and stopped. She states she will finish the antibiotic when discussing this today. I did have a long discussion with her health care proxy and brother, Amilcar, on the phone last week. I discussed my concerns about the situation and Luisana's compliance with treatment. I discussed that she is high risk for amptuation of this toe. I also discussed that this may be neccessary due to the ulceration and infection, but also the new deformity that will create pressure onto the 2nd toe increasing the risk of other ulcerations. He was understanding and advised that he would talk with her about this. I also encouraged him to be present for the appointments. Today her other brother Ole is here along with her . Ole advised that he came in place of Amilcar as Amilcar could not make it. I did spend some time going over the entire situation with Ole from the first day I saw Luisana to now. He was understanding of the situation. The ulceration to the medial aspect of the right great toe has improved over the last couple of weeks. There is minimal fibrous tissue and the overall wound size has decreased along with some of the swelling. Her continues to use the wound wash daily and apply calcium alginate and a bandage. They have been using the darco splint and toe spacers to help with the toe rubbing. She does have superficial break down to the dorsal midfoot on the right from the post op shoe strap. This is granular and stable. There is callus tissue to the lateral aspect of the foot from the shoe rubbing as well. The padding that I had applied to the shoe at her last vist has been removed. Her did get a walker with a seat so that he can push her around in it and she can avoid walking. They have yet to get a knee scooter or the elevation pillow. Ole did state he would bring them over to [place] to check on this today. I discussed the importance of the antibiotics in treating the infection. She expressed understanding and will restart the medications. She has a follow up with the wound center. I debrided the ulceration and rebandaged the wound today. I gave her more gel spacers and another darco splint. I encouraged the knee walker so that she does not continue to get shucking in the shoe. I will see her back in a week. I encouraged her and her family to call if there are any additional questions or concerns before then. 07/31/2024 Ulcer of right foot with bone involvement without evidence of necrosis (ICD-10 - L97.516) Ms. Iverson presents a follow up. 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 Before this surgery she had been treated a few different times for infection to the right foot from this ulceration and osteomyelitis. She been in and out of [facility] and a rehab facility. She had pulled her IV line out twice and therefore never fully finished the course of IV antibiotics for the osteomyelitis. I did give her a two week oral coverage and had her see the ID doctor who said that she was good with that. We also did wound care for the ulceration. Despite treatment the ulcer continued to stay open and drain. This put her at risk of continued infections and amputation. We discussed bracing, but she refused that. She also did not want to have amputation. I discussed that removing the tibial sesamoid could decrease pressure to the ulcerative area and also remove the infected bone. I did go over the details of this type of procedure with her, her , and her brother (Amilcar). I advised that she would have two weeks of minimal activity with a bandage over the foot. She would be in a post-op shoe and could apply pressure to the foot in the shoe for necessary tasks like going to the bathroom and kitchen. She would need to focus on elevating and icing and keeping the bandage dry and intact. She was given an ice pack, shower bag to cover the bandage, and written post-op instructions. She was also given copies of the consents and the listed risks. Unfortunately she ended up ambulating far too much on the foot right after surgery causing increased pressure and swelling onto the incision site. This quickly dehisced the area creating a large wound and stretching the underlying tissues causing the toe to deviate laterally. This also became quite infected requiring a hospital stay. She had a course of IV antibiotics and was sent home on oral antibiotics. Advanced imaging was done at the hospital showing no obvious bone infection. An at home nurse was set up to help with wound care, but she refused this service. She has since been bandaging this area and using the post-op shoe. She continues to ambulate way more than she should be. The combination of her increased ambulation, deformity and lower extremity weakness is creating shucking in the shoe and creating friction irritation to other areas of her foot. She tried crutches and could not tolerate them. She is now at a very high risk of amputation. I did get her PCP involved as she has significant anemia on her labs and has been also having dizziness. I also consulted with the [facility] for further help in this case. Wound cultures have been taken and have shown multiple drug resistant MRSA along with strep. She was given Bactrim since she did not tolerate the levaquin. She only took a couple of doses and stopped. She does not want to go on any other medications and states that they are poison. The ulceration to the medial aspect of the right great toe has improved over the last couple of weeks. There is minimal fibrous tissue and the overall wound size has decreased along with some of the swelling. Her continues to use the wound wash daily and apply calcium alginate and a bandage. She has transferred over to a soft slipper with a back. This accommodates for her bandage and avoids the rubbing to the dorsal midfoot. I reviewed wound care's note from earlier this week and they also think the wound is improving. I debrided the fibrous tissue from the wound today and there was good bleeding granular tissue present. New sterile bandage applied. I have given her two darco toe splints, gel toe spacers and gel toe sleeves to help decrease the right 1st and 2nd toe rubbing. She never comes back with any of them on. I do not think she is using these even though she states she is. I did advise that the deviation of the big toe is going to stay due to the stretching of the medial soft tissues around the joint. She seems to understand this. She just does not want to lose the toe. I will continue to see her weekly to monitor. She will also continue to follow with Wound care as well. I encouraged her to call with any additional questions or concerns. 08/07/2024 Ulcer of right foot with bone involvement without evidence of necrosis (ICD-10 - L97.516) Ms. Iverson presents a follow up. 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 Before this surgery she had been treated a few different times for infection to the right foot from this ulceration and osteomyelitis. She been in and out of [facility] and a rehab facility. She had pulled her IV line out twice and therefore never fully finished the course of IV antibiotics for the osteomyelitis. I did give her a two week oral coverage and had her see the ID doctor who said that she was good with that. We also did wound care for the ulceration. Despite treatment the ulcer continued to stay open and drain. This put her at risk of continued infections and amputation. We discussed bracing, but she refused that. She also did not want to have amputation. I discussed that removing the tibial sesamoid could decrease pressure to the ulcerative area and also remove the infected bone. I did go over the details of this type of procedure with her, her , and her brother (Amilcar). I advised that she would have two weeks of minimal activity with a bandage over the foot. She would be in a post-op shoe and could apply pressure to the foot in the shoe for necessary tasks like going to the bathroom and kitchen. She would need to focus on elevating and icing and keeping the bandage dry and intact. She was given an ice pack, shower bag to cover the bandage, and written post-op instructions. She was also given copies of the consents and the listed risks. Unfortunately she ended up ambulating far too much on the foot right after surgery causing increased pressure and swelling onto the incision site. This quickly dehisced the area creating a large wound and stretching the underlying tissues causing the toe to deviate laterally. This also became quite infected requiring a hospital stay. She had a course of IV antibiotics and was sent home on oral antibiotics. Advanced imaging was done at the hospital showing no obvious bone infection. An at home nurse was set up to help with wound care, but she refused this service. She has since been bandaging this area and using the post-op shoe. She continues to ambulate way more than she should be. The combination of her increased ambulation, deformity and lower extremity weakness is creating shucking in the shoe and creating friction irritation to other areas of her foot. She tried crutches and could not tolerate them. She is now at a very high risk of amputation. I did get her PCP involved as she has significant anemia on her labs and has been also having dizziness. I also consulted with the [facility] for further help in this case. Wound cultures have been taken and have shown multiple drug resistant MRSA along with strep. She was given Bactrim since she did not tolerate the levaquin. She only took a couple of doses and stopped. She does not want to go on any other medications. The ulceration to the medial aspect of the right great toe has improved over the last couple of weeks. It looks even smaller than it did last week. There is minimal fibrous tissue and the overall wound size has decreased along with some of the swelling. Her continues to use the wound wash daily and apply calcium alginate and a bandage. She has transferred over to a soft slipper with a back. This accommodates for her bandage and avoids the rubbing to the dorsal midfoot. She will be seeing wound care next week,. I debrided the fibrous tissue from the wound today and there was good bleeding granular tissue present. New sterile bandage applied with the calcium alginate. I have given her two darco toe splints, gel toe spacers and gel toe sleeves to help decrease the right 1st and 2nd toe rubbing. She never comes back with any of them on. I do not think she is using these even though she states she is. I did advise that the deviation of the big toe is going to stay due to the stretching of the medial soft tissues around the joint. She seems to understand this. She just does not want to lose the toe. I did apply another gel sleeve over the right 2nd toe today. I gave them more calcium alginate to use. I will continue to see her weekly to monitor. She will also continue to follow with Wound care as well. I encouraged her to call with any additional questions or concerns. 08/14/2024 Ulcer of right foot with bone involvement without evidence of necrosis (ICD-10 - L97.516) Ms. Iverson presents a follow up. 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 Before this surgery she had been treated a few different times for infection to the right foot from this ulceration and osteomyelitis. She been in and out of [facility] and a rehab facility. She had pulled her IV line out twice and therefore never fully finished the course of IV antibiotics for the osteomyelitis. I did give her a two week oral coverage and had her see the ID doctor who said that she was good with that. We also did wound care for the ulceration. Despite treatment the ulcer continued to stay open and drain. This put her at risk of continued infections and amputation. We discussed bracing, but she refused that. She also did not want to have amputation. I discussed that removing the tibial sesamoid could decrease pressure to the ulcerative area and also remove the infected bone. I did go over the details of this type of procedure with her, her , and her brother (Amilcar). I advised that she would have two weeks of minimal activity with a bandage over the foot. She would be in a post-op shoe and could apply pressure to the foot in the shoe for necessary tasks like going to the bathroom and kitchen. She would need to focus on elevating and icing and keeping the bandage dry and intact. She was given an ice pack, shower bag to cover the bandage, and written post-op instructions. She was also given copies of the consents and the listed risks. Unfortunately she ended up ambulating far too much on the foot right after surgery causing increased pressure and swelling onto the incision site. This quickly dehisced the area creating a large wound and stretching the underlying tissues causing the toe to deviate laterally. This also became quite infected requiring a hospital stay. She had a course of IV antibiotics and was sent home on oral antibiotics. Advanced imaging was done at the hospital showing no obvious bone infection. An at home nurse was set up to help with wound care, but she refused this service. She has since been bandaging this area and using the post-op shoe. She continues to ambulate way more than she should be. The combination of her increased ambulation, deformity and lower extremity weakness is creating shucking in the shoe and creating friction irritation to other areas of her foot. She tried crutches and could not tolerate them. She is now at a very high risk of amputation. I did get her PCP involved as she has significant anemia on her labs and has been also having dizziness. I also consulted with the [facility] for further help in this case. Wound cultures have been taken and have shown multiple drug resistant MRSA along with strep. She was given Bactrim since she did not tolerate the levaquin. She only took a couple of doses and stopped. She does not want to go on any other medications. The ulceration to the medial aspect of the right great toe continues to improve. It looks even smaller than it did last week. There is minimal fibrous tissue and the overall wound size has decreased along with some of the swelling. Her continues to use the wound wash daily and apply calcium alginate and a bandage. She has transferred over to a soft slipper with a back. This accommodates for her bandage and avoids the rubbing to the dorsal midfoot. She will be seeing wound care ateral today,. I debrided the fibrous tissue from the wound today and there was good bleeding granular tissue present. New sterile bandage applied with the calcium alginate. I have given her two darco toe splints, gel toe spacers and gel toe sleeves to help decrease the right 1st and 2nd toe rubbing. She never comes back with any of them on. I do not think she is using these even though she states she is. I did advise that the deviation of the big toe is going to stay due to the stretching of the medial soft tissues around the joint. She seems to understand this. She just does not want to lose the toe. I did apply another gel sleeve over the right 2nd toe today. I gave them more calcium alginate to use along with gloves. I will continue to see her weekly to monitor. She will also continue to follow with Wound care as well. I encouraged her to call with any additional questions or concerns. 08/22/2024 Ulcer of right foot with bone involvement without evidence of necrosis (ICD-10 - L97.516) Ms. Iverson presents a follow up. 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 Before this surgery she had been treated a few different times for infection to the right foot from this ulceration and osteomyelitis. She been in and out of [facility] and a rehab facility. She had pulled her IV line out twice and therefore never fully finished the course of IV antibiotics for the osteomyelitis. I did give her a two week oral coverage and had her see the ID doctor who said that she was good with that. We also did wound care for the ulceration. Despite treatment the ulcer continued to stay open and drain. This put her at risk of continued infections and amputation. We discussed bracing, but she refused that. She also did not want to have amputation. I discussed that removing the tibial sesamoid could decrease pressure to the ulcerative area and also remove the infected bone. I did go over the details of this type of procedure with her, her , and her brother (Amilcar). I advised that she would have two weeks of minimal activity with a bandage over the foot. She would be in a post-op shoe and could apply pressure to the foot in the shoe for necessary tasks like going to the bathroom and kitchen. She would need to focus on elevating and icing and keeping the bandage dry and intact. She was given an ice pack, shower bag to cover the bandage, and written post-op instructions. She was also given copies of the consents and the listed risks. Unfortunately she ended up ambulating far too much on the foot right after surgery causing increased pressure and swelling onto the incision site. This quickly dehisced the area creating a large wound and stretching the underlying tissues causing the toe to deviate laterally. This also became quite infected requiring a hospital stay. She had a course of IV antibiotics and was sent home on oral antibiotics. Advanced imaging was done at the hospital showing no obvious bone infection. An at home nurse was set up to help with wound care, but she refused this service. She has since been bandaging this area and using the post-op shoe. She continues to ambulate way more than she should be. The combination of her increased ambulation, deformity and lower extremity weakness is creating shucking in the shoe and creating friction irritation to other areas of her foot. She tried crutches and could not tolerate them. She is now at a very high risk of amputation. I did get her PCP involved as she has significant anemia on her labs and has been also having dizziness. I also consulted with the [facility] for further help in this case. Wound cultures have been taken and have shown multiple drug resistant MRSA along with strep. She was given Bactrim since she did not tolerate the levaquin. She only took a couple of doses and stopped. She does not want to go on any other medications. The ulceration to the medial aspect of the right great toe seems about the same as last week. There is a small tunneling area plantarly with some serosanginous drainage. She does have a new hypergranular area that just formed distal to the wound. Unsure why this popped up. It could be due to the chronic inflammation. Her great toe does overlap the 2nd toe and it is causing skin irritation and superficial break down to the 2nd toe. I again applied another gel sleeve and advised she use this otherwise she could get an infection to the 2nd toe and have more issues. I debrided all nonviable tissue to the ulceration today and cleansed it. I also applied silver nitrate over the new hypergranular area. Calcium alginate was then applied and a nonadherent followed by an bogdan wrap.. Her continues to use the wound wash daily and apply calcium alginate and a bandage. they will continue this daily along with using the soft slipper. I provided them with more sterile 4x4 gauze. They are in the middle of a move and I am concened she may be up and on it a little more than usual. I again stressed that she take it easy. She is still high risk of needed amputation. I still want to see her weekly. She also will be seeing wound care again next week. I encouraged her and her to call if they have any questions or concerns before the appt. If there are no signficant changes next week, we will likely get xrays, new cultures, and ID involved. I know she has been against taking antibiotics, but this may be the last option before having to have an amputation. 08/28/2024 Acute osteomyelitis of right foot (ICD-10 - M86.171) 09/04/2024 Acute osteomyelitis of right foot (ICD-10 - M86.171) 09/12/2024 Acute osteomyelitis of right foot (ICD-10 - M86.171) 09/29/2024 Acute osteomyelitis of right foot (ICD-10 - M86.171) Patient examined and evaluated. She has acute osteomyelitis to the right 1st metatarsal phalangeal joint. She has been dealing with nonhealing wounds to the right great toe as well. She was hospitalized in August for this and sent out on oral linezolid 600mg BID for the next 21 days. She has taken this inconsistently since discharge and also has not allowed the nurses to come help. She tells me she stopped the medication all together last week due to dizziness. I had a long conversation with her today about the importance of this medication to treat the bone infection. If she does not finish the course, she is at risk of worsening infection and recurrent wounds, sepsis, limb loss, and . I advised that she should really finish this out. Her wounds have healed. I advised that the diffuse swelling is from the bone issues. She expressed understanding and is going to try to continue to take the linezolid. I advised she follow back with wound care and ID as well. I will recheck her in 2 weeks or sooner if needed. I encouraged her to call if she has any questions or concerns. 10/16/2024 Acute osteomyelitis of right foot (ICD-10 - M86.171) Patient examined and evaluated. She has a history of acute osteomyelitis to the right 1st metatarsal phalangeal joint. She has been dealing with nonhealing wounds to the right great toe as well. She was hospitalized at [facility] in August for this and sent out on oral linezolid 600mg BID for the next 21 days from ID. She took this inconsistently since discharge and also has not allowed the nurses to come help. She has not taken the medication since the beginning of September. It sounds like she never went to her follow up with ID or to wound care. She has also missed a few follow ups with me. Despite her non compliance in treatment her right foot wounds have healed. Today on exam she has significant edema to both lower extremities from the knee to the dorsum of the foot bilaterally. This is a new finding. She thinks this has been ongoing for 2 weeks or so and is unsure if the swelling fluctuates. She states she has been feeling well ottherwise. She just gets tired easily. She is a high risk patient of recurrent infections included worsening OM leading to sepsis since she has been non compliant with all treatment courses. She also has severe anemia that she is supposedly seeing GI and her PCP for and had an injection of some kind recently. The edema is concerning for heart failure vs worsening kidney function. She was suppose to have lab testing regularly while being on the linezolid according to ID. There is a risk of reversible myelosuppression while on this medication. She has not taken the antibiotic since the beginning of September, but I am still concerned that she could also have pancytopenia as well which could potentially put strain on the heart and create edema as well. I expressed my concerns to her and her about the swelling and advised that I want her to see her PCP as soon as possible. I will place a referral back to the PCP urgently as well. I advised that if her swelling worsens or she starts to have other symptoms such as shortness of breath, coughing, feeling sick, and or chest pain to go to the nearest ER. They expressed understanding. As of right now her wounds have remained closed to the right foot. She has residual deformity to the right great toe causing pressure to the 2nd. I again gave her the protective gel sleeves to wear on the 2nd toe. She is still high risk of continued bone infection has she never completed treatment. I will recheck her in a month or sooner if needed. 11/10/2024 Acute osteomyelitis of right foot (ICD-10 - M86.171) Patient examined and evaluated. She has been dealing with acute osteomyelitis and septic arthritis at the right 1st MTPJ. This started after dehiscence of her incision site from a right tibial sesamoid removal for chronic osteomyelitis and plantar first metatarsal head ulceration. She was hospitalized at [facility] in August for this and sent out on oral linezolid 600mg BID for the next 21 days from ID. She took this inconsistently since discharge and conchar fully finished the course of treatment. Despite [...] if anything changes in the meantime. 12/05/2024 Acute osteomyelitis of right foot (ICD-10 - M86.171) Patient examined and evaluated. She has been dealing with acute osteomyelitis and septic arthritis at the right 1st MTPJ. This started after dehiscence of her incision site from a right tibial sesamoid removal for chronic osteomyelitis and plantar first metatarsal head ulceration. She was hospitalized at [facility] in August for this and sent [...] of right lower extremity (ICD-10 - R29.898) 11/10/2024 Weakness of right lower extremity (ICD-10 - R29.898) 10/16/2024 Weakness of right lower extremity (ICD-10 - R29.898) 09/29/2024 Peripheral sensory neuropathy (ICD-10 - G60.8) 09/12/2024 Ulcer of right foot with bone involvement without evidence of necrosis (ICD-10 - L97.516) Ms. Iverson presents a follow up. She was discharged from [facility] on 09/03. She has acute OM to the right 1st MTPJ. She was seen by ID and is currently on linezolid 600mg BID for the next 21 days. Shes been inconsistent on taking this twice a day, but tries to remember. The dorsal sinus tract and granuloma has healed. The medial 1st MTPJ wound is looking really good and is almost completely closed. I cleansed the areas today and applied a new bandage. She still has diffuse edema to the right first ray due to the underlying bone infection. I did stress the importance of taking the antibiotics as this is what will treat the bone. If she stops the antibiotics, she will continue to have issues with healing. I advised that this is the only option other than amputation at this time. She expressed understanding. She is to continue to wear the slipper until wounds have healed. I will see her back in 2 weeks to re-evaluate. She is to follow with ID. I encouraged her and her to call me in the meantime if there are any questions or concerns. 09/04/2024 Ulcer of right foot with bone involvement without evidence of necrosis (ICD-10 - L97.516) Ms. Iverson presents a follow up. She was discharged from [facility] on 09/03. She has acute OM to the right 1st MTPJ. She was seen by ID and is currently on linezolid 600mg BID for the next 21 days. Her wounds have improved greatly since treatment with antibiotics. I cleansed the areas today and applied a new bandage. She still has diffuse edema to the right first ray due to the underlying bone infection. I did stress the importance of taking the antibiotics as this is what will treat the bone. If she stops the antibiotics, she will continue to have issues with healing. I advised that this is the only option other than amputation at this time. She expressed understanding. She has nursing coming to help and will continue to do the bandage changes daily. She is to continue to wear the slipper until wounds have healed. I will see her back in 1 week to re-evaluate. I encouraged her and her to call me in the meantime if there are any questions or concerns. 08/28/2024 Ulcer of right foot with bone involvement without evidence of necrosis (ICD-10 - L97.516) Ms. Iverson presents a follow up. 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 Before this surgery she had been treated a few different times for infection to the right foot from this ulceration and osteomyelitis. She been in and out of [facility] and a rehab facility. She had pulled her IV line out twice and therefore never fully finished the course of IV antibiotics for the osteomyelitis. I did give her a two week oral coverage and had her see the ID doctor who said that she was good with that. We also did wound care for the ulceration. Despite treatment the ulcer continued to stay open and drain. This put her at risk of continued infections and amputation. We discussed bracing, but she refused that. She also did not want to have amputation. I discussed that removing the tibial sesamoid could decrease pressure to the ulcerative area and also remove the infected bone. I did go over the details of this type of procedure with her, her , and her brother (Amilcar). I advised that she would have two weeks of minimal activity with a bandage over the foot. She would be in a post-op shoe and could apply pressure to the foot in the shoe for necessary tasks like going to the bathroom and kitchen. She would need to focus on elevating and icing and keeping the bandage dry and intact. She was given an ice pack, shower bag to cover the bandage, and written post-op instructions. She was also given copies of the consents and the listed risks. Unfortunately she ended up ambulating far too much on the foot right after surgery causing increased pressure and swelling onto the incision site. This quickly dehisced the area creating a large wound and stretching the underlying tissues causing the toe to deviate laterally. This also became quite infected requiring a hospital stay. She had a course of IV antibiotics and was sent home on oral antibiotics. Advanced imaging was done at the hospital showing no obvious bone infection. An at home nurse was set up to help with wound care, but she refused this service. She has since been bandaging this area and using the post-op shoe. She continues to ambulate way more than she should be. The combination of her increased ambulation, deformity and lower extremity weakness is creating shucking in the shoe and creating friction irritation to other areas of her foot. She tried crutches and could not tolerate them. She is now at a very high risk of amputation. I did get her PCP involved as she has significant anemia on her labs and has been also having dizziness. She had an evaluation with GI and is now on iron supplementation. She has been seeing [facility] every two weeks, but missed her appt today. The ulceration to the medial aspect of the right great toe had been making great progress until this last week. Today she comes in with increased edema to the area and a new open area to the dorsal aspect of the right 1st MTPJ (draining sinus). I was able to express some purulence today. This has been cultured. The probing to the medial ulceration has gone away, but now she has this open sinus area to the top of the toe. This suggest that there is much deeper infection and acute OM at this time. I debrided all the areas removing all nonviable tissue. I applied silver nitrate again to the hypergranular area distal to the medial ulceration. I then applied calcium alginate to all the wounds and a sterile padded bandage. Three weightbearing radiographs of the right foot were taken in the office and reviewed. She has bony destruction at the base of the first proximal phalanx and at the medial aspect of the 1st metatarsal head. This is clinical for acute OM. Cultures were sent out. Will need to get infectious disease involve. She will need extended treatment at this time, as she does not want further surgery/amputation. I ordered CBC with diff, ESR, CRP. Will call and inform her brother and wound center as well. I did book her an appt for next week, but advised if there is any worsening swelling,drainage or redness she go straight to the hospital. She expressed understanding. She does not want to take the oral antibiotics I gave her last time. Unfortunately the only other option is IV. I will place an urgen referral back to the ID specialist at [facility] for help with prolonged antibiotic management. Last cultures attached. Will await the new cultures. They are in the middle of a move and I am concened she may be up and on it a little more than usual. I again stressed that she take it easy. She is still high risk of needed amputation. 08/14/2024 Dehiscence of operative wound, initial encounter (ICD-10 - T81.31XA) 08/22/2024 Dehiscence of operative wound, initial encounter (ICD-10 - T81.31XA) 07/31/2024 Dehiscence of operative wound, initial encounter (ICD-10 - T81.31XA) 08/07/2024 Dehiscence of operative wound, initial encounter (ICD-10 - T81.31XA) 07/10/2024 Dehiscence of operative wound, initial encounter (ICD-10 - T81.31XA) 07/17/2024 Dehiscence of operative wound, initial encounter (ICD-10 - T81.31XA) 07/25/2024 Dehiscence of operative wound, initial encounter (ICD-10 - T81.31XA) 07/03/2024 Dehiscence of operative wound, initial encounter (ICD-10 - T81.31XA) 06/26/2024 Dehiscence of operative wound, initial encounter (ICD-10 - T81.31XA) 06/17/2024 Ulcer of right foot with bone involvement without evidence of necrosis (ICD-10 - L97.516) Ms. Iverson presents a follow up. 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 She has since had dehiscence of the surgical site due to non compliance with ambulation and getting the area wet. She was last seen this past Sunday with concerns of significant infection. She was advised to go to the Hospital. She went to [facility] and was admitted over the weekend. She was on IV vanco and zosyn. I do not have the final wound cultures that were done. Blood cultures were negative and MRI negative for deep space abscess or bone infection. She was seen by general surgery and advised out patient wound care. She has nursing now coming to the house. She is now on a 5 day course of oral doxycycline. She did scrub the wound area in the shower today and this caused more bleeding. I again stressed the importance of staying off the right foot as much as possible and elevating on 2 pillows to control swelling and decrease pressure to the area. I advised that if she does shower, she does not scrub the wound area as this will irritate it. She can let it get wet and then gently pad it dry. She needs to keep a dry bandage on the area and change this daily. She was given bandages today to use at home. I advised she use the crutches and post-op shoe to ambulate to the bathroom and back. This wound could become severely infected again and this could lead to her losing the toe or foot, therefore she really needs to follow instructions to try to avoid this. I will await her final wound cultures to make sure she has adequate full antibiotic coverage. I want to see her next week to recheck the area. She and her expressed understanding. I encouraged them to call me if there is any further questions or concerns. 06/13/2024 Ulcer of right foot with bone involvement without evidence of necrosis (ICD-10 - L97.516) Ms. Iverson presents a follow up. 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 She has since had dehiscence of the surgical site. She was started on augmentin, but has continued to have drainage from the area. She has continued to be more ambulatory on the foot despite what we discussed. Her incision has dehisced even more and there is increased edema, drainage and erythema with malodor. I expressed my concern for serious infection at this time and the risk of loosing her toe and or part of the foot. I do not want this to get worse or for her to become septic. At this point she needs to go to the hospital for further antibiotic treatment. I retook the cultures today and will await the resutls. I stressed my worries with her and her and her daughter who was on the phone. I did change the bandage and put another sterile padded bandage onto the area. I also put her in a forefoot offloading shoe to force more pressure to her heel. She asked about crutches. I am worried that crutches could make her unsteady and cause her to fall. I did give her a script for them incase she does want to try, but I do not want her to become more unstable. I advised the most important thing is for her to go to the hospital as this is very infected and can only get worse. She and her expressed understanding and will head to [facility]. I gave them a print out to bring with them. I will keep her post-op scheduled, but we can move this if she is admitted. I encouraged them to call me if there is any further questions or concerns. 06/10/2024 Ulcer of right foot with bone involvement without evidence of necrosis (ICD-10 - L97.516) Ms. Iverson presents for her 1 week post-op visit. She is s/p right tibial sesamoidectomy for treatment of a chronic nonhealing ulceration with presumed OM of the sesamoid. She has quite a bit of edema to the surgical area today with dehisence of the incision site. I discussed with her that she needs to stay off the right foot and focus on elevating and icing. If she continues to walk around, the incision site will continue to open and she will have another wound that will put her at risk of amputation. I advised that this will now take longer to fully heal and she is at high risk of infection. I took cultures of the dehisced area today and sent them over to [facility]. I restarted her on Augmentin twice a day and will change this if needed. A new sterile bandage was applied to the right foot. I advised she keep this dry and intact. She also needs to continue to wear the post-op shoe. I stressed that she should only be getting up to go to the bathroom or get to the kitchen. She otherwise needs to have the right foot up on 2 pillows. She and her expressed understanding of this. The sub right 1st met head ulceration has healed over. The tibial bone cultures are negative so far for any active bacterial or fungal infection. The pathology showed chronic changes that coulld represent chronic OM, but no acute OM changes. I will see her back in the office next week to recheck the surgical site. I will call once I have the cultures. I advised she contact us if she has any questions or concerns in the meantime. 05/27/2024 Lumbar myelopathy (ICD-10 - G95.9) 05/12/2024 Lumbar myelopathy (ICD-10 - G95.9) 04/24/2024 Lumbar myelopathy (ICD-10 - G95.9) 04/10/2024 Lumbar myelopathy (ICD-10 - G95.9) 03/28/2024 Lumbar myelopathy (ICD-10 - G95.9) 02/07/2024 Gangrene of right foot (ICD-10 - I96) 02/07/2024 Sensorimotor neuropathy (ICD-10 - G62.9) 04/10/2024 Weakness of right lower extremity (ICD-10 - R29.898) 04/24/2024 Weakness of right lower extremity (ICD-10 - R29.898) 05/12/2024 Weakness of right lower extremity (ICD-10 - R29.898) 05/27/2024 Weakness of right lower extremity (ICD-10 - R29.898) 06/10/2024 Dehiscence of operative wound, initial encounter (ICD-10 - T81.31XA) 03/28/2024 Weakness of right lower extremity (ICD-10 - R29.898) 06/13/2024 Dehiscence of operative wound, initial encounter (ICD-10 - T81.31XA) 06/17/2024 Dehiscence of operative wound, initial encounter (ICD-10 - T81.31XA) 06/26/2024 Peripheral sensory neuropathy (ICD-10 - G60.8) 07/03/2024 Peripheral sensory neuropathy (ICD-10 - G60.8) 07/10/2024 Peripheral sensory neuropathy (ICD-10 - G60.8) 07/17/2024 Peripheral sensory neuropathy (ICD-10 - G60.8) 07/31/2024 Peripheral sensory neuropathy (ICD-10 - G60.8) 07/25/2024 Peripheral sensory neuropathy (ICD-10 - G60.8) 08/07/2024 Peripheral sensory neuropathy (ICD-10 - G60.8) 08/14/2024 Peripheral sensory neuropathy (ICD-10 - G60.8) 08/28/2024 Dehiscence of operative wound, initial encounter (ICD-10 - T81.31XA) 08/22/2024 Peripheral sensory neuropathy (ICD-10 - G60.8) 09/04/2024 Dehiscence of operative wound, initial encounter (ICD-10 - T81.31XA) 09/12/2024 Dehiscence of operative wound, initial encounter (ICD-10 - T81.31XA) 09/29/2024 Weakness of right lower extremity (ICD-10 - R29.898) 11/10/2024 Valgus deformity of left great toe (ICD-10 - M20.12) 12/05/2024 Valgus deformity of left great toe (ICD-10 - M20.12) 10/16/2024 Valgus deformity of left great toe (ICD-10 - M20.12) 10/16/2024 Non-compliance with treatment (ICD-10 - Z91.199) 09/29/2024 Valgus deformity of left great toe (ICD-10 - M20.12) 09/12/2024 Peripheral sensory neuropathy (ICD-10 - G60.8) 08/28/2024 Peripheral sensory neuropathy (ICD-10 - G60.8) 09/04/2024 Peripheral sensory neuropathy (ICD-10 - G60.8) 08/22/2024 Weakness of right lower extremity (ICD-10 - R29.898) 08/14/2024 Weakness of right lower extremity (ICD-10 - R29.898) 07/31/2024 Weakness of right lower extremity (ICD-10 - R29.898) 08/07/2024 Weakness of right lower extremity (ICD-10 - R29.898) 07/25/2024 Weakness of right lower extremity (ICD-10 - R29.898) 07/17/2024 Weakness of right lower extremity (ICD-10 - R29.898) 07/10/2024 Weakness of right lower extremity (ICD-10 - R29.898) 07/03/2024 Weakness of right lower extremity (ICD-10 - R29.898) 06/26/2024 Weakness of right lower extremity (ICD-10 - R29.898) 06/13/2024 Cellulitis of right foot (ICD-10 - L03.115) 02/07/2024 Chronic myelopathy (ICD-10 - G95.9) 06/13/2024 Muscle weakness of lower extremity (ICD-10 - M62.81) 06/17/2024 Muscle weakness of lower extremity (ICD-10 - M62.81) 06/26/2024 Acute anemia (ICD-10 - D64.9) 07/03/2024 Acute anemia (ICD-10 - D64.9) 07/17/2024 Acquired deformity of left toe (ICD-10 - M20.62) 07/10/2024 Acute anemia (ICD-10 - D64.9) 07/25/2024 Acquired deformity of left toe (ICD-10 - M20.62) 08/07/2024 Acquired deformity of left toe (ICD-10 - M20.62) 07/31/2024 Acquired deformity of left toe (ICD-10 - M20.62) 08/14/2024 Acquired deformity of left toe (ICD-10 - M20.62) 08/22/2024 Acquired deformity of left toe (ICD-10 - M20.62) 09/12/2024 Weakness of right lower extremity (ICD-10 - R29.898) 09/04/2024 Weakness of right lower extremity (ICD-10 - R29.898) 08/28/2024 Weakness of right lower extremity (ICD-10 - R29.898) 09/29/2024 Non-compliance with treatment (ICD-10 - Z91.199) 10/16/2024 Bilateral edema of lower extremity (ICD-10 - R60.0) 08/28/2024 Acquired deformity of left toe (ICD-10 - M20.62) 08/22/2024 Valgus deformity of left great toe (ICD-10 - M20.12) 08/14/2024 Valgus deformity of left great toe (ICD-10 - M20.12) 08/07/2024 Valgus deformity of left great toe (ICD-10 - M20.12) 07/31/2024 Valgus deformity of left great toe (ICD-10 - M20.12) 07/25/2024 Valgus deformity of left great toe (ICD-10 - M20.12) 06/13/2024 Other polyneuropathy (ICD-10 - G62.89) 06/17/2024 Other polyneuropathy (ICD-10 - G62.89) 08/28/2024 Valgus deformity of left great toe (ICD-10 - M20.12) 09/04/2024 Valgus deformity of left great toe (ICD-10 - M20.12) 09/12/2024 Valgus deformity of left great toe (ICD-10 - M20.12) 08/28/2024 Draining cutaneous sinus tract (ICD-10 - L98.8) Plan Of Treatment Pending Test Test Name Order Date ESR 04/28/2024 X ray : Foot, right 3v 04/10/2024 X ray : Foot, right 3v 08/28/2024 Debridement ulcer subq first 20sq cm Debridement ulcer subq first 20sq cm Debridement ulcer subq first 20sq cm 12/2024 Debridement ulcer subq first 20sq cm 08/2024 CBC (COMPLETE BLOOD COUNT) 04/28/2024 CRP, HIGH SENSITIVITY 04/28/2024 CBC With Differential/Platelet-[id number] Sedimentation Ybun-[id number] 02/2025 C-Reactive Protein, Quant-[id number] Anaerobic/Aerobic/Gram Stain-[id number] 05/18 [id number] 04/28/2024 Next Appt Details Provider Name:LIZ RENU, 12/22/2024 03:30:00 PM, [address], [address], Provider Name:LIZ SEARS, 01/12/2025 10:45:00 AM, [address], [address], Insurance Providers Payer Name Payer Address Payer Phone Subscriber Number Group Number Insured Name Patient Relationship to Insured Coverage Start Date Coverage End Date [employer] re medicare community plan [address] [address] [place] [address] [id number] Skip veroLuisana Self - patient is the insured Medical (General) History Medical History History ICD Code Cervical myelopathy causing right sided weakness and spasticity along with neuropathy Essential hypertension Cyst of neck Refusal of blood transfusion as patient is a Hoahaoism Cervical spinal stenosis Hypercholesteremia Narcolepsy Ovarian cyst Schizoaffective disorder - Started medic ation at the age 17 iron deficiency anemia Hx osteomyelitis and septic arthrosis to the right 1st metatarsal phalangeal joint. Surgical History Surgery Date(Month/Year) Appendectomy 2009 Anterior cervical diskectomy C4-C5 with fusion 2006 Status post C3-C5 cervical laminoplasty with plate reconstruction 07/27/2011 excision of right tibial sesamoid 2024 Hospitalization History Reason Date(Month/Year) right surgical foot wound dehiscence Acute OM right foot 08/2024 Acute osteomyelitis right foot: [facility] 02/2024 Recovery from cervical spine surgery 07/18 012 Many psychiatric hospitalizations
--- OUTSIDE RECORDS SUMMARY | 2024-12-20 14:37 | XMS_ITS | Encounter Summary ---
Author Organization [facility] Address [address] [place] [address] Care Team Providers Care Pullboat Engineer Name Role Phone Pau Us MD Primary Care Prov ider Reason for Visit * Reason Onset Date Comments Advice Only 12/18/2024 Encounter Details Date Type Department Care Team (Late st Contact Info) Description 12/18/2024 Telephone [facility] Hematology Oncology [address] [place] [address] James Galdamez MD [address] [place] [address] Social History Tobacco Use Types Packs/Day Years [...] as of this encounter Progress Notes * James Galdamez MD - 12/19/2024 9:15 AM EDT Procrit 40,000 units subcu weekly * Mervat Parker RN - 12/18/2024 11:06 AM EDT Patient is a Jehovah witness and declines blood transfusion due to congregational belief. She was in [facility]'s ER on 09/27/24 and received 1 dose of Epoetin. Next FOV with Dr. Galdamez is on 01/01/25. Patient is aware we will try to coordinate the shot upstairs in the infusion suite. She will wait to hear from infusion staff. * James Galdamez MD - 12/18/2024 11:03 AM EDT Her iron level and B12 levels are normal, no injections are indicated, except can we try to get hershot of Suresh Ross * Iza Patterson - 12/18/2024 10:52 AM EDT Luisana asks if she is able to have an injection for her anemia. States she had an injection when she was in the hospital 2-3 months ago for the anemia. Reports she is weak and dizzy, believes an injection may help with symptoms. May be reached at [phone]. documented in this encounter Plan of Treatment Upcoming Encounters Date Type Department Care Team (Late st Contact Info) Description 01/01/2025 11:45 AM EDT Office Visit [facility] Hematology Oncology [address] [place] [phone] James Galdamez MD [address] [place] [phone] 05/14/2025 10:50 AM EST Office Visit Gastroenterology - [place] [address] [facility] [address] [place] [phone] Dottie Forman PA [address] [facility] [address] [place] [address] 07/07/2025 4:30 PM EDT Appointment Radiology Department [address] [phone] documented as of this encounter Visit Diagnoses Not on filedocumented in this encounter Care Teams Pullboat Engineer Relationship Specialty Start Date End Date Pau Us MD [address] [place] [id number] PCP - General 06/02/09 documented as of this encounter
--- OUTSIDE RECORDS SUMMARY | 2024-12-20 14:37 | XMS_ITS | Encounter Summary ---
Author Organization [facility] Address [address] [place] [address] Care Team Providers Care Deportation Officer Name Role Phone Pau Us MD Primary Care Prov ider Reason for Visit * Reason Onset Date Comments Questions for PCP 12/18/2024 Encounter Details Date Type Department Care Team ([facility] st Contact Info) Description 12/18/2024 Telephone Adult Medicine [facility] [address] [place] [phone] Pau Us MD [address] [place] [address] Social History Tobacco Use Types Packs/Day Years [...] as of this encounter Progress Notes * Althea Fair - 12/18/2024 11:27 AM EDT Patient brother Amilcar Orellana who is also patient's healthcare proxy calling with question for provider. Amilcar states patient has had a significant amount of weight loss and would like to discuss this with the provider. Please call Amilcar back at: [phone] documented in this encounter Plan of Treatment Upcoming Encounters Date Type Department Care Team (Late st Contact Info) Description 01/01/2025 11:45 AM EDT Office Visit [facility] Hematology Oncology [address] [place] [phone] James Galdamez MD [address] [place] [phone] 05/14/2025 10:50 AM EST Office Visit Gastroenterology - [place] 175 [facility] 175 [facility] [address] [place] [phone] Dottie Forman PA 175 [facility] [address] [place] [address] 07/07/2025 4:30 PM EDT Appointment Radiology Department - [address] [phone] documented as of this encounter Visit Diagnoses Not on filedocumented in this encounter Care Teams Deportation Officer Relationship Specialty Start Date End Date Pau Us MD [address] [place] [phone] PCP - General 06/02/09 documented as of this encounter
[2024-12-20 15:45] VITALS: BP 116/80; PULSE 116; RESP 18; O2SAT 100
--- NOTE | 2024-12-20 17:11 | P.HPHOSP_ITS ---
History of Present Illness Date of Service: 12/20/24 Attending physician on admission: Guero Lua Chief Complaint: right toe ulcer This is a 74 year old female with right great toe osteo who presents with concern for infection in her right 2nd toe. Patient is a vague historian and is unclear how long her right toe has been a problem. She initially stated since May, then she said it actually started this month. She is followed by her communications strategist who may have prescribed her oral antibiotics at some point although the patient states she did not take them because they made her feel poorly. In the emergency department she was afebrile, lab work revealed no leukocytosis. Foot x-ray and foot CT obtained comment primarily on the right great toe for which she has chronic osteomyelitis. CRP 0.58, ESR is pending. She received broad-spectrum antibiotics in the emergency department and will be admitted for further management Review of Systems 2 Review of Systems: Yes all other systems are reviewed and are negative Constitutional: Constitutional: Denies chills and Denies fever(s) Cardiovascular: Cardiovascular: Denies chest pain, Denies palpitations and Denies dyspnea Respiratory: Respiratory: Denies cough and Denies dyspnea Endocrine: Endocrine: Denies palpitations [facility] Medical History Acute osteomyelitis of right foot Osteomyelitis Right foot ulcer Essential hypertension Cyst of neck Abnormal ultrasound of neck Refusal of blood transfusions as patient is Sabianism Cervical spinal stenosis Narcolepsy Ovarian cyst Schizoaffective disorder Chronic peripheral neuropathic pain Social History Household Members: Significant Other Housing: Apartment Do you presently have visiting nurse or other home services: No Alcohol intake: never Patient Tobacco Use Status: Former Tobacco user Cigarettes Per Day: 4 Smoked in Last 30 Days: No Second Hand Smoke Exposure: No Use of substances other than those prescribed or required for medical reasons: No Advance Directives: Yes Advance Directives on File: Yes Advance Directives Date on File: 02/24/24 Do you have a plan to hurt others: No Plan service: No Meds Allergies Allergy/AdvReac Type Severity Reaction Status Date / Time acetaminophen (From Percocet) Allergy Hallucinati Verified 12/20/24 12:47 ons oxycodone AdvReac Intermediate sleepiness Verified 12/20/24 12:47 Home Medications ?Medication ?Instructions ?Recorded ?Confirmed ?Last Taken ?Type trifluoperazine 5 mg tablet 5 mg PO BID 11/08/2009/0106/13/24 History trihexyphenidyl 2 mg tablet 2 mg PO DAILY 11/08/2006/13/24 History albuterol sulfate 90 mcg/actuation 2 puff inhalation Q ID PRN wheezing 02/07/24 09/01/24 Unknown History aerosol inhaler hydrocortisone 2.5 % topical cream 1 appl topical BID PRN Itchiness 02/07/24 09/01/24 Unknown History chlorthalidone 25 mg tablet 25 mg PO DAILY 06/14/2406/13/24 History hydroxyzine HCl 10 mg tablet 10 mg PO TID PRN Itching 06/14/24 09/01/24 Unknown History ibuprofen 800 mg tablet 800 mg PO TID PRN Pain 06/1409/01/24 Unknown History chlorhexidine gluconate 4 % 1 appl topical DAILY 09/0109/01/24 Unknown History topical liquid ferrous sulfate 325 mg (65 mg 325 mg PO DAILY 09/01/24 09/01/24 Unknown History iron) tablet,delayed release trazodone 50 mg tablet 50 mg PO BEDTIME 12/20/24 U nknown History Physical Exam 2 Vital Signs and Narrative: Vital Signs: Last Vital Signs Temp 97.3 F 12/20/24 12:42 Pulse 116 H 12/20/24 15:45 Resp 18 12/20/24 15:45 BP 116/80 12/20/24 15:45 Pulse Ox 100 12/20/24 15:45 O2 Del Method Room Air 12/20/24 15:45 BMI result Body Mass Index 19.0 Const: Other: alert and oriented although vague historian in terms of timeline General: cooperative, comfortable, no acute distress, alert and awake N utritional Appearance: average body habitus Resp: Effort & Inspection: normal respiratory effort GI: Inspection: No distended Palpation (GI): Soft to palpation and nontender Skin: Other: ulceration tip of right second toe and medial side right second toe. no drainage Neuro: General: moves all extremities and CN's II-XI intact bilaterally Results Labs 12/20/24 13:42 12/20/24 13:42 Labs: Laboratory Results - last 24 hr 12/20/24 12/20/24 13:42 14:09 MCV 92.4 MCH 32.5 MCHC 35.1 H RDW 14.0 Plt Count 270 D MPV 9.8 Immature Gran % (Auto) 0.4 Neut % (Auto) 58.6 Lymph % (Auto) 28.0 [place] % (Auto) 11.0 Eos % (Auto) 1.5 Baso % (Auto) 0.5 Lymph # (Auto) 1.5 [place] # (Auto) 0.6 Eos # (Auto) 0.1 Baso # (Auto) 0.0 Abs Immat Gran (auto) 0.02 Absolute Neuts (auto) 3.2 Absolute Nucleated RBC 0.000 Nucleated RBC % (auto) 0.0 Anion Gap 13 Estim Creat Clear Calc 47.5 Estimated GFR > 60 Random Glucose 86 Estimat Average Glucose 103 Hemoglobin A1c % 5.2 Lactic Acid 1.3 1.0 Calcium 9.3 C-Reactive Protein 0.58 H Assessment and Plan (1) Cellulitis: Status: Acute Plan This is a 74-year-old female with past medical history significant for chronic right great toe osteomyelitis status post IV antibiotics, hypertension, schizoaffective disorder, peripheral neuropathy presents to the emergency department with ulceration of right second toe Cellulitis and ulceration of right 2nd toe No sepsis No history of diabetes, will check arterial ultrasound to assess for vascular dz Broad-spectrum IV antibiotics General surgery consultation Blood cultures pending CT showing changes of the right great toe, no changes of right second toe Hypertension Continue baseline medication Schizoaffective disorder Continue baseline medication Medication reconciliation pending at the time of admit dvt ppx - mechanical devices code status - full code Quality Stroke Does the patient have a stroke diagnosis?: No VTE Prior VTE?: No VTE Risk Level:: Medical - moderate - high VTE Device Contraindication: N/A - Device Ordered VTE Drug Contraindication: Treatment Not Indicated
[2024-12-20 17:26] VITALS: BP 118/70; PULSE 110; RESP 16
[2024-12-20 17:37] VITALS: BP 113/77; PULSE 110; RESP 16; O2SAT 98
[2024-12-20 17:46] VITALS: BP 108/64; PULSE 96; RESP 18; TEMP 35.2
--- NOTE | 2024-12-20 18:25 | PC.NURSE ---
Provider notified about low rectal temp. Pt is alert and oriented with no new complaints, vitals otherwise stable. Multiple warm blankets provided.
--- NOTE | 2024-12-20 18:29 | PHA.MEDREC ---
Pharmacy Consult ? Medication Reconciliation Pharmacy has completed the medication reconciliation. PT IS POOR HISTORIAN. PRIMARILY USED CLAIMS HISTORY TO COMPLETE MED REC. PT WAS ABLE TO STATE THAT SHE USES TRIFLUOPERAZINE AND TRIHEXYPHENIDYL.
--- NOTE | 2024-12-20 19:44 | HO.NURTONUR ---
74 y.o F PMHX: narcolepsy, schizoaffective disorder, septic arthritis presenting with right 2nd toe infection. Pt reports worsensing right toe wound since a surgical procedure in 2004. No c/o pain, however she reports significant weakness to toes bilaterally. She reports her foot just does not look the same. there is an open ulceration at the end of the 2nd toe- no active drainage at this time. Denies fevers, chills, headache, or any other symptoms at this time. Pt has 20g IV in Left wrist= labs obtained, including lactic and cultures- Lactic negative ESR CRP found to be elevated. Foot x-ray and foot CT obtained comment primarily on the right great toe for which she has chronic osteomyelitis. Pt received vanco and zosyn in ED and will be admitted for further management. Pt seen by surgical service -MD Farrar pt to be admitted for further eval and tx for Cellulitis and ulceration of right 2nd toe.
[2024-12-20 20:04] VITALS: BP 104/64; PULSE 98; RESP 16; TEMP 36.4; O2SAT 97
[2024-12-20 20:31] VITALS: BMI 20.4
[2024-12-20] MEDS: 0.9 % Sodium Chloride Flush 3 ML SYRINGE IVFLUSH (22:19)
[2024-12-21 04:00] VITALS: BP 122/60; PULSE 99; RESP 18; TEMP 36.1; O2SAT 100
[2024-12-21 06:10] LABS: Anion Gap 11 (12-20); Blood Urea Nitrogen 15 mg/dL (9-16); Calcium 8.6 mg/dL (8.4-10.2); Carbon Dioxide 20 mmol/L (22-29); Chloride 109 mmol/L (96-108); Creatinine Clr Calc Pharmacy 59.4; Estimated Glomerular Filt Rate > 60; Potassium 3.9 mmol/L (3.3-5.1); Sodium 136 mmol/L (135-145)
[2024-12-21 07:35] VITALS: BP 135/76; PULSE 98; RESP 16; TEMP 36.4; O2SAT 100
[2024-12-21] MEDS: Ferrous Sulfate 324 MG TABLET.DR PO (08:49)
[2024-12-21 09:18] LABS: MANUAL DIFF FLAG NO
[2024-12-21 09:27] LABS: Hematocrit 27.9 % (37.0-47.0); Hemoglobin 9.3 g/dl (12.0-16.0); Imm Gran Abs Auto 0.02 X10*3/uL (0.00-0.03); Imm Gran Pct Auto 0.4 % (0.0-0.4); Lymphocytes Absolute Auto 1.1 X10*3/uL (1.2-4.9); Mean Corpuscular HGB Conc 33.3 g/dl (31.0-35.0); Mean Corpuscular Hemoglobin 31.6 pg (27.0-33.0); Mean Corpuscular Volume 94.9 fL (80.0-98.0); NRBC Abs Auto 0.000 X10*3/uL (0.0-0.012); NRBC Pct Auto 0.0 /100WBC (0.0-0.2); Platelet Count 265 X10*3/uL (160-400); Red Blood Count 2.94 X10*6/uL (4.20-5.50); White Blood Count 4.6 X10*3/uL (4.8-10.8)
[2024-12-21] MEDS: 0.9 % Sodium Chloride Flush 3 ML SYRINGE IVFLUSH (10:23)
--- NOTE | 2024-12-21 11:04 | HO.PM.IMPN ---
Subjective Subjective Date of Service: 12/21/24 Interval History: seen and examined this morning follow up for right toe infection no overnight events Review of Systems Review of Systems: Yes all other systems are reviewed and are negative Constitutional Constitutional: Denies chills and Denies fever(s) Physical Exam Vital Signs: Vital Signs: Last Vital Signs Temp 97.6 F 12/21/24 07:35 Pulse 98 12/21/24 07:35 Resp 16 12/21/24 07:35 BP 135/76 12/21/24 07:35 Pulse Ox 100 12/21/24 07:35 O2 Del Method Room Air 12/21/24 07:35 BMI result Body Mass Index 20.4 Const: Other: alert and oriented although vague historian in terms of timeline General: cooperative, comfortable, no acute distress, alert and awake Nutritional Appearance: average body habitus Resp: Effort & Inspection: normal respiratory effort GI: Inspection: No distended Palpation (GI): Soft to palpation and nontender Neuro: General: moves all extremities and CN's II-XI intact bilaterally Objective Data Active Medications Albuterol Sulfate (Albuterol Sulfate 90 Mcg 8 Gm Inhaler) 2 puff INHALE QID PRN PRN Reason: Wheezing Calcium Carbonate (Calcium Carbonate 750 Mg Tab.Chew) 750 mg PO Q4H PRN PRN Reason: Heartburn Ferrous Sulfate (Ferrous Sulfate 324 Mg Tablet.Dr) 324 mg PO DAILY [facility] Last Admin: 12/21/24 08:49 Dose: 324 mg Documented By: EARLENE Hydrocortisone (Hydrocortisone 1 % Cream 28.35 Gm Tube) 1 appl TOPICAL BID PRN PRN Reason: Itchiness Piperacillin Sod/Tazobactam (Sod 3.375 gm/ Sodium Chloride) 50 mls @ 100 mls/hr IV Q6H [facility] Last Infusion: 12/21/24 10:23 Dose: Infused Documented By: EARLENE Vancomycin HCl 1,000 mg/ (Sodium Chloride) 270 mls @ 270 mls/hr IV Q24H [facility] Magnesium Hydroxide (Milk Of Magnesia 30 Ml Oral.Susp) 30 ml PO DAILY PRN PRN Reason: Constipation Melatonin (Melatonin 3 Mg Tablet) 6 mg PO BEDTIME PRN PRN Reason: Insomnia Pharmacy Consult (Consult Rx Vancomycin Dosing) 1 each MISCELLANE DAILY PRN PRN Reason: Consult order Sodium Chloride (0.9 % Sodium Chloride Flush 3 Ml Syringe) 3 ml IVFLUSH QSHIFT [facility] Last Admin: 12/21/24 10:23 Dose: 3 ml Documented By: EARLENE Trazodone HCl (Trazodone Hcl 50 Mg Tablet) 50 mg PO BEDTIME [facility] Last Admin: 12/20/24 22:19 Dose: 50 mg Documented By: MIGUEL ANGEL Trifluoperazine HCl (Trifluoperazine Hcl 5 Mg Tablet) 5 mg PO BID [facility] Last Admin: 12/21/24 08:49 Dose: 5 mg Documented By: EARLENE Trihexyphenidyl HCl (Trihexyphenidyl Hcl 2 Mg Tablet) 2 mg PO DAILY [facility] Last Admin: 12/21/24 08:49 Dose: 2 mg Documented By: EARLENE Labs 12/21/24 09:00 12/21/24 05:27 Labs: Laboratory Results - last 24 hr 12/20/24 12/20/24 12/21/24 13:42 14:09 05:27 MCV 92.4 MCH 32.5 MCHC 35.1 H RDW 14.0 Plt Count 270 D MPV 9.8 Immature Gran % (Auto) 0.4 Neut % (Auto) 58.6 Lymph % (Auto) 28.0 [place] % (Auto) 11.0 Eos % (Auto) 1.5 Baso % (Auto) 0.5 Lymph # (Auto) 1.5 [place] # (Auto) 0.6 Eos # (Auto) 0.1 Baso # (Auto) 0.0 Abs Immat Gran (auto) 0.02 Absolute Neuts (auto) 3.2 Absolute Nucleated RBC 0.000 Nucleated RBC % (auto) 0.0 ESR 58 H Anion Gap 13 11 L Estim Creat Clear Calc 47.5 59.4 Estimated GFR > 60 > 60 Random Glucose 86 93 Estimat Average Glucose 103 Hemoglobin A1c % 5.2 Lactic Acid 1.3 1.0 Calcium 9.3 8.6 D C-Reactive Protein 0.58 H 12/21/24 09:00 MCV 94.9 MCH 31.6 MCHC 33.3 RDW 13.8 Plt Count 265 MPV 9.8 Immature Gran % (Auto) 0.4 Neut % (Auto) 63.3 Lymph % (Auto) 23.6 [place] % (Auto) 8.5 Eos % (Auto) 3.1 Baso % (Auto) 1.1 Lymph # (Auto) 1.1 L [place] # (Auto) 0.4 Eos # (Auto) 0.1 Baso # (Auto) 0.1 Abs Immat Gran (auto) 0.02 Absolute Neuts (auto) 2.9 Absolute Nucleated RBC 0.000 Nucleated RBC % (auto) 0.0 ESR Anion Gap Estim Creat Clear Calc Estimated GFR Random Glucose Estimat Average Glucose Hemoglobin A1c % Lactic Acid Calcium C-Reactive Protein Assessment and Plan (1) Cellulitis: Status: Acute Plan This is a 74-year-old female with past medical history significant for chronic right great toe osteomyelitis status post IV antibiotics, hypertension, schizoaffective disorder, peripheral neuropathy presents to the emergency department with ulceration of right second toe Cellulitis and ulceration of right 2nd toe No sepsis CT showing changes of the right great toe, no changes of right second toe ESR lower then previous No history of diabetes, arterial ultrasound unremarkable Continue IV antibiotics General surgery consultation pending Blood cultures pending Hypertension bp soft overnight chlorthalidone on hold Schizoaffective disorder Continue baseline medication dvt ppx - mechanical devices code status - full code Quality Stroke Does the patient have a stroke diagnosis?: No VTE Prior VTE?: No VTE Risk Level:: Medical - moderate - high VTE Device Contraindication: N/A - Device Ordered VTE Drug Contraindication: Treatment Not Indicated
--- NOTE | 2024-12-21 11:52 | P.DS_ITS ---
DS: Providers Provider Date of Service: 12/21/24 Date of admission: 12/20/24 17:06 Date of discharge: 12/21/24 Primary care physician: Unknown Physician Consults: 12/20/24 17:43 Consult to General Surgery Routine Consulting Provider: [facility] General Surgeons Reason for consultation: right second toe ulceration Has provider been notified: No 12/20/24 20:50 Consult to Wound Care Routine Reason for consultation: right second toe cellulitis Attending physician on discharge: Black Fajardo Discharging clinician: Lulú Lopez DS: Diagnosis Discharge Diagnosis (1) Cellulitis: Status: Acute DS: Summary Hospital Course Hospital Course: From H&P on the day of admission This is a 74 year old female with right great toe osteo who presents with concern for infection in her right 2nd toe. Patient is a vague historian and is unclear how long her right toe has been a problem. She initially stated since May, then she said it actually started this month. She is followed by her autism specialist who may have prescribed her oral antibiotics at some point although the patient states she did not take them because they made her feel poorly. In the emergency department she was afebrile, lab work revealed no leukocytosis. Foot x-ray and foot CT obtained comment primarily on the right great toe for which she has chronic osteomyelitis. CRP 0.58, ESR is pending. She received broad-spectrum antibiotics in the emergency department and will be admitted for further management Right second toe cellulitis with shallow ulcer CT scan with no evidence of deep infection to the second toe. Inflammatory markers substantially lower then previous. No fever or elevated white count. h/o chronic osteo at right great toe. Has crossover of right great toe onto the second toe which appears to be causing some degree of pressure which may be contributing to the wound. Normal arterial US or right leg. Patient seen by general surgery, recommending local wound care. Patient prefers to have care with her autism specialist who follows her wound. She reports having a follow up appointment tomorrow friday 12/22. Blood cultures pending at the time of discharge, low suspicion for bacteremia. Surgery recommends silver alginate for wound care- VNA was offered to assist with dressing changes, however she has declined. She will be discharged with 7 days of po doxycycline. Time Attestation Discharge Coordination Time (in mins): 30 Quality: Safe Use of Opioids Does Pt have an Active Cancer Diagnosis on the Problem List?: No Quality: Stroke Does the patient have a stroke diagnosis?: No Physical Exam Vital Signs: Vital Signs: Last Vital Signs Temp 97.6 F 12/21/24 07:35 Pulse 98 12/21/24 07:35 Resp 16 12/21/24 07:35 BP 135/76 12/21/24 07:35 Pulse Ox 100 12/21/24 07:35 O2 Del Method Room Air 12/21/24 07:35 BMI result Body Mass Index 20.4 Const: General: cooperative, comfortable, no acute distress, alert and awake Nutritional Appearance: average body habitus Resp: Effort & Inspection: normal respiratory effort GI: Inspection: No distended Palpation (GI): Soft to palpation and nontender Skin: Other: shallow ulceration right second toe; no significant erythema. no nail on the right toe Neuro: General: moves all extremities and CN's II-XI intact bilaterally DS: Data Data Completed and Pending Completed studies during hospitalization [Text1]: Procedures Insertion of Infusion Device into Superior Vena Cava, Percutaneous Approach (02/24/24) Ultrasonography of Superior Vena Cava, Guidance (02/24/24) Labs on day of discharge: Laboratory Results - last 24 hr 12/20/24 12/20/24 12/21/24 13:42 14:09 05:27 WBC 5.5 RBC 3.02 L Hgb 9.8 L D Hct 27.9 L MCV 92.4 MCH 32.5 MCHC 35.1 H RDW 14.0 Plt Count 270 D MPV 9.8 Immature Gran % (Auto) 0.4 Neut % (Auto) 58.6 Lymph % (Auto) 28.0 [place] % (Auto) 11.0 Eos % (Auto) 1.5 Baso % (Auto) 0.5 Lymph # (Auto) 1.5 [place] # (Auto) 0.6 Eos # (Auto) 0.1 Baso # (Auto) 0.0 Abs Immat Gran (auto) 0.02 Absolute Neuts (auto) 3.2 Absolute Nucleated RBC 0.000 Nucleated RBC % (auto) 0.0 ESR 58 H Sodium 132 L 136 Potassium 3.9 3.9 Chloride 104 109 H Carbon Dioxide 19 L 20 L Anion Gap 13 11 L BUN 18 H 15 Creatinine 0.86 0.74 Estim Creat Clear Calc 47.5 59.4 Estimated GFR > 60 > 60 Random Glucose 86 93 Estimat Average Glucose 103 Hemoglobin A1c % 5.2 Lactic Acid 1.3 1.0 Calcium 9.3 8.6 D C-Reactive Protein 0.58 H 12/21/24 09:00 WBC 4.6 L RBC 2.94 L Hgb 9.3 L Hct 27.9 L MCV 94.9 MCH 31.6 MCHC 33.3 RDW 13.8 Plt Count 265 MPV 9.8 Immature Gran % (Auto) 0.4 Neut % (Auto) 63.3 Lymph % (Auto) 23.6 [place] % (Auto) 8.5 Eos % (Auto) 3.1 Baso % (Auto) 1.1 Lymph # (Auto) 1.1 L [place] # (Auto) 0.4 Eos # (Auto) 0.1 Baso # (Auto) 0.1 Abs Immat Gran (auto) 0.02 Absolute Neuts (auto) 2.9 Absolute Nucleated RBC 0.000 Nucleated RBC % (auto) 0.0 ESR Sodium Potassium Chloride Carbon Dioxide Anion Gap BUN Creatinine Estim Creat Clear Calc Estimated GFR Random Glucose Estimat Average Glucose Hemoglobin A1c % Lactic Acid Calcium C-Reactive Protein Discharge Plan Discharge Patient Disposition: Home, Self-Care Discharge Diagnosis: Right second toe cellulitis with ulcer Referrals: [facility] [place] [facility] Wound Care [Outside] - 1 Week Referral Note: right second toe ulceration Physician,Unknown J [Primary Care Provider, Medical] - 1 Week Discharge Medications: New doxycycline monohydrate 100 mg capsule 100 mg PO BID 7 Days Qty: 14 0RF Continued hydrocortisone 2.5 % cream 1 appl topical BID PRN (Reason: Itchiness) albuterol sulfate 90 mcg/actuation HFA aerosol inhaler 2 puff inhalation QID PRN (Reason: wheezing) chlorthalidone 25 mg tablet 25 mg PO DAILY ferrous sulfate 325 mg (65 mg iron) tablet,delayed release (DR/EC) 325 mg PO DAILY trazodone 50 mg tablet 50 mg PO BEDTIME trifluoperazine 5 mg tablet 5 mg PO BID trihexyphenidyl 2 mg tablet 2 mg PO DAILY Rx Instructions: give with food (meal/snack) Discharge Orders: Discharge Order (Routine); Ordered 12/21/24 Ordered By: Lulú Lopez Activity on Discharge: As tolerated Stand Alone Forms: Patient Portal Discharge page Print Language: Hong Konger Care Plan Goals: Healing of open wound on right second toe Health Concerns: foot wound - right second toe Plan of Treatment: Recommend to complete course of doxycycline as prescribed Follow up with your autism specialist as scheduled for close monitoring of foot wound recommend silver alginate dressings for the right second toe foot would can follow up in wound care clinic - call to schedule an appointment if you do not have one scheduled VNA services were offered to assist with dressing changes, but you declined this service you will be discharged with supplies for dressing changes Assessment: See discharge summary Discharge Date/Time: 12/21/24 16:12
--- NOTE | 2024-12-21 12:51 | P.CONGS_ITS ---
[facility] Past Medical History Medical History Acute osteomyelitis of right foot Osteomyelitis Right foot ulcer Essential hypertension Cyst of neck Abnormal ultrasound of neck Refusal of blood transfusions as patient is Voodoo Cervical spinal stenosis Narcolepsy Ovarian cyst Schizoaffective disorder Chronic peripheral neuropathic pain Social History Social History Household Members: Spouse Housing: Condominium Do you presently have visiting nurse or other home services: No Alcohol intake: never Patient Tobacco Use Status: Former Tobacco user Cigarettes Per Day: 4 Smoked in Last 30 Days: No Second Hand Smoke Exposure: No Use of substances other than those prescribed or required for medical reasons: No Currently Displaying Signs/Symptoms of Drug Intoxication Withdrawal: No Have you been hit, kicked, punched, or otherwise hurt by someone within the past year? If so, by whom?: No Do you feel safe in your current relationship?: Yes Is there a partner from a previous relationship who is making you feel unsafe now?: No Are you made to feel afraid or neglected: No Advance Directives: Yes Advance Directives on File: Yes Advance Directives Date on File: 02/24/24 Do you have a plan to hurt others: No Plan Recently lost weight without trying: No Eating poorly because of decreased appetite: No Nutrition Risks: No Nutritional Risk Patient : No : No Poor oral hygiene: No service: No Meds Allergies Allergy/AdvReac Type Severity Reaction Status Date / Time acetaminophen (From Percocet) Allergy Hallucinati Verified 12/20/24 12:47 ons oxycodone AdvReac Intermediate sleepiness Verified 12/20/24 12:47 Active Medications: Current Medications Albuterol Sulfate (Albuterol Sulfate 90 Mcg 8 Gm Inhaler) 2 puff INHALE QID PRN PRN Reason: Wheezing Calcium Carbonate (Calcium Carbonate 750 Mg Tab.Chew) 750 mg PO Q4H PRN PRN Reason: Heartburn Ferrous Sulfate (Ferrous Sulfate 324 Mg Tablet.Dr) 324 mg PO DAILY GIANNI Last Admin: 12/21/24 08:49 Dose: 324 mg Hydrocortisone (Hydrocortisone 1 % Cream 28.35 Gm Tube) 1 appl TOPICAL BID PRN PRN Reason: Itchiness Piperacillin Sod/Tazobactam (Sod 3.375 gm/ Sodium Chloride) 50 mls @ 100 mls/hr IV Q6H [facility] Last Infusion: 12/21/24 10:23 Dose: Infused Vancomycin HCl 1,000 mg/ (Sodium Chloride) 270 mls @ 270 mls/hr IV Q24H [facility] Magnesium Hydroxide (Milk Of Magnesia 30 Ml Oral.Susp) 30 ml PO DAILY PRN PRN Reason: Constipation Melatonin (Melatonin 3 Mg Tablet) 6 mg PO BEDTIME PRN PRN Reason: Insomnia Pharmacy Consult (Consult Rx Vancomycin Dosing) 1 each MISCELLANE DAILY PRN PRN Reason: Consult order Sodium Chloride (0.9 % Sodium Chloride Flush 3 Ml Syringe) 3 ml IVFLUSH QSHIFT [facility] Last Admin: 12/21/24 10:23 Dose: 3 ml Trazodone HCl (Trazodone Hcl 50 Mg Tablet) 50 mg PO BEDTIME [facility] Last Admin: 12/20/24 22:19 Dose: 50 mg Trifluoperazine HCl (Trifluoperazine Hcl 5 Mg Tablet) 5 mg PO BID [facility] Last Admin: 12/21/24 08:49 Dose: 5 mg Trihexyphenidyl HCl (Trihexyphenidyl Hcl 2 Mg Tablet) 2 mg PO DAILY [facility] Last Admin: 12/21/24 08:49 Dose: 2 mg Home Medications ?Medication ?Instructions ?Recorded ?Confirmed ?Last Taken ?Type trifluoperazine 5 mg tablet 5 mg PO BID 11/08/2012/2006/13/24 History trihexyphenidyl 2 mg tablet 2 mg PO DAILY 11/08/2007/1106/13/24 History albuterol sulfate 90 mcg/actuation 2 puff inhalation Q ID PRN wheezing 02/07/24 12/20/24 Unknown History aerosol inhaler hydrocortisone 2.5 % topical cream 1 appl topical BID PRN Itchiness 02/07/24 12/20/24 Unknown History chlorthalidone 25 mg tablet 25 mg PO DAILY 06/14/2406/13/24 History ferrous sulfate 325 mg (65 mg 325 mg PO DAILY 09/01/24 12/20/24 Unknown History iron) tablet,delayed release trazodone 50 mg tablet 50 mg PO BEDTIME 12/20/24 Unknown History Physical Exam 2 Vital Signs: Vital Signs: Last Vital Signs Temp 97.6 F 12/21/24 07:35 Pulse 98 12/21/24 07:35 Resp 16 12/21/24 07:35 BP 135/76 12/21/24 07:35 Pulse Ox 100 12/21/24 07:35 O2 Del Method Room Air 12/21/24 07:35 BMI result Body Mass Index 20.4 Results Labs 12/21/24 09:00 12/21/24 05:27 Labs: Abnormal lab results 12/20/24 12/21/24 12/21/24 Range/Units 13:42 05:27 09:00 WBC 4.6 L (4.8-10.8) X10*3/uL RBC 3.02 L 2.94 L (4.20-5.50) X10*6/uL Hgb 9.8 L D 9.3 L (12.0-16.0) g/dl Hct 27.9 L 27.9 L (37.0-47.0) % MCHC 35.1 H (31.0-35.0) g/dl Lymph # (Auto) 1.1 L (1.2-4.9) X10*3/uL ESR 58 H (0-20) MM/HR Sodium 132 L (135-145) mmol/L Chloride 109 H (96-108) mmol/L Carbon Dioxide 19 L 20 L (22-29) mmol/L Anion Gap 11 L (12-20) BUN 18 H (9-16) mg/dL C-Reactive Protein 0.58 H (< or = 0.50) mg/dL Short CBC 12/20/24 12/21/24 Range/Units 13:42 09:00 WBC 5.5 4.6 L (4.8-10.8) X10*3/uL Hgb 9.8 L D 9.3 L (12.0-16.0) g/dl Hct 27.9 L 27.9 L (37.0-47.0) % Plt Count 270 D 265 (160-400) X10*3/uL BMP 12/20/24 12/21/24 13:42 05:27 Sodium 132 L 136 Potassium 3.9 3.9 Chloride 104 109 H Carbon Dioxide 19 L 20 L BUN 18 H 15 Creatinine 0.86 0.74 Calcium 9.3 8.6 D All other labs normal. Procedures Date of Service Date of Service: 12/21/24
--- NOTE | 2024-12-21 14:52 | MHC.CM.PN ---
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
--- NOTE | 2024-12-21 15:13 | PC.NURSE ---
Addendum entered by Regina Mas RN 12/21/24 15:25: Patient meds retrieved from pharmacy and given back to the patient. Original Note: Patient is discharged, IV out, dressing changed and extra supply given, waiting for transportation.
[2024-12-21 15:40] VITALS: BP 132/74; PULSE 85; RESP 16; TEMP 36.4; O2SAT 100
== END 2024-12-21 16:12 | disposition home or self-care (01) ==
LOC: HO.ED 15:07 → HO.EDOVER 17:31 → HO.S3 19:35
PROVIDERS: Physician Assistant; Admitting Provider Physician Assistant Medical; Emergency Provider Student in an Organized Health Care Education/Training Program; Visit Provider Physician Assistant Medical
DX: L03.90 Cellulitis, unspecified (principal); L97.519 Non-pressure chronic ulcer of other part of right foot with unspecified severity; R53.1 Weakness; M79.89 Other specified soft tissue disorders; M79.671 Pain in right foot; F25.9 Schizoaffective disorder, unspecified; S91.301A Unspecified open wound, right foot, initial encounter; X58.XXXA Exposure to other specified factors, initial encounter; Y93.9 Activity, unspecified; Y92.9 Unspecified place or not applicable; Y99.9 Unspecified external cause status; I10 Essential (primary) hypertension; Z79.899 Other long term (current) drug therapy
CPT/HCPCS: 36415; 73630; 73700; 80048; 83036; 83605; 85025; 85652; 86140; 87040; 93926; 93971; 96361; 96365; 96366; 96367; 99221; 99285; J2543; J3374

== ENCOUNTER → 2024-12-20 12:50 | Outpatient (BNV) | payer OTHER, SELFPAY | PROVIDERS: Emergency Provider Student in an Organized Health Care Education/Training Program; Visit Provider Specialist | DX: R22.41 Localized swelling, mass and lump, right lower limb (principal); M15.4 Erosive (osteo)arthritis | CPT/HCPCS: 73630; 73700; 93971 ==

== ENCOUNTER 2024-12-20 17:06 | Outpatient (BNV) | payer OTHER, SELFPAY | END 2024-12-21 08:15 | PROVIDERS: Admitting Provider Physician Assistant Medical; Emergency Provider Student in an Organized Health Care Education/Training Program; Visit Provider Radiology Diagnostic Radiology | DX: S91.301A Unspecified open wound, right foot, initial encounter (principal) | CPT/HCPCS: 93926 ==

== ENCOUNTER → 2024-12-20 17:06 | Outpatient (BNV) | payer OTHER, SELFPAY | PROVIDERS: Admitting Provider Physician Assistant Medical; Emergency Provider Student in an Organized Health Care Education/Training Program; Visit Provider Physician Assistant Medical | DX: L03.90 Cellulitis, unspecified (principal) | CPT/HCPCS: 99223; 99239; 99499 ==

== ENCOUNTER → 2024-12-20 17:06 | Outpatient (BNV) | payer OTHER, SELFPAY | PROVIDERS: Admitting Provider Physician Assistant Medical; Emergency Provider Student in an Organized Health Care Education/Training Program; Visit Provider Surgery | DX: S91.301A Unspecified open wound, right foot, initial encounter (principal) | CPT/HCPCS: 99499 ==

== ENCOUNTER 2025-01-23 09:15 | Outpatient (RCR) | payer OTHER, SELFPAY | END 2025-03-18 16:19 | disposition home or self-care (01) | LOC: HO.WCC 09:15 | PROVIDERS: Visit Provider Surgery Vascular Surgery | DX: L97.519 Non-pressure chronic ulcer of other part of right foot with unspecified severity (principal); L03.115 Cellulitis of right lower limb; I96 Gangrene, not elsewhere classified; L53.9 Erythematous condition, unspecified; D50.9 Iron deficiency anemia, unspecified; I10 Essential (primary) hypertension; Z79.2 Long term (current) use of antibiotics | CPT/HCPCS: 99215 ==

== ENCOUNTER 2025-01-23 14:13 | Inpatient (IN) | payer OTHER, SELFPAY ==
--- NOTE | ~2025-01-23 | XR_ITS ---
EXAMINATION: XR FOOT 3 OR MORE VIEWS RIGHT HISTORY: wound, hx of osteomyelitis COMPARISON: Comparison is made with the prior examination dated 12/20/2024. FINDINGS: Three views of the right foot are submitted. Osseous mineralization is normal. There is a lytic lesion involving the distal phalanx of the 2nd toe. There is no fracture or dislocation. Again seen is severe arthritis of the 1st MTP joint with joint space narrowing, osteophyte formation, erosions, and hallux valgus deformity. The remaining joint spaces are maintained. There is soft tissue swelling of the 2nd toe. XR/XR foot RT min 3V IMPRESSION: Lytic lesion involving the distal phalanx of the 2nd toe with associated soft tissue swelling. Findings are suspicious for osteomyelitis. This could be compatible with MRI if indicated. Electronically signed by: Herbert Bianchi MD 01/23/2025 03:25 PM [facility]
[2025-01-23 14:48] VITALS: BP 104/67; PULSE 90; RESP 18; TEMP 36.4; O2SAT 100; BMI 19.3
--- NOTE | 2025-01-23 14:49 | ED_ITS ---
HPI - Wound/Laceration General Chief Complaint: Wound/Laceration Stated Complaint: wound care sent over for admission Time Seen by Provider: 01/23/25 17:12 Source: patient and old records reviewed Mode of arrival: ambulatory Limitations: other (Poor historian) History of Present Illness ED Provider: MADISON DANIEL narrative: 74-year-old female with past medical history of osteomyelitis of the foot, ovarian cysts, schizoaffective disorder, hypertension here with complaint of recurrent infection to the 2nd toe of her right foot. She tells me she follows with the Wound center but is unsure who her doctor is. She has been on Augmentin for 2 days though admits she only took 3 doses. She was sent in by the Wound Care Center for again failing outpatient therapy but also has history of failure to IV antibiotics, as she does not want surgery. She has no fevers or chills. She was sent for admission for IV antibiotics and osteomyelitis treatment. She has no other complaints. She has a very poor historian Onset (ago): day(s) (3) Location: other Extremity Location: right: foot Patient tetanus UTD: Yes Context: other Associated symptoms: loss of feeling/numbness Treatments prior to arrival: bandage and other Related Data Home Medications ?Medication ?Instructions ?Recorded ?Confirmed trifluoperazine 5 mg tablet 5 mg PO BID 11/08/2012/20 trihexyphenidyl 2 mg tablet 2 mg PO DAILY 11/08/2007/11 albuterol sulfate 90 mcg/actuation 2 puff inhalation Q ID PRN wheezing 02/07/24 12/20/24 aerosol inhaler hydrocortisone 2.5 % topical cream 1 appl topical BID PRN Itchiness 02/07/24 12/20/24 chlorthalidone 25 mg tablet 25 mg PO DAILY 06/14/24 ferrous sulfate 325 mg (65 mg 325 mg PO DAILY 09/01/24 12/20/24 iron) tablet,delayed release trazodone 50 mg tablet 50 mg PO BEDTIME 12/20/24 Previous Rx's ?Medication ?Instructions ?Recorded doxycycline monohydrate 100 mg 100 mg PO BID 7 days #1 4 caps 12/21/24 capsule Allergies Allergy/AdvReac Type Severity Reaction Status Date / Time acetaminophen (From Percocet) Allergy Hallucinati Verified 01/23/25 14:50 ons oxycodone AdvReac Intermediate sleepiness Verified 01/23/25 14:50 Review of Systems 2 Review of Systems: Constitutional : No Fever, No Chills ENT/Mouth : No sore throat, No Rhinorrhea Eyes: No Eye Pain, No Swelling, No Redness Cardiovascular : No Chest Pain, No SOB Respiratory : No Cough, No Sputum Gastrointestinal : No Nausea, No Vomiting, No Diarrhea, No abdominal Pain Genitourinary : No Dysuria, No Hematuria Musculoskeletal : No joint pain, No Myalgias, No Joint Swelling Skin : No Skin Lesions, positive skin rash Neuro : No Weakness, No Numbness, No Headache Psych : No Anxiety, No Depression Heme/Lymph: No Bruising, No Bleeding,No Lymphadenopathy Endocrine : No Polyuria, No Polydipsia All other systems reviewed and are negative [facility] Past Medical History Attestation statement: The following information was validated with the patient. Source: old records reviewed Medical History Acute osteomyelitis of right foot Osteomyelitis Right foot ulcer Essential hypertension Cyst of neck Abnormal ultrasound of neck Refusal of blood transfusions as patient is Anglican Cervical spinal stenosis Narcolepsy Ovarian cyst Schizoaffective disorder Chronic peripheral neuropathic pain Social History Social History Household Members: Spouse [facility]: [facility] Do you presently have visiting nurse or other home services: No Alcohol intake: never Patient Tobacco Use Status: Former Tobacco user Cigarettes Per Day: 4 Smoked in Last 30 Days: No Second Hand Smoke Exposure: No Use of substances other than those prescribed or required for medical reasons: No Advance Directives: Yes Advance Directives on File: Yes Advance Directives Date on File: 02/24/24 service: No Physical Exam 2 Vital Signs: Vital Signs: Last Vital Signs Temp 97.5 F 01/23/25 14:48 Pulse 70 01/23/25 16:00 Resp 20 01/23/25 16:00 BP 106/66 01/23/25 16:00 Pulse Ox 98 01/23/25 16:00 O2 Del Method Room Air 01/23/25 16:00 BMI result Body Mass Index 19.3 Appearance: Alert. Oriented X3. No acute distress. poor historian Eyes: Pupils equal, round and reactive to light. ENT: Pharynx normal. Neck: Normal inspection. Neck supple. CVS: Normal heart rate and rhythm. Pulses normal. Respiratory: No respiratory distress. Breath sounds normal. Abdomen: Soft and nontender. Skin: Skin warm and dry. Normal skin color. Normal skin turgor. Extremities: No lower extremity edema other than dorsum of R foot. warm to touch, redness, notes, macerated wet 2 and 4th toes, purulence noted, no crepitus Neuro: Oriented X 3. No motor deficit. No sensory deficit. CN2-12 intact Course Course Course Narrative: This is an RME: Additional HPI, ROS, PE not included below will be deferred to primary provider. RME assessment and note performed by: Aranza Beaver PA-C This is a 29-[id number]-female, with a hx of osteomyelitis of right foot, HTN, schizoaffective disorder, who presents to the ER with complaints of worsening wound. Reports that she was sent over from wound care and was told to report to the ED due to worsening wound. No pain, no fevers. Reports that she is currently on antibiotics - unsure of name. Wound is wrapped, unable to visualize in triage. Plan: Labs, xray, further ER eval needed. Medications Administered Generic Name Dose Route Start Last Admin Trade Name Freq PRN Reason Stop Dose Admin Vancomycin HCl 1,250 mg/ 250 mls @ 166.667 mls/hr 01/23/25 17:12 01/23/25 17:54 Sodium Chloride IV 01/23/25 18:41 166.67 mls/hr ONCE ONE Administration Discontinued Medications Generic Name Dose Route Start Last Admin Trade Name Freq PRN Reason Stop Dose Admin Piperacillin Sod/Tazobactam 50 mls @ 100 mls/hr 01/23/25 17:12 01/23/25 17:38 Sod 3.375 gm/ Sodium Chloride IV 01/23/25 17:41 100 mls/hr ONCE ONE Administration Medical Decision Making Medical Decision Making MDM Narrative: 74-year-old female with past medical history of osteomyelitis of the foot, ovarian cysts, schizoaffective disorder, hypertension here with complaint worsening right toe infection. She has no systemic symptoms. On exam there is redness, warmth, swelling, purulence odor. 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 X-ray ordered though clinically looks like osteomyelitis. Will admit for IV antibiotics Differential Diagnosis Differential Diagnoses: The differential diagnosis associated with the presentation includes Cellulitis, osteomyelitis, wet gangrene Admission/Observation Consideration of admission/observation: Escalation of care including admission/observation considered Will admit for IV antibiotics Consult Healthcare Provider Management of the patient was discussed with: Hospitalist ( will admit) Lab Data MDM Lab Attestation statement: I reviewed the patient's lab results. 01/23/25 15:18 01/23/25 15:18 Labs: Lab Results 01/23/25 Range/Units 15:18 WBC 4.8 (4.8-10.8) X10*3/uL RBC 2.78 L (4.20-5.50) X10*6/uL Hgb 8.7 L (12.0-16.0) g/dl Hct 26.7 L (37.0-47.0) % MCV 96.0 (80.0-98.0) fL MCH 31.3 (27.0-33.0) pg MCHC 32.6 (31.0-35.0) g/dl RDW 14.9 (11.0-16.0) % Plt Count 310 (160-400) X10*3/uL MPV 9.7 (9.4-12.3) fL Immature Gran % (Auto) 0.4 (0.0-0.4) % Neut % (Auto) 64.1 (45-73) % Lymph % (Auto) 24.8 (20-40) % [place] % (Auto) 6.8 (2-11) % Eos % (Auto) 3.1 (0-4) % Baso % (Auto) 0.8 (0-2) % Lymph # (Auto) 1.2 (1.2-4.9) X10*3/uL [place] # (Auto) 0.3 (0.1-1.2) X10*3/uL Eos # (Auto) 0.2 (0.0-0.4) X10*3/uL Baso # (Auto) 0.0 (0.0-0.2) X10*3/uL Abs Immat Gran (auto) 0.02 (0.00-0.03) X10*3/uL Absolute Neuts (auto) 3.1 (2.0-8.3) x10*3/uL Absolute Nucleated RBC 0.000 (0.0-0.012) X10*3/uL Nucleated RBC % (auto) 0.0 (0.0-0.2) /100WBC Sodium 140 (135-145) mmol/L Potassium 3.8 (3.3-5.1) mmol/L Chloride 111 H (96-108) mmol/L Carbon Dioxide 23 (22-29) mmol/L Anion Gap 10 L (12-20) BUN 15 (9-16) mg/dL Creatinine 0.71 (0.5-1.4) mg/dL Estim Creat Clear Calc 58.6 Estimated GFR > 60 Random Glucose 126 H (60-115) mg/dL Calcium 9.0 (8.4-10.2) mg/dL Total Bilirubin 0.1 (0.0-1.0) mg/dL Direct Bilirubin < 0.2 (0.0-0.5) mg/dL AST 20 (5-31) U/L ALT 12 (0-31) U/L Alkaline Phosphatase 80 (39-117) U/L C-Reactive Protein 4.43 H (< or = 0.50) mg/dL Total Protein 7.1 (6.5-8.0) g/dL Albumin 3.5 (3.5-5.0) g/dL Independent Interpretation I performed an independent interpretation of an: Plain X-Ray (74-year-old female with past medical history of osteomyelitis of the foot, ovarian cysts, schizoaffective disorder, hypertension here with complaint) Radiology Impression Discussion of test interpretation with radiology: I have reviewed the radiologist's reading. Independent Historian Clinical information obtained from an independent historian. History obtained from or confirmed by: Spouse External Record Review External record reviewed: Inpatient record, Outpatient record and Prior outpatient labs Discharge Plan Discharge Clinical Impression: Osteomyelitis Qualifiers: Osteomyelitis type: unspecified type Osteomyelitis location: foot Laterality: r ight Qualified Code(s): M86.9 - Osteomyelitis, unspecified Patient Disposition: Admitted As Inpatient Print Language: Belgian
--- NOTE | 2025-01-23 15:20 | MHC.EDTECH ---
This pct obtained bloodwork but was unable to get ESR blood did not flow well, I also obtained the first set of blood cultures incase the provider orders due to her infection
[2025-01-23 15:30] LABS: MANUAL DIFF FLAG NO
[2025-01-23 15:39] LABS: Hematocrit 26.7 % (37.0-47.0); Hemoglobin 8.7 g/dl (12.0-16.0); Imm Gran Abs Auto 0.02 X10*3/uL (0.00-0.03); Imm Gran Pct Auto 0.4 % (0.0-0.4); Lymphocytes Absolute Auto 1.2 X10*3/uL (1.2-4.9); Mean Corpuscular HGB Conc 32.6 g/dl (31.0-35.0); Mean Corpuscular Hemoglobin 31.3 pg (27.0-33.0); Mean Corpuscular Volume 96.0 fL (80.0-98.0); NRBC Abs Auto 0.000 X10*3/uL (0.0-0.012); NRBC Pct Auto 0.0 /100WBC (0.0-0.2); Platelet Count 310 X10*3/uL (160-400); Red Blood Count 2.78 X10*6/uL (4.20-5.50); White Blood Count 4.8 X10*3/uL (4.8-10.8)
[2025-01-23 15:45] LABS: Alanine Aminotransferase 12 U/L (0-31); Albumin Level 3.5 g/dL (3.5-5.0); Alkaline Phosphatase 80 U/L (39-117); Anion Gap 10 (12-20); Aspartate Amino Transferase 20 U/L (5-31); Blood Urea Nitrogen 15 mg/dL (9-16); Calcium 9.0 mg/dL (8.4-10.2); Carbon Dioxide 23 mmol/L (22-29); Chloride 111 mmol/L (96-108); Creatinine Clr Calc Pharmacy 58.6; Estimated Glomerular Filt Rate > 60; Potassium 3.8 mmol/L (3.3-5.1); Sodium 140 mmol/L (135-145); Total Protein 7.1 g/dL (6.5-8.0)
[2025-01-23 16:00] VITALS: BP 106/66; PULSE 70; RESP 20; O2SAT 98
--- OUTSIDE RECORDS SUMMARY | 2025-01-23 17:14 | XMS_ITS | Clinical Summary ---
Author Organization [facility] Address [address] [place] [address] Care Team Providers Care Termite Inspector Name Role Phone Unavailable Primary Care Provider [...]
--- NOTE | 2025-01-23 17:44 | HO.NURTONUR ---
Pt sent in from wound clinic for chronic diabetic ulcer on R foot. Pt states it started flaring up approx 2 days ago and was put on oral abx. Here today xray shows osteo. Denies f/c/n/v or pain. Pt is independent w/ adl's including ambulation.
[2025-01-23 18:00] VITALS: BP 124/70; PULSE 110; RESP 18; O2SAT 95
--- NOTE | 2025-01-23 18:13 | PM.IMHP ---
History of Present Illness Date of Service: 01/23/25 Chief Complaint: sent from wound care for worsening right foot wounds 74F PMH chronic osteomyelitis of the right 1st toe status post IV antibiotics, schizoaffective disorder, peripheral neuropathy, hypertension sent in from Wound Care for worsening wounds on right foot. Patient states that ulcer and 4th toe has been worsening with foul odor and drainage. Denies fever or chills. In ED x-ray suspicious for osteomyelitis. Review of Systems Review of Systems: Yes all other systems are reviewed and are negative [facility] Medical History Acute osteomyelitis of right foot Osteomyelitis Right foot ulcer Essential hypertension Cyst of neck Abnormal ultrasound of neck Refusal of blood transfusions as patient is [employer] Cervical spinal stenosis Narcolepsy Ovarian cyst Schizoaffective disorder Chronic peripheral neuropathic pain Social History Household Members: [facility] Do you presently have visiting nurse or other home services: No Alcohol intake: never Patient Tobacco Use Status: Former Tobacco user Cigarettes Per Day: 4 Smoked in Last 30 Days: No Second Hand Smoke Exposure: No Use of substances other than those prescribed or required for medical reasons: No Advance Directives: Yes Advance Directives on File: Yes Advance Directives Date on File: 02/24/24 service: No Meds Allergies Allergy/AdvReac Type Severity Reaction Status Date / Time acetaminophen (From Percocet) Allergy Hallucinati Verified 01/23/25 14:50 ons oxycodone AdvReac Intermediate sleepiness Verified 01/23/25 14:50 Active Medications: Current Medications Acetaminophen (Acetaminophen 325 Mg Tablet) 650 mg PO Q6H PRN PRN Reason: Pain, Mild 1-3,fever,headache Calcium Carbonate (Calcium Carbonate 750 Mg Tab.Chew) 750 mg PO Q4H PRN PRN Reason: Heartburn Enoxaparin Sodium (Enoxaparin Sodium 40 Mg/0.4 Ml Syringe) 40 mg SUBCUT Q24H G[facility] Vancomycin HCl 1,250 mg/ (Sodium Chloride) 250 mls @ 166.667 mls/hr IV ONCE ONE Stop: 01/23/25 18:41 Last Admin: 01/23/25 17:54 Dose: 166.67 mls/hr Vancomycin HCl 1,000 mg/ (Sodium Chloride) 270 mls @ 270 mls/hr IV Q12H [facility] Magnesium Hydroxide (Milk Of Magnesia 30 Ml Oral.Susp) 30 ml PO DAILY PRN PRN Reason: Constipation Melatonin (Melatonin 3 Mg Tablet) 6 mg PO BEDTIME PRN PRN Reason: Insomnia Pharmacy Consult (Consult Rx Vancomycin Dosing) 1 each MISCELLANE DAILY PRN PRN Reason: Consult order Sodium Chloride (0.9 % Sodium Chloride Flush 3 Ml Syringe) 3 ml IVFLUSH QSHIFT [facility] Home Medications ?Medication ?Instructions ?Recorded ?Confirmed ?Last Taken ?Type trifluoperazine 5 mg tablet 5 mg PO BID 11/08/20 12/20/24 06/13/24 History trihexyphenidyl 2 mg tablet 2 mg PO DAILY 11/08/20 12/20/24 06/13/24 History albuterol sulfate 90 mcg/actuation 2 puff inhalation QID PRN wheezing 02/07/24 12/20/24 Unknown History aerosol inhaler hydrocortisone 2.5 % topical cream 1 appl topical BID PRN Itchiness 02/07/24 12/20/24 Unknown History chlorthalidone 25 mg tablet 25 mg PO DAILY 06/14/24 12/20/24 06/13/24 History ferrous sulfate 325 mg (65 mg 325 mg PO DAILY 09/01/24 12/20/24 Unknown History iron) tablet,delayed release trazodone 50 mg tablet 50 mg PO BEDTIME 12/20/24 12/20/24 Unknown History Physical Exam Vital Signs and Narrative: Vital Signs: Last Vital Signs Temp 97.5 F 01/23/25 14:48 Pulse 70 01/23/25 16:00 Resp 20 01/23/25 16:00 BP 106/66 01/23/25 16:00 Pulse Ox 98 01/23/25 16:00 O2 Del Method Room Air 01/23/25 16:00 BMI result Body Mass Index 19.3 General: AO X 3, no acute distress Resp: CTA bilateral, no accessory muscles used CVS: S1,S2,RRR GI: soft, non tender, non distended Neuro: motor grossly intact, alert Psych: appropriate affect, appropriate insight Results Labs 01/23/25 15:18 01/23/25 15:18 Labs: Laboratory Results - last 24 hr 01/23/25 01/23/25 15:18 17:28 MCV 96.0 MCH 31.3 MCHC 32.6 RDW 14.9 Plt Count 310 MPV 9.7 Immature Gran % (Auto) 0.4 Neut % (Auto) 64.1 Lymph % (Auto) 24.8 [place] % (Auto) 6.8 Eos % (Auto) 3.1 Baso % (Auto) 0.8 Lymph # (Auto) 1.2 [place] # (Auto) 0.3 Eos # (Auto) 0.2 Baso # (Auto) 0.0 Abs Immat Gran (auto) 0.02 Absolute Neuts (auto) 3.1 Absolute Nucleated RBC 0.000 Nucleated RBC % (auto) 0.0 Anion Gap 10 L Estim Creat Clear Calc 58.6 Estimated GFR > 60 Random Glucose 126 H Lactic Acid 1.9 Calcium 9.0 Total Bilirubin 0.1 Direct Bilirubin < 0.2 AST 20 ALT 12 Alkaline Phosphatase 80 C-Reactive Protein 4.43 H Total Protein 7.1 Albumin 3.5 Imaging Radiologist's Impressions: Impressions Foot X-Ray 01/23/25 15:15 IMPRESSION: Lytic lesion involving the distal phalanx of the 2nd toe with associated soft tissue swelling. Findings are suspicious for osteomyelitis. This could be compatible with MRI if indicated. Electronically signed by: Herbert Bianchi MD 01/23/2025 03:25 PM [facility] Assessment and Plan (1) Schizoaffective disorder: Status: Acute Plan 74F PMH chronic osteomyelitis of the right 1st toe status post IV antibiotics, schizoaffective disorder, peripheral neuropathy, hypertension sent in from Wound Care for worsening wounds on right foot Cellulitis and ulcerations of toes of right foot with osteomyelitis likely chronic IV vancomycin cefepime due to history of MRSA and Pseudomonas, ID eval, follow up cultures Schizoaffective disorder Continue antipsychotics Hypertension Chlorthalidone DVT prophylaxis with Lovenox Full code Given concern for osteomyelitis and need for IV antibiotics expected require at least 2 midnights inpatient Quality Stroke Does the patient have a stroke diagnosis?: No VTE Prior VTE?: No VTE Risk Level:: Medical - moderate - high VTE Device Contraindication: Treatment Not Indicated VTE Drug Contraindication: N/A - Med Ordered
--- NOTE | 2025-01-23 19:42 | PHA.MEDREC ---
Addendum entered by Federica Cedeño RPh 01/23/25 20:22: Reviewed by [facility] Original Note: Pharmacy Consult ? Medication Reconciliation Pharmacy has completed the medication reconciliation. Patient was able to confirm her medications. Patient is no longer taking Augmentin ( took her last dose today) Patient had all her medications today at 3:00am
[2025-01-23 19:51] VITALS: BP 144/83; PULSE 92; TEMP 36.5; O2SAT 98
[2025-01-24] MEDS: 0.9 % Sodium Chloride Flush 3 ML SYRINGE IVFLUSH ×3 (00:06→15:20)
--- NOTE | 2025-01-24 00:10 | PC.NURSE ---
This RN assumed pt care @ 2300. Pt a&ox4, no signs of distress. Pt denies pain at this time Pt requested and given food. Pt medicated per [facility] Plan of care ongoing.
[2025-01-24 00:42] VITALS: BP 146/78; PULSE 91; RESP 16; TEMP 36.5; O2SAT 100
[2025-01-24 02:10] VITALS: BP 133/69; PULSE 87; RESP 16; TEMP 36.3; O2SAT 99
[2025-01-24 02:16] VITALS: BMI 19.3
[2025-01-24 06:38] LABS: Hematocrit 28.4 % (37.0-47.0); Hemoglobin 9.2 g/dl (12.0-16.0); Mean Corpuscular HGB Conc 32.4 g/dl (31.0-35.0); Mean Corpuscular Hemoglobin 30.7 pg (27.0-33.0); Mean Corpuscular Volume 94.7 fL (80.0-98.0); NRBC Abs Auto 0.000 X10*3/uL (0.0-0.012); NRBC Pct Auto 0.0 /100WBC (0.0-0.2); Platelet Count 318 X10*3/uL (160-400); Red Blood Count 3.00 X10*6/uL (4.20-5.50); White Blood Count 5.1 X10*3/uL (4.8-10.8)
[2025-01-24 07:03] LABS: Anion Gap 10 (12-20); Blood Urea Nitrogen 12 mg/dL (9-16); Calcium 8.8 mg/dL (8.4-10.2); Carbon Dioxide 23 mmol/L (22-29); Chloride 112 mmol/L (96-108); Creatinine Clr Calc Pharmacy 59.4; Estimated Glomerular Filt Rate > 60; Iron 110 mcg/dL (30-160); Percent Iron Saturation 53 % (15-50); Potassium 4.1 mmol/L (3.3-5.1); Sodium 141 mmol/L (135-145); Total Iron Binding Capacity 208 mcg/dL (228-428); Unsaturated Iron Binding 98 ug/dL
[2025-01-24 08:00] VITALS: BP 126/68; PULSE 83; RESP 16; TEMP 36.7; O2SAT 99
--- NOTE | 2025-01-24 08:42 | HO.PM.IMPN ---
Subjective Subjective Date of Service: 01/24/25 Interval History: no new complaints Physical Exam Exam: Exam: right le toe ulcers and erythema Vital Signs: Vital Signs: Last Vital Signs Temp 95.8 F L 01/24/25 08:00 Pulse 83 01/24/25 08:00 Resp 16 01/24/25 08:00 BP 126/68 01/24/25 08:00 Pulse Ox 99 01/24/25 08:00 O2 Del Method Room Air 01/24/25 08:00 BMI result Body Mass Index 19.3 Objective Data Active Medications Acetaminophen (Acetaminophen 325 Mg Tablet) 650 mg PO Q6H PRN PRN Reason: Pain, Mild 1-3,fever,headache Albuterol Sulfate (Albuterol Sulfate 90 Mcg 8 Gm Inhaler) 2 puff INHALE QID PRN PRN Reason: Wheezing Calcium Carbonate (Calcium Carbonate 750 Mg Tab.Chew) 750 mg PO Q4H PRN PRN Reason: Heartburn Enoxaparin Sodium (Enoxaparin Sodium 40 Mg/0.4 Ml Syringe) 40 mg SUBCUT Q24H [facility] Ferrous Sulfate (Ferrous Sulfate 324 Mg Tablet.Dr) 324 mg PO DAILY [facility] Hydrochlorothiazide (Hydrochlorothiazide 25 Mg Tablet) 25 mg PO DAILY [facility] Cefepime HCl 2 gm/ Sodium (Chloride) 50 mls @ 100 mls/hr IV Q12H [facility] Vancomycin HCl 750 mg/ Sodium (Chloride) 265 mls @ 265 mls/hr IV Q12H [facility] Last Infusion: 01/24/25 07:33 Dose: Infused Documented By: CHELLY Magnesium Hydroxide (Milk Of Magnesia 30 Ml Oral.Susp) 30 ml PO DAILY PRN PRN Reason: Constipation Melatonin (Melatonin 3 Mg Tablet) 6 mg PO BEDTIME PRN PRN Reason: Insomnia Pharmacy Consult (Consult Rx Vancomycin Dosing) 1 each MISCELLANE DAILY PRN PRN Reason: Consult order Sodium Chloride (0.9 % Sodium Chloride Flush 3 Ml Syringe) 3 ml IVFLUSH QSHIFT [facility] Last Admin: 01/24/25 00:06 Dose: 3 ml Documented By: RANDI Trazodone HCl (Trazodone Hcl 50 Mg Tablet) 50 mg PO BEDTIME PRN PRN Reason: Sleep Trifluoperazine HCl (Trifluoperazine Hcl 5 Mg Tablet) 5 mg PO BID [facility] Trihexyphenidyl HCl (Trihexyphenidyl Hcl 2 Mg Tablet) 2 mg PO DAILY [facility] Labs 01/24/25 05:49 01/24/25 05:49 Labs: Laboratory Results - last 24 hr 01/23/25 01/23/25 01/24/25 15:18 17:28 05:49 MCV 96.0 94.7 MCH 31.3 30.7 MCHC 32.6 32.4 RDW 14.9 14.6 Plt Count 310 318 MPV 9.7 10.0 Immature Gran % (Auto) 0.4 Neut % (Auto) 64.1 Lymph % (Auto) 24.8 [place] % (Auto) 6.8 Eos % (Auto) 3.1 Baso % (Auto) 0.8 Lymph # (Auto) 1.2 [place] # (Auto) 0.3 Eos # (Auto) 0.2 Baso # (Auto) 0.0 Abs Immat Gran (auto) 0.02 Absolute Neuts (auto) 3.1 Absolute Nucleated RBC 0.000 0.000 Nucleated RBC % (auto) 0.0 0.0 ESR 96 H Anion Gap 10 L 10 L Estim Creat Clear Calc 58.6 59.4 Estimated GFR > 60 > 60 Random Glucose 126 H 64 Lactic Acid 1.9 Calcium 9.0 8.8 Iron 110 TIBC 208 L % Saturation 53 H Unsat Iron Binding 98 Total Bilirubin 0.1 Direct Bilirubin < 0.2 AST 20 ALT 12 Alkaline Phosphatase 80 C-Reactive Protein 4.43 H Total Protein 7.1 Albumin 3.5 Assessment and Plan (1) Schizoaffective disorder: Status: Acute Plan 74F PMH chronic osteomyelitis of the right 1st toe status post IV antibiotics, schizoaffective disorder, peripheral neuropathy, hypertension sent in from Wound Care for worsening wounds on right foot Cellulitis and ulcerations of toes of right foot with osteomyelitis likely chronic continue IV vancomycin cefepime due to history of MRSA and Pseudomonas, ID eval, follow up cultures Schizoaffective disorder Continue antipsychotics Hypertension Chlorthalidone DVT prophylaxis with Lovenox Full code reason for continued hospitalization:cultures, id eval Quality Stroke Does the patient have a stroke diagnosis?: No VTE Prior VTE?: No VTE Risk Level:: Medical - moderate - high VTE Device Contraindication: Treatment Not Indicated VTE Drug Contraindication: N/A - Med Ordered
[2025-01-24] MEDS: Ferrous Sulfate 324 MG TABLET.DR PO (09:35)
[2025-01-24] MEDS: cefEPime HCl/D5W 2 GM/50 ML PIGGYBACK IV (09:42)
[2025-01-24 15:15] VITALS: BP 136/65; PULSE 80; RESP 12; TEMP 36.3; O2SAT 100
[2025-01-24 19:55] VITALS: BP 157/72; PULSE 90; RESP 18; TEMP 36.1; O2SAT 96
[2025-01-24] MEDS: Bismuth Subsalicylate 262 MG TABLET PO (22:17)
[2025-01-25] MEDS: cefEPime HCl/D5W 2 GM/50 ML PIGGYBACK IV ×2 (02:32→14:36)
[2025-01-25 03:31] VITALS: BP 142/68; PULSE 91; RESP 18; TEMP 36.2; O2SAT 100
--- NOTE | 2025-01-25 05:08 | PC.NURSE ---
Late entry: Pt pulled out IV, pt stated that it was placed in wrong and her hand was swollen. Upon assessing the IV site, this RN saw no swollen to hand. This RN informed the pt that she will need an new IV site d/t IV antibiotic for foot infection. balling machine operator attempted to look for an new IV but pt became agitated and accusatory towards staff. Another RN attempted to look for an IV using the ultrasound machine, but was unsuccessful, pt refused to be poke again. Pt was educated about needing an IV so she can received her IV antibiotics, pt still refused. Pt pulled out a bottle of prescribed PO antibiotic from purse. This RN took pt's medication and placed it inside pt's bin in [facility]. This RN informed the Nursing [employer] Administrator and Hospitalist LAURA Wilson of the situation. LAURA Wilson came to bedside to talk to pt about the situation. Pt agreed to have staff look for an IV site and to take her IV antibiotics. Pt now has an new IV #22 to L hand. Pt received her GIANNI Cefepime, see mar. Will continue to monitor pt's behavior and have 2 staff at all times.
[2025-01-25 08:00] VITALS: BP 128/90; PULSE 93; RESP 16; TEMP 36.3; O2SAT 100
[2025-01-25 09:00] VITALS: BP 128/90
[2025-01-25] MEDS: Ferrous Sulfate 324 MG TABLET.DR PO (09:00)
--- NOTE | 2025-01-25 09:09 | PC.NURSE ---
States she is leaving AMA, to come lease picker patient.
--- NOTE | 2025-01-25 09:24 | PC.NURSE ---
leaving [place], refusing to sign AMA Paperwork
--- NOTE | 2025-01-25 10:11 | PC.NURSE ---
Pt states she is not leaving ama, in the room, MD notified to come speak with patient. Patient very rude to staff.
--- NOTE | 2025-01-25 10:20 | PC.NURSE ---
Addendum entered by Helena Joyce RN 01/25/25 12:58: patient now agreeable for IV placement, US guided IV placed by ONESIMO Zhang, #22 to left forearm Original Note: patient refusing to allow staff to place new IV for IV antibiotics at this time, Dr. Leone made aware
--- NOTE | 2025-01-25 10:51 | P.PNIM_ITS ---
Subjective Subjective Date of Service: 01/25/25 Interval History: no new complaints Physical Exam 2 Exam: Exam: right le toe ulcers and erythema improving Vital Signs: Vital Signs: Last Vital Signs Temp 97.3 F 01/25/25 08:00 Pulse 93 01/25/25 08:00 Resp 16 01/25/25 08:00 BP 128/90 H 01/25/25 09:00 Pulse Ox 100 01/25/25 08:00 O2 Del Method Room Air 01/25/25 08:00 BMI result Body Mass Index 19.3 Objective Data Active Medications Acetaminophen (Acetaminophen 325 Mg Tablet) 650 mg PO Q6H PRN PRN Reason: Pain, Mild 1-3,fever,headache Albuterol Sulfate (Albuterol Sulfate 90 Mcg 8 Gm Inhaler) 2 puff INHALE QID PRN PRN Reason: Wheezing Calcium Carbonate (Calcium Carbonate 750 Mg Tab.Chew) 750 mg PO Q4H PRN PRN Reason: Heartburn Enoxaparin Sodium (Enoxaparin Sodium 40 Mg/0.4 Ml Syringe) 40 mg SUBCUT Q24H [facility] Last Admin: 01/25/25 09:00 Dose: 40 mg Documented By: CHELLY Ferrous Sulfate (Ferrous Sulfate 324 Mg Tablet.Dr) 324 mg PO DAILY [facility] Last Admin: 01/25/25 09:00 Dose: 324 mg Documented By: CHELLY Hydrochlorothiazide (Hydrochlorothiazide 25 Mg Tablet) 25 mg PO DAILY [facility] Last Admin: 01/25/25 09:00 Dose: 25 mg Documented By: CHELLY Vancomycin HCl 1,000 mg/ (Sodium Chloride) 270 mls @ 270 mls/hr IV Q24H [facility] Last Admin: 01/25/25 10:27 Dose: Not Given Documented By: CHELLY Non-Admin Reason: pt refusing new IV access Cefepime HCl (Maxipime) 2 gm in 50 mls @ 100 mls/hr IV Q12H [facility] Magnesium Hydroxide (Milk Of Magnesia 30 Ml Oral.Susp) 30 ml PO DAILY PRN PRN Reason: Constipation Melatonin (Melatonin 3 Mg Tablet) 6 mg PO BEDTIME PRN PRN Reason: Insomnia Pharmacy Consult (Consult Rx Vancomycin Dosing) 1 each MISCELLANE DAILY PRN PRN Reason: Consult order Sodium Chloride (0.9 % Sodium Chloride Flush 3 Ml Syringe) 3 ml IVFLUSH QSHIFT [facility] Last Admin: 01/25/25 09:02 Dose: Not Given Documented By: CHELLY Non-Admin Reason: IV removed d/t not flushing Trazodone HCl (Trazodone Hcl 50 Mg Tablet) 50 mg PO BEDTIME PRN PRN Reason: Sleep Trifluoperazine HCl (Trifluoperazine Hcl 5 Mg Tablet) 5 mg PO BID [facility] Last Admin: 01/25/25 09:00 Dose: 5 mg Documented By: CHELLY Trihexyphenidyl HCl (Trihexyphenidyl Hcl 2 Mg Tablet) 2 mg PO DAILY [facility] Last Admin: 01/25/25 09:00 Dose: 2 mg Documented By: CHELLY Labs 01/24/25 05:49 01/24/25 05:49 Labs: Laboratory Results - last 24 hr 01/24/25 16:01 Random Vancomycin 16.4 Microbiology Microbiology Results: Microbiology 01/23/25 17:28 Blood Culture - Preliminary Blood - Venous No growth after 24 hours. 01/23/25 17:28 Blood Culture - Preliminary Blood - Venous No growth after 24 hours. Assessment and Plan (1) Schizoaffective disorder: Status: Acute Plan 74F PMH chronic osteomyelitis of the right 1st toe status post IV antibiotics, schizoaffective disorder, peripheral neuropathy, hypertension sent in from Wound Care for worsening wounds on right foot Cellulitis and ulcerations of toes of right foot with osteomyelitis likely chronic continue IV vancomycin cefepime due to history of MRSA and Pseudomonas, ID eval, follow up cultures Schizoaffective disorder Continue antipsychotics Hypertension Chlorthalidone DVT prophylaxis with Lovenox Full code reason for continued hospitalization:cultures, id eval Quality Stroke Does the patient have a stroke diagnosis?: No VTE Prior VTE?: No VTE Risk Level:: Medical - moderate - high VTE Device Contraindication: Treatment Not Indicated VTE Drug Contraindication: N/A - Med Ordered
--- NOTE | 2025-01-25 12:47 | PC.NURSE ---
Pt very difficult and lacks the mental understanding why blood work needs to be drawn. After multiple attempts to educate patient she states she will allow blood work to be done. She states You're taking all my blood and trying to kill me. See Past Psych diagnosis.
[2025-01-25 13:45] LABS: Creatinine Clr Calc Pharmacy 51.9; Estimated Glomerular Filt Rate > 60
--- NOTE | 2025-01-25 15:51 | MHC.CM.PN ---
PT REPORTS SHE LIVES WITH HER AND IS INDEPENDENT WITH CARE SHE SAYS SHE HAS A WALKER, BUT RARELY NEEDS IT HCP ON FILE PCP: [facility] DELIVERED DCP: PT ADAMANT SHE CAN DO IV ABX AT HOME IF NEEDED, HOWEVER HAS PULLED HER OWN PICC OUT AT HOME IN THE PAST AND BEEN DISCHARGED FROM [facility] DUE TO NON-COMPLIANCE PT WILL LIKELY NEED PLACEMENT IF IV ABX INDICATED TRANSPORT TBD BY DISPO
[2025-01-25 16:00] VITALS: BP 145/78; PULSE 87; RESP 19; O2SAT 100
[2025-01-25 20:00] VITALS: BP 154/72; PULSE 94; RESP 19; TEMP 36.3; O2SAT 99
[2025-01-25] MEDS: 0.9 % Sodium Chloride Flush 3 ML SYRINGE IVFLUSH (20:49)
[2025-01-26] MEDS: cefEPime HCl/D5W 2 GM/50 ML PIGGYBACK IV ×2 (03:01→15:44)
[2025-01-26 04:00] VITALS: BP 130/72; PULSE 87; RESP 18; TEMP 36.8; O2SAT 100
[2025-01-26 08:00] VITALS: BP 127/60; PULSE 88; RESP 17; TEMP 36.9; O2SAT 98
--- NOTE | 2025-01-26 08:17 | P.PNIM_ITS ---
Subjective Subjective Date of Service: 01/26/25 Interval History: no new complaints Physical Exam 2 Exam: Exam: right le toe ulcers and erythema improving Vital Signs: Vital Signs: Last Vital Signs Temp 98.5 F 01/26/25 08:00 Pulse 88 01/26/25 08:00 Resp 17 01/26/25 08:00 BP 127/60 01/26/25 08:00 Pulse Ox 98 01/26/25 08:00 O2 Del Method Room Air 01/26/25 08:00 BMI result Body Mass Index 19.3 Objective Data Active Medications Acetaminophen (Acetaminophen 325 Mg Tablet) 650 mg PO Q6H PRN PRN Reason: Pain, Mild 1-3,fever,headache Albuterol Sulfate (Albuterol Sulfate 90 Mcg 8 Gm Inhaler) 2 puff INHALE QID PRN PRN Reason: Wheezing Calcium Carbonate (Calcium Carbonate 750 Mg Tab.Chew) 750 mg PO Q4H PRN PRN Reason: Heartburn Enoxaparin Sodium (Enoxaparin Sodium 40 Mg/0.4 Ml Syringe) 40 mg SUBCUT Q24H [facility] Last Admin: 01/25/25 09:00 Dose: 40 mg Documented By: CHELLY Ferrous Sulfate (Ferrous Sulfate 324 Mg Tablet.Dr) 324 mg PO DAILY [facility] Last Admin: 01/25/25 09:00 Dose: 324 mg Documented By: CHELLY Hydrochlorothiazide (Hydrochlorothiazide 25 Mg Tablet) 25 mg PO DAILY [facility] Last Admin: 01/25/25 09:00 Dose: 25 mg Documented By: CHELLY Cefepime HCl (Maxipime) 2 gm in 50 mls @ 100 mls/hr IV Q12H [facility] Last Infusion: 01/26/25 03:32 Dose: Infused Documented By: RODNEY Vancomycin HCl 1,000 mg/ (Sodium Chloride) 270 mls @ 270 mls/hr IV Q24H [facility] Last Infusion: 01/25/25 14:10 Dose: Infused Documented By: CHELLY Magnesium Hydroxide (Milk Of Magnesia 30 Ml Oral.Susp) 30 ml PO DAILY PRN PRN Reason: Constipation Melatonin (Melatonin 3 Mg Tablet) 6 mg PO BEDTIME PRN PRN Reason: Insomnia Pharmacy Consult (Consult Rx Vancomycin Dosing) 1 each MISCELLANE DAILY PRN PRN Reason: Consult order Sodium Chloride (0.9 % Sodium Chloride Flush 3 Ml Syringe) 3 ml IVFLUSH QSHIFT [facility] Last Admin: 01/25/25 20:49 Dose: 3 ml Documented By: RODNEY Trazodone HCl (Trazodone Hcl 50 Mg Tablet) 50 mg PO BEDTIME PRN PRN Reason: Sleep Trifluoperazine HCl (Trifluoperazine Hcl 5 Mg Tablet) 5 mg PO BID [facility] Last Admin: 01/25/25 20:49 Dose: 5 mg Documented By: RODNEY Trihexyphenidyl HCl (Trihexyphenidyl Hcl 2 Mg Tablet) 2 mg PO DAILY [facility] Last Admin: 01/25/25 09:00 Dose: 2 mg Documented By: DANIELA Labs 01/24/25 05:49 01/25/25 12:58 Labs: Laboratory Results - last 24 hr 01/25/25 01/25/25 01/25/25 12:58 12:58 12:58 Estim Creat Clear Calc Cancelled 51.9 Estimated GFR Cancelled > 60 Microbiology Microbiology Results: Microbiology 01/23/25 17:28 Blood Culture - Preliminary Blood - Venous No growth after 48 hours. 01/23/25 17:28 Blood Culture - Preliminary Blood - Venous No growth after 48 hours. Assessment and Plan (1) Schizoaffective disorder: Status: Acute Plan 74F PMH chronic osteomyelitis of the right 1st toe status post IV antibiotics, schizoaffective disorder, peripheral neuropathy, hypertension sent in from Wound Care for worsening wounds on right foot Cellulitis and ulcerations of toes of right foot with osteomyelitis likely acute on chronic continue IV vancomycin cefepime due to history of MRSA and Pseudomonas, ID eval ?repeat iv course vs po, negative cultures Schizoaffective disorder Continue antipsychotics Hypertension Chlorthalidone DVT prophylaxis with Lovenox Full code reason for continued hospitalization: id eval, iv abx Quality Stroke Does the patient have a stroke diagnosis?: No VTE Prior VTE?: No VTE Risk Level:: Medical - moderate - high VTE Device Contraindication: Treatment Not Indicated VTE Drug Contraindication: N/A - Med Ordered
[2025-01-26 09:11] VITALS: BP 132/62
[2025-01-26] MEDS: Ferrous Sulfate 324 MG TABLET.DR PO (09:11)
[2025-01-26] MEDS: 0.9 % Sodium Chloride Flush 3 ML SYRINGE IVFLUSH ×3 (09:12→20:43)
[2025-01-26 12:11] LABS: Creatinine Clr Calc Pharmacy 46.7; Estimated Glomerular Filt Rate > 60
--- NOTE | 2025-01-26 13:52 | W.PM.IDCN ---
History of Present Illness Data of Consult Service Date: 01/26/25 Requesting physician: Kun Leone Primary Care Provider: Pau Us MD HPI Reason for consult: acute on chronic OM right foot She presents with worsening right foot pain for last week. She has had exacerbations of chronic infection and has last received po linezolid in August. She reports initial great toe OM but now toes 2 and 4 on right foot have duskiness and redness. She has foul odor and has neuropathy on feet She reports no fever or chills. Review of Systems Review of Systems: Yes all other systems are reviewed and are negative [facility] Past Medical History Medical History Acute osteomyelitis of right foot Osteomyelitis Right foot ulcer Essential hypertension Cyst of neck Abnormal ultrasound of neck Refusal of blood transfusions as patient is Protestant Cervical spinal stenosis Narcolepsy Ovarian cyst Schizoaffective disorder Chronic peripheral neuropathic pain Family History Family history: reviewed and not pertinent Social History Social History Household Members: Spouse Housing: Apartment Do you presently have visiting nurse or other home services: Yes Alcohol intake: never Patient Tobacco Use Status: Former Tobacco user Cigarettes Per Day: 4 Smoked in Last 30 Days: No Second Hand Smoke Exposure: No Use of substances other than those prescribed or required for medical reasons: No Currently Displaying Signs/Symptoms of Drug Intoxication Withdrawal: No Have you been hit, kicked, punched, or otherwise hurt by someone within the past year? If so, by whom?: No Do you feel safe in your current relationship?: Yes Is there a partner from a previous relationship who is making you feel unsafe now?: No Are you made to feel afraid or neglected: No Advance Directives: Yes Advance Directives on File: Yes Advance Directives Date on File: 02/24/24 Do you have a plan to hurt others: No Plan Recently lost weight without trying: No Eating poorly because of decreased appetite: No Patient : No : No Poor oral hygiene: No service: No Meds Allergies Allergy/AdvReac Type Severity Reaction Status Date / Time acetaminophen (From Percocet) Allergy Hallucinati Verified 01/23/25 14:50 ons oxycodone AdvReac Intermediate sleepiness Verified 01/23/25 14:50 Active Medications: Current Medications Acetaminophen (Acetaminophen 325 Mg Tablet) 650 mg PO Q6H PRN PRN Reason: Pain, Mild 1-3,fever,headache Albuterol Sulfate (Albuterol Sulfate 90 Mcg 8 Gm Inhaler) 2 puff INHALE QID PRN PRN Reason: Wheezing Calcium Carbonate (Calcium Carbonate 750 Mg Tab.Chew) 750 mg PO Q4H PRN PRN Reason: Heartburn Enoxaparin Sodium (Enoxaparin Sodium 40 Mg/0.4 Ml Syringe) 40 mg SUBCUT Q24H [facility] Last Admin: 01/26/25 09:11 Dose: 40 mg Ferrous Sulfate (Ferrous Sulfate 324 Mg Tablet.Dr) 324 mg PO DAILY [facility] Last Admin: 01/26/25 09:11 Dose: 324 mg Hydrochlorothiazide (Hydrochlorothiazide 25 Mg Tablet) 25 mg PO DAILY [facility] Last Admin: 01/26/25 09:11 Dose: 25 mg Cefepime HCl (Maxipime) 2 gm in 50 mls @ 100 mls/hr IV Q12H [facility] Last Infusion: 01/26/25 03:32 Dose: Infused Vancomycin HCl 1,000 mg/ (Sodium Chloride) 270 mls @ 270 mls/hr IV Q24H [facility] Last Admin: 01/26/25 13:47 Dose: 270 mls/hr Magnesium Hydroxide (Milk Of Magnesia 30 Ml Oral.Susp) 30 ml PO DAILY PRN PRN Reason: Constipation Melatonin (Melatonin 3 Mg Tablet) 6 mg PO BEDTIME PRN PRN Reason: Insomnia Pharmacy Consult (Consult Rx Vancomycin Dosing) 1 each MISCELLANE DAILY PRN PRN Reason: Consult order Sodium Chloride (0.9 % Sodium Chloride Flush 3 Ml Syringe) 3 ml IVFLUSH QSHIFT [facility] Last Admin: 01/26/25 09:12 Dose: 3 ml Trazodone HCl (Trazodone Hcl 50 Mg Tablet) 50 mg PO BEDTIME PRN PRN Reason: Sleep Trifluoperazine HCl (Trifluoperazine Hcl 5 Mg Tablet) 5 mg PO BID [facility] Last Admin: 01/26/25 09:10 Dose: 5 mg Trihexyphenidyl HCl (Trihexyphenidyl Hcl 2 Mg Tablet) 2 mg PO DAILY [facility] Last Admin: 01/26/25 09:09 Dose: 2 mg Home Medications ?Medication ?Instructions ?Recorded ?Confirmed ?Last Taken ?Type trifluoperazine 5 mg tablet 5 mg PO BID 11/08/20 01/23/25 01/23/25 History trihexyphenidyl 2 mg tablet 2 mg PO DAILY 11/08/20 01/23/25 01/23/25 History albuterol sulfate 90 mcg/actuation 2 puff inhalation QID PRN wheezing 02/07/24 01/23/25 Unknown History aerosol inhaler hydrocortisone 2.5 % topical cream 1 appl topical BID PRN Itchiness 02/07/24 01/23/25 Unknown History chlorthalidone 25 mg tablet 25 mg PO DAILY 06/14/24 01/23/25 01/23/25 History ferrous sulfate 325 mg (65 mg 325 mg PO DAILY 09/01/24 01/23/25 01/23/25 History iron) tablet,delayed release trazodone 50 mg tablet 50 mg PO BEDTIME PRN Sleep 12/20/24 01/23/25 Unknown History Physical Exam Vital Signs: Vital Signs: Last Vital Signs Temp 98.5 F 01/26/25 08:00 Pulse 88 01/26/25 08:00 Resp 17 01/26/25 08:00 BP 132/62 01/26/25 09:11 Pulse Ox 98 01/26/25 08:00 O2 Del Method Room Air 01/26/25 08:00 BMI result Body Mass Index 19.3 Extrem: Other: left second and fourth toe dusky hue neuropathy Results Labs 01/24/25 05:49 01/26/25 11:45 Labs: BMP 01/26/25 11:45 Creatinine 0.89 Microbiology Microbiology Results: Microbiology 01/23/25 17:28 Blood - Venous Blood Culture - Preliminary No growth after 48 hours. 01/23/25 17:28 Blood - Venous Blood Culture - Preliminary No growth after 48 hours. Assessment and Plan (1) Wound, open, foot: Qualifiers: Encounter type: initial encounter Laterality: right Qualified Code(s): S91.301A - Unspecified open wound, right foot, initial encounter Status: Acute (2) Osteomyelitis: Qualifiers: Laterality: right Osteomyelitis location: foot Osteomyelitis type: unspecified type Qualified Code(s): M86.9 - Osteomyelitis, unspecified Status: Acute (3) Septic arthritis: Status: Acute Plan She has acute exacerbation of chronic OM. Alma has Group G strep and MRSA from wound. I doubt patient would respond to po antibiotics with necrosis and gangrene. Would conintue Vancomycin and Cefepime for now but as outpatient recommend IV Daptomycin for six weeks with weekly CBC and creatinine and ck Follow Vascular
[2025-01-26 15:06] VITALS: BP 126/66; PULSE 83; RESP 18; TEMP 36.1; O2SAT 100
--- NOTE | 2025-01-26 16:09 | MHC.CM.PN ---
EMR REVIEWED AND PER MD ROUNDS, PT WILL NEED 6 WEEKS IV ABT FOR OM. REFERRAL SENT TO [facility], [place]. PT IS REFUSING STR AND IS WILLING TO COMPLY WITH HER HOME INFUSION RX. PT GIVES CM PERMISSION TO SPEAK WITH HER DAUGHTER JOHNY. CM WILL CONTINUE TO FOLLOW AND AWAIT ACCEPTANCE BY [facility].
[2025-01-26 19:27] VITALS: BP 111/57; PULSE 96; RESP 18; TEMP 36.4; O2SAT 99
[2025-01-27 00:45] VITALS: RESP 18
[2025-01-27] MEDS: cefEPime HCl/D5W 2 GM/50 ML PIGGYBACK IV (02:56)
[2025-01-27 03:05] VITALS: BP 110/54; PULSE 85; RESP 16; TEMP 36.8; O2SAT 98
--- NOTE | 2025-01-27 07:15 | PC.NURSE ---
Patient crying,yelling at RN wants to see a doctor refusing to talk to staff,Dr. abel notified,will be in to see patient ,patient notified
[2025-01-27] MEDS: 0.9 % Sodium Chloride Flush 3 ML SYRINGE IVFLUSH (07:26)
[2025-01-27 07:27] VITALS: BP 127/67
[2025-01-27] MEDS: Ferrous Sulfate 324 MG TABLET.DR PO (07:27)
[2025-01-27 07:30] VITALS: BP 127/67; PULSE 90; RESP 20; TEMP 36.3; O2SAT 98
--- NOTE | 2025-01-27 07:31 | PC.NURSE ---
Patient refused Lovenox,risks explained,encouraged activity
--- NOTE | 2025-01-27 09:33 | HO.PM.IMPN ---
Subjective Subjective Date of Service: 01/27/25 Interval History: no new complaints Physical Exam Vital Signs: Vital Signs: Last Vital Signs Temp 97.4 F 01/27/25 07:30 Pulse 90 01/27/25 07:30 Resp 20 01/27/25 07:30 BP 127/67 01/27/25 07:30 Pulse Ox 98 01/27/25 07:30 O2 Del Method Room Air 01/27/25 07:30 BMI result Body Mass Index 19.3 Extrem: Other: left second and fourth toe dusky hue neuropathy Objective Data Active Medications Acetaminophen (Acetaminophen 325 Mg Tablet) 650 mg PO Q6H PRN PRN Reason: Pain, Mild 1-3,fever,headache Last Admin: 01/26/25 23:44 Dose: 650 mg Documented By: RODNEY Albuterol Sulfate (Albuterol Sulfate 90 Mcg 8 Gm Inhaler) 2 puff INHALE QID PRN PRN Reason: Wheezing Calcium Carbonate (Calcium Carbonate 750 Mg Tab.Chew) 750 mg PO Q4H PRN PRN Reason: Heartburn Last Admin: 01/26/25 19:31 Dose: 750 mg Documented By: RODNEY Enoxaparin Sodium (Enoxaparin Sodium 40 Mg/0.4 Ml Syringe) 40 mg SUBCUT Q24H [facility] Last Admin: 01/27/25 07:31 Dose: Not Given Documented By: WENDY Non-Admin Reason: Patient Refused Ferrous Sulfate (Ferrous Sulfate 324 Mg Tablet.) 324 mg PO DAILY [facility] Last Admin: 01/27/25 07:27 Dose: 324 mg Documented By: WENDY Hydrochlorothiazide (Hydrochlorothiazide 25 Mg Tablet) 25 mg PO DAILY [facility] Last Admin: 01/27/25 07:27 Dose: 25 mg Documented By: WENDY Cefepime HCl (Maxipime) 2 gm in 50 mls @ 100 mls/hr IV Q12H [facility] Last Infusion: 01/27/25 03:26 Dose: Infused Documented By: RODNEY Vancomycin HCl 1,000 mg/ (Sodium Chloride) 270 mls @ 270 mls/hr IV Q24H [facility] Last Infusion: 01/26/25 15:40 Dose: Infused Documented By: WENDY Magnesium Hydroxide (Milk Of Magnesia 30 Ml Oral.Susp) 30 ml PO DAILY PRN PRN Reason: Constipation Melatonin (Melatonin 3 Mg Tablet) 6 mg PO BEDTIME PRN PRN Reason: Insomnia Pharmacy Consult (Consult Rx Vancomycin Dosing) 1 each MISCELLANE DAILY PRN PRN Reason: Consult order Sodium Chloride (0.9 % Sodium Chloride Flush 3 Ml Syringe) 3 ml IVFLUSH QSHIFT [facility] Last Admin: 01/27/25 07:26 Dose: 3 ml Documented By: WENDY Trazodone HCl (Trazodone Hcl 50 Mg Tablet) 50 mg PO BEDTIME PRN PRN Reason: Sleep Trifluoperazine HCl (Trifluoperazine Hcl 5 Mg Tablet) 5 mg PO BID [facility] Last Admin: 01/27/25 07:28 Dose: 5 mg Documented By: WENDY Trihexyphenidyl HCl (Trihexyphenidyl Hcl 2 Mg Tablet) 2 mg PO DAILY [facility] Last Admin: 01/27/25 07:28 Dose: 2 mg Documented By: WENDY Labs 01/24/25 05:49 01/26/25 11:45 Labs: Laboratory Results - last 24 hr 01/26/25 11:45 Estim Creat Clear Calc 46.7 Estimated GFR > 60 Random Vancomycin 12.1 L Assessment and Plan (1) Schizoaffective disorder: Status: Acute Plan 74F PMH chronic osteomyelitis of the right 1st toe status post IV antibiotics, schizoaffective disorder, peripheral neuropathy, hypertension sent in from Wound Care for worsening wounds on right foot Cellulitis and ulcerations of toes of right foot with osteomyelitis likely acute on chronic continue IV vancomycin cefepime due to history of MRSA and Pseudomonas, ID appreciated - plan for 6 weeks iv dapto 02/05/25 vascular eval Schizoaffective disorder Continue antipsychotics Hypertension Chlorthalidone DVT prophylaxis with Lovenox Full code reason for continued hospitalization:iv abx Quality Stroke Does the patient have a stroke diagnosis?: No VTE Prior VTE?: No VTE Risk Level:: Medical - moderate - high VTE Device Contraindication: Treatment Not Indicated VTE Drug Contraindication: N/A - Med Ordered
--- NOTE | 2025-01-27 10:13 | PM.DS ---
DS: Providers Provider Date of Service: 01/27/25 Date of admission: 01/23/25 18:11 Date of discharge: 01/27/25 Primary care physician: Pau Us MD Consults: 01/23/25 18:10 Consult to Infectious Diseases Routine Consulting Provider: [facility] Reason for consultation: chronic OM with active drainage/cellulitis 01/24/25 04:41 Consult to Wound Care Routine Consulting Provider: [facility] Wound Care Management Reason for consultation: cellulitis and ulcerations of 2nd and 4th toes of right foot 01/26/25 14:13 Consult to Vascular Surgery Routine Consulting Provider: [facility] Vascular Services Reason for consultation: OM, ulcer DS: Diagnosis Discharge Diagnosis (1) Schizoaffective disorder: Status: Acute DS: Summary Hospital Course Hospital Course: from initial hpi: 74F PMH chronic osteomyelitis of the right 1st toe status post IV antibiotics, schizoaffective disorder, peripheral neuropathy, hypertension sent in from Wound Care for worsening wounds on right foot. Patient states that ulcer and 4th toe has been worsening with foul odor and drainage. Denies fever or chills. In ED x-ray suspicious for osteomyelitis. hospital course: Patient was admitted to cellulitis and ulceration of toes of the right foot with acute on chronic osteomyelitis. She was treated with IV vancomycin cefepime with improvement. Was seen by infectious disease who recommended 6 weeks of IV daptomycin to be completed 03/07/2025 via PICC line at home. For schizoaffective disorder was continued on antipsychotics. For hypertension continued on chlorthalidone. Time Attestation Discharge Coordination Time (in mins): 33 Quality: Safe Use of Opioids Does Pt have an Active Cancer Diagnosis on the Problem List?: No Quality: Stroke Does the patient have a stroke diagnosis?: No Physical Exam Vital Signs: Vital Signs: Last Vital Signs Temp 97.4 F 01/27/25 07:30 Pulse 90 01/27/25 07:30 Resp 20 01/27/25 07:30 BP 127/67 01/27/25 07:30 Pulse Ox 98 01/27/25 07:30 O2 Del Method Room Air 01/27/25 07:30 BMI result Body Mass Index 19.3 Extrem: Other: left second and fourth toe dusky hue neuropathy DS: Data Data Completed and Pending Completed studies during hospitalization [Text1]: Procedures Insertion of Infusion Device into Superior Vena Cava, Percutaneous Approach (02/24/24) Ultrasonography of Superior Vena Cava, Guidance (02/24/24) Labs on day of discharge: Laboratory Results - last 24 hr 01/26/25 11:45 Creatinine 0.89 Estim Creat Clear Calc 46.7 Estimated GFR > 60 Random Vancomycin 12.1 L Preliminary micro results at discharge 01/23/25 17:28 Blood Culture - Preliminary Blood - Venous No growth after 48 hours. 01/23/25 17:28 Blood Culture - Preliminary Blood - Venous No growth after 48 hours. Discharge Plan Discharge Anticipated Discharge Date/Time: 01/27/25 10:11 Patient Disposition: Home Health Service Discharge Diagnosis: OM Referrals: Pau Us MD [Primary Care Provider, Internal Medicine] - 1 Week Discharge Medications: New daptomycin 350 mg recon soln 316 mg IV Q24H 42 Days Rx Instructions: administer over 30 mins Continued hydrocortisone 2.5 % cream 1 appl topical BID PRN (Reason: Itchiness) albuterol sulfate 90 mcg/actuation HFA aerosol inhaler 2 puff inhalation QID PRN (Reason: wheezing) chlorthalidone 25 mg tablet 25 mg PO DAILY ferrous sulfate 325 mg (65 mg iron) tablet,delayed release (DR/EC) 325 mg PO DAILY trazodone 50 mg tablet 50 mg PO BEDTIME PRN (Reason: Sleep) trifluoperazine 5 mg tablet 5 mg PO BID trihexyphenidyl 2 mg tablet 2 mg PO DAILY Rx Instructions: give with food (meal/snack) Diet: Advance to usual diet Activity on Discharge: As tolerated Stand Alone Forms: Patient Portal Discharge page Print Language: Sri [place]an Care Plan Goals: Recovery Health Concerns: Osteomyelitis Plan of Treatment: Six weeks of IV daptomycin monitoring CBC and CPK weekly, end date is 03/07/2025, follow up with vascular and Infectious Disease Assessment: See above
--- NOTE | 2025-01-27 10:53 | PM.CNGS ---
History of Present Illness Consult details Consult date: 01/27/25 Reason for consult: wound care Narrative: 74-year-old female who was originally admitted on 01/23/2025 with chronic right 1st toe ulcer. She has a history of a schizoaffective disorder. She has an ulcer on the 4th toe which has been concerning to her as well. She has been treated with IV antibiotic therapy in the hospital and is now for vascular evaluation. Of note she did have noninvasive arterial testing on 12/21/2024. Review of Systems Review of Systems: Yes all other systems are reviewed and are negative Constitutional: Constitutional: Reports no additional constitutional complaints ENT: Reports Normal hearing present Cardiovascular: Cardiovascular: Denies chest pain, Denies chest pain at rest, Denies chest pain with activity and Denies pedal edema Respiratory: Respiratory: Denies cough Gastrointestinal: Gastrointestinal: Denies abdominal pain Musculoskeletal: Musculoskeletal: Denies abnormal gait, Denies muscle cramps and Denies radiating pain into limb Integumentary/Breasts: Skin/Breast: Denies skin ulcer and Denies wounds Neurologic: Reports Normal hearing present and Denies abnormal gait Psychiatric: Psychiatric: Reports no additional psychiatric complaints [facility] Past Medical History Medical History Acute osteomyelitis of right foot Osteomyelitis Right foot ulcer Essential hypertension Cyst of neck Abnormal ultrasound of neck Refusal of blood transfusions as patient is Alevism Cervical spinal stenosis Narcolepsy Ovarian cyst Schizoaffective disorder Chronic peripheral neuropathic pain Family History Family history: reviewed and not pertinent Social History Social History Household Members: Spouse Housing: Apartment Do you presently have visiting nurse or other home services: Yes Alcohol intake: never Patient Tobacco Use Status: Former Tobacco user Cigarettes Per Day: 4 Smoked in Last 30 Days: No Second Hand Smoke Exposure: No Use of substances other than those prescribed or required for medical reasons: No Currently Displaying Signs/Symptoms of Drug Intoxication Withdrawal: No Have you been hit, kicked, punched, or otherwise hurt by someone within the past year? If so, by whom?: No Do you feel safe in your current relationship?: Yes Is there a partner from a previous relationship who is making you feel unsafe now?: No Are you made to feel afraid or neglected: No Advance Directives: Yes Advance Directives on File: Yes Advance Directives Date on File: 02/24/24 Do you have a plan to hurt others: No Plan Recently lost weight without trying: No Eating poorly because of decreased appetite: No Patient : No : No Poor oral hygiene: No service: No Meds Allergies Allergy/AdvReac Type Severity Reaction Status Date / Time acetaminophen (From Percocet) Allergy Hallucinati Verified 01/23/25 14:50 ons oxycodone AdvReac Intermediate sleepiness Verified 01/23/25 14:50 Active Medications: Current Medications Acetaminophen (Acetaminophen 325 Mg Tablet) 650 mg PO Q6H PRN PRN Reason: Pain, Mild 1-3,fever,headache Last Admin: 01/26/25 23:44 Dose: 650 mg Albuterol Sulfate (Albuterol Sulfate 90 Mcg 8 Gm Inhaler) 2 puff INHALE QID PRN PRN Reason: Wheezing Calcium Carbonate (Calcium Carbonate 750 Mg Tab.Chew) 750 mg PO Q4H PRN PRN Reason: Heartburn Last Admin: 01/26/25 19:31 Dose: 750 mg Enoxaparin Sodium (Enoxaparin Sodium 40 Mg/0.4 Ml Syringe) 40 mg SUBCUT Q24H [facility] Last Admin: 01/27/25 07:31 Dose: Not Given Ferrous Sulfate (Ferrous Sulfate 324 Mg Tablet.Dr) 324 mg PO DAILY [facility] Last Admin: 01/27/25 07:27 Dose: 324 mg Hydrochlorothiazide (Hydrochlorothiazide 25 Mg Tablet) 25 mg PO DAILY [facility] Last Admin: 01/27/25 07:27 Dose: 25 mg Cefepime HCl (Maxipime) 2 gm in 50 mls @ 100 mls/hr IV Q12H [facility] Last Infusion: 01/27/25 03:26 Dose: Infused Vancomycin HCl 1,000 mg/ (Sodium Chloride) 270 mls @ 270 mls/hr IV Q24H [facility] Last Infusion: 01/26/25 15:40 Dose: Infused Magnesium Hydroxide (Milk Of Magnesia 30 Ml Oral.Susp) 30 ml PO DAILY PRN PRN Reason: Constipation Melatonin (Melatonin 3 Mg Tablet) 6 mg PO BEDTIME PRN PRN Reason: Insomnia Pharmacy Consult (Consult Rx Vancomycin Dosing) 1 each MISCELLANE DAILY PRN PRN Reason: Consult order Sodium Chloride (0.9 % Sodium Chloride Flush 3 Ml Syringe) 3 ml IVFLUSH QSHIFT [facility] Last Admin: 01/27/25 07:26 Dose: 3 ml Trazodone HCl (Trazodone Hcl 50 Mg Tablet) 50 mg PO BEDTIME PRN PRN Reason: Sleep Trifluoperazine HCl (Trifluoperazine Hcl 5 Mg Tablet) 5 mg PO BID [facility] Last Admin: 01/27/25 07:28 Dose: 5 mg Trihexyphenidyl HCl (Trihexyphenidyl Hcl 2 Mg Tablet) 2 mg PO DAILY [facility] Last Admin: 01/27/25 07:28 Dose: 2 mg Home Medications ?Medication ?Instructions ?Recorded ?Confirmed ?Last Taken ?Type trifluoperazine 5 mg tablet 5 mg PO BID 11/08/20 01/23/25 01/23/25 History trihexyphenidyl 2 mg tablet 2 mg PO DAILY 11/08/20 01/23/25 01/23/25 History albuterol sulfate 90 mcg/actuation 2 puff inhalation QID PRN wheezing 02/07/24 01/23/25 Unknown History aerosol inhaler hydrocortisone 2.5 % topical cream 1 appl topical BID PRN Itchiness 02/07/24 01/23/25 Unknown History chlorthalidone 25 mg tablet 25 mg PO DAILY 06/14/24 01/23/25 01/23/25 History ferrous sulfate 325 mg (65 mg 325 mg PO DAILY 09/01/24 01/23/25 01/23/25 History iron) tablet,delayed release trazodone 50 mg tablet 50 mg PO BEDTIME PRN Sleep 12/20/24 01/23/25 Unknown History Physical Exam Vital Signs: Vital Signs: Last Vital Signs Temp 97.4 F 01/27/25 07:30 Pulse 90 01/27/25 07:30 Resp 20 01/27/25 07:30 BP 127/67 01/27/25 07:30 Pulse Ox 98 01/27/25 07:30 O2 Del Method Room Air 01/27/25 07:30 BMI result Body Mass Index 19.3 Const: General: cooperative, healthy appearing and comfortable Orientation/consciousness: oriented to person, oriented to place and oriented to time HEENT: Head: Yes normal to inspection Neck: Neck: Yes normal visual inspection Carotids: no bruits Chest: Chest palpation & inspection: normal inspection of the chest Resp: Effort & Inspection: normal respiratory effort and able to speak in complete sentences Auscultation: clear to auscultation bilaterally, no crackles, no rales, no rhonchi and no wheezes Cardio: Rate: regular rate Rhythm: regular rhythm Heart sounds: S1 normal heart sound present and S2 normal heart sound present Bruits: no carotid bruits Peripheral pulses: Peripheral pulses 2+ throughout GI: Inspection: Yes normal to inspection Skin: Other: Nonhealing ulcer right foot great toe and 3rd toe. Actually does have a palpable dorsalis pedis pulse. Wounds: no wounds Hair: normal Neuro: General: oriented to person, oriented to place and oriented to time Cranial nerves: Yes CN's II-XII intact bilaterally and Yes Normal hearing present Cognition (Neuro): normal cognition Motor exam (neuro): 5/5 motor strength present throughout Extrem: Other: venous exam: No significant superficial varicosities or spider telangiectasias, minimal edema General: No clubbing, No cyanosis and No edema Psych: Appearance: grossly normal Mental Status: mental status grossly normal Speech and movement: Normal speech and movement present Results Labs 01/24/25 05:49 01/26/25 11:45 Labs: Abnormal lab results 01/26/25 Range/Units 11:45 Random Vancomycin 12.1 L (15-20) mcg/mL BMP 01/26/25 11:45 Creatinine 0.89 All other labs normal. Assessment and Plan (1) Osteomyelitis: Qualifiers: Laterality: right Osteomyelitis location: foot Osteomyelitis type: unspecified type Qualified Code(s): M86.9 - Osteomyelitis, unspecified Status: Acute Plan Patient has chronic osteomyelitis of the right lower extremity. She has had previous IV antibiotic therapy. I did discuss the option of possible amputation which she was quite resistant to. She is going to go for outpatient IV daptomycin therapy for 6 weeks. She can see us as an outpatient and proximally 2 weeks after discharge. Thank you for allowing us to assist in her care. If there are any questions or concerns please do not hesitate to contact us. Procedures Date of Service Date of Service: 01/27/25
--- NOTE | 2025-01-27 11:17 | P.CDIM_ITS ---
PROVIDER RESPONSE TEXT: To clarify, the appropriate diagnosis supported by the clinical indicators: Ulceration of toes: skin QUERY TEXT: PHYSICIAN'S DOCUMENTATION REQUEST Date of Query: 01/27/2025 10:56 AM EST Patient Name: JERSON GARCIA Admit Date: 01/23/2025 Dear Kun Leone MD, A review of the medical record indicates additional documentation may be needed. Please review below and update the documentation accordingly. Clinical Indicators: Progress note 01/26/25: Cellulitis and ulcerations of toes of right foot with osteomyelitis likely acute on chronic. Continue IV Vancomycin, Cefepime. ID 01/26/25 - Acute on chronic OM of right foot. I doubt patient would respond to po antibiotics with necrosis and gangrene. Initial great toe OM but now toes 2 and 4 on right foot duskiness and redness. Foul odor and has neuropathy on feet. IV Daptomycin for six weeks. Based on the above, could you please provide further information regarding the type of ulcerations (toes of right foot). Ulceration of toes skin, gangrenous, varicose, pressure etc. Other specified Please specify type of ulceration Other (explain) Clinically unable to determine (explain) Thank you, Vandana Cotton, CCS, CDIS Use of terms such as suspected, likely, concern for, or probable (associated with a specific diagnosis that is being evaluated, monitored, or treated as if it exists) are acceptable and can be coded in the inpatient setting, when documented at the time of discharge. Please use your independent medical judgment in providing your response. THIS QUERY IS PART OF THE PERMANENT MEDICAL RECORD
[2025-01-27 13:01] LABS: Creatinine Clr Calc Pharmacy 46.2; Estimated Glomerular Filt Rate > 60
--- NOTE | 2025-01-27 13:11 | HE.PHANOTE ---
Re Vanco random level back at 13.1, renal okay for now. True Trough projected is 14.7 and AUC is 513 mg/L*hr. Will continue same regimen and recheck on 01/30/25 at 1200 as long as renal stays the same.
--- NOTE | 2025-01-27 13:57 | HO.WOUND ---
Wound Consult: Initial 74yr old? female admitted to [facility] on 01/23/25 - See progress notes and H&P for detailed history.? Wound consult placed for Right Toes.? Patient agreeable to assessment and photo documentation.? However upon entering patients room she began to cry and was upset that everyone is trying to take my blood . I assured the patient I was from wound care and not phlebotomy - she continued to [place] back to the lab draws and how she was tired of all the tests they were trying to do. I attempted to direct her attention to her toes. She continued express her frustration. I was not able to obtain a new photo fro todays assessment however with the last photo review they appear to be improving slightly. I recommend she have outpt wound clinic follow up at the time of d/c - she is agreeable to this. Her at the bedside participated in this consultation. He was educated on how to perform the dressing - he noted understanding. The patient and his report their daughter will be performing the dressing changes. They report she is familar and comfortable with that care. Patient is agreeable to follow up out patient wound clinic. Right Anterior Toes on admission 01/23/25 Right Posterior Toes on admission 01/23/25 Etiology: ?Arterial / Neuropathic wounds - ?Present on Admission Measurements: see charting for detailed measurements Wound Bed: 4th toe pink moist wound bed 2nd toe with red moist wound bed and yellow adherent slough Drainage / Odor: serosang drainage ntoed on dressing Edges: ? unattached irregular Karyn wound: swelling and hyperpigmentaiton noted - No Induration, Fluctuance or Warmth noted Pain: denies reports neuropathy Goals of Treatment: ? Iodoflex for bio film and antibacterial treatment follow up outpt wound clinic Recommendations: 1. Turn and Reposition every 2 hours and as needed for patient comfort.? Use pillows or wedges to support off loading positions. 2. Off Load all bony prominences with use of pillows and heel boots if needed.? Apply Preventative foams where needed. ? 3. Monitor for incontinence and moisture control, use barrier creams when needed for prevention and treatment. 4. Provide adequate and supplemental nutrition.? 5. Order or Continue low air loss mattress. 6. When applicable maintain blood glucose levels per Providers order. Right Toes - Cleanse with saline, pat dry. ?Apply Iodosorb / Iodoflex to wound bed cover with gauze and tape. ?Change every other day.?? Iodoflex left at bedside. Note the Iodoflex will be applied brown and over the course of time as the Iodine is absorbed into the wound bed the color will change to yellow / cream signifying time to replace.?? Iodoflex can be obtained from Wound Care Nurse / Office this is not stocked on the units. At time of discharge patient should switch to Durafiber to the wound bed and change every other day as well. Re-consult wound care Nurse for wound deterioration or wound changes.
[2025-01-27 15:13] VITALS: BP 177/80; PULSE 91; RESP 17; TEMP 35.8; O2SAT 100
--- NOTE | 2025-01-27 15:15 | PC.NURSE ---
Family member came out to nurses station stating that IV is leaking, it needs to come out . Primary RN Teresa not available, this nurse went into room to assist. Upon entering room IV site was swollen, Vancomycin was infusing. Infusion stopped, draw back on IV to remove any further medication, IV removed with catheter tip intact. Primary RN informed of situation. Reached out to pharmacist, Thanh
--- NOTE | 2025-01-27 15:19 | PC.NURSE ---
Family member came out to nurses station stating that IV is leaking, it needs to come out . Primary RN Teresa not available, this nurse went into room to assist. Upon entering room IV site was swollen, Vancomycin was infusing. Infusion stopped, draw back on IV to remove any further medication, IV removed with catheter tip intact. Primary RN informed of situation. Reached out to pharmacist, Thanh, asked if hyaluronidase was needed, he reported it is usually up to the provider. Provider Sulema notified via Omnid[employer] regarding IV infiltrate, questioned if hyaluranidase or cold compress is warranted at this time, provider noted just compress is fine . Area outlined, cold compress applied to area and limb elevated, limb normal temperature, positive radial pulse and CMS. Patient refusing new IV placement at this time, provider Sulema notified and primary RN updated.
--- NOTE | 2025-01-27 15:38 | PC.NURSE ---
Patient refused to have new IV inserted,unable to administer Cefepime,Vancomycin infused only partially,Dr. Leone notified
--- NOTE | 2025-01-27 15:42 | PC.NURSE ---
patient went down to Radiology for PICC line insertion but refused procedure ,Dr. Leone notified
[2025-01-27 20:00] VITALS: BP 95/55; RESP 19; TEMP 36; O2SAT 100
--- NOTE | 2025-01-27 20:08 | PM.EVENT ---
Event Note Date of Service: 01/27/25 Event Note: pt lost IV access earlier in the day and has been refusing to have another placed. saw pt bedside and reviewed plan and need for IV access. she is reluctant but agreeable at this time. Time Spent With Patient Time: Total time managing care of this patient today ____ minutes.
--- NOTE | 2025-01-27 21:45 | PC.NURSE ---
Addendum entered by Nasreen Ayala RN 01/28/25 03:26: RN attempted IV access via ultrasound guidance. Patient refused. She was educated on importance of IV antibiotic with no effect. Addendum entered by Nasreen Ayala RN 01/28/25 02:42: This RN attempted to gain IV access x 2. Charge nurse also attempted x 1 before patient declined any further attempts. Patient was asked about trying via ultrasound guided access. Attempting to reach nurse on other unit to attempt. Provider notified. Original Note: Upon initial assessment, this RN educated patient that she would need another IV to continue IV abx. Patient refused. Provider second hand notified. E.R came to bedside to speak with patient. Patient agreed to have IV placed. This RN went in and began to place IV. While advancing needle, patient jerked hand away, stating I changed my mind, I don't want it, just give me pills. IV access not obtained. Will continue to try throughout night.
[2025-01-28 03:39] VITALS: BP 117/58; PULSE 98; RESP 18; TEMP 36.8; O2SAT 100
[2025-01-28 07:50] VITALS: BP 116/60; PULSE 91; RESP 20; TEMP 36.7; O2SAT 100
[2025-01-28] MEDS: Ferrous Sulfate 324 MG TABLET.DR PO (08:08)
--- NOTE | 2025-01-28 14:25 | PM.DS ---
DS: Providers Provider Date of Service: 01/28/25 Date of admission: 01/23/25 18:11 Date of discharge: 01/28/25 Primary care physician: Pau Us MD Consults: 01/23/25 18:10 Consult to Infectious Diseases Routine Consulting Provider: [facility] Infectious Disease [facility] Reason for consultation: chronic OM with active drainage/cellulitis 01/24/25 04:41 Consult to Wound Care Routine Consulting Provider: [facility] Wound Care Management Reason for consultation: cellulitis and ulcerations of 2nd and 4th toes of right foot 01/26/25 14:13 Consult to Vascular Surgery Routine Consulting Provider: [facility] Vascular Services Reason for consultation: OM, ulcer Attending physician on discharge: Odalis Harper Discharging clinician: Odalis Harper DS: Diagnosis Discharge Diagnosis (1) Osteomyelitis: Status: Acute DS: Summary Hospital Course Hospital Course: from initial hpi: 74F PMH chronic osteomyelitis of the right 1st toe status post IV antibiotics, schizoaffective disorder, peripheral neuropathy, hypertension sent in from Wound Care for worsening wounds on right foot. Patient states that ulcer and 4th toe has been worsening with foul odor and drainage. Denies fever or chills. In ED x-ray suspicious for osteomyelitis. hospital course: Patient was admitted to cellulitis and ulceration of toes of the right foot with acute on chronic osteomyelitis. She was treated with IV vancomycin cefepime with improvement. Was seen by infectious disease who recommended 6 weeks of IV daptomycin to be completed 03/07/2025 via PICC line at home. For schizoaffective disorder was continued on antipsychotics. For hypertension continued on chlorthalidone. Vascular also saw the patient recommended to follow up out patiently in 2 weeks. Plan: Daptomycin as prescribed for 6 weeks-end date 03/07/2025 . Monitor CBC , CPK outpatient. Follow up with PCP and vascular outpatient Above management discussed with the patient detail length she understand and in agreement with the above plan, time spent 45 minute. All questions answered. Time Attestation Total time managing care of this patient today: 45 mintues. Discharge Coordination Time (in mins): 45 min Quality: Safe Use of Opioids Does Pt have an Active Cancer Diagnosis on the Problem List?: No Quality: Stroke Does the patient have a stroke diagnosis?: No Physical Exam Exam: Exam: Appearance: Alert.? Oriented X3. cvs: rrr, [id number] . res: clear to auscultation ,no rhonchii or wheezing abd: no rebound or guarding ,nt, bs present. ext pulses present , no cyanosis. skin:Nonhealing ulcer right foot great toe and 3rd toe. Actually does have a palpable dorsalis pedis pulse. neuro: axo3 , nonfocal. Vital Signs: Vital Signs: Last Vital Signs Temp 98.0 F 01/28/25 07:50 Pulse 91 01/28/25 07:50 Resp 20 01/28/25 07:50 BP 116/60 01/28/25 07:50 Pulse Ox 100 01/28/25 07:50 O2 Del Method Room Air 01/28/25 07:50 BMI result Body Mass Index 19.3 DS: Data Data Completed and Pending Completed studies during hospitalization [Text1]: Procedures Insertion of Infusion Device into Superior Vena Cava, Percutaneous Approach (02/24/24) Ultrasonography of Superior Vena Cava, Guidance (02/24/24) Labs on day of discharge: Preliminary micro results at discharge 01/23/25 17:28 Blood Culture - Preliminary Blood - Venous No growth after 48 hours. 01/23/25 17:28 Blood Culture - Preliminary Blood - Venous No growth after 48 hours. Imaging Chest x-ray: Radiologist's impression: ITS Impressions Foot X-Ray 01/23/25 15:15 IMPRESSION: Lytic lesion involving the distal phalanx of the 2nd toe with associated soft tissue swelling. Findings are suspicious for osteomyelitis. Discharge Plan Discharge Anticipated Discharge Date/Time: 01/27/25 10:11 Patient Disposition: Home Health Service Discharge Diagnosis: OM Referrals: [facility] [Other] - 1 Week Referral Note: [facility] will deliver your IV antibiotics [facility] [Outside] - 1 Day Referral Note: [facility] will provide nursing services and call you to schedule Yue Cuellar MD [Physician, Medical] - 1 Week Pau Us MD [Primary Care Provider, Internal Medicine] - 1 Week Austyn Mackay MD [Physician, Vascular Surgery] - 2 Weeks Bernardo Alonzo MD [Physician, Wound Care] - 1 Week Discharge Medications: New daptomycin 500 mg recon soln 500 mg IV Q24H Rx Instructions: administer over 30 mins. Daptomycin(as prescribed above) daily for 6 weeks Continued hydrocortisone 2.5 % cream 1 appl topical BID PRN (Reason: Itchiness) albuterol sulfate 90 mcg/actuation HFA aerosol inhaler 2 puff inhalation QID PRN (Reason: wheezing) chlorthalidone 25 mg tablet 25 mg PO DAILY ferrous sulfate 325 mg (65 mg iron) tablet,delayed release (DR/EC) 325 mg PO DAILY trazodone 50 mg tablet 50 mg PO BEDTIME PRN (Reason: Sleep) trifluoperazine 5 mg tablet 5 mg PO BID trihexyphenidyl 2 mg tablet 2 mg PO DAILY Rx Instructions: give with food (meal/snack) Discharge Orders: Discharge Order (Routine); Ordered 01/28/25 Ordered By: Odalis Harper Diet: Advance to usual diet Activity on Discharge: As tolerated Stand Alone Forms: Patient Portal Discharge page Print Language: Maltese Activity Restrictions/Additional Instructions: Topical Wound Care Recommendations: Right Toes - Cleanse with saline, pat dry. ?Apply Iodosorb / Iodoflex to wound bed cover with gauze and tape. ?Change every other day.?? Iodoflex left at bedside. Note the Iodoflex will be applied brown and over the course of time as the Iodine is absorbed into the wound bed the color will change to yellow / cream signifying time to replace.?? Iodoflex can be obtained from Wound Care Nurse / Office this is not stocked on the units. At time of discharge patient should switch to Durafiber to the wound bed and change every other day as well. Care Plan Goals: Recovery Health Concerns: Osteomyelitis Plan of Treatment: Six weeks of IV daptomycin monitoring CBC and CPK weekly, end date is 03/07/2025, follow up with vascular and Infectious Disease Assessment: See above
--- NOTE | 2025-01-28 14:53 | MHC.CM.PN ---
[facility] RN to bedside for teach/orders. Awaiting PICC placement. Likely dc tomorrow. Discussed w/ patient and daughter, who are both agreeable to plan. CM will continue to follow.
[2025-01-28 15:16] VITALS: BP 139/62; PULSE 95; RESP 18; TEMP 36.4; O2SAT 99
--- NOTE | 2025-01-28 16:17 | W.MHC.F2F ---
Service Date Service Date: 01/28/25 Encounter Date of encounter: 01/28/25 Encounter: Possible Osteomyelitis Reasons for Services Signs and symptoms assessed: Any worsening of wound infection or drainage or fever or erythema. Reason for [facility]: wound care, medication management, medication treatment and teach disease management MD Overseeing Care: Pau Us Homebound: Leaving the home is medically contraindicated at this time without the asist of a device and/or another person due th the listed conditions above and below. Reason homebound: weakness related to hospital stay Homebound supporting statement: Patient is generalised weak post hospitlisation and need help with going to appointments and labs draws. Certification: Based on the above findings, I certify that this patient is confined to the home and needs intermittent [facility] care, physical therapy and/or speech therapy, or continues to need occupational therapy. The patient is under my care, and I have initiated the establishment of the plan of care. The patient will be followed by a physician who will periodically review the plan of care. Time Spent With Patient Time: Total time managing care of this patient today ____ minutes.
--- NOTE | 2025-01-28 16:48 | HO.PICC ---
PICC Line Insertion NPICC Diagnosis: Osteomyelitis Indication: intermediate ABT Pertinent Labs: reviewed Technique: Following informed consent including risks, benefits and alternatives and using sterile technique including cap and mask, sterile gown, glove and drape, the right arm was prepped and draped in the usual sterile fashion of full barrier technique with G. Following completion of [place] Protocol the skin and soft tissues were anesthetized with 1% Lidocaine plain. Using ultrasound guidance, right brachial vein access was obtained. Over an 0.018 wire through peel-away sheath, a 4FR single lumen PASV PICC line was positioned. Catheter length is 37cm internal length, 0cm external length, for a total trimmed length of 37cm. The procedure was performed in 7. Tip verification was performed by Ren Combs with Sherlock 3CG. Tip located in SVC. Ultrasound was used to document vein patency and for needle entry. A formal ultrasound picture and cardiac rhythm strip was recorded. Vascular [employer] has released the line for use and it is currently dressed with a StatLock, Tegaderm, and CHG disc. Verification has been performed for blood return and line patency. Arm Circumference: 24cm Equipment: [employer] POWERPICC SOLO catheter with Sherlock 3CG Tip Catheter Type: 4FR single lumen PASV catheter Lot #: [id number]
== END 2025-01-28 17:29 | disposition home health service (06) | DRG 603 ==
LOC: HO.ED 17:59 → HO.EDOVER 18:18 → HO.S3 23:49
PROVIDERS: Physician Assistant Medical; Admitting Provider Internal Medicine; Emergency Provider Emergency Medicine; PCP Internal Medicine; Visit Provider Internal Medicine
DX: L03.031 Cellulitis of right toe (principal); M86.171 Other acute osteomyelitis, right ankle and foot; M86.671 Other chronic osteomyelitis, right ankle and foot; G62.9 Polyneuropathy, unspecified; L97.511 Non-pressure chronic ulcer of other part of right foot limited to breakdown of skin; F25.9 Schizoaffective disorder, unspecified; Z86.14 Personal history of Methicillin resistant Staphylococcus aureus infection; Z87.891 Personal history of nicotine dependence; Z79.899 Other long term (current) drug therapy
CPT/HCPCS: 36415; 36573; 73630; 80048; 80076; 80202; 82565; 83540; 83605; 85025; 85027; 85652; 86140; 87040; 99285; C1751; J0692; J0878; J1650; J2003; J2543; J3374

== ENCOUNTER → 2025-01-23 14:52 | Outpatient (BNV) | payer OTHER, SELFPAY | PROVIDERS: Visit Provider Radiology Diagnostic Radiology | DX: M89.9 Disorder of bone, unspecified (principal) | CPT/HCPCS: 73630 ==

== ENCOUNTER → 2025-01-23 17:08 | Outpatient (BNV) | payer OTHER, SELFPAY | PROVIDERS: Emergency Provider Emergency Medicine; PCP Internal Medicine; Visit Provider Internal Medicine | DX: F25.9 Schizoaffective disorder, unspecified (principal) | CPT/HCPCS: 99223; 99232; 99233; 99499 ==

== ENCOUNTER → 2025-01-23 18:11 | Outpatient (BNV) | payer OTHER, SELFPAY | PROVIDERS: Admitting Provider Internal Medicine; Emergency Provider Emergency Medicine; PCP Internal Medicine; Visit Provider Internal Medicine | DX: M86.9 Osteomyelitis, unspecified (principal); S91.301A Unspecified open wound, right foot, initial encounter; M00.9 Pyogenic arthritis, unspecified | CPT/HCPCS: 99222 ==

== ENCOUNTER → 2025-01-23 18:11 | Outpatient (BNV) | payer OTHER, SELFPAY | PROVIDERS: Admitting Provider Internal Medicine; Emergency Provider Emergency Medicine; PCP Internal Medicine; Visit Provider Surgery Vascular Surgery | DX: M86.671 Other chronic osteomyelitis, right ankle and foot (principal) | CPT/HCPCS: 99222 ==